=== PATIENT | male | born 1970 | race Caucasian/White ===

== ENCOUNTER 2020-02-12 03:53 | Emergency (ER) | payer MEDICARE, MEDICAID, SELFPAY ==
[2020-02-12 04:09] VITALS: BP 129/86; PULSE 105; RESP 16; TEMP 36.9; O2SAT 99; BMI 20.9
--- NOTE | 2020-02-12 04:12 | ED_ITS ---
HPI - Psych General Chief Complaint: Psychiatric Symptoms Stated Complaint: SI Time Seen by Provider: 02/12/20 04:11 Source: patient and EMS Mode of arrival: EMS Limitations: no limitations History of Present Illness HPI Narrative: Patient has history of depression chronic pain and substance abuse feels nobody is helping him due to giving him Ronald gifts feels suicidal and depressed used heroin yesterday and weed today wants to talk to therapist complaint: suicidal ideation and feels depressed Onset (ago): day(s) Duration: constant History of same: Yes Relieving factors: none Exacerbating factors: none Context: recent drug abuse Associated psychiatric symptoms: depression and suicidal ideation Associated symptoms: denies other symptoms Treatments prior to arrival: none Related Data Home Medications Medication Instructions Recorded Confirmed buspirone 1 tab PO BID 02/12/20 02/12/20 divalproex 1 tab PO BID 02/12/20 02/12/20 divalproex 1 tab PO BID 02/12/20 02/12/20 risperidone 2 mg PO BID 02/12/20 02/12/20 Allergies Allergy/AdvReac Type Severity Reaction Status Date / Time [place] Citrate Allergy Unknown Unknown Uncoded 02/12/20 04:07 Review of Systems Review of Systems: Constitutional : No Fever, No Chills ENT/Mouth : No Ear Pain, No Nasal Congestion, No sore throat Eyes: No Eye Pain, No Swelling, No Redness Cardiovascular : No Chest Pain, No SOB Respiratory : No Cough, No Sputum, No Dyspnea Gastrointestinal : No Nausea, No Vomiting, No Diarrhea, No Hematochezia, No Melena Genitourinary : No Dysuria, No Urinary Frequency, No Hematuria Musculoskeletal : No Myalgias back pain+ Skin : No Skin Lesions, No rash Neuro : No Weakness, No Numbness, No Paresthesias, No Dizziness, No Headache Psych : positive Anxiety, positive Depression, positive SI Heme/Lymph: No Lymphadenopathy Endocrine : No Polyuria, No Polydipsia PMFSH Past Medical History Medical History Neuropathy Social History Social History Advance Directives: No Advance Directives Information Provided: No Physical Exam Vital Signs: Vital Signs: Last Vital Signs Temp 98.5 F 02/12/20 04:09 Pulse 105 H 02/12/20 04:09 Resp 16 02/12/20 06:00 BP 129/86 02/12/20 04:09 Pulse Ox 99 02/12/20 04:09 Body Mass Index 20.9 Const: General: cooperative, comfortable, no acute distress and alert Nutritional Appearance: average body habitus Orientation/consciousness: patient oriented x3 Limitations: no limitations HENMT: Head: Yes normal to inspection, Yes normocephalic and Yes atraumatic Eyes: General: appearance normal, both eyes and all related structures Neck: Neck: Yes normal visual inspection Resp: Effort & Inspection: normal respiratory effort Auscultation: clear to auscultation bilaterally Cardio: Rate: regular rate Rhythm: regular rhythm Heart sounds: S1 normal heart sound present GI: Inspection: Yes normal to inspection Palpation (GI): Soft to palpation and nontender Back/Spine/Pelvis: Thoracic/Lumbar Spine: thoracic and lumbar spine normal to inspection Skin: General skin exam: no rashes or lesions noted Neuro: General: patient oriented x3, moves all extremities and Normal light touch and pain sensation Extrem: General: Yes normal to inspection and Yes full ROM Psych: Appearance: grossly normal Mental Status: mental status grossly normal Speech and movement: Normal speech and movement present Affect: normal affect Attitude: cooperative Thought process: Normal thought process present Thought content: Suicidality present Insight: Good insight present (Psych) Judgement: Good judgement present (Psych) MDM - Psych MDM Narrative Medical decision making narrative: Patient with depression and substance abuse with vague suicidal feeling get crisis to talk to him. Patient signed out to Dr. Wilkerson for disposition Restraints Face to Face Assessment: Face to Face Assessment: Current Situation: After assessment of the patient, a review of the pertinent medical record and a discussion with nursing staff, I feel the patient requires a restrain intervention. Reaction To: [] Medical Condition: [] Behavioral State: [] Continued Need: [] Discharge Plan Discharge Prescriptions: No Action divalproex 250 mg tablet,delayed release (DR/EC) 1 tab PO BID RF: 0 divalproex 500 mg tablet,delayed release (DR/EC) 1 tab PO BID RF: 0 risperidone 2 mg tablet 2 mg PO BID RF: 0 buspirone 10 mg tablet 1 tab PO BID RF: 0
--- NOTE | 2020-02-12 04:31 | PC.NURSE ---
pt transported to er by ems, pt cooperative except when changing. pt will not remove his undershirt or elastic back brace. pt told MD the reason why he wanted to kill himself was because of his back and leg pain. pt reports that he is not being helped by services, and i'm not getting anything for choco. pt reports that he is not homeless, that he has 2 places where he can stay. pt reports that he has most of his medical records at [facility], he has a history of spinal infections and neuropathy. he was taking suboxone while in the hospital he last used opiates yesterday. pt was not brought to the behavioral health pod, because he needs a walker to ambulate.
[2020-02-12] MEDS: Ibuprofen 600 MG TABLET PO (05:15)
--- NOTE | 2020-02-12 05:21 | PC.NURSE ---
pt asking for pain medication, given ibuprofen. pt already given several packages of emily crackers and hot tea. pt finished all, and immediatly asked for more. pt now yelling that he want tea. explained to patient that breakfast is at 7am, he will be given 3 meals and a snack in between.
--- NOTE | 2020-02-12 05:23 | PC.NURSE ---
urinal at bedside, pt given a large pitcher of icewater. pt summary faxed to [facility]. belongings in POD locker.
[2020-02-12 06:00] VITALS: RESP 16
--- NOTE | 2020-02-12 06:25 | PC.NURSE ---
PT WOULD NOT STOP DEMANDING MORE COFFEE OR TEA, MOVED HIMSELF TO END OF BED AND YELLING OBSCENITIES. PT GIVEN THE OPTION TO LEAVE BY MD, PT THEN DECIDED TO POSITION HIMSELF BACK IN BED AND GO TO SLEEP. PT HAS BEEN SLEEPING FOR PAST HOUR.
[2020-02-12 11:10] LABS: Amphetamine Screen Urine Not Detected (Not Detect); Benzodiazepines Screen Urine Not Detected (Not Detect); Cannabinoid Screen Urine POSITIVE (Not Detect); Cocaine Screen Urine POSITIVE (Not Detect); Opiate Screen Urine Not Detected (Not Detect); Phencyclidine Screen Urine Not Detected (Not Detect)
[2020-02-12 11:12] LABS: Barbiturates, Urine Not Detected (Not Detect)
--- NOTE | 2020-02-12 11:13 | PC.NURSE ---
Pt has been consistently rude and demanding to staff, been redirected not to yell out because he hasn't been seen yet. [facility] will be in to see patient. sitter at bedside
[2020-02-12 12:00] VITALS: RESP 16
[2020-02-12] MEDS: busPIRone HCl 10 MG TABLET PO (15:12)
[2020-02-12] MEDS: Divalproex Sodium 250 MG TABLET.DR PO (15:12)
[2020-02-12] MEDS: Divalproex Sodium 500 MG TABLET.DR PO (15:13)
--- NOTE | 2020-02-12 15:39 | MHC.CARE ---
Pt referred for CATHY reina at 10:24 AM, which ED nurse reported that a follow up call to confirm receipt occurred. At 3 PM this handbook writer contacted [facility] re: estimated arrival for a clinician to see the pt, at which point [facility] crisis staff stated that a referral was never received and that they are uncertain when a clinician would be available to meet with pt. This handbook writer told [facility] that pt would be seen by CARE team, and would require no action on their end due to pt's primary insurance being Medicare. This handbook writer met with pt in main ED room 6. Pt's mood was irritable and pt endorsed feeling disappointed that he won't have a good Bowman. Pt reported that he is part of the PACT program ([facility]) and that the program pays for pt to live at the [facility]. Pt stated that his PACT program steamfitter supervisor didn't bring groceries to pt, and because he lives too far from stores he is low on food and doesn't have cigarettes, which has further caused the pt distress. Pt ambulates with the assistance of a walker, which makes walking to stores a challenge for the pt. Pt expressed that his thoughts of suicide and his agitation when he initially presented to the ED was in response to his frustration with the program staff. Pt denied experiencing any thoughts of or desire to harm himself at this time. Pt reported that he has an appt with his psychiatrist on Sunday02/16/20 (Vero Marshall at [facility]). Pt is advocating that he return home, and is requesting a ride and to receive his medications that he missed this morning, as he has been in the ED since 4 AM and missed his VNA ([facility]), and will be unable to take his medications himself due to them being kept secured in a lock box. ED provider is in agreement with plan for pt to discharge. Medications that are able to be distributed to pt will be prior to discharge, and this handbook writer will arrange for transportation via Lyft or taxi to return home to [facility].
--- NOTE | 2020-02-12 15:41 | PC.NURSE ---
pt seem by care team, cleared to go home after medication given, care team will call for lift
[2020-02-12] MEDS: risperiDONE 2 MG TABLET PO (16:34)
== END 2020-02-12 16:46 | disposition home or self-care (01) ==
PROVIDERS: Emergency Provider Internal Medicine
DX: F32.9 Major depressive disorder, single episode, unspecified (principal); R45.851 Suicidal ideations; F11.10 Opioid abuse, uncomplicated; Z79.899 Other long term (current) drug therapy
CPT/HCPCS: 80307; 99284

== ENCOUNTER 2020-03-02 13:49 | Outpatient (REF) | payer MEDICARE, MEDICAID, SELFPAY | END 2020-03-02 13:50 | disposition home or self-care (01) | LOC: HO.LAB 13:49 | PROVIDERS: Visit Provider Internal Medicine | DX: Z20.822 Contact with and (suspected) exposure to COVID-19 (principal) | CPT/HCPCS: 36415; C9803; U0003 ==

== ENCOUNTER 2023-01-24 09:09 | Outpatient (AMB) | payer OTHER, SELFPAY ==
--- NOTE | 2023-01-24 09:39 | HO.SPINEOV ---
Intake Intake Visit Reasons: Low back pain Intake Note: Mr. Stout is here today c/o low back pain. MRI done @ [facility]/brought disc. Informatics Analyst Required: No Allergies [place] Citrate Allergy (Unknown, Uncoded 02/12/20 04:07) Unknown Assessment & Plan Assessment & Plan (1) Burst fracture of lumbar vertebra with routine healing: Code(s): S32.001D - Stable burst fracture of unspecified lumbar vertebra, subsequent encounter for fracture with routine healing Plan Dear colleague Thank you for referring Salbador Stout to the office today for surgical evaluation of a lumbar deformity. 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 The osteomyelitis was cured and due to collapse of the L2 vertebral body a lumbar deformity developed. The patient's main complaint standing in a forward position. He denies significant pain. No motor or sensory changes. No bowel urinary problems. He was seen at [facility], [facility] and [facility] for this problem. I reviewed the MRI and CT of the lumbar spine in detail with the patient. I demonstrated that he is auto fused. I described surgical procedure to restore the lumbar lordosis. I described possible complications that can occur, including vessel injury neurological injury and more back pain. I also made him aware that the fusion is solid enough to prevent it from progressing. Therefore I recommended against a surgical intervention as disadvantages outweigh the benefits. He fully understood my explanation. I Thank you for allowing me to participate in your patients care. total time spent was 30 minutes in counseling ,coordination of plan, personal review of imaging Toby Barber MD, PhD Spine Fellowship Trained Neurosurgeon Director, [facility] Coding Level of Care Code New Pt Level 3 (69343) Diagnoses Burst fracture of lumbar vertebra with routine healing S32.001D
== END 2023-01-24 10:25 | disposition home or self-care (01) ==
PROVIDERS: Visit Provider Neurological Surgery
DX: S32.001D Stable burst fracture of unspecified lumbar vertebra, subsequent encounter for fracture with routine healing (principal)
CPT/HCPCS: 99203

== ENCOUNTER → 2023-01-24 09:09 | Outpatient (BNVA) | payer OTHER, SELFPAY | PROVIDERS: Visit Provider Neurological Surgery | DX: S32.001D Stable burst fracture of unspecified lumbar vertebra, subsequent encounter for fracture with routine healing (principal) | CPT/HCPCS: 99202 ==

== ENCOUNTER 2023-09-07 15:11 | Outpatient (AMB) | payer OTHER, SELFPAY ==
--- NOTE | 2023-09-07 15:41 | HO.SPINEOV ---
Intake Visit Reasons: Discuss Surgery Intake Note: Mr. Stout is here to Discuss Surgery. Manager Building Required: No Allergies [place] Citrate Allergy (Unknown, Uncoded 02/12/20 04:07) Unknown Assessment & Plan Assessment & Plan (1) Burst fracture of lumbar vertebra with routine healing: Code(s): S32.001D - Stable burst fracture of unspecified lumbar vertebra, subsequent encounter for fracture with routine healing Category: Medical Qualifiers: Fracture type: closed Qualified Code(s): S32.001D - Stable burst fracture of unspecified lumbar vertebra, subsequent encounter for fracture with routine healing Plan On 09/07/2023, I saw Salbador Stout. He developed a deformity after a lumbar osteomyelitis for which I did not recommend surgery. He falls now and then and may lend on the deformity. He is afraid that he will develop without a fracture. Therefore he is asking for customized brace. I will make a referral to a prosthetic company and then he can visit them to see if they have options for him. I spent 15 minutes in his consult. Toby Barber MD, PhD Spine Fellowship Trained Neurosurgeon Director, [facility] [place] Coding Level of Care Code Est Pt Level 2 (77585) Diagnoses Closed burst fracture of lumbar vertebra with routine healing, subsequent encounter S32.001D Fracture type: closed
== END 2023-09-07 16:17 | disposition home or self-care (01) ==
PROVIDERS: Visit Provider Neurological Surgery
DX: S32.001D Stable burst fracture of unspecified lumbar vertebra, subsequent encounter for fracture with routine healing (principal)
CPT/HCPCS: 99212

== ENCOUNTER → 2023-09-07 15:11 | Outpatient (BNVA) | payer OTHER, SELFPAY | PROVIDERS: Visit Provider Neurological Surgery | DX: S32.001D Stable burst fracture of unspecified lumbar vertebra, subsequent encounter for fracture with routine healing (principal); X58.XXXD Exposure to other specified factors, subsequent encounter; Z91.81 History of falling | CPT/HCPCS: 99212 ==

== ENCOUNTER 2023-09-14 21:37 | Emergency (ER) | payer OTHER, SELFPAY ==
[2023-09-14 21:57] VITALS: BP 131/99; PULSE 102; RESP 18; TEMP 36.8; O2SAT 93; BMI 18.0
[2023-09-14 22:02] LABS: Glucose, Whole Blood 74 mg/dL (60-115)
--- NOTE | 2023-09-14 22:05 | PC.NURSE ---
[facility] staff Ben Hearn on patient's phone. States patient has care from [facility]. Tell# . LIkely they can provide a ride in the am. Not now.
--- NOTE | 2023-09-14 22:10 | ED_ITS ---
HPI - General Adult General Chief complaint: General Medical Stated complaint: ETOH, marijuana, possibly heroin Time Seen by Provider: 09/14/23 22:10 Source: patient Mode of arrival: ambulatory Limitations: no limitations History of Present Illness ED Provider: gema TUBBS narrative: Patient's history of depression was sleeping on the bench unable to go to his residential home so came to the hospital which is closer to hospital denies any suicidal ideation no substance abuse patient missed his medication earlier Related Data Home Medications ?Medication ?Instructions ?Recorded ?Confirmed benztropine 2 mg tablet 2 mg PO BID 02/12/20 02/12/20 buprenorphine 8 mg-naloxone 2 mg 1 film buccal DAILY 02/12/20 sublingual film buspirone 10 mg tablet 10 mg PO BID 02/12/20 02/12/20 divalproex 250 mg tablet,delayed 250 mg PO BID 02/12/20 02/12/20 release divalproex 500 mg tablet,delayed 500 mg PO BID 02/12/20 02/12/20 release risperidone 2 mg tablet 2 mg PO BID 02/12/20 02/12/20 Allergies Allergy/AdvReac Type Severity Reaction Status Date / Time [place] Citrate Allergy Unknown Unknown Uncoded 09/14/23 22:03 Review of Systems Review of Systems: Yes all other systems are reviewed and are negative [facility] Past Medical History Medical History Neuropathy Social History Social History Do you have a plan to hurt others: No Plan Physical Exam ED Vital Signs: Vital Signs - 24 hr 09/14/23 21:57 Temperature 98.3 F Pulse Rate 102 H Respiratory Rate 18 Blood Pressure 131/99 H Pulse Oximetry 93 Oxygen Delivery Method Room Air BMI result Body Mass Index 18.0 Appearance: Alert. Oriented X3. No acute distress. Eyes: PERRLA, No Nystagmus ENT: Pharynx normal. Oral Mucosa moist Neck: Normal inspection. Neck supple. CVS: Normal heart rate and rhythm. Pulses normal. Respiratory: No respiratory distress. Equal air entry bilateral, no wheezing/rales/rhonchi Abdomen: Soft and nontender. Bowel sounds are present, no mass palpable, no CVA tenderness Skin: Skin warm and dry. Normal skin color. Normal skin turgor. Extremities: No lower extremity edema. No calf tenderness Neuro: Oriented X 3. No motor deficit. No sensory deficit.No cerebellar signs , cranial nerves II-XII intact Medical Decision Making Lab Data MDM Lab Attestation statement: I reviewed the patient's lab results. Labs: Lab Results 09/14/23 Range/Units 21:58 POC Glucose 74 (60-115) mg/dL Discharge Plan Discharge Clinical Impression: Depression Patient Disposition: Home, Self-Care Instructions: Depression (ED) Additional Instructions: Take your medications as prescribed and follow with your psychiatrist/therapist Prescriptions: No Action divalproex 250 mg tablet,delayed release (DR/EC) 250 mg PO BID divalproex 500 mg tablet,delayed release (DR/EC) 500 mg PO BID risperidone 2 mg tablet 2 mg PO BID buspirone 10 mg tablet 10 mg PO BID benztropine 2 mg tablet 2 mg PO BID buprenorphine-naloxone 8-2 mg Film 1 film BUCCAL DAILY Print Language: Kosovan
--- NOTE | 2023-09-14 22:29 | PC.NURSE ---
RN to bedside to medicate the pt per APR. Pt noted to be sitting upright on the edge of the bed with head hanging down. While RN present the pt's head was noted to slowly drop lower and lower as his body was bending forward. This RN called the patient's name to prevent him from falling off the bed at which point he startled awake and denied being sleeping stating i wasn't sleeping I was just resting my back, you don't get to come over and corporate security officer me . RN clarified that there was no judgment to be passed, only wanted to ensure safety. Pt was made aware that the RN had his medication to which he refused stating you're not supposed to take that medication after 10pm anyways . When awake he is ambulating with even/steady gait, provided with food and beverage per request and has had his primary eval by . He otherwise remains calm and cooperative and appropriate with staff, continues to request to be allowed to walk home as he reports his residential program/house is down the street .
--- OUTSIDE RECORDS SUMMARY | 2023-09-14 23:02 | XMS_ITS | Continuity of Care Document ---
Author Organization [facility] ter Address [address] [place] [id number]- Care Team Providers Care Greensman Name Role Phone Mae Brennan NP Primary Care Physician Encounter [facility] Date(s): 10/22/20 - 10/22/[address] [address]- Discharge Disposition: A-D/C Walkout Attending Physician: Not on Staff, Attending MD Admitting Physician: Not on Staff, Admitting MD Referring Physician: Not on Staff, Referring MD Allergies, Adverse Reactions, Alerts Substance Reaction Severity Status lithium unknown Active Immunizations Given and Recorded Vaccine Date Status Refusal Reason tetanus/diphtheria/pertussis, acel(Tdap) 03/09/17 Given Not Given Vaccine Date Status Refusal Reason pneumococcal 23-valent vaccine 01/21/20 Not Given Patient Refuses pneumococcal 23-valent vaccine 09/28/19 Not Given Patient Refuses pneumococcal 23-valent vaccine 09/11/19 Not Given Patient Refuses influenza virus vaccine, inactivated 01/21/20 Not Given Patient Refuses Medications Back Brace See Instructions, # 1 each, Maintenance, BACK BRACE WITH VELCRO NATHAN BANDAGE MATERIAL DX chronic lowback px, unsteady gait, h/o vertebral osteomylitis ROSINA [phone], 08/26/20 9:05:00 EDT, Supply Start Date: 08/26/20 Status: Ordered benztropine 2 mg oral tablet 1 tablet = 2 mg, By Mouth, 2 times a day, Maintenance, 06/01/20 13:02:00 EDT, Tablet, Partial fill upon patient request if the prescription is for a schedule II opioid drug. Start Date: 06/01/20 Status: Ordered buprenorphine 8 mg sublingual tablet, disintegrating 1 tablet = 8 mg, Sublingual, Daily, Maintenance, 06/01/20 13:03:00 EDT, Tablet, Partial fill upon patient request if the prescription is for a schedule II opioid drug. Start Date: 06/01/20 Status: Ordered busPIRone 10 mg oral tablet 10 mg, 1, tablet, By Mouth, 2 times a day, DEIDRA MORELOS, Refills 0, Maintenance, 08/02/20 14:18:00EDT, Partial fill upon patient request if the prescription is for a schedule II opioid drug. Start Date: 08/02/20 Stop Date: 09/01/20 Status: Ordered Cane See Instructions, # 1 each, Maintenance, 4 PRONG CANE DX chronic low back px, unsteady gait, h/o vertebral osteomylitis ROSINA [phone], 08/26/20 9:05:00 EDT, Supply Start Date: 08/26/20 Status: Ordered CeleBREX 200 mg oral capsule 1 capsule = 200 mg, By Mouth, 2 times a day, PRN Pain , Moderate, contents of capsule may be mixed with soft foods such as applesauce, # 60 capsule, 0 Refills, Maintenance, 08/02/20 14:32:00 EDT, Capsule, [facility]-, Partial f... Start Date: 08/02/20 Status: Ordered divalproex sodium 250 mg oral enteric coated tablet 1 tablet = 250 mg, By Mouth, 2 times a day, take with 500mg for a total dose of 750mg, Maintenance,06/01/20 12:59:00 EDT, Partial fill upon patient request if the prescription is for a schedule II opioid drug. Start Date: 06/01/20 Status: Ordered divalproex sodium 500 mg oral enteric coated tablet 1 tablet = 500 mg, By Mouth, 2 times a day, take with 250mg for a total dose of 750mg, Maintenance,06/01/20 13:00:00 EDT, Partial fill upon patient request if the prescription is for a schedule II opioid drug. Start Date: 06/01/20 Status: Ordered gabapentin 300 mg oral capsule 300 mg, 1, capsule, By Mouth, 2 times a day, # 90 capsule, Refills 0, Tot. Refills 0, Maintenance, 08/02/20 14:30:00 EDT, Route to Pharmacy Electronically, [facility]-, Partial fill upon patient request if the prescription is f... Start Date: 08/02/20 Status: Ordered ibuprofen 600 mg oral tablet 600 mg, 1, tablet, By Mouth, Every 8 hours, PRN, not to exceed 3200 mg/day with food or milk, # 90 tablet, Refills 0, Tot. Refills 0, Maintenance, Pain , Moderate, 08/13/20 10:32:00 EDT, Route to Pharmacy Electronically, [facility]... Start Date: 08/13/20 Stop Date: 09/12/20 Status: Ordered Knee Support See Instructions, # 1 each, Maintenance, Right knee brace. Dx Knee pain Wear as tolerated, 08/02/2113:37:00 EDT, Supply Start Date: 08/02/20 Status: Ordered Left wrist brace. Dx left wrist pain Left wrist brace. Dx left wrist pain, See Instructions, # 1 each, Refills 0, Tot. Refills 0, Maintenance, Wear as tolerated, 08/02/20 14:35:00 EDT, Supply Start Date: 08/02/20 Status: Ordered risperiDONE 2 mg oral tablet 2 mg, 1, tablet, By Mouth, 2 times a day, # 60 tablet, Refills 0, Maintenance, 09/09/19 2:55:00 EDT Start Date: 09/09/19 Status: Ordered Tylenol 325 mg oral tablet 650 mg, 2, tablet, By Mouth, Every 4 hours, PRN, Refills 0, Maintenance, Pain , Moderate, 06/04/20 11:48:00 EDT, Partial fill upon patient request if the prescription is for a schedule II opioid drug. Start Date: 06/04/20 Status: Ordered Walker Walker, See Instructions, # 1 each, Refills 0, Tot. Refills 0, Maintenance, Use while ambulating toprevent falls, 01/28/20 15:38:00 EST, Supply Start Date: 01/28/20 Status: Ordered Problem List Condition Effective Dates Status Health Status Inform ant Unsteady gait(Confirmed) Active Abscess abdominal wall(Confirmed) Active Chronic back pain(Confirmed) Active Chronic hepatitis C(Confirmed) Active Cocaine abuse(Confirmed) Active Hypertension(Confirmed) Active infeced groin mesh(Confirmed) Active Inguinal hernia recurrent un ilateral/ right(Confirmed) Active IVDU (intravenous drug user)(Confirmed) Active Anxiety and depression(Confirmed) Active Chronic pain of left wrist(Confirmed) Active Polysubstance abuse(Confirmed) Active Abscess and cellulitis abdom en wall(Confirmed) Active Hernia, inguinal, recurrent, right(Confirmed) Active Schizoaffective disorder(Confirmed) Active Substance abuse(Confirmed) Active Deep foreign body right groi n. Exposed mesh right groin.(Confirmed) Active Suture granuloma(Confirmed) Active Tobacco dependence(Confirmed) Active Vital Signs Most recent to oldest [Reference Range]: 1 Oxygen Saturation [94-100 %] 94 % (10/22/20 1:54 PM) Pulse Rate [55-90 bpm] 86 bpm (10/22/20 1:54 PM) Blood Pressure [90-138/55-84 mm Hg] 101/ 77mm Hg (10/22/20 1:54 PM) Respiratory Rate [16-30 br/min] 18 br/mi n (10/22/20 1:54 PM) Temperature [96.8-100.4 DegF] 97.8 DegF (10/22/20 1:54 PM) Mode of Delivery (Oxygen) Room air (10/22/20 1:54 PM) Blood pressure sites Arm, left (10/22/20 1:54 PM) Temperature Route Oral (10/22/20 1:54 PM) Social History Social History Type Response Smoking Status Current every day vidhya cavanaugh; Other: 1 pack per since age 9 years; entered on: 03/09/17 Sex
--- OUTSIDE RECORDS SUMMARY | 2023-09-14 23:02 | XMS_ITS | Continuity of Care Document ---
Author Organization [facility] Adult Address [address] [place] [address]- Care Team Providers Care Cadd Technician Name Role Phone Mika CLAY, Mae Serrano Primary Care Physician [phone] [place] [facility] [place](s): 02/09/22 - 03/11/22 [facility] [address] [place] [address]- Allergies, Adverse Reactions, Alerts Substance Reaction Severity Status lithium unknown Active Immunizations Given and Recorded Vaccine Date Status Refusal Reason SARS-CoV-2 mRNA ([id number]) vax 03/14/21 Recorded SARS-CoV-2 (COVID-19) mRNA BNT-162b2 vac 04/30/20 Recorded SARS-CoV-2 (COVID-19) mRNA BNT-162b2 vac 04/01/20 Recorded tetanus/diphtheria/pertussis, acel(Tdap) 03/09/17 Given Not Given Vaccine Date Status Refusal Reason pneumococcal 23-valent vaccine 01/21/20 Not Given Patient Refuses pneumococcal 23-valent vaccine 09/28/19 Not Given Patient Refuses pneumococcal 23-valent vaccine 09/11/19 Not Given Patient Refuses influenza virus vaccine, inactivated 01/21/20 Not Given Patient Refuses Medications benztropine 2 mg oral tablet 1 tablet = 2 mg, By Mouth, 2 times a day, Maintenance, 06/01/20 13:02:00 EDT, Tablet, Partial fill upon patient request if the prescription is for a schedule II opioid drug. Start Date: 06/01/20 Status: Ordered Cane See Instructions, # 1 each, Maintenance, 4 Prong Cane Dx: Dx: bilateral tibial plateau fracture (S82.143A) Bilateral tibial avulsion (S82.153A) Chronic low back pain (M54.9) Unsteady Gait (R6.81) Life long (99), 05/02/21 9:46:00 EDT, VLADISLAV BARRERA. Start Date: 05/02/21 Status: Ordered divalproex sodium 250 mg oral [...] opioid drug. Start Date: 06/01/20 Status: Ordered Flonase 50 mcg/inh nasal spray 1 sprays, Nares, Both, 2 times a day, for 30 days, # 16 Gm, 0 Refills, Acute 03/31/22 13:36:00 EST,03/01/22 13:36:00 EST, [place], [facility], Partial fill upon patient request if the prescription is for a schedule II opioid . Start Date: 03/01/22 Stop Date: 03/31/22 Status: Ordered Knee Support See Instructions, # 1 each, Maintenance, Right knee brace Dx: bilateral tibial plateau fracture (S82.143A) Bilateral tibial avulsion (S82.153A), 05/02/21 9:45:00 EDT, ROSINA [phone], Supply Start Date: 05/02/21 Status: Ordered Knee Support See Instructions, # 1 each, Maintenance, Left knee brace Dx: bilateral tibial plateau fracture (S82.143A) Bilateral tibial avulsion (S82.153A), 05/02/21 9:48:00 EDT, [facility] [phone], Supply Start Date: 05/02/21 Status: Ordered Left wrist brace. Dx left wrist pain Left wrist brace. Dx left wrist pain, See Instructions, # 1 each, Refills 0, Tot. Refills 0, Maintenance, Wear as tolerated Dx: Left wrist scaphoid fracture (S62.002A) Left wrist pain (M25.532), 05/02/21 9:46:00 EDT, ROSINA [phone], Supply Start Date: 05/02/21 Status: Ordered levocetirizine 5 mg oral tablet 1 tablet = 5 mg, By Mouth, Daily in PM, # 30 tablet, 3 Refills, Maintenance, 03/01/22 13:24:00 EST,Tablet, [facility]-, Partial fill upon patient request if the prescription is for a schedule II opioid drug., 1 tablet By Mouth... Start Date: 03/01/22 Status: Ordered meloxicam 15 mg oral tablet 1 tablet = 15 mg, By Mouth, Daily, PRN Pain , Moderate, # 30 tablet, 4 Refills, Maintenance, 03/01/22 13:25:00 EST, Tablet, [facility]-, Partial fill upon patient request if the prescription is for a schedule II opioid drug., 1... Start Date: 03/01/22 Status: Ordered pantoprazole 40 mg oral delayed release tablet 1 tablet = 40 mg, By Mouth, Daily, # 30 tablet, 6 Refills, Maintenance, 02/27/22 18:10:00 EST, EC Tablet, 165, cm, 02/04/22 21:04:00 EST, Height, 76, kg, 02/04/22 21:04:00 EST, Dry Weight Start Date: 02/27/22 Status: Ordered risperiDONE 2 mg oral tablet 2 mg, 1, tablet, By Mouth, 2 times a day, # 60 tablet, Refills 0, Maintenance, 09/09/19 2:55:00 EDT Start Date: 09/09/19 Status: Ordered Walker Walker, See Instructions, # 1 each, Refills 0, Tot. Refills 0, Maintenance, Use while ambulating toprevent falls, 01/28/20 15:38:00 EST, Supply Start Date: 01/28/20 Status: Ordered Problem List Condition Confirmation Course Effective Dates Status H ealth Status Informant Unsteady gait Confirmed Active Abscess abdominal wall Confirmed Active Allergic rhinitis Confirmed Active Avulsion fracture of tibial tuberosity Confirmed Active Chronic back pain Confirmed Active Cocaine abuse Confirmed Active Lumbar nerve root impingement Confirmed Active Fracture of scaphoid of left wrist Confirmed Active Tibial plateau fracture, left Confirmed Active Tibial plateau fracture, right Confirmed Active GERD (gastroesophageal reflux disease) Confirmed Active H/O discitis Confirmed Active Hypertension Confirmed Active infeced groin mesh Confirmed Active Inguinal hernia recurrent unilateral/ right Confirmed Active IVDU (intravenous drug user) Confirmed Active Anxiety and depression Confirmed Active Chronic pain of left wrist Confirmed Active Bilateral chronic knee pain Confirmed Active Polysubstance abuse Confirmed Active Abscess and cellulitis abdomen wall Confirmed Active Hernia, inguinal, recurrent, right Confirmed Active Schizoaffective disorder Confirmed Active Lumbar foraminal stenosis Confirmed Active Substance abuse Confirmed Active Deep foreign body right groin. Exposed mesh right groin. Confirmed Active Suture granuloma Confirmed Active Tobacco dependence Confirmed Active Social History Social History Type Response Smoking Status Current every day sm oker; Type: Cigarettes entered on: 09/13/16 Sex Patient Care team information Care Team Personnel Name: Naty Malcolm RN Position: [facility] RN Member Role: Primary Care Nurse Name: Harshil Cardoso RN Position: [facility] RN Member Role: Primary Care Nurse Name: Lionel Ludwig MD Position: [facility] Renal MD Member Role: Lifetime Consulting Physician Address: Address: [address] [place] [address], [facility] [address] [facility] [place] [address]- Name: Rowan Alvarez RN Position: [facility] HBO Wound Member Role: Primary Care Nurse Name: Tala Plasencia RN Position: [facility] RN Member Role: Primary Care Nurse Name: Franklin Seth RN Position: [facility] RN Member Role: Primary Care Nurse Name: Kathy Honeycutt Position: [facility] RN Member Role: Primary Care Nurse Name: Az Pham RN Position: [facility] YARA RN W/OE and Tasks Member Role: Primary Care Nurse Name: Libertda Olmos RN Position: [facility] RN Member Role: Primary Care Nurse Name: Daily Mane RN Position: [facility] RN Member Role: Primary Care Nurse Name: Meri Barker RN Position: [facility] YARA RN W/OE and Tasks Member Role: Primary Care Nurse Name: Katelynn Milan RN Position: [facility] PCO RN Member Role: Primary Care Nurse Name: Mae Brennan NP Position: [facility] PCO Associate Professional Member Role: PCP Address: Address: [address] [place] [address] 3rd [place] [address]- [place] Name: Deborah Gusman RN Position: [facility] Associate Member Role: Primary Care Nurse Name: Chito Powers RN Position: [facility] RN Member Role: Primary Care Nurse Name: Antonio Velasquez RN Position: [facility] RN Member Role: Primary Care Nurse Name: Alexey Ramos RN Position: [facility] RN Member Role: Primary Care Nurse Name: Crow Burk MD Position: [facility] Renal MD Member Role: Lifetime Consulting Physician Address: Address: [address] [place] [address] [facility] [place] [address]- Name: Emelyn Corbin RN Position: [facility] RN Member Role: Primary Care Nurse Name: Aurea Gutierrez RN Position: [facility] RN Member Role: Primary Care Nurse Care Team Related Persons Name: CHARLES FRANKLIN Address: [address] [address]
--- OUTSIDE RECORDS SUMMARY | 2023-09-14 23:02 | XMS_ITS | Continuity of Care Document ---
Author Organization [facility] Address [address] [place] [address]- Care Team Providers Care Director Toxicology Name Role Phone Mika CLAY, Mae Serrano Primary Care Physician [place] [facility] [place]): [place] [facility] [address] [place] [address] Attending Physician: Cam Mccall MD Admitting Physician: Cam Mccall MD Referring Physician: Mae Brennan NP Allergies, Adverse Reactions, Alerts Substance Reaction Severity [...] 01/21/20 Not Given Patient Refuses Medications benztropine 1 mg oral tablet 2 mg, 2, tablet, By Mouth, 2 times a day, Refills 0, Maintenance, 09/29/19 14:53:00 EDT Start Date: 09/29/19 Status: Ordered divalproex sodium 250 mg oral enteric coated tablet 3 tablet = 750 mg, By Mouth, 2 times a day, Maintenance, 01/19/20 15:00:00 EST, EC Tablet, Partial fill upon patient request Start Date: 01/19/20 Status: Ordered gabapentin 300 mg oral capsule 300 mg, 1, capsule, By Mouth, 3 times a day, # 90 capsule, Refills 0, Tot. Refills 0, Maintenance, 02/19/20 10:39:00 EST, Route to Pharmacy Electronically, [facility], Partial fill upon patient request if the prescription is f... Start Date: 02/19/20 Status: Ordered risperiDONE 2 mg oral tablet 2 mg, 1, tablet, By Mouth, 2 times a day, # 60 tablet, Refills 0, Maintenance, 09/09/19 2:55:00 EDT Start Date: 09/09/19 Status: Ordered Suboxone 8 mg-2 mg sublingual film 1 film, Sublingual, Daily, dissolve under the tongue, Maintenance, 01/19/20 15:01:00 EST, Film, Partial fill upon patient request Start Date: 01/19/20 Status: Ordered Walker Walker, See Instructions, # 1 each, Refills 0, Tot. Refills 0, Maintenance, Use while ambulating toprevent falls, 01/28/20 15:38:00 EST, Supply Start Date: 01/28/20 Status: Ordered Problem List Condition Effective Dates Status Health Status Inform ant Abscess abdominal wall(Confirmed) Active Chronic hepatitis C(Confirmed) Active Cocaine abuse(Confirmed) [...] Active Suture granuloma(Confirmed) Active Tobacco dependence(Confirmed) Active Social History Social History Type Response Smoking Status Current every day sm oker; Other: 1 pack per since age 9 years; entered on: 03/09/17 Sex Male
--- OUTSIDE RECORDS SUMMARY | 2023-09-14 23:02 | XMS_ITS | Continuity of Care Document ---
Author Organization [facility] Adult Address [address] [place] [address]- Care Team Providers Care Biodiesel Processing Technician Name Role Phone Mika CLAY, Mae Serrano Primary Care Physician [place] [facility] [place] 03/01[place]22 - 03/31/22 [facility] [address] [place] [address]- Attending Physician: Admtr, Ar8 Admitting Physician: Admtr, Ar8 Referring Physician: Admtr, Ar8 Allergies, Adverse Reactions, Alerts Substance Reaction Severity Status lithium unknown Active Immunizations Given and Recorded Vaccine Date Status Refusal Reason SARS-CoV-2 mRNA ([id number]) vax 03/14/21 Recorded SARS-CoV-2 (COVID-19) mRNA BNT-162b2 [...] Life long (99), 05/02/21 9:46:00 EDT, VLADISLAV AND... Start Date: 05/02/21 Status: Ordered desloratadine 5 mg oral tablet 1 tablet = 5 mg, By Mouth, Daily, # 90 tablet, 0 Refills, Maintenance, 03/27/22 13:51:00 EST, Tablet, [facility]-, Partial fill upon patient request if the prescription is fora schedule II opioid drug., 165, cm, 03/01/22 12:48... Start Date: 03/27/22 Status: Ordered divalproex sodium 250 mg oral [...] opioid drug. Start Date: 06/01/20 Status: Ordered Knee Support See Instructions, # 1 each, Maintenance, Right knee brace Dx: bilateral tibial plateau fracture (S82.143A) Bilateral tibial avulsion (S82.153A), 05/02/21 9:45:00 EDT, [facility] [phone], Supply Start Date: 05/02/21 Status: Ordered Knee Support See Instructions, # 1 each, Maintenance, Left knee brace Dx: bilateral tibial plateau fracture (S82.143A) Bilateral tibial avulsion (S82.153A), 05/02/21 9:48:00 EDT, ROSINA [id number], Supply Start Date: 05/02/21 Status: Ordered Left wrist brace. Dx left wrist pain Left wrist brace. Dx left wrist pain, See Instructions, # 1 each, Refills 0, Tot. Refills 0, Maintenance, Wear as tolerated Dx: Left wrist scaphoid fracture (S62.002A) Left wrist pain (M25.532), 05/02/21 9:46:00 EDT, ROSINA [phone], Supply Start Date: 05/02/21 Status: Ordered meloxicam 15 mg oral tablet 1 tablet = 15 mg, By Mouth, Daily, PRN Pain , Moderate, # 30 tablet, 4 Refills, Maintenance, 03/01/22 13:25:00 EST, Tablet, [facility]-, Partial fill upon patient request if [...] Response Smoking Status Current every day sm afshan; Type: Cigarettes entered on: 09/13/16 Sex Hospital Consult note * Event Display: Inpatient Consult Note, Non-BH Authored Date: * Event Display: Inpatient Consult Note, Non-BH Authored Date: Note * Event Display: Non BH Lab Results Authored Date: * Event Display: Non BH Lab Results Authored Date: * Event Display: X-Ray Hand/Wrist Authored Date: Patient Care team information Care Team Personnel Name: Naty Malcolm RN Position: [facility] RN Member Role: Primary Care Nurse Name: Harshil Cardoso RN Position: [facility] RN Member Role: Primary Care Nurse Name: Meri Lima RN Position: [facility] ED RN W/OE and Tasks Member Role: Primary Care Nurse Name: Lionel Ludwig MD Position: [facility] Renal MD Member Role: Lifetime Consulting Physician Address: Address: [address] [place] [address], [address] [facility] [address] Name: Rowan Alvarez RN Position: [facility] HBO Wound Member Role: Primary Care Nurse Name: Tala Plasencia RN Position: [facility] RN Member Role: Primary Care Nurse Name: Franklin Seth RN Position: [facility] RN Member Role: Primary Care Nurse Name: Kathy Honeycutt Position: [facility] RN Member Role: Primary Care Nurse Name: Az Pham RN Position: [facility] ED RN W/OE and Tasks Member Role: Primary Care Nurse Name: Libertad Olmos RN Position: [facility] RN Member Role: Primary Care Nurse Name: Daily Mane RN Position: [facility] RN Member Role: Primary Care Nurse Name: Katelynn Milan RN Position: [facility] PCO RN Member Role: Primary Care Nurse Name: Mae Brennan NP Position: [facility] PCO Associate Professional Member Role: PCP Address: Address: [address] [place] [address] [address] [place] [address]- [place] Name: Belinda Gusman RN Position: [facility] Social Worker Delinquency Prevention Member Role: Primary Care Nurse Name: Chito Powers RN Position: [facility] RN Member Role: Primary Care Nurse Name: Antonio Velasquez RN Position: [facility] RN Member Role: Primary Care Nurse Name: Alexey Ramos RN Position: [facility] RN Member Role: Primary Care Nurse Name: Crow Burk MD Position: [facility] Renal MD Member Role: Lifetime Consulting Physician Address: Address: [address] [place] [address] [facility] [place] [address]- Name: Emelyn Corbin RN Position: [facility] RN Member Role: Primary Care Nurse Name: Aurea Gutierrez RN Position: [facility] RN Member Role: Primary Care Nurse Care Team Related Persons Name: CHARLES FRANKLIN Address: [address] [place] [address]
--- OUTSIDE RECORDS SUMMARY | 2023-09-14 23:02 | XMS_ITS | Continuity of Care Document ---
Author Organization [facility] Address [address] [place] [address]- Care Team Providers Care Gravity Manager Name Role Phone Mika CLAY, Mae Serrano Primary Care Physician Encounter [facility] [place] Date(s): 06/29/22 - 07/29/22 [facility] [address] [place] [address]- Allergies, Adverse Reactions, Alerts No Known Medication Allergies Immunizations Given and Recorded Vaccine Date Status Refusal Reason [id number] bivalent booster vax 12/16/21 Recorded SARS-CoV-2 mRNA ([id number]) vax 03/14/21 Recorded SARS-CoV-2 (COVID-19) mRNA BNT-162b2 [...] VLADISLAV AND... Start Date: 05/02/21 Status: Ordered Cogentin Tablet 2 mg, By Mouth, 2 times a day, Refills 0, Maintenance, 07/15/22 18:59:00 EDT, Partial fill upon patient request if the prescription is for a schedule II opioid drug. Start Date: 07/15/22 Status: Ordered desloratadine 5 mg oral tablet 1 tablet = 5 mg, By Mouth, Daily, # 90 tablet, 2 Refills, Maintenance, 06/19/22 14:26:00 EDT, Tablet, [facility]-, Partial fill upon patient request if the prescription is fora schedule II opioid drug., 165, cm, 03/01/22 12:48... Start Date: 06/19/22 Status: Ordered divalproex sodium 250 mg oral [...] opioid drug. Start Date: 06/01/20 Status: Ordered fluticasone 50 mcg/inh nasal spray See Instructions, USE 1 SPRAY IN EACH NOSTRIL TWICE A DAY, # 16 Gm, 5 Refills, Maintenance, 07/21/22 13:26:00 EDT, [facility]-, 30, USE 1 SPRAY IN EACH NOSTRIL TWICE A DAY, 165, cm, 07/15/22 18:51:00 EDT, Height, 76.5, kg, 07/15/22 18:51:00... Start Date: 07/21/22 Status: Ordered Knee Support See Instructions, # 1 each, Maintenance, Right knee brace Dx: bilateral tibial plateau fracture (S82.143A) Bilateral tibial avulsion (S82.153A), 05/02/21 9:45:00 EDT, [facility] [phone], Supply Start Date: 05/02/21 Status: Ordered Knee Support See Instructions, # 1 each, Maintenance, Left knee brace Dx: bilateral tibial plateau fracture (S82.143A) Bilateral tibial avulsion (S82.153A), 05/02/21 9:48:00 EDT, [facility] [phone], Supply Start Date: 05/02/21 Status: Ordered Left wrist brace. Dx left wrist pain Left wrist brace. Dx left wrist pain, See Instructions, # 1 each, Refills 0, Tot. Refills 0, Maintenance, Wear as tolerated Dx: Left wrist scaphoid fracture (S62.002A) Left wrist pain (M25.532), 05/02/21 9:46:00 EDT, ROSINA [phone], Supply Start Date: 05/02/21 Status: Ordered naproxen 500 mg (as sodium) oral tablet, extended release 2 tablet = 1,000 mg, By Mouth, Daily, PRN as needed for pain, # 20 tablet, 0 Refills, Maintenance, 07/15/22 19:00:00 EDT, ER Tablet, Partial fill upon patient request if the prescription is for a schedule II opioid drug. Start Date: 07/15/22 Status: Ordered pantoprazole 40 mg oral delayed [...] Team Personnel Name: Naty Malcolm RN Position: [facility] RN Member Role: Primary Care Nurse Name: Harshil Cardoso RN Position: [facility] RN Member Role: Primary Care Nurse Name: Meri Lima RN Position: [facility] ED RN W/OE and Tasks Member Role: Primary Care Nurse Name: Lionel Ludwig MD Position: [facility] Renal MD Member Role: Lifetime Consulting Physician Address: Address: [address] [place] [address], [address] [facility] [address] Name: Rowan Alvarez RN Position: [facility] HBO Wound Member Role: Primary Care Nurse Name: Tala Plasencia RN Position: [facility] RN Member Role: Primary Care Nurse Name: Franklin Seth RN Position: [facility] RN Member Role: Primary Care Nurse Name: Kathy Honeycutt Position: [facility] RN Member Role: Primary Care Nurse Name: Gideon Miller RN Position: [facility] SN RN Member Role: Primary Care Nurse Name: Az Pham RN Position: [facility] ED RN W/OE and Tasks Member Role: Primary Care Nurse Name: Libertad Olmos RN Position: [facility] RN Member Role: Primary Care Nurse Name: Daily Mane RN Position: [facility] RN Member Role: Primary Care Nurse Name: Katelynn Milan RN Position: [facility] AMB Nurse Member Role: Primary Care Nurse Name: Mae Brennan NP Position: [facility] PCO Associate Professional Member Role: PCP Address: Address: [address] [place] [address]- Name: Deborah Gusman RN Position: [facility] Butting Machine Operator Member Role: Primary Care Nurse Name: Chito Powers RN Position: [facility] RN Member Role: Primary Care Nurse Name: Antonio Velasquez RN Position: [facility] RN Member Role: Primary Care Nurse Name: Alexey Ramos RN Position: [facility] RN Member Role: Primary Care Nurse Name: Crow Burk MD Position: [facility] Renal MD Member Role: Lifetime Consulting Physician Address: Address: [address] [place] [address] [facility] [place] [address]- Name: Emelyn Corbin RN Position: [facility] RN Member Role: Primary Care Nurse Name: Aurea Gutierrez RN Position: [facility] RN Member Role: Primary Care Nurse Care Team Related Persons Name: CHARLES FRANKLIN Address: [address] [address]
--- OUTSIDE RECORDS SUMMARY | 2023-09-14 23:02 | XMS_ITS | Continuity of Care Document ---
Author Organization [facility] Adult Address [address] [place] [address]- Care Team Providers Care Ground Source Heat Pump Technician Name Role Phone Mika CLAY, Mae Serrano Primary Care Physician [phone] Encounter [facility] Date(s): 04/24/22 - 05/24/[address] [facility] Adult [address] [place] [address]- Allergies, Adverse Reactions, Alerts Substance Reaction Severity Status lithium unknown Active Immunizations Given and Recorded Vaccine Date Status Refusal Reason SARS-CoV-2 mRNA ([id number]) vax 03/14/21 Recorded SARS-CoV-2 (COVID-19) mRNA BNT-162b2 [...] Daily, # 90 tablet, 0 Refills, Maintenance, 04/18/22 8:05:00 EST, Tablet, [facility]-, Partial fill upon patient request if the prescription is for a schedule II opioid drug., 165, cm, 03/01/22 12:48:... Start Date: 04/18/22 Status: Ordered divalproex sodium 250 mg oral [...] tibial avulsion (S82.153A), 05/02/21 9:45:00 EDT, ROSINA [id number], Supply Start Date: 05/02/21 Status: Ordered Knee Support See Instructions, # 1 each, Maintenance, Left knee brace Dx: bilateral tibial plateau fracture (S82.143A) Bilateral tibial avulsion (S82.153A), 05/02/21 9:48:00 EDT, ROSINA [id number], Supply Start Date: 05/02/21 Status: Ordered Left wrist brace. Dx left wrist pain Left wrist brace. Dx left wrist pain, See Instructions, # 1 each, Refills 0, Tot. Refills 0, Maintenance, Wear as tolerated Dx: Left wrist scaphoid fracture (S62.002A) Left wrist pain (M25.532), 05/02/21 9:46:00 EDT, ROSINA [id number], Supply Start Date: 05/02/21 Status: Ordered naproxen 500 mg oral tablet 1 tablet = 500 mg, By Mouth, Every 12 hours, PRN Pain , Moderate, for 30 days, # 60 tablet, 0 Refills, Acute 06/16/22 17:44:00 EDT, 05/17/22 17:44:00 EDT, Tablet, [facility]-,Partial fill upon patient request if the prescripti... Start Date: 05/17/22 Stop Date: 06/16/22 Status: Ordered pantoprazole 40 mg oral delayed [...] afshan; Type: Cigarettes entered on: 09/13/16 Sex Patient Care team information Care Team Personnel Name: Naty Malcolm RN Position: [facility] RN Member Role: Primary Care Nurse Name: Harshil Cardoso RN Position: [facility] RN Member Role: Primary Care Nurse Name: Meri Lima RN Position: [facility] ED RN W/OE and Tasks Member Role: Primary Care Nurse Name: Lionel Ludwig MD Position: [facility] Renal MD Member Role: Lifetime Consulting Physician Address: Address: [address] [place] [address], [address] [facility] [place] [address]- Name: Rowan Alvarez RN Position: [facility] Wound Member Role: Primary Care Nurse Name: Tala Plasencia RN Position: [facility] RN Member Role: Primary Care Nurse Name: Franklin Seth RN Position: [facility] RN Member Role: Primary Care Nurse Name: Kathy Honeycutt Position: [facility] RN Member Role: Primary Care Nurse Name: Az Pham RN Position: [facility] ED RN W/OE and Tasks Member Role: Primary Care Nurse Name: Libertad Olmos RN Position: [facility] RN Member Role: Primary Care Nurse Name: Daily Mane RN Position: [facility] RN Member Role: Primary Care Nurse Name: Katelynn [place] RN Position: [facility] PCO RN Member Role: Primary Care Nurse Name: Mae Brennan NP Position: [facility] PCO Associate Professional Member Role: PCP Address: Address: [address] [place] [address] 3rd [place] [address]- [place] Name: Deborah Gusman RN Position: [facility] Hospital Patient Escort Member Role: Primary Care Nurse Name: Chito Powers RN Position: [facility] RN Member Role: Primary Care Nurse Name: Antonio Velasquez RN Position: [facility] RN Member Role: Primary Care Nurse Name: Alexey Ramos RN Position: [facility] RN Member Role: Primary Care Nurse Name: Crow Burk MD Position: [facility] Renal MD Member Role: Lifetime Consulting Physician Address: Address: [address] [place] [address] [facility] [place], [place] [address] Name: Emelyn Corbin RN Position: S RN Member Role: Primary Care Nurse Name: Aurea Gutierrez RN Position: S RN Member Role: Primary Care Nurse Care Team Related Persons Name: CHARLES FRANKLIN Address: home [address] [place], [place] [id number]
--- OUTSIDE RECORDS SUMMARY | 2023-09-14 23:02 | XMS_ITS | Continuity of Care Document ---
Author Organization [facility] Adult Address [address] [place] [address]- Care Team Providers Care Fishing Tool Supervisor Name Role Phone Mika CLAY, Mae Serrano Primary Care Physician Encounter [facility] Date(s): 11/26/18 - 03/26/19 [facility] Adult [address] [place] [address]- [facility] Attending Physician: Not on Staff, Attending MD Allergies, Adverse Reactions, Alerts Substance Reaction Severity Status lithium unknown Active Immunizations Given and Recorded Vaccine Date Status Refusal Reason tetanus/diphtheria/pertussis, acel(Tdap) 03/09/17 Given Medications Cogentin Tablet 2 mg, Daily, Refills 0, Maintenance, 04/12/18 10:09:37 EST Start Date: 04/12/18 Status: Ordered Depakote By Mouth, 3 times a day, 0 Refills, Maintenance, 03/13/17 11:06:37 Start Date: 03/13/17 Status: Ordered diclofenac sodium 75 mg oral delayed release tablet 1 tablet = 75 mg, By Mouth, 2 times a day, PRN Pain , Moderate, , # 28 tablet, 0 Refills, Maintenance, 11/18/18 9:55:59 EDT Start Date: 11/18/18 Stop Date: 12/02/18 Status: Ordered divalproex sodium 500 mg oral tablet, extended release 1 tablet, By Mouth, 2 times a day, 0 Refills, Maintenance, 08/18/10 15:52:25, ER Tablet Start Date: 08/18/10 Status: Ordered Divalproex Tablet 750 mg, By Mouth, 1 tab in the AM, Refills 0, Maintenance, 07/21/16 15:18:43 Start Date: 07/21/16 Status: Ordered Left Wrist Brace Left Wrist Brace, See Instructions, # 1 application, Refills 0, Tot. Refills 0, Maintenance, Dx: Chronic left Wrist Pain, Chronic scaphoid fracture, 12/20/17 10:16:22 EDT, Compound Start Date: 12/20/17 Status: Ordered levocetirizine 5 mg oral tablet 1 tablet = 5 mg, By Mouth, Daily in PM, # 14 tablet, 0 Refills, Maintenance, 11/18/18 9:57:02 EDT, Tablet, 1 tablet By Mouth Daily in PM,x14 days Start Date: 11/18/18 Stop Date: 12/02/18 Status: Ordered naltrexone 50 mg oral tablet 1 tablet = 50 mg, By Mouth, Daily, # 30 tablet, 0 Refills, Maintenance, 04/12/18 10:10:41 EST, Tablet Start Date: 04/12/18 Status: Ordered risperidone 2 mg oral tablet 1 tablet, By Mouth, 2 times a day, 0 Refills, Maintenance, Tablet Start Date: 08/18/10 Status: Ordered Problem List Condition Effective Dates Status Health Status Inform ant Abscess abdominal wall(Confirmed) Active Chronic hepatitis C(Confirmed) Active Cocaine abuse(Confirmed) Active Hypertension(Confirmed) Active infeced groin mesh(Confirmed) Active Inguinal hernia recurrent un ilateral/ right(Confirmed) Active IVDU (intravenous drug user)(Confirmed) Active Anxiety and depression(Confirmed) Active Chronic pain of left wrist(Confirmed) Active Abscess and cellulitis abdom en wall(Confirmed) [...]
--- OUTSIDE RECORDS SUMMARY | 2023-09-14 23:02 | XMS_ITS | Continuity of Care Document ---
Author Organization [facility] Adult Address [address] [place] [address]- Care Team Providers Care Agency Development Manager Name Role Phone Mika CLAY, Mae Serrano Primary Care Physician Encounter [facility] Date(s): 01/05/23 - 02/04/23 [facility] Adult [address] [place] [id number]- Allergies, Adverse Reactions, Alerts No Known Medication Allergies Immunizations Given and Recorded Vaccine Date Status Refusal Reason SARS-CoV-2(COVID-19)mRNA-LNP vac([id number]) 12/18/22 Recorded influenza virus vaccine, inactivated 11/15/22 Preet rded [id number] bivalent booster vax 12/16/21 Recorded SARS-CoV-2 mRNA (nzcslyp-[id number]) vax 03/14/21 Recorded SARS-CoV-2 (COVID-19) mRNA BNT-162b2 vac 04/30/20 Recorded SARS-CoV-2 (COVID-19) mRNA BNT-162b2 vac 04/01/20 Recorded tetanus/diphtheria/pertussis, acel(Tdap) 03/09/17 Given Medications albuterol CFC free 90 mcg/inh inhalation aerosol 2, puffs, Inhalation, 4 times a day, PRN, # 6.7 Gm, Refills 0, Tot. Refills 0, Maintenance, 02/03/23 11:33:00 EST, Inhaler, Route to Pharmacy Electronically, [facility]-[id number], [facility]-, 176, cm, 01/04/23 10:48:00 EST, Height... Start Date: 02/03/23 Stop Date: 03/05/23 Status: Ordered Anoro Ellipta 62.5 mcg-25 mcg/inh inhalation powder 1 puffs, Inhalation, Daily, # 1 each, 11 Refills, Maintenance, 02/01/23 10:55:00 EST, Pow[facility], [facility] Partial fill upon patient request if the prescription is for a schedule II opioid drug., 1 puffs Inhalation Daily,x30 da... Start Date: 02/01/23 Stop Date: 01/27/24 Status: Ordered Banophen 25 mg oral capsule 1 capsule, By Mouth, 3 times a day, PRN NEEDED FOR ALLERGY SYMTPOMS, # 90 capsule, 6 Refills, Maintenance, 01/31/23 8:41:00 EST, [id number], 176, cm, 01/04/23 10:48:00 EST, Height, 70,kg, 12/21/22 12:46:00 EDT, Dry Weight Start Date: 01/31/23 Status: Ordered Cane See Instructions, # 1 [...] opioid drug. Start Date: 07/15/22 Status: Ordered divalproex sodium 500 mg oral enteric coated tablet 1 tablet = 500 mg, By Mouth, 2 times a day, take with 250mg for a total dose of 750mg, Maintenance,06/01/20 13:00:00 EDT, Partial fill upon patient request if the prescription is for a schedule II opioid drug. Start Date: 06/01/20 Status: Ordered Flovent Diskus 50 mcg/inh inhalation powder 1 each = 50 mcg, Inhalation, 2 times a day, rinse mouth and throat after use, # 60 each, 0 Refills,Maintenance, 01/04/23 11:30:00 EST, Powder, Partial fill upon patient request if the prescription is for a schedule II opioid drug. Start Date: 01/04/23 Status: Ordered fluticasone 50 mcg/inh nasal spray 1 sprays, Nares, Both, 2 times a day, in each nostril, # 16 Gm, 3 Refills, Maintenance, 01/04/23 11:38:00 EST, [place], Partial fill upon patient request if the prescription is for a schedule II opioiddrug., 1 sprays Nares, Both 2 times a day,x30 days,... Start Date: 01/04/23 Stop Date: 05/04/23 Status: Ordered glucosamine 750 mg oral tablet 2 tablet = 1,500 mg, By Mouth, Daily, # 180 tablet, 2 Refills, Maintenance, 01/04/23 11:36:00 EST, Tablet, Partial fill upon patient request if the prescription is for a schedule II opioid drug., 176, cm, 01/04/23 10:48:00 EST, Height, 70, kg, ... Start Date: 01/04/23 Stop Date: 10/01/23 Status: Ordered Knee Support See Instructions, # 1 each, Maintenance, Right knee brace Dx: bilateral tibial plateau fracture (S82.143A) Bilateral tibial avulsion (S82.153A), 05/02/21 9:45:00 EDTROSINA [id number], Supply Start Date: 05/02/21 Status: Ordered Knee Support See Instructions, # 1 each, Maintenance, Left knee brace Dx: bilateral tibial plateau fracture (S82.143A) Bilateral tibial avulsion (S82.153A), 05/02/21 9:48:00 EDT, ROSINA [id number], Supply Start Date: 05/02/21 Status: Ordered Left wrist brace. Dx left wrist pain Left wrist brace. Dx left wrist pain, See Instructions, # 1 each, Refills 0, Tot. Refills 0, Maintenance, Wear as tolerated Dx: Left wrist scaphoid fracture (S62.002A) Left wrist pain (M25.532), 05/02/21 9:46:00 EDROSINA [place] [phone], Supply Start Date: 05/02/21 Status: Ordered levocetirizine 5 mg oral tablet 1 tablet = 5 mg, By Mouth, Daily in PM, # 90 tablet, 0 Refills, Maintenance, 01/04/23 11:32:00 EST,Tablet, Partial fill upon patient request if the prescription is for a schedule II opioid drug. Start Date: 01/04/23 Status: Ordered pantoprazole 40 mg oral delayed release tablet 1 tablet = 40 mg, By Mouth, Daily in AM, # 90 tablet, 1 Refills, Maintenance, 01/04/23 11:31:00 EST, EC Tablet Start Date: 01/04/23 Status: Ordered risperiDONE 1 mg oral tablet 1 mg, 1, tablet, By Mouth, Daily, # 30 tablet, Refills 0, Maintenance, 01/04/23 10:59:00 EST, Partial fill upon patient request if the prescription is for a schedule II opioid drug. Start Date: 01/04/23 Status: Ordered risperiDONE 2 mg oral tablet [...] Active Hernia, inguinal, recurrent, right Confirmed Active Right inguinal hernia Confirmed Active Schizoaffective disorder Confirmed Active Lumbar [...] Team Personnel Name: Naty Malcolm RN Position: [facility] RN Member Role: Primary Care Nurse Name: Harshil Cardoso RN Position: [facility] RN Member Role: Primary Care Nurse Name: Meri Lima RN Position: [facility] ED RN W/OE and Tasks Member Role: Primary Care Nurse Name: Lionel Ludwig MD Position: [facility] Renal MD Member Role: Lifetime Consulting Physician Address: Address: [address] [place] [address] [address] [facility] [place] [address]- [place] Name: Rowan Alvarez RN Position: [facility] HBO Wound Member Role: Primary Care Nurse Name: Tala Plasencia RN Position: [facility] RN Member Role: Primary Care Nurse Name: Franklin Seth RN Position: [facility] RN Member Role: Primary Care Nurse Name: Kathy Honeycutt Position: [facility] RN Member Role: Primary Care Nurse Name: Gideon Miller RN Position: [facility] SN RN Member Role: Primary Care Nurse Name: Az Pham RN Position: [facility] ED RN W/OE and Tasks Member Role: Primary Care Nurse Name: Libertad Olmos RN Position: [facility] RN Member Role: Primary Care Nurse Name: Daily Mane RN Position: [facility] RN Member Role: Primary Care Nurse Name: Katelynn [place] RN Position: [facility] AMB Nurse Member Role: Primary Care Nurse Name: Mae Brennan NP Position: [facility] PCO Associate Professional Member Role: PCP Address: Address: [address] [place] [id number]- [place] Name: Belinda Gusman RN Position: [facility] Hospital Club Concierge Member Role: Primary Care Nurse Name: Chito Powers RN Position: [facility] RN Member Role: Primary Care Nurse Name: Antonio Velasquez RN Position: [facility] RN Member Role: Primary Care Nurse Name: Alexey Ramos RN Position: [facility] RN Member Role: Primary Care Nurse Name: Crow Burk MD Position: [facility] Renal MD Member Role: Lifetime Consulting Physician Address: Address: [address] [place] [address] [facility] [place] [address]- [place] Name: Emelyn Corbin RN Position: [facility] RN Member Role: Primary Care Nurse Name: Aurea Gutierrez RN Position: [facility] RN Member Role: Primary Care Nurse Care Team Related Persons Name: CHARLES FRANKLIN Address: [place] [id number]
--- OUTSIDE RECORDS SUMMARY | 2023-09-14 23:02 | XMS_ITS | Continuity of Care Document ---
Author Organization [facility] Adult Address [address] [place] [address]- Care Team Providers Care Card Boxer Name Role Phone Mae Brennan NP Primary Care Physician Encounter [facility] Date(s): 02/19/20 - 03/20/20 [facility] [address] [place] [address]- Attending Physician: Liliana Wood Admitting Physician: Liliana Wood Referring Physician: AdmtrLiliana Allergies, Adverse Reactions, Alerts Substance Reaction Severity [...] 02/19/20 10:39:00 EST, Route to Pharmacy Electronically, [facility], Partial fill upon patient request if the [...] Type Response Smoking Status Current every day ivdhya cavanaugh; Other: 1 pack per since age 9 years; entered on: 03/09/17 Sex Male
--- OUTSIDE RECORDS SUMMARY | 2023-09-14 23:02 | XMS_ITS | Continuity of Care Document ---
Author Organization [facility] As on license of [facility] Address [address] [place] [address] [address] [place] [address]- Care Team Providers Care Bakelite Molder Name Role Phone Mika CLAY, Mae Serrano Primary Care Physician [place] [facility](s): 02/27/23 - 03/06/[address] [place] [address]- Attending Physician: Oziel Hills MD Allergies, Adverse Reactions, Alerts Substance Reaction Severity Status lithium bladder/ metabolism Active Immunizations Given and Recorded Vaccine Date Status Refusal Reason SARS-CoV-2(COVID-19)mRNA-LNP vac([id number]) 12/18/22 Recorded influenza virus vaccine, inactivated 11/15/22 Preet rded [id number] bivalent booster vax 12/16/21 Recorded SARS-CoV-2 mRNA ([id number]) vax 03/14/21 Recorded SARS-CoV-2 (COVID-19) mRNA BNT-162b2 vac 04/30/20 Recorded SARS-CoV-2 (COVID-19) mRNA BNT-162b2 vac 04/01/20 Recorded tetanus/diphtheria/pertussis, acel(Tdap) 03/09/17 Given Medications Albuterol (Eqv-Proventil HFA) 90 mcg/inh inhalation aerosol 2 puffs, Inhalation, 4 times a day, PRN NEEDED FOR WHEEZING, # 6.7 Gm, 0 Refills, Maintenance, 02/26/23 10:07:00 EST, [id number], 176, cm, 02/16/23 13:04:00 EST, Height, 70, kg, 12/21/22 12:46:00 EDT, Dry Weight Start Date: 02/26/23 Stop Date: 03/28/23 Status: Ordered Anoro Ellipta 62.5 mcg-25 mcg/inh inhalation powder 1 puffs, Inhalation, Daily, # 1 each, 11 Refills, Maintenance, 02/01/23 10:55:00 EST, Powder, [facility]-, Partial fill upon patient request if the prescription is for a schedule II opioid drug., 1 puffs Inhalation Daily,x30 da... Start Date: 02/01/23 Stop Date: 01/27/24 Status: Ordered Banophen 25 mg oral capsule 1 capsule, By Mouth, 3 times a day, PRN NEEDED FOR ALLERGY SYMTPOMS, # 90 capsule, 6 Refills, Maintenance, 02/23/23 17:34:00 EST, [facility]/pharmacy #[id number], 176, cm, 02/16/23 13:04:00 EST, Height, 70, kg, 12/21/22 12:46:00 EDT, Dry Weight Start Date: 02/23/23 Status: Ordered Cane See Instructions, # 1 [...] Gm, 3 Refills, Maintenance, 01/04/23 11:38:00 EST, [place], Partial fill upon patient request if the prescription is for a schedule II opioiddrug., 1 sprays Nares, Both 2 times a day,x30 days,... Start Date: 01/04/23 Stop Date: 05/04/23 Status: Ordered glucosamine 750 mg oral tablet 2 tablet = 1,500 mg, By Mouth, Daily, # 180 tablet, 3 Refills, Maintenance, 02/16/23 13:57:00 EST, Tablet, Partial fill upon patient request if the prescription is for a schedule II opioid drug. Start Date: 02/16/23 Stop Date: 02/11/24 Status: Ordered Knee Support See Instructions, # 1 each, Maintenance, Right knee brace Dx: bilateral tibial plateau fracture (S82.143A) Bilateral tibial avulsion (S82.153A), 05/02/21 9:45:00 EDT, [facility]INA [id number], Supply Start Date: 05/02/21 Status: Ordered Knee Support See Instructions, # 1 each, Maintenance, Left knee brace Dx: bilateral tibial plateau fracture (S82.143A) Bilateral tibial avulsion (S82.153A), 05/02/21 9:48:00 EDT, ROSINA [id number], Supply Start Date: 05/02/21 Status: Ordered Left wrist brace. Dx left wrist pain Left wrist brace. Dx left wrist pain, See Instructions, # 1 each, Refills 0, Tot. Refills 0, Maintenance, Wear as tolerated Dx: Left wrist scaphoid fracture (S62.002A) Left wrist pain (M25.532), 05/02/21 9:46:00 EDT, ROSINA [id number], Supply Start Date: 05/02/21 Status: Ordered naproxen 500 mg oral tablet 1 tablet = 500 mg, By Mouth, 2 times a day, PRN Pain , Moderate, for 30 days, with food, # 60 tablet, 0 Refills, Acute 03/18/23 14:05:00 EST, 02/16/23 14:05:00 EST, Tablet, [id number], Partial fill upon patient request if the... Start Date: 02/16/23 Stop Date: 03/18/23 Status: Ordered pantoprazole 40 mg oral delayed [...] Avulsion fracture of tibial tuberosity Confirmed Active Bipolar disorder Confirmed Active Chronic back pain Confirmed Active [...] pain Confirmed Active Polysubstance abuse Confirmed Active COPD with emphysema Confirmed Active Abscess and cellulitis abdomen wall Confirmed Active Hernia, inguinal, recurrent, right Confirmed Active Right inguinal hernia Confirmed Active Schizoaffective disorder Confirmed Active Lumbar foraminal stenosis Confirmed Active Substance abuse Confirmed Active Deep foreign body right groin. Exposed mesh right groin. Confirmed Active Suture granuloma Confirmed Active Tobacco dependence Confirmed Active Vital Signs Most recent to oldest [Reference Range]: 1 Height 176 cm (02/27/23 11:54 AM) Weight 75.8 kg (02/27/23 11:54 AM) Pulse Rate [55-90 bpm] 74 bpm (02/27/23 11:54 AM) Body Mass Index [18.5-24.99 kg/m2] 24.47 kg/m2 (02/27/23 11:54 AM) Blood Pressure [90-138/55-84 mm Hg] 116/ 74mm Hg (02/27/23 11:54 AM) Respiratory Rate [16-30 br/min] 16 br/mi n (02/27/23 11:54 AM) Temperature [96.8-100.4 DegF] 97.5 DegF (02/27/23 11:54 AM) Blood pressure sites Arm, left (02/27/23 11:54 AM) Temperature Route Temporal (02/27/23 11:54 AM) Weight Obtained Via Standing scale (02/27/23 11:54 AM) Social History Social History Type Response Smoking Status 5-9 cigarettes (betw een 1/4 to 1/2 pack)/day in last 30 days entered on: 02/27/23 Sex Patient Care team information Care Team Personnel Name: Naty Malcolm RN Position: [facility] RN Member Role: Primary Care Nurse Name: Harshil Cardoso RN Position: [facility] RN Member Role: Primary Care Nurse Name: Meri Lima RN Position: [facility] ED RN W/OE and Tasks Member Role: Primary Care Nurse Name: Lionel Ludwig MD Position: [facility] Renal MD Member Role: Lifetime Consulting Physician Address: Address: [address] [place] [address] [address] [facility] [place] [address]- Name: Rowan Alvarez RN Position: [facility] HBO Wound Member Role: Primary Care Nurse Name: Tala Plasencia RN Position: [facility] RN Member Role: Primary Care Nurse Name: Franklin Seth RN Position: [facility] RN Member Role: Primary Care Nurse Name: Kathy Honeycutt Position: [facility] RN Member Role: Primary Care Nurse Name: Gideon Miller RN Position: [facility] SN RN Member Role: Primary Care Nurse Name: Az Pham RN Position: [facility] ED RN W/OE and Tasks Member Role: Primary Care Nurse Name: Libertad Olmos RN Position: [facility] RN Member Role: Primary Care Nurse Name: Daily Mane RN Position: [facility] RN Member Role: Primary Care Nurse Name: Katelynn [place] RN Position: [facility] AMB Nurse Member Role: Primary Care Nurse Name: Mae Brennan NP Position: [facility] PCO Associate Professional Member Role: PCP Address: Address: [address] [place] [address]- Name: Belinda Gusman RN Position: [facility] Parimutuel Ticket Seller Member Role: Primary Care Nurse Name: Chito Powers RN Position: [facility] RN Member Role: Primary Care Nurse Name: Antonio Velasquez RN Position: [facility] RN Member Role: Primary Care Nurse Name: Alexey Ramos RN Position: [facility] RN Member Role: Primary Care Nurse Name: Crow Burk MD Position: [facility] Renal MD Member Role: Lifetime Consulting Physician Address: Address: [address] [place] [address] [facility] [place] [address]- Name: Emelyn Corbin RN Position: [facility] RN Member Role: Primary Care Nurse Name: Aurea Gutierrez RN Position: [facility] RN Member Role: Primary Care Nurse Care Team Related Persons Name: CHARLES FRANKLIN Address: home [address] [place] [address]
--- OUTSIDE RECORDS SUMMARY | 2023-09-14 23:03 | XMS_ITS | Continuity of Care Document ---
Author Organization [facility] Adult Address [address] [place] [address]- Care Team Providers Care Director Of Maintenance Name Role Phone Mika CLAY, Mae Serrano Primary Care Physician [phone] Encounter [facility] [place] Date(s): 02/22/23 - 03/24/23 [facility] Adult [address] [place] [address]- Allergies, Adverse Reactions, Alerts Substance Reaction Severity Status lithium bladder/ metabolism Active Immunizations Given and Recorded Vaccine Date Status Refusal Reason SARS-CoV-2(COVID-19)mRNA-LNP vac([id number]) 12/18/22 Recorded influenza virus vaccine, inactivated 11/15/22 Preet rded [id number] bivalent booster vax 12/16/21 Recorded SARS-CoV-2 mRNA ([id number]) vax 03/14/21 Recorded SARS-CoV-2 (COVID-19) mRNA BNT-162b2 vac 04/30/20 Recorded SARS-CoV-2 (COVID-19) mRNA BNT-162b2 vac 04/01/20 Recorded tetanus/diphtheria/pertussis, acel(Tdap) 03/09/17 Given Medications Albuterol (Eqv-Proventil HFA) 90 mcg/inh inhalation aerosol 2 puffs, Inhalation, 4 times a day, PRN NEEDED FOR WHEEZING, # 6.7 Gm, 0 Refills, Maintenance, 02/26/23 10:07:00 EST, [id number], 176, cm, 02/16/23 13:04:00 EST, Height, 70, kg, 12/21/22 12:46:00 EDT, Dry Weight Start Date: 02/26/23 Stop Date: 03/28/23 Status: Ordered Anoro Ellipta 62.5 mcg-25 mcg/inh inhalation powder 1 puffs, Inhalation, Daily, # 1 each, 11 Refills, Maintenance, 02/01/23 10:55:00 EST, Powder, [facility]-, Partial fill upon patient request if the prescription is for a schedule II opioid drug., 1 puffs Inhalation Daily,x30 da... Start Date: 02/01/23 Stop Date: 01/27/24 Status: Ordered Banophen 25 mg oral capsule 1 capsule, By Mouth, 3 times a day, PRN NEEDED FOR ALLERGY SYMTPOMS, # 90 capsule, 6 Refills, Maintenance, 02/23/23 17:34:00 EST, [facility]/pharmacy #[id number], 176, cm, 02/16/23 13:04:00 EST, Height, [...] Gm, 3 Refills, Maintenance, 01/04/23 11:38:00 EST, [place], Partial fill upon patient request if the [...] tibial avulsion (S82.153A), 05/02/21 9:45:00 EDT, [facility] [id number], Supply Start Date: 05/02/21 Status: Ordered Knee Support See Instructions, # 1 each, Maintenance, Left knee brace Dx: bilateral tibial plateau fracture (S82.143A) Bilateral tibial avulsion (S82.153A), 05/02/21 9:48:00 EDT, [facility] [id number], Supply Start Date: 05/02/21 Status: Ordered Left wrist brace. Dx left wrist pain Left wrist brace. Dx left wrist pain, See Instructions, # 1 each, Refills 0, Tot. Refills 0, Maintenance, Wear as tolerated Dx: Left wrist scaphoid fracture (S62.002A) Left wrist pain (M25.532), 05/02/21 9:46:00 EDT, [facility] [phone], Supply Start Date: 05/02/21 Status: Ordered naproxen 500 mg oral tablet 1 tablet, By Mouth, 2 times a day, PRN NEEDED FOR MODERATE PAIN WITH FOOD, # 60 tablet, 0 Refills, Maintenance, 03/15/23 11:20:00 EST, [facility] [id number], 176, cm, 02/27/23 11:54:00 EST, Height, 70, kg, 12/21/22 12:46:00 EDT, Dry Weight Start Date: 03/15/23 Status: Ordered pantoprazole 40 mg oral delayed [...] Team Personnel Name: Naty Malcolm RN Position: [facility] RN Member Role: Primary Care Nurse Name: Harshil Cardoso RN Position: [facility] RN Member Role: Primary Care Nurse Name: Meri Lima RN Position: [facility] ED RN W/OE and Tasks Member Role: Primary Care Nurse Name: Lionel Ludwig MD Position: [facility] Renal MD Member Role: Lifetime Consulting Physician Address: Address: [address] [place] [address] [address] [facility] [address]- [place] Name: Rowan Alvarez RN Position: [facility] HBO Wound Member Role: Primary Care Nurse Name: Tala Plasencia RN Position: [facility] RN Member Role: Primary Care Nurse Name: Franklin Seth RN Position: [facility] RN Member Role: Primary Care Nurse Name: Kathy Honeycutt Position: [facility] RN Member Role: Primary Care Nurse Name: Gideon Miller RN Position: [facility] SN RN Member Role: Primary Care Nurse Name: Az Pham RN Position: [facility] ED RN W/OE and Tasks Member Role: Primary Care Nurse Name: Libertad Olmos RN Position: [facility] RN Member Role: Primary Care Nurse Name: Daily Mane RN Position: [facility] RN Member Role: Primary Care Nurse Name: Katelynn Milan RN Position: [facility] AMB Nurse Member Role: Primary Care Nurse Name: Mae Brennan NP Position: [facility] PCO Associate Professional Member Role: PCP Address: Address: [address] [place] [address]- [place] Name: Belinda Gusman RN Position: [facility] Mussel Opener Member Role: Primary Care Nurse Name: Chito Powers RN Position: [facility] RN Member Role: Primary Care Nurse Name: Antonio Velasquez RN Position: [facility] RN Member Role: Primary Care Nurse Name: Alexey Ramos RN Position: [facility] RN Member Role: Primary Care Nurse Name: Crow Burk MD Position: [facility] Renal MD Member Role: Lifetime Consulting Physician Address: Address: [address] [facility] [place] [address]- [place] Name: Emelyn Corbin RN Position: [facility] RN Member Role: Primary Care Nurse Name: Aurea Gutierrez RN Position: [facility] RN Member Role: Primary Care Nurse Care Team Related Persons Name: CHARLES FRANKLIN Address: home [address] [place] [address]
--- OUTSIDE RECORDS SUMMARY | 2023-09-14 23:03 | XMS_ITS | Continuity of Care Document ---
Author Organization [facility] Address [address] [place] [address]- Care Team Providers Care Farm Demonstrator Name Role Phone Mae Brennan NP Primary Care Physician [phone] En[place] [facility] [place] Date(s): 12/20/20 - 01/19/21 [facility] [address] [place] [id number] Attending Physician: Liliana Wood Admitting Physician: Liliana [...] px, unsteady gait, h/o vertebral osteomylitis [facility] [id number], 08/26/20 9:05:00 EDT, Supply Start Date: 08/26/20 [...] px, unsteady gait, h/o vertebral osteomylitis [facility] [id number], 08/26/20 9:05:00 EDT, Supply Start Date: 08/26/20 Status: Ordered celecoxib 200 mg oral capsule 1 capsule, By Mouth, 2 times a day, PRN NEEDED FOR MODERATE PAIN *THE CONTENTS OF, MAY BE MIXED WITH., # 59 capsule, 0 Refills, [place] [id number], 180, cm, 08/02/20 14:06:00 EDT, Height, 58.5, kg, 01/20/20 15:29:00 EST, Dry Weight Start Date: 12/01/20 Status: Ordered divalproex sodium 250 mg oral [...] 08/02/20 14:30:00 EDT, Route to Pharmacy Electronically, [facility], Partial fill upon patient request if the prescription is f... Start Date: 08/02/20 Status: Ordered ibuprofen 600 mg oral tablet 600 mg, 1, tablet, By Mouth, Every 8 hours, PRN, not to exceed 3200 mg/day with food or milk, # 90 tablet, Refills 0, Tot. Refills 0, Maintenance, Pain , Moderate, 11/17/20 9:39:00 EDT, Route to Pharmacy Electronically, [facility]-... Start Date: 11/17/20 Stop Date: 12/17/20 Status: Ordered Knee Support See Instructions, # [...]
--- OUTSIDE RECORDS SUMMARY | 2023-09-14 23:03 | XMS_ITS | Continuity of Care Document ---
Author Organization [facility] Address [address] [place], [place] [address]lisa guzman, [address] [place] [address]- Care Team Providers Care Drop Worker Name Role Phone Mae Brennan NP Primary Care Physician [phone] Encounter [facility] [place] Date(s): 07/29/20 - 09/03/20 [facility] [address] [place] [address] Drive, [address] [place], [place] [address] Attending Physician: Not on Staff, Attending MD [...] px, unsteady gait, h/o vertebral osteomylitis [facility] [id number], 08/26/20 9:05:00 EDT, Supply Start Date: 08/26/20 [...] px, unsteady gait, h/o vertebral osteomylitis [facility] [id number], 08/26/20 9:05:00 EDT, Supply Start Date: 08/26/20 Status: Ordered CeleBREX 200 mg oral capsule 1 capsule = 200 mg, By Mouth, 2 times a day, PRN Pain , Moderate, contents of capsule may be mixed with soft foods such as applesauce, # 60 capsule, 0 Refills, Maintenance, 08/02/20 14:32:00 EDT, Capsule, [facility]-, Partial f... Start Date: 08/02/20 Status: Ordered [...] 08/02/20 14:30:00 EDT, Route to Pharmacy Electronically, [facility], Partial fill upon patient request if the prescription is f... Start Date: 08/02/20 Status: Ordered ibuprofen 600 mg oral tablet 600 mg, 1, tablet, By Mouth, Every 8 hours, PRN, not to exceed 3200 mg/day with food or milk, # 90 tablet, Refills 0, Tot. Refills 0, Maintenance, Pain , Moderate, 08/13/20 10:32:00 EDT, Route to Pharmacy Electronically, [facility]... Start Date: 08/13/20 Stop Date: 09/12/20 Status: [...]
--- OUTSIDE RECORDS SUMMARY | 2023-09-14 23:03 | XMS_ITS | Continuity of Care Document ---
Author Organization [facility] Adult Address [address] [place] [address]- Care Team Providers Care Concrete Products Machine Operator Name Role Phone Mika CLAY, Mae Serrano Primary Care Physician [phone] [place] [facility] [place] 10[place]12/19 [facility] [address] [place] [address]- [facility] Attending Physician: Bridget Giron MD Allergies, Adverse Reactions, Alerts Substance Reaction Severity Status lithium unknown Active Immunizations Given and Recorded Vaccine Date Status Refusal Reason tetanus/diphtheria/pertussis, acel(Tdap) 03/09/17 Given Not Given Vaccine Date Status Refusal Reason pneumococcal 23-valent vaccine 09/28/19 Not Given Patient Refuses pneumococcal 23-valent vaccine 09/11/19 Not Given Patient Refuses Medications benztropine 1 mg oral tablet 2 mg, 2, tablet, By Mouth, 2 times a day, Refills 0, Maintenance, 09/29/19 14:53:00 EDT Start Date: 09/29/19 Status: Ordered busPIRone 10 mg oral tablet 10 mg, 1, tablet, By Mouth, 2 times a day, Refills 0, Maintenance, 10/08/19 8:33:00 EDT Start Date: 10/08/19 Status: Ordered divalproex sodium 250 mg oral enteric coated tablet = 750 mg, By Mouth, 2 times a day, 0 Refills, Maintenance, 10/08/19 9:12:00 EDT, Tablet Start Date: 10/08/19 Status: Ordered Enoxaparin 0.4 mL = 40 mg, Subcutaneous Injection, Daily, 0 Refills, Maintenance, 10/08/19 8:33:00 EDT, Injection Start Date: 10/08/19 Status: Ordered folic acid 1 mg oral tablet 1 mg, 1, tablet, By Mouth, Daily, Refills 0, Maintenance, 09/29/19 14:54:00 EDT Start Date: 09/29/19 Status: Ordered Multivit Therapeutic/Minerals Tablet 1 tablet, By Mouth, Daily, 0 Refills, Maintenance, 09/29/19 14:54:00 EDT, Tablet Start Date: 09/29/19 Status: Ordered Nicotine = 14 mg, Topically, Daily, 0 Refills, Maintenance, 09/29/19 14:54:00 EDT, Patch Start Date: 09/29/19 Status: Ordered Nystatin Powder 1 applicator, Topically, 2 times a day, 0 Refills, Maintenance, Powder Start Date: 10/08/19 Status: Ordered oxacillin 2 gm/50 ml intravenous solution = 2,000 mg, IV Infusion, Every 4 hours, for 30 days, # 100 each, 0 Refills, Acute 10/29/19 15:18:00EDT, 09/29/19 15:18:00 EDT Start Date: 09/29/19 Stop Date: 10/29/19 Status: Ordered risperiDONE 2 mg oral tablet 2 mg, 1, tablet, By Mouth, 2 times a day, # 60 tablet, Refills 0, Maintenance, 09/09/19 2:55:00 EDT Start Date: 09/09/19 Status: Ordered thiamine 100 mg oral tablet 100 mg, 1, tablet, By Mouth, Daily, Refills 0, Maintenance, 09/29/19 14:54:00 EDT Start Date: 09/29/19 Status: Ordered Tylenol 325 mg oral tablet 650 mg, 2, tablet, By Mouth, Every 6 hours, PRN, Refills 0, Maintenance, Pain , Mild Temperature,09/29/19 14:55:00 EDT Start Date: 09/29/19 Status: Ordered Urea Powder = 15 Gm, By Mouth, Daily, 0 Refills, Maintenance, 09/29/19 14:54:00 EDT, Powder Start Date: 09/29/19 Status: Ordered Problem List Condition Effective Dates [...]
--- OUTSIDE RECORDS SUMMARY | 2023-09-14 23:03 | XMS_ITS | Continuity of Care Document ---
Author Organization [facility] Address [address] [place] [address]- Care Team Providers Care Banana Room Cutter Name Role Phone Mika CLAY, Mae Serrano Primary Care Physician [phone] Encounter [facility] Date(s): 02/04/22 - 02/04/[address] [address]- Discharge Disposition: A-D/C Home Attending Physician: Nick Kc DO Admitting Physician: Nick Kc DO Referring Physician: Not on Staff, Referring MD Allergies, Adverse Reactions, Alerts Substance Reaction Severity Status lithium unknown Active Immunizations Given and Recorded Vaccine Date Status Refusal Reason SARS-CoV-2 mRNA ([id number]-odrm-vwywf) vax 03/14/21 Recorded SARS-CoV-2 (COVID-19) mRNA BNT-162b2 [...] Life long (99), 05/02/21 9:46:00 EDT, VLADISLAV HOFF.. Start Date: 05/02/21 Status: Ordered celecoxib 100 mg oral capsule 1 capsule = 100 mg, By Mouth, 2 times a day, PRN Pain , Moderate, contents of capsule may be mixed with soft foods such as applesauce, # 180 capsule, 1 Refills, Maintenance, 10/27/21 9:31:00 EDT, Capsule, [facility]-, Partial f... Start Date: 10/27/21 Status: Ordered divalproex sodium 250 mg oral [...] tibial avulsion (S82.153A), 05/02/21 9:45:00 EDT, ROSINA [phone], Supply Start Date: 05/02/21 Status: Ordered Knee Support See Instructions, # 1 each, Maintenance, Left knee brace Dx: bilateral tibial plateau fracture (S82.143A) Bilateral tibial avulsion (S82.153A), 05/02/21 9:48:00 EDT, ROSINA [id number], Supply Start Date: 05/02/21 Status: Ordered Left wrist brace. Dx left wrist pain Left wrist brace. Dx left wrist pain, See Instructions, # 1 each, Refills 0, Tot. Refills 0, Maintenance, Wear as tolerated Dx: Left wrist scaphoid fracture (S62.002A) Left wrist pain (M25.532), 05/02/21 9:46:00 EDT, ROSINA [id number], Supply Start Date: 05/02/21 Status: Ordered loratadine 10 mg oral tablet 1, tablet, By Mouth, Daily, # 30 tablet, Refills 0, Maintenance, 01/31/22 15:16:00 EST, Route to Pharmacy Electronically, [id number], 165, cm, 11/22/21 0:58:00 EDT, Height, 68.5, kg, 11/22/21 0:58:00 EDT, Dry Weight Start Date: 01/31/22 Status: Ordered pantoprazole 40 mg oral delayed release tablet 1 tablet = 40 mg, By Mouth, Daily, # 30 tablet, 6 Refills, Maintenance, 10/06/21 9:42:00 EDT, EC Tablet, 180, cm, 05/06/21 11:46:00 EDT, Height, 58.5, kg, 01/20/20 15:29:00 EST, Dry Weight Start Date: 10/06/21 Status: Ordered risperiDONE 2 mg oral tablet [...] Confirmed Active Abscess abdominal wall Confirmed Active Avulsion fracture of tibial tuberosity Confirmed Active Chronic back pain Confirmed Active Chronic hepatitis C Confirmed Active Cocaine abuse Confirmed Active Fracture of scaphoid of left wrist Confirmed Active Fracture of thoracic spine Confirmed Active Tibial plateau fracture, left Confirmed Active Tibial plateau fracture, right Confirmed Active H/O discitis Confirmed Active Hypertension Confirmed Active infeced groin mesh Confirmed Active Inguinal hernia recurrent unilateral/ right Confirmed Active IVDU (intravenous drug user) Confirmed Active Anxiety and depression Confirmed Active Osteomyelitis of lumbar vertebra Confirmed Active Chronic pain of left wrist Confirmed Active Bilateral chronic knee pain Confirmed Active Polysubstance abuse Confirmed Active Abscess and cellulitis abdomen wall Confirmed Active Hernia, inguinal, recurrent, right Confirmed Active Schizoaffective disorder Confirmed Active Substance abuse Confirmed Active Deep foreign body right groin. Exposed mesh right groin. Confirmed Active Suture granuloma Confirmed Active Tobacco dependence Confirmed Active Results Radiology Reports * Exam Date Time Procedure Performing Provider Status 02/04/22 8:17 PM Chest 2 Views Frontal and Lat Lorie Chavez; Auth (Verified) Notes: (Chest 2 Views Frontal and Lat) Reason For Exam: Shortness of Breath RESULT: Chest 2 Views Frontal and Lat Chest 2 Views Frontal and Lat Hx of Present Illness: [facility] and has a ActualMeds order. Pt is having issues with staff there and left yesterday and used cocaine (injected) and marijuana. Pt needs to be medically cleared to return. Pt injected into left AC, bruising noted.; Reason: Shortness of Breath; Clinical Question(s): CHF COMPARISON: None. FINDINGS: LINES AND TUBES: None. LUNGS AND PLEURA: Clear lungs. Normal pulmonary vascularity. No pleural effusion. No pneumothorax. HEART, MEDIASTINUM AND AMANDO: Heart is normal in size. Normal mediastinal and hilar contour. BONES AND SOFT TISSUES: No acute abnormality. IMPRESSION: No acute abnormality. WSN: [id number] Ordering Physician: Nick Kc Dictated By: Kendell Cruz MD Dictated Date/Time: 02/04/22 8:22 pm Reviewed By: Kendell Cruz MD Signed By: Kendell Cruz MD Signed Date/Time: 02/04/22 8:22 pm Transcribed By: BOSTON Transcribed Date/Time: 02/04/22 8:20 pm Vital Signs Most recent to oldest [Reference Range]: 1 2 Height 165 cm (02/04/22 9:04 PM) 165 cm (02/04/22 5:20 PM) Weight 76 kg (02/04/22 9:04 PM) 76 kg (02/04/22 5:20 PM) Oxygen Saturation [94-100 %] 100 % (02/04/22 9:04 PM) 97 % (02/04/22 5:10 PM) Pulse Rate [55-90 bpm] 97 bpm *H* (02/04/22 9:04 PM) 103 bpm *H* (02/04/22 5:10 PM) Body Mass Index [18.5-24.99 kg/m2] 27.92 kg/m2 *H* (02/04/22 9:04 PM) Blood Pressure [90-138/55-84 mm Hg] 130/ 92mm Hg (02/04/22 9:04 PM) 131/83mm Hg (02/04/22 5:10 PM) Respiratory Rate [16-30 br/min] 18 br/mi n (02/04/22 9:04 PM) 20 br/min (02/04/22 5:10 PM) Temperature [96.8-100.4 DegF] 97.6 DegF (02/04/22 5:10 PM) Liters per Minute 0 L/min (02/04/22 9:04 PM) Mode of Delivery (Oxygen) Room air (02/04/22 9:04 PM) Room air (02/04/22 5:10 PM) Blood pressure sites Arm, left (02/04/22 9:04 PM) Arm, left (02/04/22 5:10 PM) Temperature Route Temporal (02/04/22 5:10 PM) Dry Weight 76 kg (02/04/22 9:04 PM) 76 kg (02/04/22 5:20 PM) Dry Weight Obtained Via Standing scale (02/04/22 5:20 PM) Social History Social History Type Response Smoking Status Current every day sm oker; Type: Cigarettes entered on: 09/13/16 Sex Note * Nick Kc DO: PERFORM Event Display: Patient Education Leaflets Authored Date: [id number] Cocaine and Crack Abuse ?? [id number] Cocaine and Crack Abuse Cocaine is typically snorted or injected into a vein. It can also be rubbed onto the gums.??Crack is made from cocaine. It can be smoked for a stronger effect. Cocaine causes a very powerful mental and physical dependence.?? Once you have a dependence, you'll do just about anything to get the drug and have the feeling it gives you. This can increase your risk for: ??? Overdose that may lead to ??? Loss of your job, your home, or your family ??? Accidental injuries to yourself or others while you are under the influence of the drug (in a car or at home) ??? Arrest, conviction, and long-term sentence for possession of an illegal substance or for driving underthe influence Medically, cocaine can affect every organ in your body.??It can cause: ??? Chest pain, heart rhythm problem (arrhythmia), heart attack, and heart failure ??? Very high blood pressure ??? Severe headache, seizures, loss of consciousness, and stroke ??? Anxiety, psychosis, confusion, paranoia, and hallucinations ??? Nasal damage from snorting ??? Nausea, belly (abdominal) pain, and loss of appetite ??? Chronic bronchitis and shortness of breath from smoking ??? Higherrisk for HIV infection, hepatitis B or C, and heart infection. This is from IV use, risky sexual behavior while high, or both.? Kidney failure Home care These tips will help you care for yourself at home: ??? Admit you have a drug problem. Ask for help from your family and close friends. ??? See a mental health provider or counselor if you have depression or anxiety. ??? Join a self-help group for drug abuse. ??? Stay away from people who abuse drugs themselves or who tempt you to continue abusing the drug. ??? Eat a balanced diet and start a regular exercise program. If you continue to use IV cocaine, lower your risk of getting or spreading infection by: ??? Using only sterile equipment ??? Not reusing or sharing equipment ??? Cleaning your skin before injecting ?? Follow-up care Follow up with your healthcare provider, or as advised. Contact 1 of the resources below for help: ??? Substance Abuse and Mental Health Treatment Administration (SAMHSA) at www.samhsa.gov/find-treatment or 833-804-MKRP ??? Noreen ional [place] on Drug Abuse (TIM) at www.drugabuse.gov ? National [place] on Alcoholism and Drug Dependence at www.ncadd.org ??? Narcotics Anonymous at www.na.org ?? Call 911 Call 911 if any of these occur: ??? Seizure ??? Hard time breathing or slow, irregular breathing ??? Chest pain ??? Sudden weakness on 1 side of your body or sudden trouble speaking ??? Very drowsy or trouble waking up ??? Fast heart rate ?? When to get medical advice Call your healthcare provider right away if any of the following occur: ??? Agitation, anxiety, or unable to sleep ??? Unintended weight loss. This means more than 10 to 15 pounds over 6 months without dieting. ??? Hallucination, severe depression, or thoughts of harming yourself or another ??? Fever of 100.4??F??(38??C) or higher, or as advised by your provider ??? Redness, pain, or swelling at an injection site ??? Loss of vision or decreased vision ?? Last Reviewed Date: 2021 ?? [id number] [employer]. All rights reserved. This information is not intended as a substitute for professional medical care. Always follow your healthcare professional's instructions. ?? * BHSPowerscribe , CIS S: TRANSCRIBE Kendell Cruz MD: VERIFY Event Display: Result: Authored Date: Chest 2 Views Frontal and Lat Hx of Present Illness: Pt is from a [facility]itent[facility] for substance abuse and has a Miranda order. Pt is having issues with staff there and left yesterday and used cocaine (injected) and marijuana. Pt needs to be medically cleared to return. Pt injected into left AC, bruising noted.; Reason: Shortness of Breath; Clinical Question(s): CHF COMPARISON: None. FINDINGS: LINES AND TUBES: None. LUNGS AND PLEURA: Clear lungs. Normal pulmonary vascularity. No pleural effusion. No pneumothorax. HEART, MEDIASTINUM AND AMANDO: Heart is normal in size. Normal mediastinal and hilar contour. BONES AND SOFT TISSUES: No acute abnormality. IMPRESSION: No acute abnormality. WSN: [id number] Ordering Physician: Nick Kc Dictated By: Kendell Cruz MD Dictated Date/Time: 02/04/22 8:22 pm Reviewed By: Kendell Cruz MD Signed By: Kendell Cruz MD Signed Date/Time: 02/04/22 8:22 pm Transcribed By: BOSTON Transcribed Date/Time: 02/04/22 8:20 pm Patient Care team information Care Team Personnel Name: Naty Malcoml RN Position: [facility] RN Member Role: Primary Care Nurse Name: Harshil Cardoso RN Position: [facility] RN Member Role: Primary Care Nurse Name: Lionel Ludwig MD Position: [facility] Renal MD Member Role: Lifetime Consulting Physician Address: Address: [address] [place] [address], [address] [facility] [place] [address]- Name: Rowan Alvarez RN Position: [facility] HBO Wound Member Role: Primary Care Nurse Name: Tala Plasencia RN Position: [facility] RN Member Role: Primary Care Nurse Name: Franklin Seth RN Position: [facility] RN Member Role: Primary Care Nurse Name: Kathy Honeycutt Position: [facility] RN Member Role: Primary Care Nurse Name: Az Pham RN Position: [facility] ED RN W/OE and Tasks Member Role: Primary Care Nurse Name: Libertad Olmos RN Position: [facility] RN Member Role: Primary Care Nurse Name: Daily Mane RN Position: [facility] RN Member Role: Primary Care Nurse Name: Meri Barker RN Position: [facility] ED RN W/OE and Tasks Member Role: Primary Care Nurse Name: Katelynn Milan RN Position: [facility] PCO RN Member Role: Primary Care Nurse Name: Mae Brennan NP Position: [facility] PCO Associate Professional Member Role: PCP Address: Address: [address] [place] [address]- [place] Name: Deborah Gusman RN Position: [facility] Floral Designer Salesperson Member Role: Primary Care Nurse Name: Chito Powers RN Position: [facility] RN Member Role: Primary Care Nurse Name: Antonio Velasquez RN Position: [facility] RN Member Role: Primary Care Nurse Name: Alexey Ramos RN Position: [facility] RN Member Role: Primary Care Nurse Name: Crow Burk MD Position: [facility] Renal MD Member Role: Lifetime Consulting Physician Address: Address: [address] [place] [address] [facility] [place] [address]- [place] Name: Emelyn Corbin RN Position: [facility] RN Member Role: Primary Care Nurse Name: Aurea Gutierrez RN Position: [facility] RN Member Role: Primary Care Nurse Name: Jyothi Hines RN Position: [facility] ED RN W/OE and Tasks Member Role: Patient Care Provider Name: Nick Kc DO Position: [facility] ED Medicine MD Member Role: Admitting Physician Address: Address: [address] [place] [address] [place] [address]- Name: Adeola Solano Position: [facility] ED OA Member Role: ED Associate Name: Lu Sandra RN Position: [facility] ED RN W/OE and Tasks Member Role: Patient Care Provider Care Team Related Persons Name: CHARLES FRANKLIN Address: home [address] [place] [id number]
--- OUTSIDE RECORDS SUMMARY | 2023-09-14 23:03 | XMS_ITS | Continuity of Care Document ---
Author Organization [facility] Address [address] [place] [address]- Care Team Providers Care Batch Blender Name Role Phone Mika CLAY, Mae Serrano Primary Care Physician Encounter [facility] Date(s): 02/01/23 - 05/16/23 [facility] [address] [place] [address]- Attending Physician: Kee WAY, Raven Valente Allergies, Adverse Reactions, Alerts Substance Reaction Severity Status lithium bladder/ metabolism Active Immunizations Given and Recorded Vaccine Date Status Refusal Reason SARS-CoV-2(COVID-19)mRNA-LNP vac([id number]) 12/18/22 Recorded influenza virus vaccine, inactivated 11/15/22 Preet rded [id number] bivalent booster vax 12/16/21 Recorded SARS-CoV-2 mRNA (ftcjakk-wdbl-jaoyv) vax 03/14/21 Recorded SARS-CoV-2 (COVID-19) mRNA BNT-162b2 vac 04/30/20 Recorded SARS-CoV-2 (COVID-19) mRNA BNT-162b2 vac 04/01/20 Recorded tetanus/diphtheria/pertussis, acel(Tdap) 03/09/17 Given Medications Albuterol (Eqv-Proventil HFA) 90 mcg/inh inhalation aerosol 2 puffs, Inhalation, 4 times a day, PRN NEEDED FOR WHEEZING, # 6.7 Gm, 0 Refills, Maintenance, 04/09/23 9:17:00 EST, [facility], 176, cm, 02/27/23 11:54:00 EST, Height, 70, kg, 12/21/22 12:46:00 EDT, Dry Weight Start Date: 04/09/23 Stop Date: 05/09/23 Status: Ordered Anoro Ellipta 62.5 mcg-25 mcg/inh inhalation powder 1 puffs, Inhalation, Daily, # 1 each, 11 Refills, Maintenance, 02/01/23 10:55:00 EST, Powder, [facility]-, Partial fill upon patient request if [...] NOSTRIL TWICE A DAY, # 16 Gm, 2 Refills, Maintenance, 05/08/23 18:38:00 EDT, [facility]-, 30, USE 1 SPRAY IN EACH NOSTRIL TWICE A DAY, 176, cm, 05/01/23 9:52:00 EDT, Height, 70, kg, 12/21/22 12:46:00 ED... Start Date: 05/08/23 Status: Ordered glucosamine 750 mg oral tablet [...] tibial avulsion (S82.153A), 05/02/21 9:45:00 EDT, ROSINA [id number], Supply Start Date: 05/02/21 Status: Ordered Knee Support See Instructions, # 1 each, Maintenance, Left knee brace Dx: bilateral tibial plateau fracture (S82.143A) Bilateral tibial avulsion (S82.153A), 05/02/21 9:48:00 EDT, ROSINA [id number], Supply Start Date: 05/02/21 Status: Ordered Left wrist brace. Dx left wrist pain Left wrist brace. Dx left wrist pain, See Instructions, # 1 each, Refills 0, Tot. Refills 0, Maintenance, Wear as tolerated Dx: Left wrist scaphoid fracture (S62.002A) Left wrist pain (M25.532), 05/02/21 9:46:00 EDT, ROSINA [phone], Supply Start Date: 05/02/21 Status: Ordered naproxen 500 mg oral tablet 1 tablet, By Mouth, 2 times a day, PRN NEEDED FOR MODERATE PAIN WITH FOOD, # 60 tablet, 0 Refills, Maintenance, 05/09/23 13:23:00 EDT, [facility]- , 176, cm, 05/01/23 9:52:00 EDT, Height, 70, kg, 12/21/22 12:46:00 EDT, Dry Weight Start Date: 05/09/23 Status: Ordered pantoprazole 40 mg oral delayed [...] Team Personnel Name: Naty Malcolm RN Position: [facility] RN Member Role: Primary Care Nurse Name: Harshil Cardoso RN Position: [facility] RN Member Role: Primary Care Nurse Name: Meri Lima RN Position: [facility] ED RN W/OE and Tasks Member Role: Primary Care Nurse Name: Lionel Ludwig MD Position: [facility] Renal MD Member Role: Lifetime Consulting Physician Address: Address: [address] [place] [address] [address] [place] [address]- [place] Name: Rowan Alvarez RN Position: [facility] HBO Wound Member Role: Primary Care Nurse Name: Tala Plasencia RN Position: [facility] RN Member Role: Primary Care Nurse Name: Franklin Seth RN Position: [facility] RN Member Role: Primary Care Nurse Name: Kathy Honeycutt Position: [facility] RN Member Role: Primary Care Nurse Name: Gideon Miller RN Position: [facility] SN RN Member Role: Primary Care Nurse Name: Az Pham RN Position: [facility] ED RN W/OE and Tasks Member Role: Primary Care Nurse Name: Libertad Olmos RN Position: [facility] RN Member Role: Primary Care Nurse Name: Daily Mane RN Position: [facility] RN Member Role: Primary Care Nurse Name: Katelynn Milan RN Position: [facility] RN Member Role: Primary Care Nurse Name: Mae Brennan NP Position: [facility] PCO Associate Professional Member Role: PCP Address: Address: [address] [place] [id number]- [place] Name: Belinda Gusman RN Position: [facility] It Software Developer Member Role: Primary Care Nurse Name: Chito Powers RN Position: [facility] RN Member Role: Primary Care Nurse Name: Antonio Velasquez RN Position: [facility] RN Member Role: Primary Care Nurse Name: Alexey Ramos RN Position: [facility] RN Member Role: Primary Care Nurse Name: Crow Burk MD Position: [facility] Renal MD Member Role: Lifetime Consulting Physician Address: Address: [address] [place] [address] [facility] [place] [address]- [place] Name: Emelyn Corbin RN Position: [facility] RN Member Role: Primary Care Nurse Name: Aurea Gutierrez RN Position: [facility] RN Member Role: Primary Care Nurse Care Team Related Persons Name: CHARLES FRANKLIN Address: home [address] [place] [address]
--- OUTSIDE RECORDS SUMMARY | 2023-09-14 23:03 | XMS_ITS | Continuity of Care Document ---
Author Organization [facility] Address [address] [place] [address]- Care Team Providers Care Casting Inspector Name Role Phone Mika CLAY, Mae Serrano Primary Care Physician [phone] Encounter [facility] [place] [place] Date(s): 04/20/22 - 05/20/22 [facility] [address] [place] [address]- Allergies, Adverse Reactions, Alerts Substance Reaction Severity Status lithium unknown Active Immunizations Given and Recorded Vaccine Date Status Refusal Reason SARS-CoV-2 mRNA (uusjbsq-ufdt-zeikz) vax 03/14/21 Recorded SARS-CoV-2 (COVID-19) mRNA BNT-162b2 [...] 0 Refills, Maintenance, 04/18/22 8:05:00 EST, Tablet, [facility]-, Partial fill upon patient request [...] tibial avulsion (S82.153A), 05/02/21 9:45:00 EDT, ROSINA [id number], Supply Start Date: 05/02/21 Status: Ordered Knee Support See Instructions, # 1 each, Maintenance, Left knee brace Dx: bilateral tibial plateau fracture (S82.143A) Bilateral tibial avulsion (S82.153A), 05/02/21 9:48:00 EDT, ROSINA [id number], Supply Start Date: 05/02/21 Status: Ordered Left wrist brace. Dx left wrist pain Left wrist brace. Dx left wrist pain, See Instructions, # 1 each, Refills 0, Tot. Refills 0, Maintenance, Wear as tolerated Dx: Left wrist scaphoid fracture (S62.002A) Left wrist pain (M25.532), 05/02/21 9:46:00 EDT, ROSINA [id number] [id number], Supply Start Date: 05/02/21 Status: Ordered naproxen 500 mg oral tablet 1 tablet = 500 mg, By Mouth, Every 12 hours, PRN Pain , Moderate, for 30 days, # 60 tablet, 0 Refills, Acute 06/16/22 17:44:00 EDT, 05/17/22 17:44:00 EDT, Tablet, [facility]-,Partial fill upon patient request if [...] Team Personnel Name: Naty Malcolm RN Position: [facility] RN Member Role: Primary Care Nurse Name: Harshil Cardoso RN Position: [facility] RN Member Role: Primary Care Nurse Name: Meri Lima RN Position: [facility] ED RN W/OE and Tasks Member Role: Primary Care Nurse Name: Lionel Ludwig MD Position: [facility] Renal MD Member Role: Lifetime Consulting Physician Address: Address: [address] [place] [address], [address] [facility] [place] [address]- Name: Rowan Alvarez RN Position: [facility] Wound Member Role: Primary Care Nurse Name: Tala Plasencia RN Position: [facility] RN Member Role: Primary Care Nurse Name: Franklin Seth RN Position: [facility] RN Member Role: Primary Care Nurse Name: Kathy Honeycutt Position: [facility] RN Member Role: Primary Care Nurse Name: Az Pham RN Position: [facility] ED RN W/OE and Tasks Member Role: Primary Care Nurse Name: Libertad Olmos RN Position: [facility] RN Member Role: Primary Care Nurse Name: Daily Mane RN Position: [facility] RN Member Role: Primary Care Nurse Name: Katelynn Milan RN Position: [facility] PCO RN Member Role: Primary Care Nurse Name: Mae Brennan NP Position: [facility] PCO Associate Professional Member Role: PCP Address: Address: [address] [place] [address] [address] [place] [address]- [place] Name: Deborah Gusman RN Position: [facility] Hospital Architecture Internship Member Role: Primary Care Nurse Name: Chito Powers RN Position: [facility] RN Member Role: Primary Care Nurse Name: Antonio Velasquez RN Position: [facility] RN Member Role: Primary Care Nurse Name: Alexey Ramos RN Position: [facility] RN Member Role: Primary Care Nurse Name: Crow Burk MD Position: [facility] Renal MD Member Role: Lifetime Consulting Physician Address: Address: [address] [place] [address] [facility] [place] [place] [address] Name: Emelyn Corbin RN Position: S RN Member Role: Primary Care Nurse Name: Aurea Gutierrez RN Position: S RN Member Role: Primary Care Nurse Care Team Related Persons Name: CHARLES FRANKLIN Address: home [address] [place], [place] [id number]
--- OUTSIDE RECORDS SUMMARY | 2023-09-14 23:03 | XMS_ITS | Continuity of Care Document ---
Author Organization [facility] Address [address] [place] [address]- Care Team Providers Care Design Quality Engineer Name Role Phone Mika CLAY, Mae Serrano Primary Care Physician Encounter [facility] Date(s): 08/23/22 - 08/30/22 [facility] [address] [place] [address]- Encounter Diagnosis Hearing deficit(Discharge Diagnosis) - 08/23/22 Attending Physician: Linda Brooke Allergies, Adverse Reactions, Alerts No Known Medication Allergies Immunizations Given and Recorded Vaccine Date Status Refusal Reason [id number] bivalent booster vax 12/16/21 Recorded SARS-CoV-2 mRNA ([id number]-[id number]-[id number]) vax 03/14/21 Recorded SARS-CoV-2 (COVID-19) mRNA BNT-162b2 [...] VLADISLAV AND... Start Date: 05/02/21 Status: Ordered ciprofloxacin-dexamethasone 0.3%-0.1% otic suspension 4 drops, Ear, Right, 2 times a day, # 8 mL, 0 Refills, Acute 08/24/23 14:31:00 EDT, 08/23/22 14:31:00 EDT, [facility]-, Partial fill upon patient request if the prescription is for a schedule II opioid drug., 4 drops Ear, Right... Start Date: 08/23/22 Stop Date: 08/24/23 Status: Ordered Cogentin Tablet 2 mg, By Mouth, 2 times a day, Refills 0, Maintenance, 07/15/22 18:59:00 EDT, Partial fill upon patient request if the prescription is for a schedule II opioid drug. Start Date: 07/15/22 Status: Ordered desloratadine 5 mg oral tablet 1 tablet = 5 mg, By Mouth, Daily, # 90 tablet, 2 Refills, Maintenance, 06/19/22 14:26:00 EDT, Tablet, [facility]-, Partial fill upon patient request if [...] Gm, 5 Refills, Maintenance, 07/21/22 13:26:00 EDT, [id number], 30, USE 1 SPRAY IN EACH NOSTRIL TWICE A DAY, 165, cm, 07/15/22 18:51:00 EDT, Height, 76.5, kg, 07/15/22 18:51:00... Start Date: 07/21/22 Status: Ordered Knee Support See Instructions, # 1 each, Maintenance, Right knee brace Dx: bilateral tibial plateau fracture (S82.143A) Bilateral tibial avulsion (S82.153A), 05/02/21 9:45:00 EDT, [facility] [id number], Supply Start Date: 05/02/21 Status: Ordered Knee Support See Instructions, # 1 each, Maintenance, Left knee brace Dx: bilateral tibial plateau fracture (S82.143A) Bilateral tibial avulsion (S82.153A), 05/02/21 9:48:00 EDT, [facility] [id number], Supply Start Date: 05/02/21 Status: Ordered Left wrist brace. Dx left wrist pain Left wrist brace. Dx left wrist pain, See Instructions, # 1 each, Refills 0, Tot. Refills 0, Maintenance, Wear as tolerated Dx: Left wrist scaphoid fracture (S62.002A) Left wrist pain (M25.532), 05/02/21 9:46:00 EDT, [facility] [phone] [id number], Supply Start Date: 05/02/21 Status: Ordered naproxen [...] granuloma Confirmed Active Tobacco dependence Confirmed Active Diagnosis Diagnosis Type Effective Dates Health Status inical Service Informant Hearing deficit Discharge Diagnosis 08/23/22 Vital Signs Most recent to oldest [Reference Range]: 1 Height 165 cm (08/23/22 2:01 PM) Weight 73.5 kg (08/23/22 2:01 PM) Oxygen Saturation [94-100 %] 97 % (08/23/22 2:01 PM) Pulse Rate [55-90 bpm] 79 bpm (08/23/22 2:01 PM) Body Mass Index [18.5-24.99 kg/m2] 27 kg /m2 *H* (08/23/22 2:01 PM) Blood Pressure [90-138/55-84 mm Hg] 97/6 0mm Hg (08/23/22 2:01 PM) Temperature [96.8-100.4 DegF] 98.1 DegF (08/23/22 2:01 PM) Mode of Delivery (Oxygen) Room air (08/23/22 2:01 PM) Blood pressure sites Arm, left (08/23/22 2:01 PM) Temperature Route Temporal (08/23/22 2:01 PM) Weight Obtained Via Standing scale (08/23/22 2:01 PM) Social History Social History Type Response Smoking Status Current every day sm oker; Type: Cigarettes entered on: 09/13/16 Sex Note * Colon , Connie: PERFORM, SIGN, VERIFY Event Display: Patient Education/Instruction Authored Date: [id number] [employer] *[facility] Clinical Summary Name DARWIN STAHL Age 51 Years 1970 PCP Mae Brennan NP PCP Visit Date 08/23/2022 13:59:00 Additional Instructions: Scheduled Appointments?? Future Appointments ?*[facility] [address],??[address] ?Phone:??--?Fax:??-- ?Appt. Date:??10/09/2022?11:40 AM ?Scheduled Provider:??Mae Brennan NP Follow-Up Instructions ?? Diagnosis Unspecified hearing loss, unspecified ear Medications: Please continue your medications until treatment is completed or stopped by your provider. Discuss any questions related to medications with your provider. New Medications [facility]-, [address] [place] [id number], [phone] ciprofloxacin-dexamethasone otic (ciprofloxacin-dexamethasone 0.3%-0.1% otic suspension) 4 Drops Right ear twice a day. Refills: 0. Next Dose: Medications to Continue with No Changes These medications were not printed or sent to your pharmacy Benztropine (benztropine 2 mg oral tablet) 1 tab(s) Oral twice a day. Next Dose: Benztropine (Cogentin Tablet) 2 Milligram Oral twice a day. Next Dose: Desloratadine (desloratadine 5 mg oral tablet) 1 tab(s) Oral Daily. Refills: 2. Next Dose: Divalproex Sodium (divalproex sodium 250 mg oral enteric coated tablet) 1 tab(s) Oral twice a day. take with 500mg for a total dose of 750mg. Next Dose: Divalproex Sodium (divalproex sodium 500 mg oral enteric coated tablet) 1 tab(s) Oral twice a day. take with 250mg for a total dose of 750mg. Next Dose: Durable Medical Equipment (Cane) 4 Prong Cane Dx: Dx: bilateral tibial plateau fracture (S82.143A) Bilateral tibial avulsion (S82.153A) Chronic low back pain (M54.9) Unsteady Gait (R6.81) Life long (99). Refills: 0. Next Dose: Durable Medical Equipment (Knee Support) Left knee brace Dx: bilateral tibial plateau fracture (S82.143A) Bilateral tibial avulsion (S82.153A). Refills: 0. Next Dose: Durable Medical Equipment (Knee Support) Right knee brace Dx: bilateral tibial plateau fracture (S82.143A) Bilateral tibial avulsion (S82.153A). Refills: 0. Next Dose: Durable Medical Equipment (Walker) Use while ambulating to prevent falls. Refills: 0. Next Dose: Fluticasone Nasal (fluticasone 50 mcg/inh nasal spray) USE 1 SPRAY IN EACH NOSTRIL TWICE A DAY. Refills: 5. Next Dose: Miscellaneous Rx (Left wrist brace. Dx left wrist pain) Wear as tolerated Dx: Left wrist scaphoid fracture (S62.002A) Left wrist pain (M25.532). Refills: 0. Next Dose: Naproxen (naproxen 500 mg (as sodium) oral tablet, extended release) 2 tab(s) Oral Daily as needed as needed for pain. Next Dose: Pantoprazole (pantoprazole 40 mg oral delayed release tablet) 1 tab(s) Oral Daily. Refills: 6. Next Dose: Risperidone (risperiDONE 2 mg oral tablet) 1 tab(s) Oral twice a day. Next Dose: Allergy Info:?? No Known Medication Allergies Medications Given This Visit Future Orders ?No future orders Vital Signs Height 165 cm Weight 73.5 kg BMI 27 kg/m2 Blood Pressure 97 mm Hg/60 mm Hg Temperature 98.1 DegF Pulse Rate 79 bpm Respiratory Rate 02 Sat Mode of Delivery 97 %/Room air You can now view a summary of your hospital visit from the comfort of your home through a free online portal called [employer]. [employer] is a website that allows you to securely view your medical information including discharge summary, medications and follow-up visits. ??You can alsosend a secure electronic message to your doctor???s office to request appointments, renew medications or just ask a question. You can enroll at [email or web address] or register during your next office visit. Disclaimer:?? The information provided is of a general nature and is intended to be used in conjunction with the recommendations and advice of your health care practitioner. ??Every effort has been made to ensure that the information provided is accurate and complete at the time it is provided to you however, as your needs change, or, as new ??information becomes available, different or additional instructions may be required. If you have questions, please consult with your primary care provider or pharmacist, as appropriate. ??This information is not intended to serve as substitution for assessment and evaluation by a qualified health care provider. If you do not have a primary care provider, you may find a [facility] provider by calling [facility] at [phone]. For information about the plan of care including goals and instructions for your diagnosis, please see the patient education orders section of this document. Patient Education Materials?? The content of this educational material or handout may have been modified, supplemented, or adapted from its original content and format to support your individualized medical care. Patient Care team information Care Team Personnel Name: Naty Malcolm RN Position: [facility] RN Member Role: Primary Care Nurse Name: Harshil Cardoso RN Position: [facility] RN Member Role: Primary Care Nurse Name: Meri Lima RN Position: [facility] ED RN W/OE and Tasks Member Role: Primary Care Nurse Name: Lionel Ludwig MD Position: [facility] Renal MD Member Role: Lifetime Consulting Physician Address: Address: [address] [place] [address], [address] [facility] [address] Name: Rowan Alvarez RN Position: [facility] HBO Wound Member Role: Primary Care Nurse Name: Tala Plasencia RN Position: [facility] RN Member Role: Primary Care Nurse Name: Franklin Seth RN Position: [facility] RN Member Role: Primary Care Nurse Name: Kathy Honeycutt Position: [facility] RN Member Role: Primary Care Nurse Name: Gideon Miller RN Position: [facility] SN RN Member Role: Primary Care Nurse Name: Az Pham RN Position: [facility] ED RN W/OE and Tasks Member Role: Primary Care Nurse Name: Libertad Olmos RN Position: [facility] RN Member Role: Primary Care Nurse Name: Daily Mane RN Position: [facility] RN Member Role: Primary Care Nurse Name: Katelynn Milan RN Position: [facility] AMB Nurse Member Role: Primary Care Nurse Name: Mae Brennan NP Position: [facility] PCO Associate Professional Member Role: PCP Address: Address: [address] [place] [address]- Name: Belinda Gusman RN Position: [facility] Dental Director Member Role: Primary Care Nurse Name: Chito Powers RN Position: [facility] RN Member Role: Primary Care Nurse Name: Antonio Velasquez RN Position: [facility] RN Member Role: Primary Care Nurse Name: Alexey Ramos RN Position: [facility] RN Member Role: Primary Care Nurse Name: Crow Burk MD Position: [facility] Renal MD Member Role: Lifetime Consulting Physician Address: Address: [address] [place] [address] [facility] [place] [address]- Name: Emelyn Corbin RN Position: [facility] RN Member Role: Primary Care Nurse Name: Aurea Gutierrez RN Position: [facility] RN Member Role: Primary Care Nurse Care Team Related Persons Name: RIGOBERTOCHARLES Address: [address] [address]
--- OUTSIDE RECORDS SUMMARY | 2023-09-14 23:03 | XMS_ITS | Continuity of Care Document ---
Author Organization [facility] Address [address] [place] [address]- Care Team Providers Care Vice President Of News Name Role Phone Mika CLAY, Mae Serrano Primary Care Physician [place] [facility]/17[place] - 05/17/22 [facility] [address] [place] [address]- Allergies, Adverse Reactions, Alerts Substance Reaction Severity Status lithium unknown Active Immunizations Given and Recorded Vaccine Date Status Refusal Reason SARS-CoV-2 mRNA (ktesaie-kkjh-pgnhd) vax 03/14/21 Recorded SARS-CoV-2 (COVID-19) mRNA BNT-162b2 [...] 0 Refills, Maintenance, 04/18/22 8:05:00 EST, Tablet, [facility]-, Partial fill upon patient request if [...] tibial avulsion (S82.153A), 05/02/21 9:45:00 EDT, [facility] [id number], Supply Start Date: 05/02/21 Status: Ordered Knee Support See Instructions, # 1 each, Maintenance, Left knee brace Dx: bilateral tibial plateau fracture (S82.143A) Bilateral tibial avulsion (S82.153A), 05/02/21 9:48:00 EDT, [facility] [id number], Supply Start Date: 05/02/21 Status: Ordered Left wrist brace. Dx left wrist pain Left wrist brace. Dx left wrist pain, See Instructions, # 1 each, Refills 0, Tot. Refills 0, Maintenance, Wear as tolerated Dx: Left wrist scaphoid fracture (S62.002A) Left wrist pain (M25.532), 05/02/21 9:46:00 EDT, [facility] [phone] [id number], Supply Start Date: 05/02/21 Status: Ordered naproxen 500 mg oral tablet 1 tablet = 500 mg, By Mouth, Every 12 hours, PRN Pain , Moderate, for 30 days, # 60 tablet, 0 Refills, Acute 06/16/22 17:44:00 EDT, 05/17/22 17:44:00 EDT, Tablet, [facility]-,Partial fill upon patient request if the prescripti... [...] Team Personnel Name: Naty Malcolm RN Position: [facility] RN Member Role: Primary Care Nurse Name: Harshil Cardoso RN Position: [facility] RN Member Role: Primary Care Nurse Name: Meri Lima RN Position: [facility] ED RN W/OE and Tasks Member Role: Primary Care Nurse Name: Lionel Ludwig MD Position: [facility] Renal MD Member Role: Lifetime Consulting Physician Address: Address: [address] [place] [address], [address] [facility] [place] [address]- Name: Rowan Alvarez RN Position: [facility] Wound Member Role: Primary Care Nurse Name: Tala Plasencia RN Position: [facility] RN Member Role: Primary Care Nurse Name: Franklin Seth RN Position: [facility] RN Member Role: Primary Care Nurse Name: Kathy Honeycutt Position: [facility] RN Member Role: Primary Care Nurse Name: Az Pham RN Position: [facility] ED RN W/OE and Tasks Member Role: Primary Care Nurse Name: Libertad Olmos RN Position: [facility] RN Member Role: Primary Care Nurse Name: Daily Mane RN Position: [facility] RN Member Role: Primary Care Nurse Name: Katelynn Milan RN Position: [facility] PCO RN Member Role: Primary Care Nurse Name: Mae Brennan NP Position: [facility] PCO Associate Professional Member Role: PCP Address: Address: [address] [place] [address] [address]rd [place] [address]- [place] Name: Deborah Gusman RN Position: [facility] Hospital Stapling Machine Operator Member Role: Primary Care Nurse Name: Chito Powers RN Position: [facility] RN Member Role: Primary Care Nurse Name: Antonio Velasquez RN Position: [facility] RN Member Role: Primary Care Nurse Name: Alexey Ramos RN Position: [facility] RN Member Role: Primary Care Nurse Name: Crow Burk MD Position: [facility] Renal MD Member Role: Lifetime Consulting Physician Address: Address: [address] [place] [address] [facility] [place], [place] [address] Name: Emelyn Corbin RN Position: S RN Member Role: Primary Care Nurse Name: Aurea Gutierrez RN Position: S RN Member Role: Primary Care Nurse Care Team Related Persons Name: CHARLES FRANKLIN Address: home [address] [place], [place] [id number]
--- OUTSIDE RECORDS SUMMARY | 2023-09-14 23:03 | XMS_ITS | Continuity of Care Document ---
Author Organization [facility] Address [address] [place] [address]- Care Team Providers Care Media Relations Associate Name Role Phone Mika CLAY, Mae Serrano Primary Care Physician [place] [facility] Date(s): 12/02/21 - 01/01/[address] [address]- Allergies, Adverse Reactions, Alerts Substance Reaction Severity Status lithium unknown Active Immunizations Given and Recorded Vaccine Date Status Refusal Reason SARS-CoV-2 mRNA (uivtulm-ciyp-kctqb) vax 03/14/21 Recorded SARS-CoV-2 (COVID-19) mRNA BNT-162b2 [...] Life long (99), 05/02/21 9:46:00 EDT, VLADISLAV ANDGuerita Start Date: 05/02/21 Status: Ordered celecoxib 100 mg oral capsule 1 capsule = 100 mg, By Mouth, 2 times a day, PRN Pain , Moderate, contents of capsule may be mixed with soft foods such as applesauce, # 180 capsule, 1 Refills, Maintenance, 10/27/21 9:31:00 EDT, Capsule, [facility]-, Partial f... Start Date: 10/27/21 Status: Ordered [...] Nares, Both, 2 times a day, for 14 days, in each nostril, # 16 Gm, 0 Refills, Acute 01/12/22 15:15:00 EST, 12/29/21 15:15:00 EST, [place], [facility]-, Partial fill upon patient request if the prescription is for a sche... Start Date: 12/29/21 Stop Date: 01/12/22 Status: Ordered Knee Support See Instructions, # 1 each, Maintenance, Right knee brace Dx: bilateral tibial plateau fracture (S82.143A) Bilateral tibial avulsion (S82.153A), 05/02/21 9:45:00 EDT, [facility] [id number], Supply Start Date: 05/02/21 Status: Ordered Knee Support See Instructions, # 1 each, Maintenance, Left knee brace Dx: bilateral tibial plateau fracture (S82.143A) Bilateral tibial avulsion (S82.153A), 05/02/21 9:48:00 EDT, [facility] [id number], Supply Start Date: 05/02/21 Status: Ordered Left wrist brace. Dx left wrist pain Left wrist brace. Dx left wrist pain, See Instructions, # 1 each, Refills 0, Tot. Refills 0, Maintenance, Wear as tolerated Dx: Left wrist scaphoid fracture (S62.002A) Left wrist pain (M25.532), 05/02/21 9:46:00 EDT, [facility] [phone], Supply Start Date: 05/02/21 Status: Ordered loratadine 10 mg oral tablet 10 mg, 1, tablet, By Mouth, Daily, for 30 days, # 30 tablet, Refills 0, Tot. Refills 0, Acute 01/29/22 16:34:00 EST, 12/30/21 16:34:00 EST, Route to Pharmacy Electronically, [facility], Partial fill upon patient request if the... Start Date: 12/30/21 Stop Date: 01/29/22 Status: Ordered pantoprazole 40 mg oral delayed [...] EDT Start Date: 09/09/19 Status: Ordered Tylenol 8 HR Arthritis Pain 650 mg oral tablet, extended release 1 tablet = 650 mg, By Mouth, Every 8 hours, PRN Pain , Moderate, for 30 days, not to exceed 6 tablets/day do not crush or chew, # 100 tablet, 0 Refills, Acute 01/06/22 13:25:00 EST, 12/07/21 13:25:00EDT, ER Tablet, [facility]... Start Date: 12/07/21 Stop Date: 01/06/22 Status: Ordered Walker Walker, See Instructions, # [...] Type Response Smoking Status Current every day oker; Type: Cigarettes entered on: 09/13/16 Sex Patient Care team information Care Team Personnel Name: Naty Malcolm RN Position: [facility] RN Member Role: Primary Care Nurse Name: Harshil Cardoso RN Position: [facility] RN Member Role: Primary Care Nurse Name: Lionel Ludwig MD Position: [facility] Renal MD Member Role: Lifetime Consulting Physician Address: Address: [address] [place] [address], [address] [facility] [address] Name: Rowan Alvarez RN Position: [facility] HBO Wound Member Role: Primary Care Nurse Name: Tala Plasencia RN Position: [facility] RN Member Role: Primary Care Nurse Name: Franklin Seth RN Position: [facility] RN Member Role: Primary Care Nurse Name: Kathy Honeycutt Position: S RN Member Role: Primary Care Nurse Name: Az Pham RN Position: [facility] ED RN W/OE and Tasks Member Role: Primary Care Nurse Name: Libertad Olmos RN Position: [facility] RN Member Role: Primary Care Nurse Name: Daily Mane RN Position: [facility] RN Member Role: Primary Care Nurse Name: Meri Barker RN Position: [facility] ED RN W/OE and Tasks Member Role: Primary Care Nurse Name: Katelynn Milan RN Position: [facility] PCO RN Member Role: Primary Care Nurse Name: Mae Brennan NP Position: [facility] PCO Associate Professional Member Role: PCP Address: Address: [address] [place] [address]- Name: Deborah Gusman RN Position: [facility] Offline Cutter Member Role: Primary Care Nurse Name: Chito Powers RN Position: [facility] RN Member Role: Primary Care Nurse Name: Antonio Velasquez RN Position: [facility] RN Member Role: Primary Care Nurse Name: Alexey Ramos RN Position: [facility] RN Member Role: Primary Care Nurse Name: Crow Burk MD Position: [facility] Renal MD Member Role: Lifetime Consulting Physician Address: Address: [address] [place] [address] [facility] [place] [address]- Name: Emelyn Corbin RN Position: [facility] RN Member Role: Primary Care Nurse Name: Aurea Gutierrez RN Position: [facility] RN Member Role: Primary Care Nurse Care Team Related Persons Name: CHARLES FRANKLIN Address: [address] [address]
--- OUTSIDE RECORDS SUMMARY | 2023-09-14 23:03 | XMS_ITS | Continuity of Care Document ---
Author Organization [facility] Address [address] [place] [address]- Care Team Providers Care Brand Representative Name Role Phone Mika CLAY, Mae Serrano Primary Care Physician [phone] Encounter [facility] [place] Date(s): 01/16/20 - 02/26/[address] [address] Attending Physician: Cam Mccall MD Admitting Physician: Cam Mccall MD Referring Physician: Cam Mccall MD Allergies, Adverse Reactions, Alerts Substance Reaction [...] 02/19/20 10:39:00 EST, Route to Pharmacy Electronically, [facility], Partial fill upon patient request if the prescription is f... Start Date: 02/19/20 Status: Ordered ibuprofen 600 mg oral tablet 600 mg, 1, tablet, By Mouth, Every 8 hours, PRN, for 30 days, not to exceed 3200 mg/day with food or milk, # 90 tablet, Refills 0, Tot. Refills 0, Acute 03/20/20 10:38:00 EST, Pain , Moderate, 02/19/20 10:38:00 EST, Route to Pharmacy Electronically,... Start Date: 02/19/20 Stop Date: 03/20/20 Status: Ordered risperiDONE 2 mg oral tablet [...]
--- OUTSIDE RECORDS SUMMARY | 2023-09-14 23:03 | XMS_ITS | Continuity of Care Document ---
Author Organization [facility] Address [address] [place] [address]- Care Team Providers Care Tow Truck Driver Name Role Phone Mae Brennan NP Primary Care Physician [place] [facility] [place] 08/16/20 - 09/15/20 [facility] [address] [place] [id number] Attending Physician: Liliana Wood Admitting Physician: Liliana [...] px, unsteady gait, h/o vertebral osteomylitis [facility] [phone], 08/26/20 9:05:00 EDT, Supply Start Date: 08/26/20 [...] px, unsteady gait, h/o vertebral osteomylitis [facility] [phone], 08/26/20 9:05:00 EDT, Supply Start Date: 08/26/20 Status: Ordered CeleBREX 200 mg oral capsule 1 capsule = 200 mg, By Mouth, 2 times a day, PRN Pain , Moderate, contents of capsule may be mixed with soft foods such as applesauce, # 60 capsule, 0 Refills, Maintenance, 08/02/20 14:32:00 EDT, Capsule, [facility]-, Partial f... Start Date: 08/02/20 Status: [...] 08/02/20 14:30:00 EDT, Route to Pharmacy Electronically, [facility], Partial fill upon patient request if the prescription is f... Start Date: 08/02/20 Status: Ordered ibuprofen 600 mg oral tablet 600 mg, 1, tablet, By Mouth, Every 8 hours, PRN, not to exceed 3200 mg/day with food or milk, # 90 tablet, Refills 0, Tot. Refills 0, Maintenance, Pain , Moderate, 08/13/20 10:32:00 EDT, Route to Pharmacy Electronically, [facility]... Start Date: 08/13/20 Stop Date: 09/12/20 [...]
--- OUTSIDE RECORDS SUMMARY | 2023-09-14 23:03 | XMS_ITS | Continuity of Care Document ---
Author Organization [facility] Address [address] [place] [address]- Care Team Providers Care Media Sales Executive Name Role Phone Mika CLAY, Mae Serrano Primary Care Physician Encounter [facility] Date(s): 07/30/23 - 09/06/23 [facility] [address] [place] [address]- Attending Physician: Feliz Miller MD Referring Physician: Mae Brennan NP Allergies, Adverse Reactions, Alerts Substance Reaction Severity Status lithium bladder/ metabolism Active Immunizations Given and Recorded Vaccine Date Status Refusal Reason SARS-CoV-2(COVID-19)mRNA-LNP vac([id number]) 12/18/22 Recorded influenza virus vaccine, inactivated 11/15/22 Preet rded [id number] bivalent booster vax 12/16/21 Recorded SARS-CoV-2 mRNA ([id number]) vax 03/14/21 Recorded SARS-CoV-2 (COVID-19) mRNA BNT-162b2 vac 04/30/20 Recorded SARS-CoV-2 (COVID-19) mRNA BNT-162b2 vac 04/01/20 Recorded tetanus/diphtheria/pertussis, acel(Tdap) 03/09/17 Given Medications Albuterol (Eqv-Proventil HFA) 90 mcg/inh inhalation aerosol 2 puffs, Inhalation, 4 times a day, PRN NEEDED FOR WHEEZING, # 6.7 Gm, 0 Refills, Maintenance, 05/22/23 14:22:00 EDT, [facility]- , 176, cm, 05/01/23 9:52:00 EDT, Height, 70, kg, 12/21/22 12:46:00 EDT, Dry Weight Start Date: 05/22/23 Stop Date: 06/21/23 Status: Ordered Anoro Ellipta 62.5 mcg-25 mcg/inh inhalation powder 1 puffs, Inhalation, Daily, # 1 each, 11 Refills, Maintenance, 02/01/23 10:55:00 EST, Powder, [facility]-, Partial fill upon patient request if the prescription is for a schedule II opioid drug., 1 puffs Inhalation Daily,x30 da... Start Date: 02/01/23 Stop Date: 01/27/24 Status: Ordered Banophen 25 mg oral capsule 1 capsule, By Mouth, 3 times a day, PRN NEEDED FOR ALLERGY SYMTPOMS, # 90 capsule, 6 Refills, Maintenance, 08/28/23 15:44:00 EDT, [facility]-, 176, cm, 05/01/23 9:52:00 EDT, Height, 70, kg, 12/21/22 12:46:00 EDT, Dry Weight Start Date: 08/28/23 Status: Ordered Cane See Instructions, # 1 [...] DAY, # 16 Gm, 2 Refills, Maintenance, 08/28/23 11:30:00 EDT, [facility]-, 30, USE 1 SPRAY IN EACH NOSTRIL TWICE A DAY, 176, cm, 05/01/23 9:52:00 EDT, Height, 70, kg, ... Start Date: 08/28/23 Status: Ordered glucosamine 750 mg oral tablet [...] tibial avulsion (S82.153A), 05/02/21 9:45:00 EDT, [facility] [phone], Supply Start Date: 05/02/21 Status: Ordered Knee Support See Instructions, # 1 each, Maintenance, Left knee brace Dx: bilateral tibial plateau fracture (S82.143A) Bilateral tibial avulsion (S82.153A), 05/02/21 9:48:00 EDT, [facility] [id number], Supply Start Date: 05/02/21 Status: Ordered Left wrist brace. Dx left wrist pain Left wrist brace. Dx left wrist pain, See Instructions, # 1 each, Refills 0, Tot. Refills 0, Maintenance, Wear as tolerated Dx: Left wrist scaphoid fracture (S62.002A) Left wrist pain (M25.532), 05/02/21 9:46:00 EDT, [facility] [phone], Supply Start Date: 05/02/21 Status: Ordered naproxen 500 mg oral tablet 1 tablet, By Mouth, 2 times a day, PRN NEEDED FOR MODERATE PAIN WITH FOOD, # 60 tablet, 0 Refills, Maintenance, 08/28/23 9:30:00 EDT, [facility]-, 176, cm, 05/01/23 9:52:00EDT, Height, 70, kg, 12/21/22 12:46:00 EDT, Dry Weight Start Date: 08/28/23 Stop Date: 02/19/24 Status: Ordered pantoprazole 40 mg oral delayed release tablet 1 tablet, By Mouth, Daily, # 30 tablet, 5 Refills, Maintenance, 06/13/23 2:50:00 EDT, 176, cm, 05/01/23 9:52:00 EDT, Height, 70, kg, 12/21/22 12:46:00 EDT, Dry Weight Start Date: 06/13/23 Status: Ordered risperiDONE 1 mg oral tablet [...] Team Personnel Name: Naty Malcolm RN Position: [facility] RN Member Role: Primary Care Nurse Name: Harshil Cardoso RN Position: [facility] RN Member Role: Primary Care Nurse Name: Meri Lima RN Position: [facility] ED RN W/OE and Tasks Member Role: Primary Care Nurse Name: Rowan Damon RN Position: [facility] HBO Wound Member Role: Primary Care Nurse Name: Lionel Ludwig MD Position: [facility] Renal MD Member Role: Lifetime Consulting Physician Address: Address: [address] [place] [address] [address] [facility] [place] [address]- [place] Name: Tala Plasencia RN Position: [facility] RN Member Role: Primary Care Nurse Name: Franklin Seth RN Position: [facility] RN Member Role: Primary Care Nurse Name: Kathy Honeycutt RN Position: [facility] RN Member Role: Primary Care Nurse Name: Gideon Miller RN Position: [facility] SN RN Member Role: Primary Care Nurse Name: Az Pham RN Position: [facility] ED RN W/OE and Tasks Member Role: Primary Care Nurse Name: Libertad Olmos RN Position: [facility] RN Member Role: Primary Care Nurse Name: Daily Mane RN Position: [facility] RN Member Role: Primary Care Nurse Name: Katelynn Milan RN Position: [facility] RN Member Role: Primary Care Nurse Name: Mae Brennan NP Position: [facility] PCO Associate Professional Member Role: PCP Address: Address: [address] [place] [address]- [place] Name: Belinda Gusman RN Position: [facility] Member Role: Primary Care Nurse Name: Chito Powers RN Position: [facility] RN Member Role: Primary Care Nurse Name: Antonio Velasquez RN Position: [facility] RN Member Role: Primary Care Nurse Name: Alexey Ramos RN Position: [facility] RN Member Role: Primary Care Nurse Name: Crow Burk MD Position: [facility] Renal MD Member Role: Lifetime Consulting Physician Address: Address: [address] [place] [address] [facility] [place], [place] [address] Name: Emelyn Corbin RN Position: S RN Member Role: Primary Care Nurse Name: Aurea Gutierrez RN Position: [facility] RN Member Role: Primary Care Nurse Care Team Related Persons Name: CHARLES FRANKLIN Address: [address] [address]
--- OUTSIDE RECORDS SUMMARY | 2023-09-14 23:03 | XMS_ITS | Continuity of Care Document ---
Author Organization [facility] Adult Address [address] [place] [address]- Care Team Providers Care Phlebotomy Support Tech Name Role Phone Mika CLAY, Mae Serrano Primary Care Physician [phone] Encounter [facility] Date(s): 12/02/21 - 01/01/[address] [address]- Allergies, Adverse Reactions, Alerts Substance Reaction Severity Status lithium unknown Active Immunizations Given and Recorded Vaccine Date Status Refusal Reason SARS-CoV-2 mRNA ([id number]-qljs-kbfqw) vax 03/14/21 Recorded SARS-CoV-2 (COVID-19) mRNA BNT-162b2 [...] 1 Refills, Maintenance, 10/27/21 9:31:00 EDT, Capsule, [facility]-, Partial f... Start Date: 10/27/21 Status: Ordered [...] Acute 01/12/22 15:15:00 EST, 12/29/21 15:15:00 EST, [place], [facility]-, Partial fill upon patient request if the prescription is for a sche... Start Date: 12/29/21 Stop Date: 01/12/22 Status: Ordered Knee Support See Instructions, # 1 each, Maintenance, Right knee brace Dx: bilateral tibial plateau fracture (S82.143A) Bilateral tibial avulsion (S82.153A), 05/02/21 9:45:00 EDT, [facility] [phone], Supply Start Date: 05/02/21 Status: Ordered Knee Support See Instructions, # 1 each, Maintenance, Left knee brace Dx: bilateral tibial plateau fracture (S82.143A) Bilateral tibial avulsion (S82.153A), 05/02/21 9:48:00 EDT, [facility] [id number], Supply Start Date: 05/02/21 Status: Ordered Left wrist brace. Dx left wrist pain Left wrist brace. Dx left wrist pain, See Instructions, # 1 each, Refills 0, Tot. Refills 0, Maintenance, Wear as tolerated Dx: Left wrist scaphoid fracture (S62.002A) Left wrist pain (M25.532), 05/02/21 9:46:00 EDT, [facility] [phone], Supply Start Date: 05/02/21 Status: Ordered loratadine 10 mg oral tablet 10 mg, 1, tablet, By Mouth, Daily, for 30 days, # 30 tablet, Refills 0, Tot. Refills 0, Acute 01/29/22 16:34:00 EST, 12/30/21 16:34:00 EST, Route to Pharmacy Electronically, [facility], Partial fill upon patient request if the... [...] 01/06/22 13:25:00 EST, 12/07/21 13:25:00EDT, ER Tablet, [facility]... Start Date: 12/07/21 Stop Date: 01/06/22 Status: [...] Member Role: Lifetime Consulting Physician Address: Address: [address] [place] [address], [address] [facility] [address] Name: Rowan Alvarez RN Position: [facility] [...] Care Nurse Name: Meri Barker RN Position: [facility] ED RN W/OE and Tasks Member Role: Primary Care Nurse Name: Katelynn Milan RN Position: [facility] PCO RN Member Role: Primary Care Nurse Name: Mae Brennan NP Position: [facility] PCO Associate Professional Member Role: PCP Address: Address: [address] [place] [address]- Name: Deborah Gusman RN Position: [facility] Hat Sprayer Member Role: Primary Care Nurse Name: Chito [...] Member Role: Lifetime Consulting Physician Address: Address: [address] [place] [address] [facility] [place] [address]- Name: Emelyn Corbin RN Position: [facility] RN Member Role: Primary Care Nurse Name: Aurea Gutierrez RN Position: [facility] RN Member Role: Primary Care Nurse Care Team Related Persons Name: CHARLES FRANKLIN Address: [address] [address]
--- OUTSIDE RECORDS SUMMARY | 2023-09-14 23:03 | XMS_ITS | Continuity of Care Document ---
Author Organization [facility] ter Address [address] [place] [address]- Care Team Providers Care Training Program Manager Name Role Phone Mika CLAY, Mae Serrano Primary Care Physician [phone] Encounter [facility] Date(s): 01/28/20 - 01/29/[address] [address]- Encounter Diagnosis Vertebral osteomyelitis(Final) - 01/29/20 Discharge Disposition: A-D/C AMA Attending Physician: Cynthia Cobb MD Admitting Physician: Cynthia Cobb MD Referring Physician: Not on Staff, Referring [...] patient request Start Date: 01/19/20 Status: Ordered ibuprofen 600 mg oral tablet 600 mg, 1, tablet, By Mouth, Every 8 hours, Maintenance, 01/19/20 15:01:00 EST, Partial fill upon patient request Start Date: 01/19/20 Status: Ordered risperiDONE 2 mg oral tablet [...] recent to oldest [Reference Range]: 1 2 3 Oxygen Saturation [94-100 %] 97 % (01/29/20 10:52 AM) 100 % (01/29/20 8:35 AM) 100 % (01/29/20 3:33 AM) Pulse Rate [55-90 bpm] 105 bpm *H* (01/29/20 10:52 AM) 104 bpm *H* (01/29/20 8:35 AM) 108 bpm *H* (01/29/20 3:33 AM) Blood Pressure [90-138/55-84 mm Hg] 120/74mm Hg (01/29/20 10:52 AM) 110/68mm Hg (01/29/20 8:35 AM) 132/77mm Hg (01/29/20 3:33 AM) Respiratory Rate [16-30 br/min] 18 br/min (01/29/20 10:52 AM) 16 br/min (01/29/20 8:35 AM) 18 br/min (01/29/20 3:33 AM) Temperature [96.8-100.4 DegF] 98.7 DegF (01/29/20 10:52 AM) 98.6 DegF (01/29/20 3:33 AM) 98.5 DegF (01/28/20 11:50 PM) Mode of Delivery (Oxygen) Room air (01/29/20 10:52 AM) Room air (01/29/20 8:35 AM) Room air (01/29/20 3:33 AM) Blood pressure sites Arm, left (01/29/20 10:52 AM) Arm, right (01/29/20 8:35 AM) Arm, right (01/29/20 3:33 AM) Temperature Route Oral (01/29/20 10:52 AM) Oral (01/29/20 3:33 AM) Oral (01/28/20 11:50 PM) Social History Social History Type Response Smoking Status Current every day sm afshan; Other: 1 pack per since age 9 years; entered on: 03/09/17 Sex Male
--- OUTSIDE RECORDS SUMMARY | 2023-09-14 23:03 | XMS_ITS | Continuity of Care Document ---
Author Organization [facility] Address [address] [place] [address]- Care Team Providers Care Hollow Ware Maker Name Role Phone Mika CLAY, Mae Serrano Primary Care Physician [place] [facility] 04/20/21 [facility] [address] [place] [id number] Allergies, Adverse Reactions, Alerts Substance Reaction Severity Status lithium unknown Active Immunizations Given and Recorded Vaccine Date Status Refusal Reason SARS-CoV-2 (COVID-19) mRNA BNT-162b2 vac 04/30/20 Recorded [...] Brace See Instructions, # 1 each, Maintenance, Back brace w/ vlecro aiden bandage material Dx: Dx: bilateral tibial plateau fracture (S82.143A) Bilateral tibial avulsion (S82.153A) Chronic low back pain (M54.9) Unsteady Gait (R6.81) Life long (99), .. Start Date: 03/11/21 Status: Ordered benztropine 2 mg oral tablet [...] (M54.9) Unsteady Gait (R6.81) Life long (99), 03/11/21 9:32:00 VLADISLAV CEBALLOS AND... Start Date: 03/11/21 Status: Ordered divalproex sodium 250 mg oral [...] plateau fracture (S82.143A) Bilateral tibial avulsion (S82.153A), 03/11/21 9:32:00 ROSINA CEBALLOS [phone], Supply Start Date: 03/11/21 Status: Ordered Left wrist brace. Dx left wrist pain Left wrist brace. Dx left wrist pain, See Instructions, # 1 each, Refills 0, Tot. Refills 0, Maintenance, Wear as tolerated Dx: Left wrist scaphoid fracture (S62.002A) Left wrist pain (M25.532), 03/11/21 9:32:00 ROSINA CEBALLOS [phone], Supply Start Date: 03/11/21 Status: Ordered pantoprazole 40 mg oral delayed release tablet 1 tablet = 40 mg, By Mouth, Daily, # 90 tablet, 0 Refills, Maintenance, 03/02/21 9:04:00 EST, EC Tablet Start Date: 03/02/21 Status: Ordered risperiDONE 2 mg oral tablet [...] Unsteady gait(Confirmed) Active Abscess abdominal wall(Confirmed) Active Avulsion fracture of tibial tuberosity(Confirmed) Active Chronic back pain(Confirmed) Active Chronic hepatitis C(Confirmed) Active Cocaine abuse(Confirmed) Active Fracture of scaphoid of left wrist(Confirmed) Active Fracture of thoracic spine(Confirmed) Active Tibial plateau fracture, left(Confirmed) Active Tibial plateau fracture, right(Confirmed) Active H/O discitis(Confirmed) Active Hypertension(Confirmed) Active infeced groin mesh(Confirmed) Active Inguinal hernia recurrent un ilateral/ right(Confirmed) Active IVDU (intravenous drug user)(Confirmed) Active Anxiety and depression(Confirmed) Active Osteomyelitis of lumbar vertebra(Confirmed) Active Chronic pain of left wrist(Confirmed) Active Bilateral chronic knee pain(Confirmed) Active Polysubstance abuse(Confirmed) Active Abscess and cellulitis [...]
--- OUTSIDE RECORDS SUMMARY | 2023-09-14 23:03 | XMS_ITS | Continuity of Care Document ---
Author Organization [facility] Adult Address [address] [place] [address]- Care Team Providers Care Towerman Name Role Phone Mika CLAY, Mae Serrano Primary Care Physician [place] [facility] [place] 05/01/[address] [facility] Adult [address] [place] [address]- Allergies, Adverse Reactions, Alerts Substance Reaction Severity [...] tibial avulsion (S82.153A), 03/11/21 9:32:00 ROSINA CEBALLOS [phone], Supply Start Date: 03/11/21 Status: Ordered Left wrist brace. Dx left wrist pain Left wrist brace. Dx left wrist pain, See Instructions, # 1 each, Refills 0, Tot. Refills 0, Maintenance, Wear as tolerated Dx: Left wrist scaphoid fracture (S62.002A) Left wrist pain (M25.532), 03/11/21 9:32:00 ROSINA CEBALLOS [phone], Supply Start Date: 03/11/21 Status: Ordered pantoprazole [...]
--- OUTSIDE RECORDS SUMMARY | 2023-09-14 23:03 | XMS_ITS | Continuity of Care Document ---
Author Organization [facility] Address [address] [place] [address]- Care Team Providers Care Clay Temperer Name Role Phone Mika CLAY, Mae Serrano Primary Care Physician En[place] [facility] [place] Date(s): 07/06/20 - 08/05/20 [facility] [address] [place] [id number] Allergies, Adverse Reactions, Alerts Substance Reaction Severity [...] Date: 08/02/20 Stop Date: 09/01/20 Status: Ordered CeleBREX 200 mg oral capsule 1 capsule = 200 mg, By Mouth, 2 times a day, PRN Pain , Moderate, contents of capsule may be mixed with soft foods such as applesauce, # 60 capsule, 0 Refills, Maintenance, 08/02/20 14:32:00 EDT, Capsule, [facility]-, Partial f... Start Date: 08/02/20 Status: [...] 08/02/20 14:30:00 EDT, Route to Pharmacy Electronically, [facility], Partial fill upon patient request if the prescription is f... Start Date: 08/02/20 Status: Ordered Knee Support See Instructions, # [...]
--- OUTSIDE RECORDS SUMMARY | 2023-09-14 23:03 | XMS_ITS | Continuity of Care Document ---
Author Organization [facility] ter Address [address] [place] [address]- Care Team Providers Care Advanced Research Programs Director Name Role Phone Mae Brennan NP Primary Care Physician En[place] [facility] Date(s): 02/17/19 - 02/17/[address] [address]- [facility] Attending Physician: Mae Brennan NP Allergies, Adverse Reactions, [...]
--- OUTSIDE RECORDS SUMMARY | 2023-09-14 23:03 | XMS_ITS | Continuity of Care Document ---
Author Organization [facility] Address [address] [place] [address] [address] [place] [address]- Care Team Providers Care Wool Buyer Name Role Phone Mika CLAY, Mae Serrano Primary Care Physician [phone] [place] [facility] 05/01/23 - 05/08/[address] [place] [address]- Attending Physician: Oziel Hills MD Allergies, Adverse Reactions, Alerts Substance Reaction Severity Status lithium bladder/ metabolism Active Immunizations Given and Recorded Vaccine Date Status Refusal Reason SARS-CoV-2(COVID-19)mRNA-LNP vac([id number]) 12/18/22 Recorded influenza virus vaccine, inactivated 11/15/22 Preet rded [id number] bivalent booster vax 12/16/21 Recorded SARS-CoV-2 mRNA ([id number]-voep-xxjqy) vax 03/14/21 Recorded SARS-CoV-2 (COVID-19) mRNA BNT-162b2 vac 04/30/20 Recorded SARS-CoV-2 (COVID-19) mRNA BNT-162b2 vac 04/01/20 Recorded tetanus/diphtheria/pertussis, acel(Tdap) 03/09/17 Given Medications Albuterol (Eqv-Proventil HFA) 90 mcg/inh inhalation aerosol 2 puffs, Inhalation, 4 times a day, PRN NEEDED FOR WHEEZING, # 6.7 Gm, 0 Refills, Maintenance, 04/09/23 9:17:00 EST, [id number], 176, cm, 02/27/23 11:54:00 EST, Height, 70, kg, 12/21/22 12:46:00 EDT, Dry Weight Start Date: 04/09/23 Stop Date: 05/09/23 Status: Ordered Anoro Ellipta 62.5 mcg-25 mcg/inh inhalation powder 1 puffs, Inhalation, Daily, # 1 each, 11 Refills, Maintenance, 02/01/23 10:55:00 EST, Powder, [facility]-, Partial fill upon patient request if the prescription is for a schedule II opioid drug., 1 puffs Inhalation Daily,x30 da... Start Date: 02/01/23 Stop Date: 01/27/24 Status: Ordered Banophen 25 mg oral capsule 1 capsule, By Mouth, 3 times a day, PRN NEEDED FOR ALLERGY SYMTPOMS, # 90 capsule, 6 Refills, Maintenance, 02/23/23 17:34:00 EST, [facility]/pharmacy #[id number], 176, cm, 02/16/23 13:04:00 EST, Height, [...] Gm, 2 Refills, Maintenance, 05/08/23 18:38:00 EDT, [facility], 30, USE 1 SPRAY IN EACH NOSTRIL [...] tibial avulsion (S82.153A), 05/02/21 9:45:00 EDT, [facility] [phone], Supply Start Date: 05/02/21 Status: Ordered Knee Support See Instructions, # 1 each, Maintenance, Left knee brace Dx: bilateral tibial plateau fracture (S82.143A) Bilateral tibial avulsion (S82.153A), 05/02/21 9:48:00 EDT, [facility] [phone], Supply Start Date: 05/02/21 Status: Ordered Left wrist brace. Dx left wrist pain Left wrist brace. Dx left wrist pain, See Instructions, # 1 each, Refills 0, Tot. Refills 0, Maintenance, Wear as tolerated Dx: Left wrist scaphoid fracture (S62.002A) Left wrist pain (M25.532), 05/02/21 9:46:00 EDT, [facility] [phone], Supply Start Date: 05/02/21 Status: Ordered naproxen 500 mg oral tablet 1 tablet, By Mouth, 2 times a day, PRN NEEDED FOR MODERATE PAIN WITH FOOD, # 60 tablet, 0 Refills, Maintenance, 04/10/23 11:41:00 EST, [facility]-, 176, cm, 02/27/23 11:54:00 EST, Height, 70, kg, 12/21/22 12:46:00 EDT, Dry W... Start Date: 04/10/23 Status: Ordered pantoprazole 40 mg oral delayed [...] oldest [Reference Range]: 1 Height 176 cm (05/01/23 9:52 AM) Weight 72.8 kg (05/01/23 9:52 AM) Pulse Rate [55-90 bpm] 71 bpm (05/01/23 9:52 AM) Body Mass Index [18.5-24.99 kg/m2] 23.5 kg/m2 (05/01/23 9:52 AM) Blood Pressure [90-138/55-84 mm Hg] 109/ 72mm Hg (05/01/23 9:52 AM) Temperature [96.8-100.4 DegF] 96.9 DegF (05/01/23 9:52 AM) Blood pressure sites Arm, left (05/01/23 9:52 AM) Temperature Route Temporal (05/01/23 9:52 AM) Weight Obtained Via Standing scale (05/01/23 9:52 AM) Social History Social History Type Response Smoking Status 5-9 cigarettes (betw een 1/4 to 1/2 pack)/day in last 30 days entered on: 02/27/23 Sex Patient Care team information Care Team Personnel Name: Naty Malcolm RN Position: [facility] RN Member Role: Primary Care Nurse Name: Harshil Cardoso RN Position: [facility] RN Member Role: Primary Care Nurse Name: Meri Lima RN Position: [facility] ED RN W/OE and Tasks Member Role: Primary Care Nurse Name: Lionel Ludwig MD Position: [facility] Renal MD Member Role: Lifetime Consulting Physician Address: Address: [address] [place] [address] [address] [facility] [address]- Name: Rowan Alvarez RN Position: [facility] HBO Wound Member Role: Primary Care Nurse Name: Tala Plasencia RN Position: [facility] RN Member Role: Primary Care Nurse Name: Franklin Seth RN Position: [facility] RN Member Role: Primary Care Nurse Name: Kathy Honeycutt Position: [facility] RN Member Role: Primary Care Nurse Name: Gideon Miller RN Position: [facility] SN RN Member Role: Primary Care Nurse Name: Az Pham RN Position: [facility] ED RN W/OE and Tasks Member Role: Primary Care Nurse Name: Libertad Olmos RN Position: [facility] RN Member Role: Primary Care Nurse Name: Daily Mane RN Position: [facility] RN Member Role: Primary Care Nurse Name: Katelynn Milan RN Position: [facility] RN Member Role: Primary Care Nurse Name: Mae Brennan NP Position: [facility] PCO Associate Professional Member Role: PCP Address: Address: [address] [place] [address]- Name: Belinda Gusman RN Position: [facility] Development Director Member Role: Primary Care Nurse Name: Chito Powers RN Position: [facility] RN Member Role: Primary Care Nurse Name: Antonio Velasquez RN Position: [facility] RN Member Role: Primary Care Nurse Name: Alexey Ramos RN Position: [facility] RN Member Role: Primary Care Nurse Name: Crow Burk MD Position: [facility] Renal MD Member Role: Lifetime Consulting Physician Address: Address: [address] [place] [address] [facility] [place] [address]- Name: Emelyn Corbin RN Position: [facility] RN Member Role: Primary Care Nurse Name: Aurea Gutierrez RN Position: [facility] RN Member Role: Primary Care Nurse Care Team Related Persons Name: CHARLES FRANKLIN Address: [address] [place] [address]
--- OUTSIDE RECORDS SUMMARY | 2023-09-14 23:03 | XMS_ITS | Continuity of Care Document ---
Author Organization [facility] Adult Address [address] [place] [address]- Care Team Providers Care Cook Railroad Name Role Phone Mika CLAY, Mae Serrano Primary Care Physician [place] [facility] [place]/22 - 07/29/22 [facility] [address] [place] [address]- Allergies, Adverse Reactions, Alerts No Known Medication Allergies Immunizations Given and Recorded Vaccine Date Status Refusal Reason [id number] bivalent booster vax 12/16/21 Recorded SARS-CoV-2 mRNA (ihhmhbv-xhql-qcucm) vax 03/14/21 Recorded SARS-CoV-2 (COVID-19) mRNA BNT-162b2 [...] 2 Refills, Maintenance, 06/19/22 14:26:00 EDT, Tablet, [facility]-, Partial fill upon patient request if the [...] Gm, 5 Refills, Maintenance, 07/21/22 13:26:00 EDT, [facility]-, 30, USE 1 SPRAY IN EACH NOSTRIL TWICE A DAY, 165, cm, 07/15/22 18:51:00 EDT, Height, 76.5, kg, 07/15/22 18:51:00... Start Date: 07/21/22 Status: Ordered Knee Support See Instructions, # 1 each, Maintenance, Right knee brace Dx: bilateral tibial plateau fracture (S82.143A) Bilateral tibial avulsion (S82.153A), 05/02/21 9:45:00 EDT, ROSINA [id number], Supply Start Date: 05/02/21 Status: Ordered Knee [...] Care Nurse Name: Meri Lima RN Position: [facility] ED RN W/OE and Tasks Member Role: Primary Care Nurse Name: Lionel Ludwig MD Position: [facility] Renal MD Member Role: Lifetime Consulting Physician Address: Address: [address] [place] [address], [address] [facility] [address] Name: Rowan Alvarez RN Position: [facility] HBO Wound Member Role: Primary Care Nurse Name: Tala Plasencia RN Position: [facility] RN Member Role: Primary Care Nurse Name: Franklin Seth RN Position: [facility] RN Member Role: Primary Care Nurse Name: Kathy Honeycutt Position: [facility] RN Member Role: Primary Care Nurse Name: Gideon Miller RN Position: [facility] SN RN Member Role: Primary Care [...] Milan RN Position: [facility] AMB Nurse Member Role: Primary Care Nurse Name: Mae Brennan NP Position: [facility] PCO Associate Professional Member Role: PCP Address: Address: [address] [place] [address]- Name: Deborah Gusman RN Position: [facility] Vehicle Painter Member Role: Primary Care Nurse Name: Chito [...] Role: Lifetime Consulting Physician Address: Address: [address] [place] [address] [facility] [place] [address]- Name: Emelyn Corbin RN Position: [facility] RN Member Role: Primary Care Nurse Name: Aurea Gutierrez RN Position: [facility] RN Member Role: Primary Care Nurse Care Team Related Persons Name: CHARLES FRANKLIN Address: [address] [address]
--- OUTSIDE RECORDS SUMMARY | 2023-09-14 23:03 | XMS_ITS | Continuity of Care Document ---
Author Organization [facility] Adult Address [address] [place] [address]- Care Team Providers Care Recreation Program Coordinator Name Role Phone Mika CLAY, Mae Serrano Primary Care Physician [place] [facility] [place] - 05/25/[address] [address]- Allergies, Adverse Reactions, Alerts Substance Reaction Severity Status lithium unknown Active Immunizations Given and Recorded Vaccine Date Status Refusal Reason SARS-CoV-2 mRNA (bxivftg-qttc-bmwpp) vax 03/14/21 Recorded SARS-CoV-2 (COVID-19) mRNA BNT-162b2 [...] 0 Refills, Maintenance, 04/18/22 8:05:00 EST, Tablet, [facility]-, Partial fill upon patient request [...] tibial avulsion (S82.153A), 05/02/21 9:45:00 EDT, ROSINA [phone], Supply Start Date: 05/02/21 Status: Ordered Knee Support See Instructions, # 1 each, Maintenance, Left knee brace Dx: bilateral tibial plateau fracture (S82.143A) Bilateral tibial avulsion (S82.153A), 05/02/21 9:48:00 EDT, [facility] [id number], Supply Start Date: 05/02/21 Status: Ordered Left wrist brace. Dx left wrist pain Left wrist brace. Dx left wrist pain, See Instructions, # 1 each, Refills 0, Tot. Refills 0, Maintenance, Wear as tolerated Dx: Left wrist scaphoid fracture (S62.002A) Left wrist pain (M25.532), 05/02/21 9:46:00 EDT, [facility] [phone], Supply Start Date: 05/02/21 Status: Ordered naproxen 500 mg oral tablet 1 tablet = 500 mg, By Mouth, Every 12 hours, PRN Pain , Moderate, for 30 days, # 60 tablet, 0 Refills, Acute 06/16/22 17:44:00 EDT, 05/17/22 17:44:00 EDT, Tablet, [facility]-,Partial fill upon patient request if the [...] Team Personnel Name: Naty Malcolm RN Position: [facility] RN Member Role: Primary Care Nurse Name: Harshil Cardoso RN Position: [facility] RN Member Role: Primary Care Nurse Name: Meri Lima RN Position: [facility] ED RN W/OE and Tasks Member Role: Primary Care Nurse Name: Lionel Ludwig MD Position: [facility] Renal MD Member Role: Lifetime Consulting Physician Address: Address: [address] [place] [address], [address] [facility] [place] [address]- Name: Rowan Alvarez RN Position: [facility] Wound Member Role: Primary Care Nurse Name: Tala Plasencia RN Position: [facility] RN Member Role: Primary Care Nurse Name: Franklin Seth RN Position: [facility] RN Member Role: Primary Care Nurse Name: Kathy Honeycutt Position: [facility] RN Member Role: Primary Care Nurse Name: Az Pham RN Position: [facility] ED RN W/OE and Tasks Member Role: Primary Care Nurse Name: Libertad Olmos RN Position: [facility] RN Member Role: Primary Care Nurse Name: Daily Mane RN Position: [facility] RN Member Role: Primary Care Nurse Name: Katelynn Milan RN Position: [facility] PCO RN Member Role: Primary Care Nurse Name: Mae Brennan NP Position: [facility] PCO Associate Professional Member Role: PCP Address: Address: [address] [place] [address] [address]rd [place] [address]- [place] Name: Deborah Gusman RN Position: [facility] Hospital Generating Station Mechanic Member Role: Primary Care Nurse Name: Chito Powers RN Position: [facility] RN Member Role: Primary Care Nurse Name: Antonio Velasquez RN Position: [facility] RN Member Role: Primary Care Nurse Name: Alexey Ramos RN Position: [facility] RN Member Role: Primary Care Nurse Name: Crow Burk MD Position: [facility] Renal MD Member Role: Lifetime Consulting Physician Address: Address: [address] [place] [address] [facility] [place] [address] Name: Emelyn Corbin RN Position: S RN Member Role: Primary Care Nurse Name: Aurea Gutierrez RN Position: S RN Member Role: Primary Care Nurse Care Team Related Persons Name: CHARLES FRANKLIN Address: [place] [address]
--- OUTSIDE RECORDS SUMMARY | 2023-09-14 23:03 | XMS_ITS | Continuity of Care Document ---
Author Organization [facility] Adult Address [address] [place] [address]- Care Team Providers Care Steward Dishwasher Name Role Phone Mika CLAY, Mae Serrano Primary Care Physician En[place] [facility] [place] Date(s): 05/14/23 - 06/13/[address] [address]- Allergies, Adverse Reactions, Alerts Substance Reaction Severity Status lithium bladder/ metabolism Active Immunizations Given and Recorded Vaccine Date Status Refusal Reason SARS-CoV-2(COVID-19)mRNA-LNP vac([id number]) 12/18/22 Recorded influenza virus vaccine, inactivated 11/15/22 Preet rded [id number] bivalent booster vax 12/16/21 Recorded SARS-CoV-2 mRNA (oahppbh-guuh-hcjyy) vax 03/14/21 Recorded SARS-CoV-2 (COVID-19) mRNA BNT-162b2 vac 04/30/20 Recorded SARS-CoV-2 (COVID-19) mRNA BNT-162b2 vac 04/01/20 Recorded tetanus/diphtheria/pertussis, acel(Tdap) 03/09/17 Given Medications Albuterol (Eqv-Proventil HFA) 90 mcg/inh inhalation aerosol 2 puffs, Inhalation, 4 times a day, PRN NEEDED FOR WHEEZING, # 6.7 Gm, 0 Refills, Maintenance, 05/22/23 14:22:00 EDT, [facility]- , 176, cm, 05/01/23 9:52:00 EDT, Height, 70, kg, 12/21/22 12:46:00 EDT, Dry Weight Start Date: 05/22/23 Stop Date: 06/21/23 Status: Ordered Anoro Ellipta 62.5 mcg-25 mcg/inh inhalation powder 1 puffs, Inhalation, Daily, # 1 each, 11 Refills, Maintenance, 02/01/23 10:55:00 EST, Powder, [facility]-, Partial fill upon patient request if the prescription is for a schedule II opioid drug., 1 puffs Inhalation Daily,x30 da... Start Date: 02/01/23 Stop Date: 01/27/24 Status: Ordered Banophen 25 mg oral capsule 1 capsule, By Mouth, 3 times a day, PRN NEEDED FOR ALLERGY SYMTPOMS, # 90 capsule, 6 Refills, Maintenance, 02/23/23 17:34:00 EST, [id number], 176, cm, 02/16/23 13:04:00 EST, [...] Gm, 2 Refills, Maintenance, 05/08/23 18:38:00 EDT, [facility] 30, USE 1 [...] tibial avulsion (S82.153A), 05/02/21 9:45:00 EDT, [facility] [id number], Supply Start Date: 05/02/21 Status: Ordered Knee Support See Instructions, # 1 each, Maintenance, Left knee brace Dx: bilateral tibial plateau fracture (S82.143A) Bilateral tibial avulsion (S82.153A), 05/02/21 9:48:00 EDT, [facility] [phone], Supply Start Date: 05/02/21 Status: Ordered Left wrist brace. Dx left wrist pain Left wrist brace. Dx left wrist pain, See Instructions, # 1 each, Refills 0, Tot. Refills 0, Maintenance, Wear as tolerated Dx: Left wrist scaphoid fracture (S62.002A) Left wrist pain (M25.532), 05/02/21 9:46:00 EDT, [facility] [phone] [id number], Supply Start Date: 05/02/21 Status: Ordered naproxen 500 mg oral tablet 1 tablet, By Mouth, 2 times a day, PRN NEEDED FOR MODERATE PAIN WITH FOOD, # 60 tablet, 0 Refills, Maintenance, 06/06/23 9:15:00 EDT, [facility]-, 176, cm, 05/01/23 9:52:00 EDT, Height,70, kg, 12/21/22 12:46:00 EDT, Dry Weight Start Date: 06/06/23 Status: Ordered pantoprazole 40 mg oral delayed [...] Team Personnel Name: Naty Malcolm RN Position: [facility] RN Member Role: Primary Care Nurse Name: Harshil Cardoso RN Position: [facility] RN Member Role: Primary Care Nurse Name: Meri Lima RN Position: [facility] ED RN W/OE and Tasks Member Role: Primary Care Nurse Name: Rowan Damon RN Position: [facility] HBO Wound Member Role: Primary Care Nurse Name: Lionel Ludwig MD Position: [facility] Renal MD Member Role: Lifetime Consulting Physician Address: Address: [address] [place] [address] [address] [facility] [address]- [place] Name: Tala Plasencia RN Position: [facility] RN Member Role: Primary Care Nurse Name: Franklin Seth RN Position: [facility] RN Member Role: Primary Care Nurse Name: Kathy Honeycutt Position: [facility] RN Member Role: Primary Care Nurse Name: Gideon Miller RN Position: [facility] SN RN Member Role: Primary Care Nurse Name: Az Pham RN Position: [facility] ED RN W/OE and Tasks Member Role: Primary Care Nurse Name: Libertad Olmos RN Position: [facility] RN Member Role: Primary Care Nurse Name: Daily Mane RN Position: [facility] RN Member Role: Primary Care Nurse Name: Katelynn Milan RN Position: [facility] RN Member Role: Primary Care Nurse Name: Mae Brennan NP Position: [facility] PCO Associate Professional Member Role: PCP Address: Address: [address] [place] [address]- [place] Name: Belinda Gusman RN Position: [facility] A And P Mechanic Member Role: Primary Care Nurse Name: Chito Powers RN Position: [facility] RN Member Role: Primary Care Nurse Name: Antonio Velasquez RN Position: [facility] RN Member Role: Primary Care Nurse Name: Alexey Ramos RN Position: [facility] RN Member Role: Primary Care Nurse Name: Crow Burk MD Position: [facility] Renal MD Member Role: Lifetime Consulting Physician Address: Address: [address] [place] [address] [facility] [place] [address]- [place] Name: Emelyn Corbin RN Position: [facility] RN Member Role: Primary Care Nurse Name: Aurea Gutierrez RN Position: [facility] RN Member Role: Primary Care Nurse Care Team Related Persons Name: RIGOBERTO CHARLES Address: [address] [address]
--- OUTSIDE RECORDS SUMMARY | 2023-09-14 23:03 | XMS_ITS | Continuity of Care Document ---
Author Organization [facility] ter Address [address] [place] [address]- Care Team Providers Care Skill Labor Name Role Phone Mika CLAY, Mae Serrano Primary Care Physician [phone] Encounter [facility] [place] Date(s): 01/19/20 - 01/28/[address] [address]- Encounter Diagnosis Psoas abscess(Final) - 01/19/20 Bacteremia(Final) - 01/19/20 Discitis(Final) - 01/19/20 Osteomyelitis(Final) - 01/19/20 Discharge Disposition: A-D/C AMA Attending Physician: Tony Ndiaye MD Admitting Physician: Amaury Ruiz DO Referring Physician: Not on Staff, Referring [...] request Start Date: 01/19/20 Status: Ordered gabapentin 100 mg oral capsule 200 mg, Capsule, By Mouth, 01/28/20 13:00:00 EST Start Date: 01/28/20 Stop Date: 01/28/20 Status: Completed ibuprofen 600 mg oral tablet 600 mg, [...] Active Suture granuloma(Confirmed) Active Tobacco dependence(Confirmed) Active Results Orders for Microbiology Reports Name Date Blood Culture 01/19/20 Blood Culture #2 01/19/20 Microbiology Reports TEST:Blood Culture, Second Order STATUS:Auth (Verified) BODY SITE: SOURCE:Blood COLLECTED DATE/TIME:01/19/20 5:25 AM Blood Culture, Second Order SPECIMEN DESCRIPTION : BLOOD LLA SPECIAL REQUESTS : NONE CULTURE : NO GROWTH 5 DAYS. REPORT STATUS : FINAL 01/24/2020 TEST:Blood Culture STATUS:Auth (Verified) BODY SITE: SOURCE:Blood COLLECTED DATE/TIME:01/19/20 4:46 AM Blood Culture SPECIMEN DESCRIPTION : BLOOD R AC SPECIAL REQUESTS : NONE CULTURE : NO GROWTH 5 DAYS. REPORT STATUS : FINAL 01/24/2020 Vital Signs Most recent to oldest [Reference Range]: 1 2 3 Height 180 cm (01/28/20 7:00 AM) 180 cm (01/27/20 11:22 PM) 180 cm (01/27/20 8:07 PM) Weight 58.5 kg (01/20/20 3:29 PM) Oxygen Saturation [94-100 %] 95 % (01/28/20 7:00 AM) 94 % (01/27/20 11:22 PM) 99 % (01/27/20 8:07 PM) Pulse Rate [55-90 bpm] 66 bpm (01/28/20 7:00 AM) 95 bpm *H* (01/27/20 11:22 PM) 93 bpm *H* (01/27/20 8:07 PM) Body Mass Index [18.5-24.99] 18.06 *L* (01/20/20 3:29 PM) Blood Pressure [90-138/55-84 mm Hg] 111/74mm Hg (01/28/20 7:00 AM) 106/66mm Hg (01/27/20 11:22 PM) 106/77mm Hg (01/27/20 8:07 PM) Respiratory Rate [16-30 br/min] 18 br/min (01/28/20 2:07 PM) 18 br/min (01/28/20 1:07 PM) 17 br/min (01/28/20 7:00 AM) Temperature [96.8-100.4 DegF] 98.0 DegF (01/28/20 7:00 AM) 98.0 DegF (01/27/20 11:22 PM) 98.0 DegF (01/27/20 8:07 PM) Mode of Delivery (Oxygen) Room air (01/28/20 7:00 AM) Room air (01/27/20 11:22 PM) Room air (01/27/20 8:07 PM) Blood pressure sites Arm, left (01/28/20 7:00 AM) Arm, left (01/27/20 11:22 PM) Arm, left (01/27/20 8:07 PM) Temperature Route Oral (01/28/20 7:00 AM) Oral (01/27/20 11:22 PM) Oral (01/27/20 8:07 PM) Dry Weight 58.5 kg (01/20/20 3:29 PM) Weight Obtained Via Bed scale (01/20/20 3:29 PM) Dry Weight Obtained Via Bed scale (01/20/20 3:29 PM) Social History Social History Type Response Smoking Status Current every day vidhya cavanaugh; Other: 1 pack per since age 9 years; entered on: 03/09/17 Sex
--- OUTSIDE RECORDS SUMMARY | 2023-09-14 23:04 | XMS_ITS | Continuity of Care Document ---
Author Organization [facility] Adult Address [address] [place] [address]- Care Team Providers Care Certified Nurses Aide Name Role Phone Mika CLAY, Mae Serrano Primary Care Physician [phone] Encounter [facility] [place] Date(s): 01/10/23 - 02/09/[address] [address]- Allergies, Adverse Reactions, Alerts No Known Medication Allergies Immunizations Given and Recorded Vaccine Date Status Refusal Reason SARS-CoV-2(COVID-19)mRNA-LNP vac([id number]) 12/18/22 Recorded influenza virus vaccine, inactivated 11/15/22 Preet rded [id number] bivalent booster vax 12/16/21 Recorded SARS-CoV-2 mRNA (itokbok-wdfh-xpoqc) vax 03/14/21 Recorded SARS-CoV-2 (COVID-19) mRNA BNT-162b2 vac 04/30/20 Recorded SARS-CoV-2 (COVID-19) mRNA BNT-162b2 vac 04/01/20 Recorded tetanus/diphtheria/pertussis, acel(Tdap) 03/09/17 Given Medications albuterol CFC free 90 mcg/inh inhalation aerosol 2, puffs, Inhalation, 4 times a day, PRN, # 6.7 Gm, Refills 0, Tot. Refills 0, Maintenance, 02/03/23 11:33:00 EST, Inhaler, Route to Pharmacy Electronically, NCPDP_[id number], [facility]-, 176, cm, 01/04/23 10:48:00 EST, Height... Start Date: 02/03/23 Stop Date: 03/05/23 Status: Ordered Anoro Ellipta 62.5 mcg-25 mcg/inh inhalation powder 1 puffs, Inhalation, Daily, # 1 each, 11 Refills, Maintenance, 02/01/23 10:55:00 EST, [facility] upon patient request if the prescription is for a schedule II opioid drug., 1 puffs Inhalation Daily,x30 da... Start Date: 02/01/23 Stop Date: 01/27/24 Status: Ordered Banophen 25 mg oral capsule 1 capsule, By Mouth, 3 times a day, PRN NEEDED FOR ALLERGY SYMTPOMS, # 90 capsule, 6 Refills, Maintenance, 01/31/23 8:41:00 EST, [id number], 176, cm, 01/04/23 10:48:00 EST, Height, 70,kg, [...] Gm, 3 Refills, Maintenance, 01/04/23 11:38:00 EST, [place], Partial fill upon patient request if the [...] Bilateral tibial avulsion (S82.153A), 05/02/21 9:45:00 EDTROSINA [id number], Supply Start Date: 05/02/21 Status: Ordered Knee Support See Instructions, # 1 each, Maintenance, Left knee brace Dx: bilateral tibial plateau fracture (S82.143A) Bilateral tibial avulsion (S82.153A), 05/02/21 9:48:00 EDT, [facility] [id number], Supply Start Date: 05/02/21 Status: Ordered Left wrist brace. Dx left wrist pain Left wrist brace. Dx left wrist pain, See Instructions, # 1 each, Refills 0, Tot. Refills 0, Maintenance, Wear as tolerated Dx: Left wrist scaphoid fracture (S62.002A) Left wrist pain (M25.532), 05/02/21 9:46:00 EDROSINA Dalton [phone], Supply Start Date: 05/02/21 Status: Ordered levocetirizine [...] Team Personnel Name: Naty Malcolm RN Position: [facility] RN Member Role: Primary Care Nurse Name: Harshil Cardoso RN Position: [facility] RN Member Role: Primary Care Nurse Name: Meri Lima RN Position: [facility] ED RN W/OE and Tasks Member Role: Primary Care Nurse Name: Lionel Ludwig MD Position: [facility] Renal MD Member Role: Lifetime Consulting Physician Address: Address: [address] [place] [address] [address] [place] [address]- [place] Name: Rowan Alvarez RN Position: [facility] HBO Wound Member Role: Primary Care Nurse Name: Tala Plasencia RN Position: [facility] RN Member Role: Primary Care Nurse Name: Franklin Seth RN Position: [facility] RN Member Role: Primary Care Nurse Name: Kathy Honeycutt Position: [facility] RN Member Role: Primary Care Nurse Name: Gideon Miller RN Position: [facility] SN RN Member Role: Primary Care Nurse Name: Az Pham RN Position: [facility] ED RN W/OE and Tasks Member Role: Primary Care Nurse Name: Libertad Olmos RN Position: [facility] RN Member Role: Primary Care Nurse Name: Daily Mane RN Position: [facility] RN Member Role: Primary Care Nurse Name: Katelynn Milan RN Position: [facility] AMB Nurse Member Role: Primary Care Nurse Name: Mae Brennan NP Position: [facility] PCO Associate Professional Member Role: PCP Address: Address: [address] [place] [address]- [place] Name: Belinda Gusman RN Position: [facility] Agricultural Education Instructor Member Role: Primary Care Nurse Name: Chito Powers RN Position: [facility] RN Member Role: Primary Care Nurse Name: Antonio Velasquez RN Position: [facility] RN Member Role: Primary Care Nurse Name: Alexey Ramos RN Position: [facility] RN Member Role: Primary Care Nurse Name: Crow Burk MD Position: [facility] Renal MD Member Role: Lifetime Consulting Physician Address: Address: [address] [place] [address] [facility] [place] [address]- [place] Name: Emelyn Corbin RN Position: [facility] RN Member Role: Primary Care Nurse Name: Aurea Gutierrez RN Position: S RN Member Role: Primary Care Nurse Care Team Related Persons Name: CHARLES FRANKLIN Address: [address] [address]
--- OUTSIDE RECORDS SUMMARY | 2023-09-14 23:04 | XMS_ITS | Continuity of Care Document ---
Author Organization [facility] Adult Address [address] [place] [address]- Care Team Providers Care Socket Puller Name Role Phone Mae Brennan NP Primary Care Physician [place] [facility] [place] 08/02/20 - 08/09/20 [facility] Adult [address] [place] [address]- Encounter Diagnosis Chronic hepatitis C(Discharge Diagnosis) - 08/02/20 Drowsy(Discharge Diagnosis) - 08/02/20 Anxiety and depression(Discharge Diagnosis) - 08/02/20 Cocaine abuse(Discharge Diagnosis) - 08/02/20 Polysubstance abuse(Discharge Diagnosis) - 08/02/20 Schizoaffective disorder(Discharge Diagnosis) - 08/02/20 Attending Physician: Not on Staff, Attending MD [...] Refills, Maintenance, 08/02/20 14:32:00 EDT, Capsule, [facility]-, Partial f... Start Date: 08/02/20 Status: Ordered [...] 14:30:00 EDT, Route to Pharmacy Electronically, [facility]-, Partial fill upon patient request [...] Active Suture granuloma(Confirmed) Active Tobacco dependence(Confirmed) Active Diagnosis Diagnosis Type Effective Dates Health Status Clinical Service Informant Chronic hepatitis C Discharge Diagnosis 08/02/20 Drowsy Discharge Diagnosis 08/02/20 Anxiety and depression Discharge Diagnosis 08/02/20 Cocaine abuse Discharge Diagnosis 08/02/20 Polysubstance abuse Discharge Diagnosis 08/02/20 Schizoaffective disorder Discharge Diagnosis 08/02/20 Vital Signs Most recent to oldest [Reference Range]: 1 Height 180 cm (08/02/20 2:06 PM) Weight 72.4 kg (08/02/20 2:06 PM) Oxygen Saturation [94-100 %] 98 % (08/02/20 2:06 PM) Pulse Rate [55-90 bpm] 71 bpm (08/02/20 2:06 PM) Body Mass Index [18.5-24.99] 22.35 (08/02/20 2:06 PM) Blood Pressure [90-138/55-84 mm Hg] 112/ 80mm Hg (08/02/20 2:06 PM) Temperature [96.8-100.4 DegF] 97.7 DegF (08/02/20 2:06 PM) Blood pressure sites Arm, left (08/02/20 2:06 PM) Temperature Route Oral (08/02/20 2:06 PM) Social History Social History Type Response Smoking Status Current every day vidhya cavanaugh; Other: 1 pack per since age 9 years; entered on: 03/09/17 Sex
--- OUTSIDE RECORDS SUMMARY | 2023-09-14 23:04 | XMS_ITS | Continuity of Care Document ---
Author Organization [facility] ter Address [address] [place] [address]- Care Team Providers Care Business Mgr Name Role Phone Mika CLAY, Mae Serrano Primary Care Physician [place] [facility] Date(s): 01/16/20 - 02/28/[address] [address] Attending Physician: Cam Mccall MD Admitting Physician: [...] 02/19/20 10:39:00 EST, Route to Pharmacy Electronically, [facility], Partial fill upon patient request if [...]
--- OUTSIDE RECORDS SUMMARY | 2023-09-14 23:04 | XMS_ITS | Continuity of Care Document ---
Author Organization [facility] Adult Address [address] [place] [address]- Care Team Providers Care Telegraph Repeater Technician Name Role Phone Mae Brennan NP Primary Care Physician [place] [facility] [place]20 [facility] Adult [address] [place] [address]- Attending Physician: Mae Brennan NP Allergies, Adverse [...] px, unsteady gait, h/o vertebral osteomylitis [facility] [phone], 08/26/20 9:05:00 EDT, Supply Start Date: 08/26/20 [...] px, unsteady gait, h/o vertebral osteomylitis [facility] [phone], 08/26/20 9:05:00 EDT, Supply Start Date: 08/26/20 Status: Ordered CeleBREX 200 mg oral capsule 1 capsule = 200 mg, By Mouth, 2 times a day, PRN Pain , Moderate, contents of capsule may be mixed with soft foods such as applesauce, # 60 capsule, 0 Refills, Maintenance, 08/02/20 14:32:00 EDT, Capsule, [facility]-, Partial f... Start Date: 08/02/20 Status: [...] 14:30:00 EDT, Route to Pharmacy Electronically, [facility]-, Partial fill upon patient request if the prescription is f... Start Date: 08/02/20 Status: Ordered ibuprofen 600 mg oral tablet 600 mg, 1, tablet, By Mouth, Every 8 hours, PRN, not to exceed 3200 mg/day with food or milk, # 90 tablet, Refills 0, Tot. Refills 0, Maintenance, Pain , Moderate, 08/13/20 10:32:00 EDT, Route to Pharmacy Electronically, [facility]... Start Date: 08/13/20 Stop Date: 09/12/20 Status: [...]
--- OUTSIDE RECORDS SUMMARY | 2023-09-14 23:04 | XMS_ITS | Continuity of Care Document ---
Author Organization [facility] Adult Address [address] [place] [address]- Care Team Providers Care News Reel Cameraman Name Role Phone Mika CLAY, Mae Serrano Primary Care Physician [place] [facility] [place] - 03/16/[address] [address]- Allergies, Adverse Reactions, Alerts Substance Reaction Severity Status lithium unknown Active Immunizations Given and Recorded Vaccine Date Status Refusal Reason SARS-CoV-2 mRNA (opzovkw-pgcc-jzgln) vax 03/14/21 Recorded SARS-CoV-2 (COVID-19) mRNA BNT-162b2 [...] Life long (99), 05/02/21 9:46:00 EDT, VLADISLAV RICHARD Start Date: 05/02/21 Status: Ordered divalproex sodium [...] Refills, Acute 03/31/22 13:36:00 EST,03/01/22 13:36:00 EST, [place], [facility]-, Partial fill upon patient request if the prescription is for a schedule II opioid . Start Date: 03/01/22 Stop Date: 03/31/22 Status: Ordered Knee Support See Instructions, # 1 each, Maintenance, Right knee brace Dx: bilateral tibial plateau fracture (S82.143A) Bilateral tibial avulsion (S82.153A), 05/02/21 9:45:00 EDT, [facility] [phone], Supply Start Date: 05/02/21 Status: Ordered Knee Support See Instructions, # 1 each, Maintenance, Left knee brace Dx: bilateral tibial plateau fracture (S82.143A) Bilateral tibial avulsion (S82.153A), 05/02/21 9:48:00 EDT, [facility] [phone], Supply Start Date: 05/02/21 Status: Ordered Left wrist brace. Dx left wrist pain Left wrist brace. Dx left wrist pain, See Instructions, # 1 each, Refills 0, Tot. Refills 0, Maintenance, Wear as tolerated Dx: Left wrist scaphoid fracture (S62.002A) Left wrist pain (M25.532), 05/02/21 9:46:00 EDT, ROSINA [phone], Supply Start Date: 05/02/21 Status: Ordered levocetirizine 5 mg oral tablet 1 tablet = 5 mg, By Mouth, Daily in PM, # 30 tablet, 3 Refills, Maintenance, 03/01/22 13:24:00 EST,Tablet, [facility]-, Partial fill upon patient request if the prescription is for a schedule II opioid drug., 1 tablet By Mouth... Start Date: 03/01/22 Status: Ordered meloxicam 15 mg oral tablet 1 tablet = 15 mg, By Mouth, Daily, PRN Pain , Moderate, # 30 tablet, 4 Refills, Maintenance, 03/01/22 13:25:00 EST, Tablet, [facility]-, Partial fill upon patient request if [...] Team Personnel Name: Naty Malcolm RN Position: [facility] RN Member Role: Primary Care Nurse Name: Harshil Cardoso RN Position: [facility] RN Member Role: Primary Care Nurse Name: Meri Lima RN Position: [facility] ED RN W/OE and Tasks Member Role: Primary Care Nurse Name: Lionel Ludwig MD Position: [facility] Renal MD Member Role: Lifetime Consulting Physician Address: Address: [address] [place] [address], [address] [facility] [place] [address]- Name: Rowan Alvarez RN Position: [facility] HBO Wound Member Role: Primary Care Nurse Name: Tala Plasencia RN Position: [facility] RN Member Role: Primary Care Nurse Name: Franklin Seth RN Position: [facility] RN Member Role: Primary Care Nurse Name: Kathy Honeycutt Position: [facility] RN Member Role: Primary Care Nurse Name: Az Pham RN Position: [facility] ED RN W/OE and Tasks Member Role: Primary Care Nurse Name: Libertad Olmos RN Position: [facility] RN Member Role: Primary Care Nurse Name: Daily Mane RN Position: [facility] RN Member Role: Primary Care Nurse Name: Katelynn Milan RN Position: [facility] PCO RN Member Role: Primary Care Nurse Name: Mae Brennan NP Position: [facility] PCO Associate Professional Member Role: PCP Address: Address: [address] [place] [address] 3rd [place] [address]- [place] Name: Deborah Gusman RN Position: [facility] Boat Worker Member Role: Primary Care Nurse Name: Chito Powers RN Position: [facility] RN Member Role: Primary Care Nurse Name: Antonio Velasquez RN Position: [facility] RN Member Role: Primary Care Nurse Name: Alexey Ramos RN Position: [facility] RN Member Role: Primary Care Nurse Name: Crow Burk MD Position: [facility] Renal MD Member Role: Lifetime Consulting Physician Address: Address: [address] [place] [address] [facility] [place] [address]- Name: Emelyn Corbin RN Position: [facility] RN Member Role: Primary Care Nurse Name: Aurea Gutierrez RN Position: [facility] RN Member Role: Primary Care Nurse Care Team Related Persons Name: CHARLES FRANKLIN Address: [address] [address]
--- OUTSIDE RECORDS SUMMARY | 2023-09-14 23:04 | XMS_ITS | Continuity of Care Document ---
Author Organization [facility] ter Address [address] [place] [address]- Care Team Providers Care Armature Bander Name Role Phone Mika CLAY, Mae Serrano Primary Care Physician [phone] [place] [facility] [place]16[place] - 02/24/[address] [address] Attending Physician: Cam Mccall MD [...] 02/19/20 10:39:00 EST, Route to Pharmacy Electronically, [facility], Partial fill upon patient request if the [...]
--- OUTSIDE RECORDS SUMMARY | 2023-09-14 23:04 | XMS_ITS | Continuity of Care Document ---
Author Organization [facility] ter Address [address] [place] [address]- Care Team Providers Care Master Certified Rv Technician Name Role Phone Mika CLAY, Mae Serrano Primary Care Physician [place] [facility] [place]/16/20 - 02/23/[address] [address] Attending Physician: Cam Mccall MD Admitting [...] 02/19/20 10:39:00 EST, Route to Pharmacy Electronically, [facility], Partial fill upon patient request if the [...]
--- OUTSIDE RECORDS SUMMARY | 2023-09-14 23:04 | XMS_ITS | Continuity of Care Document ---
Author Organization [facility] ter Address [address] [place] [address]- Care Team Providers Care Assessment Nurse Practitioner Name Role Phone Mika CLAY, Mae Serrano Primary Care Physician Encounter [facility] [place] Date(s): 05/28/20 - 06/04/[address] [address]- Encounter Diagnosis IV drug user(Final) - 05/28/20 Back pain(Final) - 06/04/20 Discharge Disposition: A-Transfer SNF Attending Physician: Jayden Vazquez MD Admitting Physician: Renny Stovall MD Referring Physician: Not on Staff, Referring [...] Start Date: 06/01/20 Status: Ordered divalproex sodium 250 mg oral [...] capsule, Refills 0, Tot. Refills 0, Maintenance, 05/24/20 8:03:00 EDT, Route to Pharmacy Electronically, [facility], Partialfill upon patient request if the prescription is fo... Start Date: 05/24/20 Status: Ordered gabapentin 300 mg oral capsule 400 mg, Capsule, By Mouth, 3 times a day, PRN for Pain , Moderate, Routine, 06/01/20 15:00:00 EDT Start Date: 06/01/20 Stop Date: 06/05/20 Status: Discontinued ibuprofen 200 mg oral tablet 400 mg, 2, tablet, By Mouth, 2 times a day, PRN, Maintenance, for pain, 06/01/20 13:05:00 EDT, Partial fill upon patient request if the prescription is for a schedule II opioid drug. Start Date: 06/01/20 Status: Ordered oxacillin 2 gm injectable powder for injection See Instructions, 2gm IV Infusion Every 4 hours till 07/12/2020, # 50 each, 0 Refills, Acute 06/05/20 11:48:00 EDT, 06/04/20 11:47:00 EDT, Partial fill upon patient request if the prescription is for a schedule II opioid drug. Start Date: 06/04/20 Stop Date: 06/05/20 Status: Ordered risperiDONE 2 mg oral tablet [...] Results Orders for Microbiology Reports Name Date Anaerobic Culture (ANAEROBIC CULTURE) 02/08 Tissue Culture w/ Gram Smear (Culture Ti ssue w/ Gram Smear) 05/31/20 Fungal Culture, Nonrespiratory 05/31/20 Blood Culture 05/28/20 Blood Culture #2 05/28/20 Microbiology Reports TEST:Anaerobic Culture STATUS:Unauthenticated BODY SITE: SOURCE:TISSUE1 COLLECTED DATE/TIME:05/31/20 3:10 PM Anaerobic Culture SPECIMEN DESCRIPTION : TISSUE SPECIAL REQUESTS : NONE CULTURE : NO ANAEROBES ISOLATED SO FAR. REPORT STATUS : PRELIMINARY REPORT TEST:Tissue/Biopsy Culture STATUS:Auth (Verified) BODY SITE: SOURCE:TISSUE1 COLLECTED DATE/TIME:05/31/20 3:10 PM Tissue/Biopsy Culture SPECIMEN DESCRIPTION : TISSUE BACK SPECIAL REQUESTS : NONE GRAM STAIN : 4+ RBC'S 3+ WHITE BLOOD CELLS NO ORGANISMS SEEN CULTURE : NO GROWTH 2 DAYS REPORT STATUS : FINAL 06/02/2020 TEST:Fungal Culture, Non-Respiratory STATUS:Unauthenticated BODY SITE: SOURCE:ASPIRA COLLECTED DATE/TIME:05/31/20 3:10 PM Fungal Culture, Non-Respiratory SPECIMEN DESCRIPTION : ASPIRATE Tissue Back SPECIAL REQUESTS : NONE DIRECT EXAM : NO FUNGAL ELEMENTS OBSERVED CULTURE : NO FUNGI ISOLATED AFTER 3 DAYS REPORT STATUS : PRELIMINARY REPORT TEST:Blood Culture, Second Order STATUS:Auth (Verified) BODY SITE: SOURCE:Blood COLLECTED DATE/TIME:05/28/20 4:26 PM Blood Culture, Second Order SPECIMEN DESCRIPTION : BLOOD NO SITE SPECIAL REQUESTS : NONE CULTURE : NO GROWTH 5 DAYS. REPORT STATUS : FINAL 06/02/2020 TEST:Blood Culture STATUS:Auth (Verified) BODY SITE: SOURCE:Blood COLLECTED DATE/TIME:05/28/20 4:16 PM Blood Culture SPECIMEN DESCRIPTION : BLOOD NO SITE SPECIAL REQUESTS : NONE CULTURE : NO GROWTH 5 DAYS. REPORT STATUS : FINAL 06/02/2020 Radiology Reports * Exam Date Time Procedure Performing Provider Status 05/31/20 4:27 PM Lumbar Spine 2 or 3 Views Cathy Keller; Auth (Verified) Notes: (Lumbar Spine 2 or 3 Views) Reason For Exam: osteomyelitis;Kyphosis RESULT: Lumbar Spine 2 or 3 Views Lumbar Spine 2 or 3 Views INDICATION: Vertebral osteomyelitis. COMPARISON: CT lumbar spine 05/31/2020, MRI lumbar spine 05/31/2020. FINDINGS: Severe loss of L3 vertebral body height anteriorly, causing approximately 37 degrees kyphotic curve. Severe loss of height to L3, L3-L4 intervertebral disc height, mild to moderate loss of L4-L5, L5-S1 intervertebral disc spaces. Patient in TLSO brace. Large stool burden. IMPRESSION: Severe loss of L3 vertebral body height with lumbar kyphosis. I have personally reviewed the images and I agree with this report. WSN: [id number] Ordering Physician: Parker Nickerson Dictated By: Wilman[Radiology] Eliza WAY Dictated Date/Time: 05/31/20 5:14 pm Reviewed By: Iron Falcon MD Signed By: Iron Falcon MD Signed Date/Time: 05/31/20 5:19 pm Transcribed By: BOSTON Transcribed Date/Time: 05/31/20 4:50 pm Vital Signs Most recent to oldest [Reference Range]: 1 2 3 Oxygen Saturation [94-100 %] 99 % (06/04/20 11:50 AM) 95 % (06/04/20 7:00 AM) 99 % (06/03/20 7:32 PM) Pulse Rate [55-90 bpm] 85 bpm (06/04/20 11:50 AM) 82 bpm (06/04/20 7:00 AM) 81 bpm (06/03/20 7:32 PM) Blood Pressure [90-138/55-84 mm Hg] 103/60mm Hg (06/04/20 11:50 AM) 105/63mm Hg (06/04/20 7:00 AM) 97/60mm Hg (06/03/20 7:32 PM) Respiratory Rate [16-30 br/min] 19 br/min (06/04/20 11:50 AM) 18 br/min (06/04/20 7:20 AM) 18 br/min (06/04/20 7:00 AM) Temperature [96.8-100.4 DegF] 98.2 DegF (06/04/20 11:50 AM) 97.8 DegF (06/04/20 7:00 AM) 97.5 DegF (06/03/20 7:32 PM) Liters per Minute 0 L/min (06/04/20 7:00 AM) 0 L/min (06/03/20 7:32 PM) 0 L/min (06/03/20 3:53 AM) Mode of Delivery (Oxygen) Room air (06/04/20 11:50 AM) Room air (06/04/20 7:00 AM) Room air (06/03/20 7:32 PM) Blood pressure sites Arm, left (06/04/20 11:50 AM) Arm, left (06/04/20 7:00 AM) Arm, left (06/03/20 7:32 PM) Temperature Route Temporal (06/04/20 11:50 AM) Oral (06/04/20 7:00 AM) Oral (06/03/20 7:32 PM) Social History Social History Type Response Smoking Status Current every day sm afshan; Other: 1 pack per since age 9 years; entered on: 03/09/17 Sex Male
--- OUTSIDE RECORDS SUMMARY | 2023-09-14 23:04 | XMS_ITS | Continuity of Care Document ---
Author Organization [facility] Adult Address [address] [place] [address]- Care Team Providers Care S3B Multi Sensor Operator Name Role Phone Mae Brennan NP Primary Care Physician [place] [facility] [place] 10[place]19 [facility] Adult [address] [place] [address] [facility] Attending Physician: Liliana Wood Admitting Physician: Liliana [...]
--- OUTSIDE RECORDS SUMMARY | 2023-09-14 23:04 | XMS_ITS | Continuity of Care Document ---
Author Organization [facility] Adult Address [address] [place] [address]- Care Team Providers Care Roving Court Reporter Name Role Phone Mae Brennan NP Primary Care Physician [phone] [place] [facility] [place]): 08/24/21 - 09/23/21 [facility] Adult [address] [place] [address]- Allergies, Adverse Reactions, Alerts Substance Reaction Severity Status lithium unknown Active Immunizations Given and Recorded Vaccine Date Status Refusal Reason SARS-CoV-2 mRNA (brwycas-cjil-qxjpj) vax 03/14/21 Recorded SARS-CoV-2 (COVID-19) mRNA BNT-162b2 [...] # 1 each, Maintenance, Back brace w/ velcro aiden bandage material Dx: Dx: Thoracicfracture/bilateral tibial plateau fracture (S82.143A) Bilateral tibial avulsion (S82.153A) Chronic low back pain (M54.9) Unsteady Gait (R6.81) L... Start Date: 05/02/21 Status: Ordered benztropine 2 mg oral tablet [...] VLADISLAV AND... Start Date: 05/02/21 Status: Ordered celecoxib 100 mg oral capsule 1 capsule = 100 mg, By Mouth, 2 times a day, # 60 capsule, 0 Refills, Maintenance, 09/09/21 14:28:00 EDT, Capsule, [facility] , Partial fill upon patient request if the prescription is for a schedule II opioid drug., 180, cm, 0... Start Date: 09/09/21 Status: Ordered divalproex sodium 250 mg oral [...] tibial avulsion (S82.153A), 05/02/21 9:45:00 EDT, [facility] [phone], Supply Start Date: 05/02/21 Status: Ordered Knee Support See Instructions, # 1 each, Maintenance, Left knee brace Dx: bilateral tibial plateau fracture (S82.143A) Bilateral tibial avulsion (S82.153A), 05/02/21 9:48:00 EDT, [facility] [phone], Supply Start Date: 05/02/21 Status: Ordered Left wrist brace. Dx left wrist pain Left wrist brace. Dx left wrist pain, See Instructions, # 1 each, Refills 0, Tot. Refills 0, Maintenance, Wear as tolerated Dx: Left wrist scaphoid fracture (S62.002A) Left wrist pain (M25.532), 05/02/21 9:46:00 EDT, [facility] [phone], Supply Start Date: 05/02/21 Status: Ordered pantoprazole 40 mg oral delayed release tablet 1 tablet = 40 mg, By Mouth, Daily, # 30 tablet, 0 Refills, Maintenance, 09/09/21 14:28:00 EDT, EC Tablet, 180, cm, 05/06/21 11:46:00 EDT, Height, 58.5, kg, 01/20/20 15:29:00 EST, Dry Weight Start Date: 09/09/21 Status: Ordered risperiDONE 2 mg oral tablet [...]
--- OUTSIDE RECORDS SUMMARY | 2023-09-14 23:04 | XMS_ITS | Continuity of Care Document ---
Author Organization [facility] Adult Address [address] [place] [address]- Care Team Providers Care Floor Worker Name Role Phone Mae Brennan NP Primary Care Physician [phone] Encounter [facility] Date(s): 10/27/21 - 11/03/21 [facility] Adult [address] [place] [address]- Encounter Diagnosis Bilateral chronic knee pain(Discharge Diagnosis) - 10/27/21 Osteomyelitis of lumbar vertebra(Discharge Diagnosis) - 10/27/21 H/O discitis(Discharge Diagnosis) - 10/27/21 Back pain(Discharge Diagnosis) - 10/27/21 Attending Physician: Mae Brennan NP Allergies, Adverse Reactions, Alerts Substance Reaction Severity Status lithium unknown Active Immunizations Given and Recorded Vaccine Date Status Refusal Reason SARS-CoV-2 mRNA (ljoinqj-fbzo-pplti) vax 03/14/21 Recorded SARS-CoV-2 (COVID-19) mRNA BNT-162b2 [...] 1 Refills, Maintenance, 10/27/21 9:31:00 EDT, Capsule, [facility]-, Partial f... Start Date: 10/27/21 Status: Ordered [...] tibial avulsion (S82.153A), 05/02/21 9:45:00 EDT, [facility] [phone], Supply Start Date: 05/02/21 Status: Ordered Knee Support See Instructions, # 1 each, Maintenance, Left knee brace Dx: bilateral tibial plateau fracture (S82.143A) Bilateral tibial avulsion (S82.153A), 05/02/21 9:48:00 EDT, [facility] [phone], Supply Start Date: 05/02/21 Status: Ordered Left wrist brace. Dx left wrist pain Left wrist brace. Dx left wrist pain, See Instructions, # 1 each, Refills 0, Tot. Refills 0, Maintenance, Wear as tolerated Dx: Left wrist scaphoid fracture (S62.002A) Left wrist pain (M25.532), 05/02/21 9:46:00 EDT, [facility]INA [phone], Supply Start Date: 05/02/21 Status: Ordered lidocaine 5% topical film 1 patch, Topically, Daily, PRN Pain , Mild, for 30 days, remove after 12 hours, # 30 patch, 0 Refills, Acute 11/26/21 9:33:00 EDT, 10/27/21 9:33:00 EDT, Film, [facility]-, Partial fill upon patient request if the prescription i... Start Date: 10/27/21 Stop Date: 11/26/21 Status: Ordered pantoprazole 40 mg oral delayed [...] Effective Dates Health Status Clinical Service Informant Bilateral chronic knee pain Discharge Diagnosis 10/27/21 Osteomyelitis of lumbar vertebra Discharge Diagnosis 10/27/21 H/O discitis Discharge Diagnosis 10/27/21 Back pain Discharge Diagnosis 10/27/21 Vital Signs Most recent to oldest [Reference Range]: 1 Height 167.2 cm (10/27/21 8:56 AM) Weight 69.5 kg (10/27/21 8:56 AM) Oxygen Saturation [94-100 %] 99 % (10/27/21 8:56 AM) Pulse Rate [55-90 bpm] 83 bpm (10/27/21 8:56 AM) Body Mass Index [18.5-24.99] 24.86 (10/27/21 8:56 AM) Blood Pressure [90-138/55-84 mm Hg] 101/ 68mm Hg (10/27/21 8:56 AM) Mode of Delivery (Oxygen) Room air (10/27/21 8:56 AM) Blood pressure sites Arm, right (10/27/21 8:56 AM) Weight Obtained Via Standing scale (10/27/21 8:56 AM) Social History Social History Type Response Smoking Status Current every day vidhya cavanaugh; Type: Cigarettes entered on: 09/13/16 Sex Care Team Personnel Name: Mae Brennan NP Address: [address] [place] [address] [address]rd [address] [place], [place] [address]
--- OUTSIDE RECORDS SUMMARY | 2023-09-14 23:04 | XMS_ITS | Continuity of Care Document ---
Author Organization [facility] Adult Address [address] [place] [address]- Care Team Providers Care Post Office Clerk Name Role Phone Mika CLAY, Mae Serrano Primary Care Physician [place] [facility] [place] 05/02/21 - 05/09/21 [facility] Adult [address] [place] [address]- Encounter Diagnosis Fracture of thoracic spine(Discharge Diagnosis) - 05/02/21 Tibial plateau fracture, left(Discharge Diagnosis) - 05/02/21 Tibial plateau fracture, right(Discharge Diagnosis) - 05/02/21 Attending Physician: Not on Staff, Attending MD Referring Physician: Bridget Giron MD Allergies, Adverse Reactions, Alerts Substance Reaction Severity Status lithium unknown Active Immunizations Given and Recorded Vaccine Date Status Refusal Reason SARS-CoV-2 mRNA (taytdyt-bzwb-oghmp) vax 03/14/21 Recorded SARS-CoV-2 (COVID-19) mRNA BNT-162b2 [...] By Mouth, 2 times a day, # 180 capsule, 0 Refills, Maintenance, 05/06/21 11:52:00 EDT, Capsule, Partial fill upon patient request if the prescription is for a schedule II opioid drug. Start Date: 05/06/21 Status: Ordered divalproex sodium 250 mg oral [...] tibial avulsion (S82.153A), 05/02/21 9:45:00 EDT, ROSINA [phone], Supply Start Date: 05/02/21 Status: Ordered Knee Support See Instructions, # 1 each, Maintenance, Left knee brace Dx: bilateral tibial plateau fracture (S82.143A) Bilateral tibial avulsion (S82.153A), 05/02/21 9:48:00 EDT, [facility] [phone], Supply Start Date: 05/02/21 Status: Ordered Left wrist brace. Dx left wrist pain Left wrist brace. Dx left wrist pain, See Instructions, # 1 each, Refills 0, Tot. Refills 0, Maintenance, Wear as tolerated Dx: Left wrist scaphoid fracture (S62.002A) Left wrist pain (M25.532), 05/02/21 9:46:00 EDT, [facility] [phone], Supply Start Date: 05/02/21 Status: Ordered pantoprazole [...] Diagnosis Diagnosis Type Effective Dates Health Status Cl inical Service Informant Tibial plateau fracture, right Discharge Diagnosis 05/02/21 Tibial plateau fracture, left Discharge Diagnosis 05/02/21 Fracture of thoracic spine Discharge Diagnosis 05/02/21 Vital Signs Most recent to oldest [Reference Range]: 1 Height 180 cm (05/02/21 9:10 AM) Weight 75 kg (05/02/21 9:10 AM) Body Mass Index [18.5-24.99] 23.15 (05/02/21 9:10 AM) Weight Obtained Via Patient/family state d (05/02/21 9:10 AM) Social History Social History Type Response Smoking Status Current every day vidhya cavanaugh; Other: 1 pack per since age 9 years; entered on: 03/09/17 Sex
--- OUTSIDE RECORDS SUMMARY | 2023-09-14 23:04 | XMS_ITS | Continuity of Care Document ---
Author Organization [facility] ter Address [address] [place] [address]- Care Team Providers Care Steel Checker Name Role Phone Mika CLAY, Mae Serrano Primary Care Physician Encounter [facility] [place] Date(s): 06/21/22 - 06/22/[address] [address]- Encounter Diagnosis Opiate addiction(Final) - 06/22/22 Discharge Disposition: A-D/C Home Attending Physician: Arvin WAY, Shaneka Gross Admitting Physician: Arvin WAY, Shaneka Gross Referring Physician: Not on Staff, Referring MD Allergies, Adverse Reactions, Alerts Substance Reaction Severity Status lithium unknown Active Immunizations Given and Recorded Vaccine Date Status Refusal Reason SARS-CoV-2 mRNA (jzzzext-eomy-ucqjr) vax 03/14/21 Recorded SARS-CoV-2 (COVID-19) mRNA BNT-162b2 [...] 2 Refills, Maintenance, 06/19/22 14:26:00 EDT, Tablet, [facility]-, Partial fill upon patient request if the [...] NOSTRIL TWICE A DAY, # 16 Gm, 0 Refills, Maintenance, 06/19/22 14:04:00 EDT, [facility]-[id number], 30, USE 1 SPRAY IN EACH NOSTRIL TWICE A DAY, 165, cm, 03/01/22 12:48:00 EST, Height, 76, kg, 02/04/... Start Date: 06/19/22 Status: Ordered Knee Support See Instructions, # 1 each, Maintenance, Right knee brace Dx: bilateral tibial plateau fracture (S82.143A) Bilateral tibial avulsion (S82.153A), 05/02/21 9:45:00 EDT, ROSINA [id number], Supply Start Date: 05/02/21 Status: Ordered Knee [...] 0642, Supply Start Date: 05/02/21 Status: Ordered pantoprazole [...] to oldest [Reference Range]: 1 2 3 4 Oxygen Saturation [94-100 %] 95 % (06/22/22 12:19 PM) 97 % (06/22/22 10:30 AM) 87 % *L* (06/22/22 8:43 AM) 92 % *L* (06/22/22 8:43 AM) Pulse Rate [55-90 bpm] 94 bpm *H* (06/22/22 12:19 PM) 99 bpm *H* (06/22/22 10:30 AM) 104 bpm *H* (06/22/22 6:15 AM) Blood Pressure [90-138/55-84 mm Hg] 118/81mm Hg (06/22/22 12:19 PM) 121/69mm Hg (06/22/22 10:30 AM) 124/68mm Hg (06/22/22 6:15 AM) Respiratory Rate [16-30 br/min] 17 br/min (06/22/22 12:19 PM) 17 br/min (06/22/22 10:30 AM) 16 br/min (06/22/22 6:15 AM) Temperature [96.8-100.4 DegF] 98.8 DegF (06/22/22 6:15 AM) 98.7 DegF (06/21/22 9:29 PM) Liters per Minute 2 L/min (06/22/22 10:30 AM) 2 L/min (06/22/22 8:43 AM) 2 L/min (06/22/22 6:15 AM) Mode of Delivery (Oxygen) Room air (06/22/22 12:19 PM) Nasal cannula (06/22/22 10:30 AM) Room air (06/22/22 8:43 AM) Nasal cannula (06/22/22 8:43 AM) Blood pressure sites Arm, right (06/21/22 9:29 PM) Temperature Route Oral (06/22/22 6:15 AM) Oral (06/21/22 9:29 PM) Social History Social History Type Response Smoking Status Current every day vidhya cavanaugh; Type: Cigarettes entered on: 09/13/16 Sex Patient Care team information Care Team Personnel Name: Naty Malcolm RN Position: [facility] RN Member Role: Primary Care Nurse Name: Harshil Cardoso RN Position: [facility] RN Member Role: Primary Care Nurse Name: Meri Lima RN Position: [facility] ED RN W/OE and Tasks Member Role: Primary Care Nurse Name: Lionel Ludwig MD Position: [facility] Renal MD Member Role: Lifetime Consulting Physician Address: Address: [address] [place] [address], [address] [facility] [place] [address]- Name: Rowan Alvarez RN Position: [facility] Wound Member Role: Primary Care Nurse Name: Tala Plasencia RN Position: [facility] RN Member Role: Primary Care Nurse Name: Franklin Seth RN Position: [facility] RN Member Role: Primary Care Nurse Name: Kathy Honeycutt Position: [facility] RN Member Role: Primary Care Nurse Name: Gideon Miller RN Position: [facility] SN RN Member Role: Primary Care Nurse Name: Az Pham RN Position: [facility] ED RN W/OE and Tasks Member Role: Primary Care Nurse Name: Libertad Olmos RN Position: [facility] RN Member Role: Primary Care Nurse Name: Daily Mane RN Position: [facility] RN Member Role: Primary Care Nurse Name: Katelynn Milan RN Position: [facility] PCO RN Member Role: Primary Care Nurse Name: Mae Brennan NP Position: [facility] PCO Associate Professional Member Role: PCP Address: Address: [address] [place] [address]- Name: Belinda Gusman RN Position: [facility] Hospital Manager Aviation Member Role: Primary Care Nurse Name: Chito Powers RN Position: [facility] RN Member Role: Primary Care Nurse Name: Antonio Velasquez RN Position: [facility] RN Member Role: Primary Care Nurse Name: Alexey Ramos RN Position: [facility] RN Member Role: Primary Care Nurse Name: Crow Burk MD Position: [facility] Renal MD Member Role: Lifetime Consulting Physician Address: Address: [address] [place] [address] [facility] [place] [address]- Name: Emelyn Corbin RN Position: [facility] RN Member Role: Primary Care Nurse Name: Aurea Gutierrez RN Position: [facility] RN Member Role: Primary Care Nurse Name: Amanda Stephens NP Position: [facility] Associate Professional Member Role: ED Physician Hoop Riveting Machine Operator Address: Address: [address] [place] [address]- Name: Johnny Brown DO Position: [facility] Resident Member Role: ED Resident Address: Address: [address] [place] [address]- Name: Shaneka Sheridan MD Position: [facility] ED Medicine MD Member Role: Admitting Physician Address: Address: [address] [place] [address] Name: Miryam Rees Position: [facility] ED RN W/OE and Tasks Member Role: Patient Care Provider Name: Dallin Avalos Position: [facility] ED TA [facility] Member Role: Patient Care Provider Care Team Related Persons Name: CHARLES FRANKLIN Address: home [address] [place] [address]
--- OUTSIDE RECORDS SUMMARY | 2023-09-14 23:04 | XMS_ITS | Continuity of Care Document ---
Author Organization [facility] Adult Address [address] [place] [address]- Care Team Providers Care Roller Mill Operator Name Role Phone Mika CLAY, Mae Serrano Primary Care Physician [place] [facility] [place] [facility] [place] [id number] Date(s): 02/09/22 - 04/12/[address] [address]- Attending Physician: Not on Staff, Attending MD Allergies, Adverse Reactions, Alerts Substance Reaction Severity Status lithium unknown Active Immunizations Given and Recorded Vaccine Date Status Refusal Reason SARS-CoV-2 mRNA (glhpzfb-mlfq-aykxs) vax 03/14/21 Recorded SARS-CoV-2 (COVID-19) mRNA BNT-162b2 [...] 0 Refills, Maintenance, 03/27/22 13:51:00 EST, Tablet, [facility]-, Partial fill upon patient request if [...] tibial avulsion (S82.153A), 05/02/21 9:45:00 EDT, ROSINA [id number], Supply Start Date: 05/02/21 Status: Ordered Knee Support See Instructions, # 1 each, Maintenance, Left knee brace Dx: bilateral tibial plateau fracture (S82.143A) Bilateral tibial avulsion (S82.153A), 05/02/21 9:48:00 EDT, ROSINA [id number], Supply Start Date: 05/02/21 Status: Ordered Left wrist brace. Dx left wrist pain Left wrist brace. Dx left wrist pain, See Instructions, # 1 each, Refills 0, Tot. Refills 0, Maintenance, Wear as tolerated Dx: Left wrist scaphoid fracture (S62.002A) Left wrist pain (M25.532), 05/02/21 9:46:00 EDT, ROSINA [id number] [id number], Supply Start Date: 05/02/21 Status: Ordered meloxicam 15 mg oral tablet 1 tablet = 15 mg, By Mouth, Daily, PRN Pain , Moderate, # 30 tablet, 4 Refills, Maintenance, 03/01/22 13:25:00 EST, Tablet, [facility], Partial fill upon patient request [...] Team Personnel Name: Naty Malcolm RN Position: [facility] RN Member Role: Primary Care Nurse Name: Harshil Cardoso RN Position: [facility] RN Member Role: Primary Care Nurse Name: Meri Lima RN Position: [facility] ED RN W/OE and Tasks Member Role: Primary Care Nurse Name: Lionel Ludwig MD Position: [facility] Renal MD Member Role: Lifetime Consulting Physician Address: Address: [address] [place] [address], [address] [facility] [place] [address]- Name: Rowan Alvarez RN Position: [facility] Wound Member Role: Primary Care Nurse Name: Tala Plasencia RN Position: [facility] RN Member Role: Primary Care Nurse Name: Franklin Seth RN Position: [facility] RN Member Role: Primary Care Nurse Name: Kathy Honeycutt Position: [facility] RN Member Role: Primary Care Nurse Name: Az Pham RN Position: [facility] ED RN W/OE and Tasks Member Role: Primary Care Nurse Name: Libertad Olmos RN Position: [facility] RN Member Role: Primary Care Nurse Name: Daily Mane RN Position: [facility] RN Member Role: Primary Care Nurse Name: Katelynn Milan RN Position: [facility] PCO RN Member Role: Primary Care Nurse Name: Mae Brennan NP Position: [facility] PCO Associate Professional Member Role: PCP Address: Address: [address] [place] [address] 3rd [place] [address]- [place] Name: Belinda Gusman RN Position: [facility] Hospital Parking Enforcer Member Role: Primary Care Nurse Name: Chito Powers RN Position: [facility] RN Member Role: Primary Care Nurse Name: Antonio Velasquez RN Position: [facility] RN Member Role: Primary Care Nurse Name: Alexey Ramos RN Position: [facility] RN Member Role: Primary Care Nurse Name: Crow Burk MD Position: [facility] Renal MD Member Role: Lifetime Consulting Physician Address: Address: [address] [place] [address] [facility] [place], [place] [address] Name: Emelyn Corbin RN Position: S RN Member Role: Primary Care Nurse Name: Aurea Gutierrez RN Position: S RN Member Role: Primary Care Nurse Care Team Related Persons Name: CHARLES FRANKLIN Address: [place] [address] [place] [id number]
--- OUTSIDE RECORDS SUMMARY | 2023-09-14 23:04 | XMS_ITS | Continuity of Care Document ---
Author Organization [facility] Adult Address [address] [place] [address]- Care Team Providers Care Clerical Transcriber Name Role Phone Mika CLAY, Mae Serrano Primary Care Physician Encounter [facility] [place] Date(s): 03/22/22 - 04/21/[address] [address]- Allergies, Adverse Reactions, Alerts Substance Reaction Severity Status lithium unknown Active Immunizations Given and Recorded Vaccine Date Status Refusal Reason SARS-CoV-2 mRNA (yjwzali-pwra-fkgdh) vax 03/14/21 Recorded SARS-CoV-2 (COVID-19) mRNA BNT-162b2 [...] Maintenance, 04/18/22 8:05:00 EST, Tablet, [facility]-, Partial fill upon [...] tibial avulsion (S82.153A), 05/02/21 9:45:00 EDT, ROSINA [id number], Supply Start Date: 05/02/21 Status: Ordered Knee Support See Instructions, # 1 each, Maintenance, Left knee brace Dx: bilateral tibial plateau fracture (S82.143A) Bilateral tibial avulsion (S82.153A), 05/02/21 9:48:00 EDT, ROSINA [id number], Supply Start Date: 05/02/21 Status: Ordered Left wrist brace. Dx left wrist pain Left wrist brace. Dx left wrist pain, See Instructions, # 1 each, Refills 0, Tot. Refills 0, Maintenance, Wear as tolerated Dx: Left wrist scaphoid fracture (S62.002A) Left wrist pain (M25.532), 05/02/21 9:46:00 EDT, ROSINA [phone] [id number], Supply Start Date: 05/02/21 Status: Ordered naproxen 500 mg oral tablet 1 tablet = 500 mg, By Mouth, 2 times a day, PRN Pain , Moderate, for 30 days, # 60 tablet, 0 Refills, Acute 05/17/22 17:44:00 EDT, 04/17/22 17:44:00 EST, Tablet, [facility]-, Partial fill upon patient request if the prescriptio... Start Date: 04/17/22 Stop Date: 05/17/22 Status: Ordered naproxen 500 mg oral tablet 1 tablet = 500 mg, By Mouth, Every 12 hours, PRN Pain , Moderate, for 30 days, # 60 tablet, 0 Refills, Acute 06/16/22 17:44:00 EDT, 05/17/22 17:44:00 EDT, Tablet, [facility]-,Partial fill upon patient request if the prescripti... [...] Type Response Smoking Status Current every day afshan; Type: Cigarettes entered on: 09/13/16 Sex Patient Care team information Care Team Personnel Name: Naty Malcolm RN Position: [facility] RN Member Role: Primary Care Nurse Name: Harshil Cardoso RN Position: [facility] RN Member Role: Primary Care Nurse Name: Meri Lima RN Position: [facility] ED RN W/OE and Tasks Member Role: Primary Care Nurse Name: Lionel Ludwig MD Position: [facility] Renal MD Member Role: Lifetime Consulting Physician Address: Address: [address] [place] [address], [facility] [address] [facility] [address] Name: Rowan Alvarez RN Position: [facility] HBO Wound Member Role: Primary Care Nurse Name: Tala Plasencia RN Position: [facility] RN Member Role: Primary Care Nurse Name: Franklin Seth RN Position: [facility] RN Member Role: Primary Care Nurse Name: Kathy Honeycutt Position: [facility] RN Member Role: Primary Care Nurse Name: Az Pham RN Position: [facility] ED RN W/OE and Tasks Member Role: Primary Care Nurse Name: Libertad Olmos RN Position: [facility] RN Member Role: Primary Care Nurse Name: Daily Mane RN Position: [facility] RN Member Role: Primary Care Nurse Name: Katelynn Milan RN Position: [facility] PCO RN Member Role: Primary Care Nurse Name: Mae Brennan NP Position: [facility] PCO Associate Professional Member Role: PCP Address: Address: [address] [place] [address] 3rd [place] [address]- [place] Name: Deborah Gusman RN Position: [facility] Manager Neonatal Member Role: Primary Care Nurse Name: Chito Powers RN Position: [facility] RN Member Role: Primary Care Nurse Name: Antonio Velasquez RN Position: [facility] RN Member Role: Primary Care Nurse Name: Alexey Ramos RN Position: [facility] RN Member Role: Primary Care Nurse Name: Crow Burk MD Position: [facility] Renal MD Member Role: Lifetime Consulting Physician Address: Address: [address] [place] [address] [facility] [place] [address]- Name: Emelyn Corbin RN Position: [facility] RN Member Role: Primary Care Nurse Name: Aurea Gutierrez RN Position: [facility] RN Member Role: Primary Care Nurse Care Team Related Persons Name: CHARLES FRANKLIN Address: [place] [address] [place] [address]
--- OUTSIDE RECORDS SUMMARY | 2023-09-14 23:04 | XMS_ITS | Continuity of Care Document ---
Author Organization [facility] ter Address [address] [place] [address]- Care Team Providers Care Patients Transporter Name Role Phone Mika CLAY, Mae Serrano Primary Care Physician Encounter [facility] [place] Date(s): 01/16/20 - 02/19/[address] [address] Attending Physician: Cam Mccall MD Admitting [...] 02/19/20 10:39:00 EST, Route to Pharmacy Electronically, [facility], Partial fill upon patient request if the [...]
--- OUTSIDE RECORDS SUMMARY | 2023-09-14 23:04 | XMS_ITS | Continuity of Care Document ---
Author Organization [facility] Address [address] [place] [address]- Care Team Providers Care Home Care Chaplain Name Role Phone Mika CLAY, Mae Serrano Primary Care Physician Encounter [facility] Date(s): 02/16/23 - 03/28/[address] [address] Attending Physician: Raven Sweet MD Admitting Physician: Raven Sweet MD Referring Physician: Raven Sweet MD Allergies, Adverse Reactions, Alerts Substance Reaction Severity Status lithium bladder/ metabolism Active Immunizations Given and Recorded Vaccine Date Status Refusal Reason SARS-CoV-2(COVID-19)mRNA-LNP vac([id number]) 12/18/22 Recorded influenza virus vaccine, inactivated 11/15/22 Preet rded [id number] bivalent booster vax 12/16/21 Recorded SARS-CoV-2 mRNA (axqjlat-dbcl-mbvqn) vax 03/14/21 Recorded SARS-CoV-2 (COVID-19) mRNA BNT-162b2 vac 04/30/20 Recorded SARS-CoV-2 (COVID-19) mRNA BNT-162b2 vac 04/01/20 Recorded tetanus/diphtheria/pertussis, acel(Tdap) 03/09/17 Given Medications Albuterol (Eqv-Proventil HFA) 90 mcg/inh inhalation aerosol 2 puffs, Inhalation, 4 times a day, PRN NEEDED FOR WHEEZING, # 6.7 Gm, 0 Refills, Maintenance, 02/26/23 10:07:00 EST, [facility]-[id number], 176, cm, 02/16/23 13:04:00 EST, Height, 70, kg, 12/21/22 12:46:00 EDT, Dry Weight Start Date: 02/26/23 Stop Date: 03/28/23 Status: Ordered Anoro Ellipta 62.5 mcg-25 mcg/inh inhalation powder 1 puffs, Inhalation, Daily, # 1 each, 11 Refills, Maintenance, 02/01/23 10:55:00 EST, Pow[facility] Partial fill upon patient request if the prescription is for a schedule II opioid drug., 1 puffs Inhalation Daily,x30 da... Start Date: 02/01/23 Stop Date: 01/27/24 Status: Ordered Banophen 25 mg oral capsule 1 capsule, By Mouth, 3 times a day, PRN NEEDED FOR ALLERGY SYMTPOMS, # 90 capsule, 6 Refills, Maintenance, 02/23/23 17:34:00 EST, [facility]/pharmacy #[id number], 176, cm, 02/16/23 13:04:00 EST, [...] Gm, 3 Refills, Maintenance, 01/04/23 11:38:00 EST, [place], Partial fill upon patient request if the [...] tibial avulsion (S82.153A), 05/02/21 9:45:00 EDT, ROSINA [id number], Supply Start Date: 05/02/21 Status: Ordered Knee Support See Instructions, # 1 each, Maintenance, Left knee brace Dx: bilateral tibial plateau fracture (S82.143A) Bilateral tibial avulsion (S82.153A), 05/02/21 9:48:00 EDT, ROSINA [phone], Supply Start Date: 05/02/21 Status: Ordered Left wrist brace. Dx left wrist pain Left wrist brace. Dx left wrist pain, See Instructions, # 1 each, Refills 0, Tot. Refills 0, Maintenance, Wear as tolerated Dx: Left wrist scaphoid fracture (S62.002A) Left wrist pain (M25.532), 05/02/21 9:46:00 EDT, ROSINA [id number] [phone], Supply Start Date: 05/02/21 Status: Ordered naproxen 500 mg oral tablet 1 tablet, By Mouth, 2 times a day, PRN NEEDED FOR MODERATE PAIN WITH FOOD, # 60 tablet, 0 Refills, Maintenance, 03/15/23 11:20:00 EST, [facility] [id number], 176, cm, 02/27/23 11:54:00 EST, Height, 70, [...] pack)/day in last 30 days entered on: 1/9/24 Sex Patient Care team information Care Team Personnel Name: Naty Malcolm RN Position: [facility] RN Member Role: Primary Care Nurse Name: Harshil Cardoso RN Position: [facility] RN Member Role: Primary Care Nurse Name: Meri Lima RN Position: [facility] ED RN W/OE and Tasks Member Role: Primary Care Nurse Name: Lionel Ludwig MD Position: [facility] Renal MD Member Role: Lifetime Consulting Physician Address: Address: [address] [place] [address] [id number] [facility] [address]- [place] Name: Rowan Alvarez RN Position: [facility] HBO Wound Member Role: Primary Care Nurse Name: Tala Plasencia RN Position: [facility] RN Member Role: Primary Care Nurse Name: Franklin Seth RN Position: [facility] RN Member Role: Primary Care Nurse Name: Kathy Honeycutt Position: [facility] RN Member Role: Primary Care Nurse Name: Gideon Miller RN Position: [facility] SN RN Member Role: Primary Care Nurse Name: Az Pham RN Position: [facility] ED RN W/OE and Tasks Member Role: Primary Care Nurse Name: Libertad Olmos RN Position: [facility] RN Member Role: Primary Care Nurse Name: Daily Mane RN Position: [facility] RN Member Role: Primary Care Nurse Name: Katelynn Milan RN Position: [facility] AMB Nurse Member Role: Primary Care Nurse Name: Mae Brennan NP Position: [facility] PCO Associate Professional Member Role: PCP Address: Address: [address] [place] [address]- [place] Name: Belinda Gusman RN Position: [facility] Neuropsychiatric Aide Member Role: Primary Care Nurse Name: Chito Powers RN Position: [facility] RN Member Role: Primary Care Nurse Name: Antonio Velasquze RN Position: [facility] RN Member Role: Primary Care Nurse Name: Alexey Ramos RN Position: [facility] RN Member Role: Primary Care Nurse Name: Crow Burk MD Position: [facility] Renal MD Member Role: Lifetime Consulting Physician Address: Address: [address] [place] [address] [facility] [place] [address]- [place] Name: Emelyn Corbin RN Position: [facility] RN Member Role: Primary Care Nurse Name: Aurea Gutierrez RN Position: [facility] RN Member Role: Primary Care Nurse Care Team Related Persons Name: CHARLES FRANKLIN Address: home [address] [place] [address]
--- OUTSIDE RECORDS SUMMARY | 2023-09-14 23:04 | XMS_ITS | Continuity of Care Document ---
Author Organization [facility] Adult Address [address] [place] [address]- Care Team Providers Care Lamp Developer Name Role Phone Mika CLAY, Mae Serrano Primary Care Physician Encounter [facility] Date(s): 04/19/21 - 05/19/21 [facility] Adult [address] [place] [address]- Allergies, Adverse Reactions, Alerts Substance Reaction Severity Status lithium unknown Active Immunizations Given and Recorded Vaccine Date Status Refusal Reason SARS-CoV-2 mRNA (sqtzdvu-znxo-cvmlg) vax 03/14/21 Recorded SARS-CoV-2 (COVID-19) mRNA BNT-162b2 [...] tibial avulsion (S82.153A), 05/02/21 9:45:00 EDT, ROSINA [phone], Supply Start Date: 05/02/21 Status: Ordered Knee Support See Instructions, # 1 each, Maintenance, Left knee brace Dx: bilateral tibial plateau fracture (S82.143A) Bilateral tibial avulsion (S82.153A), 05/02/21 9:48:00 EDT, ROSINA [phone], Supply Start Date: 05/02/21 Status: Ordered Left wrist brace. Dx left wrist pain Left wrist brace. Dx left wrist pain, See Instructions, # 1 each, Refills 0, Tot. Refills 0, Maintenance, Wear as tolerated Dx: Left wrist scaphoid fracture (S62.002A) Left wrist pain (M25.532), 05/02/21 9:46:00 EDT, ROSINA [phone], Supply Start Date: 05/02/21 Status: Ordered pantoprazole [...]
--- OUTSIDE RECORDS SUMMARY | 2023-09-14 23:04 | XMS_ITS | Continuity of Care Document ---
Author Organization [facility] ter Address [address] [place] [address]- Care Team Providers Care Tip Stitcher Name Role Phone Mika CLAY, Mae Serrano Primary Care Physician [place] [facility]/16/20 - 02/25/[address] [id number] Attending Physician: Cam Mccall [...] 02/19/20 10:39:00 EST, Route to Pharmacy Electronically, [facility], Partial fill upon patient request if [...]
--- OUTSIDE RECORDS SUMMARY | 2023-09-14 23:04 | XMS_ITS | Continuity of Care Document ---
Author Organization [facility] Adult Address [address] [place] [address]- Care Team Providers Care Vice President Of Human Resources Name Role Phone Mika CLAY, Mae Serrano Primary Care Physician En[place] [facility] [place] Date(s): 05/16/22 - 06/15/22 [facility] [address] [place] [address]- Allergies, Adverse Reactions, Alerts Substance Reaction Severity Status lithium unknown Active Immunizations Given and Recorded Vaccine Date Status Refusal Reason SARS-CoV-2 mRNA ([id number]) vax 03/14/21 Recorded SARS-CoV-2 (COVID-19) mRNA BNT-162b2 [...] Maintenance, 04/18/22 8:05:00 EST, Tablet, [facility]-, Partial fill upon patient request if [...] DAY, # 16 Gm, 0 Refills, Maintenance, 05/29/22 14:25:00 EDT, [id number], 30, USE 1 SPRAY IN EACH NOSTRIL TWICE A DAY, 165, cm, 03/01/22 12:48:00 EST, Height, 76, kg, 02/04/22 21:04:00 E... Start Date: 05/29/22 Status: Ordered Knee Support See Instructions, # 1 each, Maintenance, Right knee brace Dx: bilateral tibial plateau fracture (S82.143A) Bilateral tibial avulsion (S82.153A), 05/02/21 9:45:00 EDT, [facility] [id number], Supply Start Date: 05/02/21 Status: Ordered Knee Support See Instructions, # 1 each, Maintenance, Left knee brace Dx: bilateral tibial plateau fracture (S82.143A) Bilateral tibial avulsion (S82.153A), 05/02/21 9:48:00 EDT, [facility] [id number], Supply Start Date: 05/02/21 Status: Ordered Left wrist brace. Dx left wrist pain Left wrist brace. Dx left wrist pain, See Instructions, # 1 each, Refills 0, Tot. Refills 0, Maintenance, Wear as tolerated Dx: Left wrist scaphoid fracture (S62.002A) Left wrist pain (M25.532), 05/02/21 9:46:00 EDT, [facility] [phone], Supply Start Date: 05/02/21 Status: Ordered naproxen 500 mg oral tablet 1 tablet = 500 mg, By Mouth, Every 12 hours, PRN Pain , Moderate, for 30 days, # 60 tablet, 0 Refills, Acute 06/16/22 17:44:00 EDT, 05/17/22 17:44:00 EDT, Tablet, [facility],Partial fill upon patient request if the prescripti... [...] Team Personnel Name: Naty Malcolm RN Position: [facility] RN Member Role: Primary Care Nurse Name: Harshil Cardoso RN Position: [facility] RN Member Role: Primary Care Nurse Name: Meri Lima RN Position: [facility] ED RN W/OE and Tasks Member Role: Primary Care Nurse Name: Lionel Ludwig MD Position: [facility] Renal MD Member Role: Lifetime Consulting Physician Address: Address: [address] [place] [address], [address] [facility] [address] Name: Rowan Alvarez RN Position: [facility] HBO Wound Member Role: Primary Care Nurse Name: Tala Plasencia RN Position: [facility] RN Member Role: Primary Care Nurse Name: Franklin Seth RN Position: [facility] RN Member Role: Primary Care Nurse Name: Kathy Honeycutt Position: [facility] RN Member Role: Primary Care Nurse Name: Gideon Miller RN Position: [facility] SN RN Member Role: Primary Care Nurse Name: Az Pham RN Position: [facility] ED RN W/OE and Tasks Member Role: Primary Care Nurse Name: Libertad Olmos RN Position: [facility] RN Member Role: Primary Care Nurse Name: Daily Mane RN Position: [facility] RN Member Role: Primary Care Nurse Name: Katelynn Milan RN Position: [facility] PCO RN Member Role: Primary Care Nurse Name: Mae Brennan NP Position: [facility] PCO Associate Professional Member Role: PCP Address: Address: [address] [place] [address]- Name: Deborah Gusman RN Position: [facility] Employment Trainer Member Role: Primary Care Nurse Name: Chito Powers RN Position: [facility] RN Member Role: Primary Care Nurse Name: Antonio Velasquez RN Position: [facility] RN Member Role: Primary Care Nurse Name: Alexey Ramos RN Position: [facility] RN Member Role: Primary Care Nurse Name: Crow Burk MD Position: [facility] Renal MD Member Role: Lifetime Consulting Physician Address: Address: [address] [place] [address] [facility] [place] [address]- Name: Emelyn Corbin RN Position: [facility] RN Member Role: Primary Care Nurse Name: Aurea Gutierrez RN Position: [facility] RN Member Role: Primary Care Nurse Care Team Related Persons Name: CHARLES FRANKLIN Address: [address] [address]
--- OUTSIDE RECORDS SUMMARY | 2023-09-14 23:04 | XMS_ITS | Continuity of Care Document ---
Author Organization [facility] Adult Address [address] [place] [address]- Care Team Providers Care Inside Sales Coordinator Name Role Phone Mika CLAY, Mae Serrano Primary Care Physician Encounter [facility] [place] [facility] [id number] Date(s): 03/01/22 - 03/08/[address] [address]- Encounter Diagnosis Allergic rhinitis(Discharge Diagnosis) - 03/01/22 Chronic hepatitis C(Discharge Diagnosis) - 03/01/22 Cocaine abuse(Discharge Diagnosis) - 03/01/22 Anxiety and depression(Discharge Diagnosis) - 03/01/22 Polysubstance abuse(Discharge Diagnosis) - 03/01/22 Schizoaffective disorder(Discharge Diagnosis) - 03/01/22 Substance abuse(Discharge Diagnosis) - 03/01/22 Attending Physician: Not on Staff, Attending MD Allergies, Adverse Reactions, Alerts Substance Reaction Severity Status lithium unknown Active Immunizations Given and Recorded Vaccine Date Status Refusal Reason SARS-CoV-2 mRNA ([id number]) vax 03/14/21 Recorded SARS-CoV-2 (COVID-19) mRNA BNT-162b2 [...] Refills, Acute 03/31/22 13:36:00 EST,03/01/22 13:36:00 EST, [place], [facility], Partial fill upon patient request if the prescription is for a schedule II opioid . Start Date: 03/01/22 Stop Date: 03/31/22 Status: Ordered Knee Support See Instructions, # 1 each, Maintenance, Right knee brace Dx: bilateral tibial plateau fracture (S82.143A) Bilateral tibial avulsion (S82.153A), 05/02/21 9:45:00 EDT, [facility] [id number], Supply Start Date: 05/02/21 Status: Ordered Knee Support See Instructions, # 1 each, Maintenance, Left knee brace Dx: bilateral tibial plateau fracture (S82.143A) Bilateral tibial avulsion (S82.153A), 05/02/21 9:48:00 EDT, [facility] [id number], Supply Start Date: 05/02/21 Status: Ordered Left wrist brace. Dx left wrist pain Left wrist brace. Dx left wrist pain, See Instructions, # 1 each, Refills 0, Tot. Refills 0, Maintenance, Wear as tolerated Dx: Left wrist scaphoid fracture (S62.002A) Left wrist pain (M25.532), 05/02/21 9:46:00 EDT, [facility] [id number], Supply Start Date: 05/02/21 Status: Ordered levocetirizine 5 mg oral tablet 1 tablet = 5 mg, By Mouth, Daily in PM, # 30 tablet, 3 Refills, Maintenance, 03/01/22 13:24:00 EST,Tablet, [facility]-, Partial fill upon patient request if the prescription is for a schedule II opioid drug., 1 tablet By Mouth... Start Date: 03/01/22 Status: Ordered meloxicam 15 mg oral tablet 1 tablet = 15 mg, By Mouth, Daily, PRN Pain , Moderate, # 30 tablet, 4 Refills, Maintenance, 03/01/22 13:25:00 EST, Tablet, [facility], Partial fill upon patient request if the [...] Condition Confirmation Course Effective Dates Status H ealt Status Informant Unsteady gait Confirmed Active Abscess [...] Effective Dates Health Status Clinical Service Informant Allergic rhinitis Discharge Diagnosis 03/01/22 Chronic hepatitis C Discharge Diagnosis 03/01/22 Cocaine abuse Discharge Diagnosis 03/01/22 Anxiety and depression Discharge Diagnosis 03/01/22 Polysubstance abuse Discharge Diagnosis 03/01/22 Schizoaffective disorder Discharge Diagnosis 03/01/22 Substance abuse Discharge Diagnosis 03/01/22 Vital Signs Most recent to oldest [Reference Range]: 1 Height 165 cm (03/01/22 12:48 PM) Weight 76.5 kg (03/01/22 12:48 PM) Oxygen Saturation [94-100 %] 97 % (03/01/22 12:48 PM) Pulse Rate [55-90 bpm] 101 bpm *H* (03/01/22 12:48 PM) Body Mass Index [18.5-24.99 kg/m2] 28.1 kg/m2 *H* (03/01/22 12:48 PM) Blood Pressure [90-138/55-84 mm Hg] 129/ 86mm Hg (03/01/22 12:48 PM) Mode of Delivery (Oxygen) Room air (03/01/22 12:48 PM) Blood pressure sites Arm, left (03/01/22 12:48 PM) Weight Obtained Via Standing scale (03/01/22 12:48 PM) Social History Social History Type Response Smoking Status Current every day vidhya afshan; Type: Cigarettes entered on: 09/13/16 Sex Note * Anna Gabriel: PERFORM, SIGN, VERIFY Event Display: Patient Education/Instruction Authored Date: [id number] [facility] *B[facility] [place] [facility] Clinical Summary Name DARWIN STAHL Age 51 Years 1970 PCP [facility] Brennan [id number] Visit Date 03/01/2022 12:46:00 Additional Instructions: Scheduled Appointments?? Future Appointments ?No Future Appointments Scheduled Follow-Up Instructions ?? Diagnosis Chronic viral hepatitis C; Other psychoactive substance abuse, uncomplicated; Gastro-esophageal reflux disease without esophagitis; Allergic rhinitis, unspecified; Other psychoactive substance abuse,uncomplicated; Schizoaffective disorder, unspecified; Other specified anxiety disorders; Cocaine abuse, uncomplicated Medications: Please continue your medications until treatment is completed or stopped by your provider. Discuss any questions related to medications with your provider. New Medications [facility]-, [address] [place] [phone], [phone] Fluticasone Nasal (Flonase 50 mcg/inh nasal spray) 1 spray(s) Nares, Both twice a day for 30 Days. Refills: 0. Next Dose: levocetirizine (levocetirizine 5 mg oral tablet) 1 tab(s) Oral Daily in PM. Refills: 3. Next Dose: Meloxicam (meloxicam 15 mg oral tablet) 1 tab(s) Oral Daily as needed Pain , Moderate. Refills: 4. Next Dose: Medications to Continue with No Changes These medications were not printed or sent to your pharmacy Benztropine (benztropine 2 mg oral tablet) 1 tab(s) Oral twice a day. Next Dose: Divalproex Sodium (divalproex sodium 250 [...] to prevent falls. Refills: 0. Next Dose: Miscellaneous Rx (Left wrist brace. Dx left wrist pain) Wear as tolerated Dx: Left wrist scaphoid fracture (S62.002A) Left wrist pain (M25.532). Refills: 0. Next Dose: Pantoprazole (pantoprazole 40 mg oral delayed release tablet) 1 tab(s) Oral Daily. Refills: 6. Next Dose: Risperidone (risperiDONE 2 mg oral tablet) 1 tab(s) Oral twice a day. Next Dose: No Longer Take the Following Medications Loratadine (loratadine 10 mg oral tablet) 1 tab(s) Oral Daily. Refills: 3. Allergy Info:?? lithium Medications Given This Visit Future Orders ?No future orders Vital Signs Height 165 cm Weight 76.5 kg BMI 28.1 kg/m2 Blood Pressure 129 mm Hg/86 mm Hg Temperature Pulse Rate 101 bpm Respiratory Rate 02 Sat Mode of Delivery 97 %/Room air You can now view a summary of your hospital visit from the comfort of your home through a free online portal called [employer]. [employer] is a website that allows you to securely view your medical information including discharge summary, medications and follow-up visits. ??You can alsosend a secure electronic message to your doctor???s office to request appointments, renew medications or just ask a question. You can enroll at [email or web address] or register during your next office visit. [...] primary care provider, you may find a [facility] provider by calling [facility] [employer] at [phone]. For information about the plan of care [...] Team Personnel Name: Naty Malcolm RN Position: [facility] RN Member Role: Primary Care Nurse Name: Harshil Cardoso RN Position: [facility] RN Member Role: Primary Care Nurse Name: Lionel Ludwig MD Position: [facility] Renal MD Member Role: Lifetime Consulting Physician Address: Address: [address] [place] [address], [address] [facility] [place] [address]- Name: Rowan Alvarez RN Position: [facility] HBO Wound Member Role: Primary Care Nurse Name: Tala Plasencia RN Position: [facility] RN Member Role: Primary Care Nurse Name: Franklin Seth RN Position: [facility] RN Member Role: Primary Care Nurse Name: Kathy Honeycutt Position: [facility] RN Member Role: Primary Care Nurse Name: Az Pham RN Position: [facility] ED RN W/OE and Tasks Member Role: Primary Care Nurse Name: Libertad Olmos RN Position: [facility] RN Member Role: Primary Care Nurse Name: Daily Mane RN Position: [facility] RN Member Role: Primary Care Nurse Name: Meri Barker RN Position: [facility] ED RN W/OE and Tasks Member Role: Primary Care Nurse Name: Katelynn Milan RN Position: [facility] PCO RN Member Role: Primary Care Nurse Name: Mae Brennan NP Position: [facility] PCO Associate Professional Member Role: PCP Address: Address: [address] [place] [address] 3rd floor [facility] [place] [address]- Name: Deborah Gusman RN Position: [facility] Hospital Manager Of Environmental Services Member Role: Primary Care Nurse Name: Chito Powers RN Position: [facility] RN Member Role: Primary Care Nurse Name: Antonio Velasquez RN Position: [facility] RN Member Role: Primary Care Nurse Name: Alexey Ramos RN Position: [facility] RN Member Role: Primary Care Nurse Name: Crow Burk MD Position: [facility] Renal MD Member Role: Lifetime Consulting Physician Address: Address: [address] [place] [address] [facility] [place], [place] [address] Name: Emelyn Corbin RN Position: S RN Member Role: Primary Care Nurse Name: Aurea Gutierrez RN Position: S RN Member Role: Primary Care Nurse Care Team Related Persons Name: CHARLES FRANKLIN Address: [address] [address]
--- OUTSIDE RECORDS SUMMARY | 2023-09-14 23:04 | XMS_ITS | Continuity of Care Document ---
Author Organization [facility] Adult Address [address] [place] [address]- Care Team Providers Care Pole Frame Construction Worker Name Role Phone Mika CLAY, Mae Serrano Primary Care Physician [phone] Encounter [facility] [place] Date(s): 10/02/22 - 11/01/22 [facility] [address] [place] [address]- Allergies, Adverse Reactions, Alerts No Known Medication Allergies Immunizations Given and Recorded Vaccine Date Status Refusal Reason [id number] bivalent booster vax 12/16/21 Recorded SARS-CoV-2 mRNA ([id number]) vax 03/14/21 Recorded SARS-CoV-2 (COVID-19) mRNA BNT-162b2 vac 04/30/20 Recorded SARS-CoV-2 (COVID-19) mRNA BNT-162b2 vac 04/01/20 Recorded tetanus/diphtheria/pertussis, acel(Tdap) 03/09/17 Given Medications benztropine 2 mg oral tablet 1 [...] Acute 08/24/23 14:31:00 EDT, 08/23/22 14:31:00 EDT, [facility]-, Partial fill upon patient request [...] 2 Refills, Maintenance, 06/19/22 14:26:00 EDT, Tablet, [facility]-, Partial fill upon patient request [...] Gm, 5 Refills, Maintenance, 07/21/22 13:26:00 EDT, [facility]-, 30, USE 1 SPRAY IN EACH NOSTRIL TWICE A DAY, 165, cm, 07/15/22 18:51:00 EDT, Height, 76.5, kg, 07/15/22 18:51:00... Start Date: 07/21/22 Status: Ordered Knee Support See Instructions, # 1 each, Maintenance, Right knee brace Dx: bilateral tibial plateau fracture (S82.143A) Bilateral tibial avulsion (S82.153A), 05/02/21 9:45:00 EDT, [facility] [id number], Supply Start Date: 05/02/21 Status: Ordered Knee Support See Instructions, # 1 each, Maintenance, Left knee brace Dx: bilateral tibial plateau fracture (S82.143A) Bilateral tibial avulsion (S82.153A), 05/02/21 9:48:00 EDT, [facility] [id number], Supply Start Date: 05/02/21 Status: Ordered Left wrist brace. Dx left wrist pain Left wrist brace. Dx left wrist pain, See Instructions, # 1 each, Refills 0, Tot. Refills 0, Maintenance, Wear as tolerated Dx: Left wrist scaphoid fracture (S62.002A) Left wrist pain (M25.532), 05/02/21 9:46:00 EDT, [facility] [phone] [phone], Supply Start Date: 05/02/21 Status: Ordered naproxen [...] mg, By Mouth, Daily, # 30 tablet, 2 Refills, Maintenance, 09/25/22 10:58:00 EDT, EC Tablet, 165, cm, 08/23/22 14:01:00 EDT, Height, 76.5, kg, 07/15/22 18:51:00 EDT, Dry Weight Start Date: 09/25/22 Status: Ordered risperiDONE 2 mg oral tablet [...] Team Personnel Name: Naty Malcolm RN Position: [facility] RN Member Role: Primary Care Nurse Name: Harshil Cardoso RN Position: [facility] RN Member Role: Primary Care Nurse Name: Meri Lima RN Position: [facility] ED RN W/OE and Tasks Member Role: Primary Care Nurse Name: Lionel Ludwig MD Position: [facility] Renal MD Member Role: Lifetime Consulting Physician Address: Address: [address] [place] [address], [address] [facility] [address] Name: Rowan Alvarez RN Position: [facility] HBO Wound Member Role: Primary Care Nurse Name: Tala Plasencia RN Position: [facility] RN Member Role: Primary Care Nurse Name: Franklin Seth RN Position: [facility] RN Member Role: Primary Care Nurse Name: Kathy Honeycutt Position: [facility] RN Member Role: Primary Care Nurse Name: Gideon Miller RN Position: [facility] SN RN Member Role: Primary Care Nurse Name: Az Pham RN Position: [facility] ED RN W/OE and Tasks Member Role: Primary Care Nurse Name: Libertad Olmos RN Position: [facility] RN Member Role: Primary Care Nurse Name: Daily Mane RN Position: [facility] RN Member Role: Primary Care Nurse Name: Katelynn Milan RN Position: [facility] AMB Nurse Member Role: Primary Care Nurse Name: Mae Brennan NP Position: [facility] PCO Associate Professional Member Role: PCP Address: Address: [address] [place] [address]- Name: Belinda Gusman RN Position: [facility] Grey Goods Marker Member Role: Primary Care Nurse Name: Chito Powers RN Position: [facility] RN Member Role: Primary Care Nurse Name: Antonio Velasquez RN Position: [facility] RN Member Role: Primary Care Nurse Name: Alexey Ramos RN Position: [facility] RN Member Role: Primary Care Nurse Name: Crow Burk MD Position: [facility] Renal MD Member Role: Lifetime Consulting Physician Address: Address: [address] [place] [address] [facility] [place] [address]- Name: Emelyn Corbin RN Position: [facility] RN Member Role: Primary Care Nurse Name: Aurea Gutierrez RN Position: [facility] RN Member Role: Primary Care Nurse Care Team Related Persons Name: RIGOBERTO CHARLES Address: [address] [place] [address]
--- OUTSIDE RECORDS SUMMARY | 2023-09-14 23:04 | XMS_ITS | Continuity of Care Document ---
Author Organization [facility] P almer Address [address] [place] [address]- Care Team Providers Care Cosmetics And Toiletries Salesperson Name Role Phone Mika CLAY, Mae Serrano Primary Care Physician [phone] Encounter [facility] Date(s): 06/18/23 - 08/04/23 [facility] [address] [place] [address]- Attending Physician: Kee WAY, Raven Valente Allergies, Adverse Reactions, Alerts Substance Reaction Severity Status lithium bladder/ metabolism Active Immunizations Given and Recorded Vaccine Date Status Refusal Reason SARS-CoV-2(COVID-19)mRNA-LNP vac([id number]) 12/18/22 Recorded influenza virus vaccine, inactivated 11/15/22 Preet rded [id number] bivalent booster vax 12/16/21 Recorded SARS-CoV-2 mRNA (kuchlwt-ojwq-tvjot) vax 03/14/21 Recorded SARS-CoV-2 (COVID-19) mRNA BNT-162b2 vac 04/30/20 Recorded SARS-CoV-2 (COVID-19) mRNA BNT-162b2 vac 04/01/20 Recorded tetanus/diphtheria/pertussis, acel(Tdap) 03/09/17 Given Medications Albuterol (Eqv-Proventil HFA) 90 mcg/inh inhalation aerosol 2 puffs, Inhalation, 4 times a day, PRN NEEDED FOR WHEEZING, # 6.7 Gm, 0 Refills, Maintenance, 05/22/23 14:22:00 EDT, [facility]- , 176, cm, 05/01/23 9:52:00 EDT, Height, 70, kg, 12/21/22 12:46:00 EDT, Dry Weight Start Date: 05/22/23 Stop Date: 06/21/23 Status: Ordered Anoro Ellipta 62.5 mcg-25 mcg/inh inhalation powder 1 puffs, Inhalation, Daily, # 1 each, 11 Refills, Maintenance, 02/01/23 10:55:00 EST, Powder, [facility]-, Partial fill upon patient request if the prescription is for a schedule II opioid drug., 1 puffs Inhalation Daily,x30 da... Start Date: 02/01/23 Stop Date: 01/27/24 Status: Ordered Banophen 25 mg oral capsule 1 capsule, By Mouth, 3 times a day, PRN NEEDED FOR ALLERGY SYMTPOMS, # 90 capsule, 6 Refills, Maintenance, 02/23/23 17:34:00 EST, [facility]/pharmacy #[id number], 176, cm, 02/16/23 13:04:00 EST, Height, [...] Gm, 2 Refills, Maintenance, 05/08/23 18:38:00 EDT, [facility] [place], 30, USE 1 SPRAY IN EACH NOSTRIL [...] tibial avulsion (S82.153A), 05/02/21 9:45:00 EDT, ROSINA [id number], Supply Start Date: 05/02/21 Status: Ordered Knee Support See Instructions, # 1 each, Maintenance, Left knee brace Dx: bilateral tibial plateau fracture (S82.143A) Bilateral tibial avulsion (S82.153A), 05/02/21 9:48:00 EDT, ROSNIA [id number], Supply Start Date: 05/02/21 Status: Ordered Left [...] FOOD, # 60 tablet, 0 Refills, Maintenance, 07/31/23 15:49:00 EDT, [facility]-, 176, cm, 05/01/23 9:52:00 EDT, Height, 70, kg, 12/21/22 12:46:00 EDT, Dry We... Start Date: 07/31/23 Stop Date: 02/19/24 Status: Ordered pantoprazole 40 [...] Personnel Name: Naty Malcolm RN Position: [facility] RN Member Role: Primary Care Nurse Name: Harshil Cardoso RN Position: [facility] RN Member Role: Primary Care Nurse Name: Meri Lima RN Position: [facility] ED RN W/OE and Tasks Member Role: Primary Care Nurse Name: Rowan Damon RN Position: [facility] HBO Wound Member Role: Primary Care Nurse Name: Lionel Ludwig MD Position: [facility] Renal MD Member Role: Lifetime Consulting Physician Address: Address: [address] [place] [address] [address] [place] [address]- Name: Tala Plasencia RN Position: [facility] RN Member Role: Primary Care Nurse Name: Franklin Seth RN Position: [facility] RN Member Role: Primary Care Nurse Name: Kathy Honeycutt RN Position: [facility] RN Member Role: Primary Care Nurse Name: Gideon Miller RN Position: [facility] SN RN Member Role: Primary Care Nurse Name: Az Pham RN Position: [facility] ED RN W/OE and Tasks Member Role: Primary Care Nurse Name: Libertad Olmos RN Position: [facility] RN Member Role: Primary Care Nurse Name: Daily Mane RN Position: [facility] RN Member Role: Primary Care Nurse Name: Katelynn Milan RN Position: [facility] RN Member Role: Primary Care Nurse Name: Mae Brennan NP Position: [facility] PCO Associate Professional Member Role: PCP Address: Address: [address] [place] [address]- Name: Belinda Gusman RN Position: [facility] Rn Labor Delivery Member Role: Primary Care Nurse Name: Chito Powers RN Position: [facility] RN Member Role: Primary Care Nurse Name: Antonio Velasquez RN Position: [facility] RN Member Role: Primary Care Nurse Name: Alexey Ramos RN Position: [facility] RN Member Role: Primary Care Nurse Name: Crow Burk MD Position: [facility] Renal MD Member Role: Lifetime Consulting Physician Address: Address: [address] [place] [address] [facility] [place] [address]- Name: Emelyn Corbin RN Position: S RN Member Role: Primary Care Nurse Name: Aurea Gutierrez RN Position: S RN Member Role: Primary Care Nurse Care Team Related Persons Name: RIGOBERTOCHARLES Address: [address] [address]
--- OUTSIDE RECORDS SUMMARY | 2023-09-14 23:04 | XMS_ITS | Continuity of Care Document ---
Author Organization [facility] Adult Address [address] [place] [address]- Care Team Providers Care Esters And Emulsifiers Supervisor Name Role Phone Mika CLAY, Mae Serrano Primary Care Physician [place] [facility] Date(s): 08/17/22 - 09/16/22 [facility] Adult [address] [place] [address]- Allergies, Adverse Reactions, Alerts No Known Medication Allergies Immunizations Given and Recorded Vaccine Date Status Refusal Reason [id number] bivalent booster vax 12/16/21 Recorded SARS-CoV-2 mRNA (gzfmvdf-jmuj-pionk) vax 03/14/21 Recorded SARS-CoV-2 (COVID-19) mRNA BNT-162b2 [...] 14:31:00 EDT, 08/23/22 14:31:00 EDT, [facility]-, Partial fill upon patient request if [...] Maintenance, 06/19/22 14:26:00 EDT, Tablet, [facility]-, Partial fill upon patient request if [...] Gm, 5 Refills, Maintenance, 07/21/22 13:26:00 EDT, [facility]-[id number], 30, USE 1 SPRAY IN EACH NOSTRIL TWICE A DAY, 165, cm, 07/15/22 18:51:00 EDT, Height, 76.5, kg, 07/15/22 18:51:00... Start Date: 07/21/22 Status: Ordered Knee Support See Instructions, # 1 each, Maintenance, Right knee brace Dx: bilateral tibial plateau fracture (S82.143A) Bilateral tibial avulsion (S82.153A), 05/02/21 9:45:00 EDT, [facility] [id number], Supply Start Date: 05/02/21 Status: Ordered Knee [...] Response Smoking Status Current every day vidhya oker; Type: Cigarettes entered on: 09/13/16 Sex Patient Care team information Care Team Personnel Name: Naty Malcolm RN Position: [facility] RN Member Role: Primary Care Nurse Name: Harshil Cardoso RN Position: [facility] RN Member Role: Primary Care Nurse Name: Meri Lima RN Position: [facility] ED RN W/OE and Tasks Member Role: Primary Care Nurse Name: Lionel Ludwig MD Position: [facility] Renal MD Member Role: Lifetime Consulting Physician Address: Address: [address] [place] [address], [facility] [address] [facility] [address] Name: Rowan Alvarez RN Position: [facility] HBO Wound Member Role: Primary Care Nurse Name: Tala Plasencia RN Position: [facility] RN Member Role: Primary Care Nurse Name: Franklin Seth RN Position: [facility] RN Member Role: Primary Care Nurse Name: Kathy Honeycutt Position: [facility] RN Member Role: Primary Care Nurse Name: Gideon Miller RN Position: [facility] SN RN Member Role: Primary Care Nurse Name: Az Pham RN Position: [facility] ED RN W/OE and Tasks Member Role: Primary Care Nurse Name: Libertad Olmos RN Position: [facility] RN Member Role: Primary Care Nurse Name: Daily Mane RN Position: [facility] RN Member Role: Primary Care Nurse Name: Kateylnn Milan RN Position: [facility] AMB Nurse Member Role: Primary Care Nurse Name: Mae Brennan NP Position: [facility] PCO Associate Professional Member Role: PCP Address: Address: [address] [place] [address]- Name: Belinda Gusman RN Position: [facility] Distribution Field Technician Member Role: Primary Care Nurse Name: Chito Powers RN Position: [facility] RN Member Role: Primary Care Nurse Name: Antonio Velasquez RN Position: [facility] RN Member Role: Primary Care Nurse Name: Alexey Ramos RN Position: [facility] RN Member Role: Primary Care Nurse Name: Crow Burk MD Position: [facility] Renal MD Member Role: Lifetime Consulting Physician Address: Address: [address] [place] [address] [facility] [place] [address]- Name: Emelyn Corbin RN Position: [facility] RN Member Role: Primary Care Nurse Name: Aurea Gutierrez RN Position: [facility] RN Member Role: Primary Care Nurse Care Team Related Persons Name: CHARLES FRANKLIN Address: [address] [place] [address]
--- OUTSIDE RECORDS SUMMARY | 2023-09-14 23:04 | XMS_ITS | Continuity of Care Document ---
Author Organization [facility] Address [address] [place] [address]- Care Team Providers Care Wilderness Guide Name Role Phone Mae Brennan NP Primary Care Physician Encounter [facility] Date(s): 03/13/19 - 04/23/19 [facility] Adult [address] [place] [address]- [facility] Attending Physician: Not on Staff, Attending MD Referring Physician: Mae Brennan NP Allergies, [...] tab in the AM, Refills 0, Maintenance, 06/02/17 15:18:43 Start Date: 07/21/16 Status: Ordered Left [...]
--- OUTSIDE RECORDS SUMMARY | 2023-09-14 23:05 | XMS_ITS | Continuity of Care Document ---
Author Organization [facility] Address [address] [place] [address]- Care Team Providers Care Senior Web Developer Name Role Phone Mika CLAY, Mae Serrano Primary Care Physician [place] [facility] [place] 05/06/21 - 06/05/21 [facility] [address] [place] [address] [id number] Attending Physician: AdmLiliana baldwin Admitting Physician: Admtr, Liliana Referring Physician: Admtr, Ar8 Allergies, Adverse Reactions, Alerts Substance Reaction Severity Status lithium unknown Active Immunizations Given and Recorded Vaccine Date Status Refusal Reason SARS-CoV-2 mRNA (tivuerr-joaj-raalx) vax 03/14/21 Recorded SARS-CoV-2 (COVID-19) mRNA BNT-162b2 [...] By Mouth, 2 times a day, Maintenance, 04/13/21 13:02:00 EDT, Tablet, Partial fill upon patient [...] tibial avulsion (S82.153A), 05/02/21 9:45:00 EDT, ROSINA [id number], Supply Start Date: 05/02/21 Status: Ordered Knee Support See Instructions, # 1 each, Maintenance, Left knee brace Dx: bilateral tibial plateau fracture (S82.143A) Bilateral tibial avulsion (S82.153A), 05/02/21 9:48:00 EDT, ROSINA [id number], Supply Start Date: 05/02/21 Status: Ordered Left wrist brace. Dx left wrist pain Left wrist brace. Dx left wrist pain, See Instructions, # 1 each, Refills 0, Tot. Refills 0, Maintenance, Wear as tolerated Dx: Left wrist scaphoid fracture (S62.002A) Left wrist pain (M25.532), 05/02/21 9:46:00 EDTROSINA [id number], Supply Start Date: 05/02/21 Status: [...]
--- OUTSIDE RECORDS SUMMARY | 2023-09-14 23:05 | XMS_ITS | Continuity of Care Document ---
Author Organization [facility] Adult Address [address] [place] [address]- Care Team Providers Care Land Title Examiner Name Role Phone Mae Brennan NP Primary Care Physician [phone] [place] [facility](s): 09/01/20 - 10/01/20 [facility] Adult [address] [place] [address]- Attending Physician: Liliana Wood Admitting Physician: Liliana [...] px, unsteady gait, h/o vertebral osteomylitis ROSINA [id number], 08/26/20 9:05:00 EDT, Supply Start Date: 08/26/20 [...] px, unsteady gait, h/o vertebral osteomylitis ROSINA [id number], 08/26/20 9:05:00 EDT, Supply Start Date: 08/26/20 Status: Ordered CeleBREX 200 mg oral capsule 1 capsule = 200 mg, By Mouth, 2 times a day, PRN Pain , Moderate, contents of capsule may be mixed with soft foods such as applesauce, # 60 capsule, 0 Refills, Maintenance, 08/02/20 14:32:00 EDT, Capsule, [facility]-, Partial f... Start Date: 08/02/20 Status: [...] 08/02/20 14:30:00 EDT, Route to Pharmacy Electronically, [facility]-, Partial fill upon patient request if the prescription is f... Start Date: 08/02/20 Status: Ordered ibuprofen 600 mg oral tablet 600 mg, 1, tablet, By Mouth, Every 8 hours, PRN, not to exceed 3200 mg/day with food or milk, # 90 tablet, Refills 0, Tot. Refills 0, Maintenance, Pain , Moderate, 08/13/20 10:32:00 EDT, Route to Pharmacy Electronically, [facility]... Start Date: 08/13/20 Stop Date: 09/12/20 [...]
--- OUTSIDE RECORDS SUMMARY | 2023-09-14 23:05 | XMS_ITS | Continuity of Care Document ---
Author Organization [facility] Address [address] [place] [address]- Care Team Providers Care Sheet Metal Supervisor Name Role Phone Mika CLAY, Mae Serrano Primary Care Physician Encounter [facility] Date(s): 03/10/21 - 04/09/21 [facility] [address] [place] [address]- Allergies, Adverse Reactions, Alerts Substance Reaction Severity [...] (M54.9) Unsteady Gait (R6.81) Life long (99), ... Start Date: 03/11/21 Status: Ordered benztropine 2 [...] tibial avulsion (S82.153A), 03/11/21 9:32:00 ROSINA CEBALLOS [id number], Supply Start Date: 03/11/21 Status: Ordered Left wrist brace. Dx left wrist pain Left wrist brace. Dx left wrist pain, See Instructions, # 1 each, Refills 0, Tot. Refills 0, Maintenance, Wear as tolerated Dx: Left wrist scaphoid fracture (S62.002A) Left wrist pain (M25.532), 03/11/21 9:32:00 ROSINA CEBALLOS [id number], Supply Start Date: 03/11/21 Status: Ordered pantoprazole [...]
--- OUTSIDE RECORDS SUMMARY | 2023-09-14 23:05 | XMS_ITS | Continuity of Care Document ---
Author Organization [facility] Adult Address [address] [place] [address]- Care Team Providers Care Computer Systems Architect Name Role Phone Mika CLAY, Mae Serrano Primary Care Physician [phone] Encounter [facility] Date(s): 06/06/23 - 07/06/23 [facility] Adult [address] [place] [address]- Allergies, Adverse Reactions, Alerts Substance Reaction Severity Status lithium bladder/ metabolism Active Immunizations Given and Recorded Vaccine Date Status Refusal Reason SARS-CoV-2(COVID-19)mRNA-LNP vac(ylb287) 12/18/22 Recorded influenza virus vaccine, inactivated 11/15/22 Preet rded [id number] bivalent booster vax 12/16/21 Recorded SARS-CoV-2 mRNA (snlsbkf-ppww-gcgnz) vax 03/14/21 Recorded SARS-CoV-2 (COVID-19) mRNA BNT-162b2 vac 04/30/20 Recorded SARS-CoV-2 (COVID-19) mRNA BNT-162b2 vac 04/01/20 Recorded tetanus/diphtheria/pertussis, acel(Tdap) 03/09/17 Given Medications Albuterol (Eqv-Proventil HFA) 90 mcg/inh inhalation aerosol 2 puffs, Inhalation, 4 times a day, PRN NEEDED FOR WHEEZING, # 6.7 Gm, 0 Refills, Maintenance, 05/22/23 14:22:00 EDT, [facility]- , 176, cm, 05/01/23 9:52:00 EDT, Height, 70, kg, 12/21/22 12:46:00 EDT, Dry Weight Start Date: 05/22/23 Stop Date: 06/21/23 Status: Ordered Anoro Ellipta 62.5 mcg-25 mcg/inh inhalation powder 1 puffs, Inhalation, Daily, # 1 each, 11 Refills, Maintenance, 02/01/23 10:55:00 EST, Powder, [facility]-, Partial fill upon patient request if the prescription is for a schedule II opioid drug., 1 puffs Inhalation Daily,x30 da... Start Date: 02/01/23 Stop Date: 01/27/24 Status: Ordered Banophen 25 mg oral capsule 1 capsule, By Mouth, 3 times a day, PRN NEEDED FOR ALLERGY SYMTPOMS, # 90 capsule, 6 Refills, Maintenance, 02/23/23 17:34:00 EST, [facility]/pharmacy #[id number], 176, cm, 02/16/23 13:04:00 [...] Gm, 2 Refills, Maintenance, 05/08/23 18:38:00 EDT, [facility]-, 30, USE 1 SPRAY IN EACH [...] tibial avulsion (S82.153A), 05/02/21 9:45:00 EDT, ROSINA [id number], Supply Start Date: 05/02/21 Status: Ordered Knee Support See Instructions, # 1 each, Maintenance, Left knee brace Dx: bilateral tibial plateau fracture (S82.143A) Bilateral tibial avulsion (S82.153A), 05/02/21 9:48:00 EDT, ROSINA [id number], Supply Start Date: 05/02/21 Status: Ordered Left wrist brace. Dx left wrist pain Left wrist brace. Dx left wrist pain, See Instructions, # 1 each, Refills 0, Tot. Refills 0, Maintenance, Wear as tolerated Dx: Left wrist scaphoid fracture (S62.002A) Left wrist pain (M25.532), 05/02/21 9:46:00 EDT, ROSINA [phone], Supply Start Date: 05/02/21 Status: Ordered naproxen 500 mg oral tablet 1 tablet, By Mouth, 2 times a day, PRN NEEDED FOR MODERATE PAIN WITH FOOD, # 60 tablet, 0 Refills, Maintenance, 07/03/23 11:52:00 EDT, [facility]-, 176, cm, 05/01/23 9:52:00 EDT, Height, 70, kg, 12/21/22 12:46:00 EDT, Dry We... Start Date: 07/03/23 Status: Ordered pantoprazole 40 mg oral delayed [...] Team Personnel Name: Naty Malcolm RN Position: [facility] RN Member Role: Primary Care Nurse Name: Harshil Cardoso RN Position: [facility] RN Member Role: Primary Care Nurse Name: Meri Lima RN Position: [facility] ED RN W/OE and Tasks Member Role: Primary Care Nurse Name: Rowan Damon RN Position: [facility] HBO Wound Member Role: Primary Care Nurse Name: Lionel Ludwig MD Position: [facility] Renal MD Member Role: Lifetime Consulting Physician Address: Address: [address] [place] [address] [address] [place] [address]- [place] Name: Tala Plasencia RN Position: [facility] RN Member Role: Primary Care Nurse Name: Franklin Seth RN Position: [facility] RN Member Role: Primary Care Nurse Name: Kathy Honeycutt Position: [facility] RN Member Role: Primary Care Nurse Name: Gideon Miller RN Position: [facility] SN RN Member Role: Primary Care Nurse Name: Az Pham RN Position: [facility] ED RN W/OE and Tasks Member Role: Primary Care Nurse Name: Libertad Olmos RN Position: [facility] RN Member Role: Primary Care Nurse Name: Daily Mane RN Position: [facility] RN Member Role: Primary Care Nurse Name: Katelynn Milan RN Position: [facility] RN Member Role: Primary Care Nurse Name: Mae Brennan NP Position: [facility] PCO Associate Professional Member Role: PCP Address: Address: [address] [place] [address]- [place] Name: Belinda Gusman RN Position: [facility] Garage Construction Equipment Mechanic Member Role: Primary Care Nurse Name: Chito Powers RN Position: [facility] RN Member Role: Primary Care Nurse Name: Antonio Velasquez RN Position: [facility] RN Member Role: Primary Care Nurse Name: Alexey Ramos RN Position: [facility] RN Member Role: Primary Care Nurse Name: Crow Burk MD Position: [facility] Renal MD Member Role: Lifetime Consulting Physician Address: Address: [address] [place] [address] [facility] [place] [address]- [place] Name: Emelyn Corbin RN Position: [facility] RN Member Role: Primary Care Nurse Name: Aurea Gutierrez RN Position: S RN Member Role: Primary Care Nurse Care Team Related Persons Name: CHARLES FRANKLIN Address: [place] [address]
--- OUTSIDE RECORDS SUMMARY | 2023-09-14 23:05 | XMS_ITS | Continuity of Care Document ---
Author Organization [facility] ter Address [address] [place] [address]- Care Team Providers Care Classifying Machine Operator Name Role Phone Mika CLAY, Mae Serrano Primary Care Physician En[place] [facility] Date(s): 01/16/20 - 02/22/[address] [address] Attending Physician: Cam Mccall MD Admitting Physician: [...] 02/19/20 10:39:00 EST, Route to Pharmacy Electronically, [facility], Partial fill upon patient request if [...]
--- OUTSIDE RECORDS SUMMARY | 2023-09-14 23:05 | XMS_ITS | Continuity of Care Document ---
Author Organization [facility] Adult Address [address] [place] [address]- Care Team Providers Care Small Piece Cutter Name Role Phone Mika CLAY, Mae Serrano Primary Care Physician Encounter [facility] [place] Date(s): 02/19/20 - 02/26/20 [facility] Adult [address] [place] [address]- Attending Physician: Bridget Giron MD Referring Physician: Mae Brennan NP Allergies, [...] 02/19/20 10:39:00 EST, Route to Pharmacy Electronically, [id number], Partial fill upon patient request if the [...] oldest [Reference Range]: 1 Height 180 cm (02/19/20 9:54 AM) Weight 68.18 kg (02/19/20 9:54 AM) Body Mass Index [18.5-24.99] 21.04 (02/19/20 9:54 AM) Social History Social History Type Response Smoking Status Current every day vidhya cavanaugh; Other: 1 pack per since age 9 years; entered on: 03/09/17 Sex Male
--- OUTSIDE RECORDS SUMMARY | 2023-09-14 23:05 | XMS_ITS | Continuity of Care Document ---
Author Organization [facility] Adult Address [address] [place] [address]- Care Team Providers Care Blocking Machine Operator Second Name Role Phone Mika CLAY, Mae Serrano Primary Care Physician Encounter [facility] [place] Date(s): 10/19/22 - 11/18/22 [facility] [address] [place] [address]- Allergies, Adverse Reactions, Alerts No Known Medication Allergies Immunizations Given and Recorded Vaccine Date Status Refusal Reason [id number] bivalent booster vax 12/16/21 Recorded SARS-CoV-2 mRNA (qpkhcqj-ucki-syoha) vax 03/14/21 Recorded SARS-CoV-2 (COVID-19) mRNA BNT-162b2 [...] Acute 08/24/23 14:31:00 EDT, 08/23/22 14:31:00 EDT, [facility]-, Partial fill upon patient request [...] 2 Refills, Maintenance, 06/19/22 14:26:00 EDT, Tablet, [facility]-, Partial fill upon patient request [...] Gm, 5 Refills, Maintenance, 07/21/22 13:26:00 EDT, [facility], 30, USE 1 SPRAY IN EACH NOSTRIL TWICE A DAY, 165, cm, 07/15/22 18:51:00 EDT, Height, 76.5, kg, 07/15/22 18:51:00... Start Date: 07/21/22 Status: Ordered Knee Support See Instructions, # 1 each, Maintenance, Right knee brace Dx: bilateral tibial plateau fracture (S82.143A) Bilateral tibial avulsion (S82.153A), 05/02/21 9:45:00 EDT, [facility] [id number], Supply Start Date: 05/02/21 Status: Ordered Knee Support See Instructions, # 1 each, Maintenance, Left knee brace Dx: bilateral tibial plateau fracture (S82.143A) Bilateral tibial avulsion (S82.153A), 05/02/21 9:48:00 EDT, [facility] [id number], Supply Start Date: 05/02/21 Status: Ordered Left wrist brace. Dx left wrist pain Left wrist brace. Dx left wrist pain, See Instructions, # 1 each, Refills 0, Tot. Refills 0, Maintenance, Wear as tolerated Dx: Left wrist scaphoid fracture (S62.002A) Left wrist pain (M25.532), 05/02/21 9:46:00 EDT, [facility] [phone] [phone], Supply Start Date: 05/02/21 Status: Ordered naproxen [...] Team Personnel Name: Naty Malcolm RN Position: [facility] RN Member Role: Primary Care Nurse Name: Harshil Cardoso RN Position: [facility] RN Member Role: Primary Care Nurse Name: Meri Lima RN Position: [facility] ED RN W/OE and Tasks Member Role: Primary Care Nurse Name: Lionel Ludwig MD Position: [facility] Renal MD Member Role: Lifetime Consulting Physician Address: Address: [address] [place] [address], [address] [facility] [address] Name: Rowan Alvarez RN Position: [facility] HBO Wound Member Role: Primary Care Nurse Name: Tala Plasencia RN Position: [facility] RN Member Role: Primary Care Nurse Name: Franklin Seth RN Position: [facility] RN Member Role: Primary Care Nurse Name: Kathy Honeycutt Position: [facility] RN Member Role: Primary Care Nurse Name: Gideon Miller RN Position: [facility] SN RN Member Role: Primary Care Nurse Name: Az Pham RN Position: [facility] ED RN W/OE and Tasks Member Role: Primary Care Nurse Name: Libertad Olmos RN Position: [facility] RN Member Role: Primary Care Nurse Name: Daily Mane RN Position: [facility] RN Member Role: Primary Care Nurse Name: Katelynn Milan RN Position: [facility] AMB Nurse Member Role: Primary Care Nurse Name: Mae Brennan NP Position: [facility] PCO Associate Professional Member Role: PCP Address: Address: [address] [place] [address]- Name: Belinda Gusman RN Position: [facility] Reserve Operator Member Role: Primary Care Nurse Name: Chito Powers RN Position: [facility] RN Member Role: Primary Care Nurse Name: Antonio Velasquez RN Position: [facility] RN Member Role: Primary Care Nurse Name: Alexey Ramos RN Position: [facility] RN Member Role: Primary Care Nurse Name: Crow Burk MD Position: [facility] Renal MD Member Role: Lifetime Consulting Physician Address: Address: [address] [place] [address] [facility] [place] [address]- Name: Emelyn Corbin RN Position: [facility] RN Member Role: Primary Care Nurse Name: Aurea Gutierrez RN Position: [facility] RN Member Role: Primary Care Nurse Care Team Related Persons Name: CHARLES FRANKLIN Address: [address] [place] [address]
--- OUTSIDE RECORDS SUMMARY | 2023-09-14 23:05 | XMS_ITS | Continuity of Care Document ---
Author Organization [facility] Address [address] [place] [address] [address] [place] [address]- Care Team Providers Care Nurse Infection Control Name Role Phone Mika CLAY, Mae Serrano Primary Care Physician [phone] Encounter [facility] [id number] Date(s): 02/05/23 - 02/12/[address] [place] [address]- Attending Physician: Charles Rockwell MD Referring Physician: Hank Thompson MD Allergies, Adverse Reactions, Alerts No Known Medication Allergies Immunizations Given and Recorded Vaccine Date Status Refusal Reason SARS-CoV-2(COVID-19)mRNA-LNP vac(dcb099) 12/18/22 Recorded influenza virus vaccine, inactivated 11/15/22 Preet rded [id number] bivalent booster vax 12/16/21 Recorded SARS-CoV-2 mRNA ([id number]-rnuno) vax 03/14/21 Recorded SARS-CoV-2 (COVID-19) mRNA BNT-162b2 vac 04/30/20 Recorded SARS-CoV-2 (COVID-19) mRNA BNT-162b2 vac 04/01/20 Recorded tetanus/diphtheria/pertussis, acel(Tdap) 03/09/17 Given Medications albuterol CFC free 90 mcg/inh inhalation aerosol 2, puffs, Inhalation, 4 times a day, PRN, # 6.7 Gm, Refills 0, Tot. Refills 0, Maintenance, 02/03/23 11:33:00 EST, Inhaler, Route to Pharmacy Electronically, NCPDP_ID-[id number], [facility]-, 176, cm, 01/04/23 10:48:00 EST, Height... Start Date: 02/03/23 Stop Date: 03/05/23 Status: Ordered Anoro Ellipta 62.5 mcg-25 mcg/inh inhalation powder 1 puffs, Inhalation, Daily, # 1 each, 11 Refills, Maintenance, 02/01/23 10:55:00 EST, [facility] upon patient request if the prescription is for a schedule II opioid drug., 1 puffs Inhalation Daily,x30 da... Start Date: 02/01/23 Stop Date: 01/27/24 Status: Ordered Banophen 25 mg oral capsule 1 capsule, By Mouth, 3 times a day, PRN NEEDED FOR ALLERGY SYMTPOMS, # 90 capsule, 6 Refills, Maintenance, 01/31/23 8:41:00 EST, [facility]-, 176, cm, 01/04/23 10:48:00 EST, Height, 70,kg, [...] Gm, 3 Refills, Maintenance, 01/04/23 11:38:00 EST, [place], Partial fill upon patient request if the [...] Bilateral tibial avulsion (S82.153A), 05/02/21 9:45:00 EDTROSINA [id number], Supply Start Date: 05/02/21 Status: Ordered Knee Support See Instructions, # 1 each, Maintenance, Left knee brace Dx: bilateral tibial plateau fracture (S82.143A) Bilateral tibial avulsion (S82.153A), 05/02/21 9:48:00 EDTROSINA [id number], Supply Start Date: 05/02/21 Status: Ordered Left wrist brace. Dx left wrist pain Left wrist brace. Dx left wrist pain, See Instructions, # 1 each, Refills 0, Tot. Refills 0, Maintenance, Wear as tolerated Dx: Left wrist scaphoid fracture (S62.002A) Left wrist pain (M25.532), 05/02/21 9:46:00 EDTROSINA [phone] [id number], Supply Start Date: 05/02/21 Status: Ordered levocetirizine [...] oldest [Reference Range]: 1 Height 176 cm (02/05/23 10:58 AM) Weight 73.5 kg (02/05/23 10:58 AM) Pulse Rate [55-90 bpm] 90 bpm (02/05/23 10:58 AM) Body Mass Index [18.5-24.99 kg/m2] 23.73 kg/m2 (02/05/23 10:58 AM) Blood Pressure [90-138/55-84 mm Hg] 122/ 80mm Hg (02/05/23 10:58 AM) Temperature [96.8-100.4 DegF] 98.4 DegF (02/05/23 10:58 AM) Blood pressure sites Arm, left (02/05/23 10:58 AM) Temperature Route Temporal (02/05/23 10:58 AM) Social History Social History Type Response Smoking Status Current every day sm oker; Type: Cigarettes entered on: 09/13/16 Sex Patient Care team information Care Team Personnel Name: Naty Malcolm RN Position: [facility] RN Member Role: Primary Care Nurse Name: Harshil Cardoso RN Position: [facility] RN Member Role: Primary Care Nurse Name: Meri Lima RN Position: [facility] ED RN W/OE and Tasks Member Role: Primary Care Nurse Name: Lionel Ludwig MD Position: [facility] Renal MD Member Role: Lifetime Consulting Physician Address: Address: [address] [place] [address] [address] [place] [address]- Name: Rowan Alvarez RN Position: [facility] HBO Wound Member Role: Primary Care Nurse Name: Tala Plasencia RN Position: [facility] RN Member Role: Primary Care Nurse Name: Franklin Seth RN Position: [facility] RN Member Role: Primary Care Nurse Name: Kathy Honeycutt Position: [facility] RN Member Role: Primary Care Nurse Name: Gideon Miller RN Position: [facility] RN Member Role: Primary Care Nurse Name: Az Pham RN Position: [facility] ED RN W/OE and Tasks Member Role: Primary Care Nurse Name: Libertad Olmos RN Position: [facility] RN Member Role: Primary Care Nurse Name: Daily Mane RN Position: [facility] RN Member Role: Primary Care Nurse Name: Katelynn Milan RN Position: [facility] AMB Nurse Member Role: Primary Care Nurse Name: Mae Brennan NP Position: [facility] PCO Associate Professional Member Role: PCP Address: Address: [address] [place] [address]- Name: Belinda Gusman RN Position: [facility] Otolaryngology Physician Member Role: Primary Care Nurse Name: Chito Powers RN Position: [facility] RN Member Role: Primary Care Nurse Name: Antonio Velasquez RN Position: [facility] RN Member Role: Primary Care Nurse Name: Alexey Ramos RN Position: [facility] RN Member Role: Primary Care Nurse Name: Crow Burk MD Position: [facility] Renal MD Member Role: Lifetime Consulting Physician Address: Address: [address] [place] [address] [facility] [place] [address]- Name: Emelyn Corbin RN Position: [facility] RN Member Role: Primary Care Nurse Name: Aurea Gutierrez RN Position: [facility] RN Member Role: Primary Care Nurse Care Team Related Persons Name: CHARLES FRANKLIN Address: [address] [place] [address]
--- OUTSIDE RECORDS SUMMARY | 2023-09-14 23:05 | XMS_ITS | Continuity of Care Document ---
Author Organization [facility] Adult Address [address] [place] [address]- Care Team Providers Care Street Light Lamp Cleaner Name Role Phone Mika CLAY, Mae Serrano Primary Care Physician Encounter [facility] [place] Date(s): 06/13/23 - 07/13/23 [facility] [address] [place] [address]- Allergies, Adverse Reactions, Alerts Substance Reaction Severity Status lithium bladder/ metabolism Active Immunizations Given and Recorded Vaccine Date Status Refusal Reason SARS-CoV-2(COVID-19)mRNA-LNP vac(dcc151) 12/18/22 Recorded influenza virus vaccine, inactivated 11/15/22 Preet rded [id number] bivalent booster vax 12/16/21 Recorded SARS-CoV-2 mRNA ([id number]-dxjd-brbno) vax 03/14/21 Recorded SARS-CoV-2 (COVID-19) mRNA BNT-162b2 vac 04/30/20 Recorded SARS-CoV-2 (COVID-19) mRNA BNT-162b2 vac 04/01/20 Recorded tetanus/diphtheria/pertussis, acel(Tdap) 03/09/17 Given Medications Albuterol (Eqv-Proventil HFA) 90 mcg/inh inhalation aerosol 2 puffs, Inhalation, 4 times a day, PRN NEEDED FOR WHEEZING, # 6.7 Gm, 0 Refills, Maintenance, 05/22/23 14:22:00 EDT, [facility]- , 176, cm, 05/01/23 9:52:00 EDT, Height, 70, kg, 12/21/22 12:46:00 EDT, Dry Weight Start Date: 05/22/23 Stop Date: 06/21/23 Status: Ordered Anoro Ellipta 62.5 mcg-25 mcg/inh inhalation powder 1 puffs, Inhalation, Daily, # 1 each, 11 Refills, Maintenance, 02/01/23 10:55:00 EST, Powder, [facility]-, Partial fill upon patient request if the prescription is for a schedule II opioid drug., 1 puffs Inhalation Daily,x30 da... Start Date: 02/01/23 Stop Date: 01/27/24 Status: Ordered Banophen 25 mg oral capsule 1 capsule, By Mouth, 3 times a day, PRN NEEDED FOR ALLERGY SYMTPOMS, # 90 capsule, 6 Refills, Maintenance, 02/23/23 17:34:00 EST, [facility]/pharmacy #[id number], 176, cm, 02/16/23 13:04:00 EST, [...] Gm, 2 Refills, Maintenance, 05/08/23 18:38:00 EDT, [facility]-, 30, USE 1 SPRAY IN [...] tibial avulsion (S82.153A), 05/02/21 9:45:00 EDT, [facility] [id number], Supply Start Date: 05/02/21 Status: Ordered Knee Support See Instructions, # 1 each, Maintenance, Left knee brace Dx: bilateral tibial plateau fracture (S82.143A) Bilateral tibial avulsion (S82.153A), 05/02/21 9:48:00 EDT, [facility] [id number], Supply Start Date: 05/02/21 Status: Ordered Left wrist brace. Dx left wrist pain Left wrist brace. Dx left wrist pain, See Instructions, # 1 each, Refills 0, Tot. Refills 0, Maintenance, Wear as tolerated Dx: Left wrist scaphoid fracture (S62.002A) Left wrist pain (M25.532), 05/02/21 9:46:00 EDT, [facility] [id number], Supply Start Date: 05/02/21 Status: Ordered naproxen 500 mg oral tablet 1 tablet, By Mouth, 2 times a day, PRN NEEDED FOR MODERATE PAIN WITH FOOD, # 60 tablet, 0 Refills, Maintenance, 07/03/23 11:52:00 EDT, [facility]-, 176, cm, 05/01/23 9:52:00 EDT, Height, 70, [...] Team Personnel Name: Naty Malcolm RN Position: [facility] RN Member Role: Primary Care Nurse Name: Harshil Cardoso RN Position: [facility] RN Member Role: Primary Care Nurse Name: Meri Lima RN Position: [facility] ED RN W/OE and Tasks Member Role: Primary Care Nurse Name: Rowan Damon RN Position: [facility] HBO Wound Member Role: Primary Care Nurse Name: Lionel Ludwig MD Position: [facility] Renal MD Member Role: Lifetime Consulting Physician Address: Address: [address] [place] [address] [address] [facility] [address]- [place] Name: Tala Plasencia RN Position: [facility] RN Member Role: Primary Care Nurse Name: Franklin Seth RN Position: [facility] RN Member Role: Primary Care Nurse Name: Kathy Honeycutt Position: [facility] RN Member Role: Primary Care Nurse Name: Gideon Miller RN Position: [facility] SN RN Member Role: Primary Care Nurse Name: Az Pham RN Position: [facility] ED RN W/OE and Tasks Member Role: Primary Care Nurse Name: Libertad Olmos RN Position: [facility] RN Member Role: Primary Care Nurse Name: Daily Mane RN Position: [facility] RN Member Role: Primary Care Nurse Name: Katelynn Milan RN Position: [facility] RN Member Role: Primary Care Nurse Name: Mae Brennan NP Position: [facility] PCO Associate Professional Member Role: PCP Address: Address: [address] [place] [address]- [place] Name: Belinda Gusman RN Position: [facility] Equipment Service Technician Member Role: Primary Care Nurse Name: Chito Powers RN Position: [facility] RN Member Role: Primary Care Nurse Name: Antonio Velasquez RN Position: [facility] RN Member Role: Primary Care Nurse Name: Alexey Ramos RN Position: [facility] RN Member Role: Primary Care Nurse Name: Crow Burk MD Position: [facility] Renal MD Member Role: Lifetime Consulting Physician Address: Address: [address] [place] [address] [facility] [place] [address]- [place] Name: Emelyn Corbin RN Position: [facility] RN Member Role: Primary Care Nurse Name: Aurea Gutierrez RN Position: S RN Member Role: Primary Care Nurse Care Team Related Persons Name: CHARLES FRANKLIN Address: [place] [address]
--- OUTSIDE RECORDS SUMMARY | 2023-09-14 23:05 | XMS_ITS | Continuity of Care Document ---
Author Organization [facility] Address [address] [place] [address]- Care Team Providers Care Records Section Supervisor Name Role Phone Mika CLAY, Mae Serrano Primary Care Physician [place] [facility] [place]14[place]22 - 09/13/22 [facility] [address] [place] [address]- Allergies, Adverse Reactions, Alerts No Known Medication Allergies Immunizations Given and Recorded Vaccine Date Status Refusal Reason [id number] bivalent booster vax 12/16/21 Recorded SARS-CoV-2 mRNA (qcyvxkb-erxf-sxjoi) vax 03/14/21 Recorded SARS-CoV-2 (COVID-19) mRNA BNT-162b2 [...] Acute 08/24/23 14:31:00 EDT, 08/23/22 14:31:00 EDT, [facility]-, Partial fill upon patient request if [...] 2 Refills, Maintenance, 06/19/22 14:26:00 EDT, Tablet, [facility]-, Partial fill upon patient request if [...] Gm, 5 Refills, Maintenance, 07/21/22 13:26:00 EDT, [id number], 30, USE 1 SPRAY IN EACH NOSTRIL TWICE A DAY, 165, cm, 07/15/22 18:51:00 EDT, Height, 76.5, kg, 07/15/22 18:51:00... Start Date: 07/21/22 Status: Ordered Knee Support See Instructions, # 1 each, Maintenance, Right knee brace Dx: bilateral tibial plateau fracture (S82.143A) Bilateral tibial avulsion (S82.153A), 05/02/21 9:45:00 EDT, [facility] [phone], Supply Start Date: 05/02/21 Status: Ordered Knee [...] Member Role: Lifetime Consulting Physician Address: Address: [address] [place] [address], [facility] [address] [facility] [address] Name: Rowan Alvarez RN Position: [facility] HBO Wound Member Role: Primary Care Nurse Name: Tala Plasencia RN Position: [facility] RN Member Role: Primary Care Nurse Name: Franklin Seth RN Position: [facility] RN Member Role: Primary Care Nurse Name: Kathy Honeycutt Position: [facility] RN Member Role: Primary Care Nurse Name: Gideon Miller RN Position: [facility] SN RN Member Role: Primary Care Nurse Name: Az Pham RN Position: [facility] ED RN W/OE and Tasks Member Role: Primary Care Nurse Name: Libertad Olmos RN Position: [facility] RN Member Role: Primary Care Nurse Name: Daily Mane RN Position: [facility] RN Member Role: Primary Care Nurse Name: Katelynn Milan RN Position: [facility] AMB Nurse Member Role: Primary Care Nurse Name: Mae Brennan NP Position: [facility] PCO Associate Professional Member Role: PCP Address: Address: [address] [place] [address]- Name: Belinda Gusman RN Position: [facility] Car Porter Member Role: Primary Care Nurse Name: Chito [...] Member Role: Lifetime Consulting Physician Address: Address: [address] [place] [address] [facility] [place] [address]- Name: Emelyn Corbin RN Position: [facility] RN Member Role: Primary Care Nurse Name: Aurea Gutierrez RN Position: [facility] RN Member Role: Primary Care Nurse Care Team Related Persons Name: CHARLES FRANKLIN Address: [address] [place] [address]
--- OUTSIDE RECORDS SUMMARY | 2023-09-14 23:05 | XMS_ITS | Continuity of Care Document ---
Author Organization [facility] Adult Address [address] [place] [address]- Care Team Providers Care Termite Control Servicer Name Role Phone Mika CLAY, Mae Serrano Primary Care Physician Encounter [facility] Date(s): 12/19/22 - 01/18/23 [facility] [address] [place] [id number]- Allergies, Adverse Reactions, Alerts No Known Medication Allergies Immunizations Given and Recorded Vaccine Date Status Refusal Reason SARS-CoV-2(COVID-19)mRNA-LNP vac([id number]) 12/18/22 Recorded influenza virus vaccine, inactivated 11/15/22 Preet rded [id number] bivalent booster vax 12/16/21 Recorded SARS-CoV-2 mRNA (lqcngcw-yrly-lngwi) vax 03/14/21 Recorded SARS-CoV-2 (COVID-19) mRNA BNT-162b2 vac 04/30/20 Recorded SARS-CoV-2 (COVID-19) mRNA BNT-162b2 vac 04/01/20 Recorded tetanus/diphtheria/pertussis, acel(Tdap) 03/09/17 Given Medications albuterol CFC free 90 mcg/inh inhalation aerosol 2, puffs, Inhalation, 4 times a day, PRN, for 30 days, # 6.7 Gm, Refills 0, Tot. Refills 0, Hard Stop 02/03/23 11:33:00 EST, 01/04/23 11:33:00 EST, Inhaler, Print Requisition Start Date: 01/04/23 Stop Date: 02/03/23 Status: Ordered albuterol CFC free 90 mcg/inh inhalation aerosol 2, puffs, Inhalation, 4 times a day, PRN, # 6.7 Gm, Refills 0, Tot. Refills 0, Maintenance, 02/03/23 11:33:00 EST, Inhaler, Route to Pharmacy Electronically, NCPDP_[id number], [facility]-[id number], 176, cm, 01/04/23 10:48:00 EST, Height... Start Date: 02/03/23 Stop Date: 03/05/23 Status: Ordered Benadryl 25 mg oral capsule 1 capsule = 25 mg, By Mouth, 3 times a day, PRN for allergy symptoms, for 30 days, # 90 capsule, 0 Refills, Acute 02/03/23 11:29:00 EST, 01/04/23 11:29:00 EST, Tablet, Partial fill upon patient request if the prescription is for a schedule II opioid d... Start Date: 01/04/23 Stop Date: 02/03/23 Status: Ordered Cane See Instructions, # 1 [...] Gm, 3 Refills, Maintenance, 01/04/23 11:38:00 EST, [place], Partial fill upon patient request if the [...] Date: 01/04/23 Stop Date: 10/01/23 Status: Ordered ipratropium nasal 21 mcg/inh spray 2 sprays = 42 mcg, Nares, Both, 3 times a day, PRN Nasal Congestion, for 14 days, in each nostril, # 30 mL, 0 Refills, Acute 02/01/23 11:34:00 EST, 01/18/23 11:34:00 EST, Partial fill upon patient request if the prescription is for a schedule II opioi... Start Date: 01/18/23 Stop Date: 02/01/23 Status: Ordered Knee Support See Instructions, # 1 each, Maintenance, Right knee brace Dx: bilateral tibial plateau fracture (S82.143A) Bilateral tibial avulsion (S82.153A), 05/02/21 9:45:00 ROSINA NOWAK [id number], Supply Start Date: 05/02/21 Status: Ordered Knee Support See Instructions, # 1 each, Maintenance, Left knee brace Dx: bilateral tibial plateau fracture (S82.143A) Bilateral tibial avulsion (S82.153A), 05/02/21 9:48:00 ROSINA NOWAK [phone], Supply Start Date: 05/02/21 Status: Ordered Left wrist brace. Dx left wrist pain Left wrist brace. Dx left wrist pain, See Instructions, # 1 each, Refills 0, Tot. Refills 0, Maintenance, Wear as tolerated Dx: Left wrist scaphoid fracture (S62.002A) Left wrist pain (M25.532), 05/02/21 9:46:00 EDT, ROSINA [phone], Supply Start Date: 05/02/21 Status: Ordered levocetirizine [...] Team Personnel Name: Naty Malcolm RN Position: [facility] RN Member Role: Primary Care Nurse Name: Harshil Cardoso RN Position: [facility] RN Member Role: Primary Care Nurse Name: Meri Lima RN Position: [facility] ED RN W/OE and Tasks Member Role: Primary Care Nurse Name: Lionel Ludwig MD Position: [facility] Renal MD Member Role: Lifetime Consulting Physician Address: Address: [address] [place] [address] [address] [facility] [address]- Name: Rowan Alvarez RN Position: [facility] HBO Wound Member Role: Primary Care Nurse Name: Tala Plasencia RN Position: [facility] RN Member Role: Primary Care Nurse Name: Franklin Seth RN Position: [facility] RN Member Role: Primary Care Nurse Name: Kathy Honeycutt Position: [facility] RN Member Role: Primary Care Nurse Name: Gideon Miller RN Position: [facility] SN RN Member Role: Primary Care Nurse Name: Az Pham RN Position: [facility] ED RN W/OE and Tasks Member Role: Primary Care Nurse Name: Libertad Olmos RN Position: [facility] RN Member Role: Primary Care Nurse Name: Daily Mane RN Position: [facility] RN Member Role: Primary Care Nurse Name: Katelynn Milan RN Position: [facility] AMB Nurse Member Role: Primary Care Nurse Name: Mae Brennan NP Position: [facility] PCO Associate Professional Member Role: PCP Address: Address: [address] [place] [address] 3rd [place] [address]- [place] Name: Belinda Gusman RN Position: [facility] Hospital Merchant Patroller Member Role: Primary Care Nurse Name: Chito Powers RN Position: [facility] RN Member Role: Primary Care Nurse Name: Antonio Velasquez RN Position: S RN Member Role: Primary Care Nurse Name: Alexey Ramos RN Position: S RN Member Role: Primary Care Nurse Name: Crow Burk MD Position: [facility] Renal MD Member Role: Lifetime Consulting Physician Address: Address: [address] [place] [address] [facility] [address] Name: Emelyn Corbin RN Position: [facility] RN Member Role: Primary Care Nurse Name: Aurea Gutierrez RN Position: [facility] RN Member Role: Primary Care Nurse Care Team Related Persons Name: CHARLES FRANKLIN Address: [place] [address]
--- OUTSIDE RECORDS SUMMARY | 2023-09-14 23:05 | XMS_ITS | Continuity of Care Document ---
Author Organization [facility] Adult Address [address] [place] [address]- Care Team Providers Care Broacher Name Role Phone Mae Brennan NP Primary Care Physician En[place] [facility] [place] Date(s): 12/18/22 - 12/25/[address] [address]- Encounter Diagnosis Viral URI with cough(Discharge Diagnosis) - 12/18/22 Post-nasal drip(Discharge Diagnosis) - 12/18/22 Wheezing(Discharge Diagnosis) - 12/18/22 Attending Physician: Not on Staff, Attending MD Allergies, Adverse Reactions, Alerts No Known Medication Allergies Immunizations Given and Recorded Vaccine Date Status Refusal Reason [id number] bivalent booster vax 12/16/21 Recorded SARS-CoV-2 mRNA (fgcwekz-ehfi-cxwka) vax 03/14/21 Recorded SARS-CoV-2 (COVID-19) mRNA BNT-162b2 vac 04/30/20 Recorded SARS-CoV-2 (COVID-19) mRNA BNT-162b2 vac 04/01/20 Recorded tetanus/diphtheria/pertussis, acel(Tdap) 03/09/17 Given Medications albuterol CFC free 90 mcg/inh inhalation aerosol 2, puffs, Inhalation, 4 times a day, PRN, for 14 days, # 6.7 Gm, Refills 0, Tot. Refills 0, Acute 01/01/23 16:55:00 EST, 12/18/22 16:55:00 EDT, Aerosol, Route to Pharmacy Electronically, NCPDP_ID-[id number], [facility]-[id number], 165, cm,... Start Date: 12/18/22 Stop Date: 01/01/23 Status: Ordered Benadryl 25 mg oral tablet 25 mg, 1, tablet, By Mouth, 3 times a day, PRN as needed for allergy symptoms, for 14 days, # 42 tablet, 0 Refills, Acute Start Date: 12/20/22 Stop Date: 01/03/23 Status: Ordered benztropine 2 mg oral tablet [...] Acute 08/24/23 14:31:00 EDT, 08/23/22 14:31:00 EDT, [facility]-, Partial fill upon patient request if [...] 2 Refills, Maintenance, 06/19/22 14:26:00 EDT, Tablet, [facility]-, Partial fill upon patient request if the prescription is fora schedule II opioid drug., 165, cm, 03/01/22 12:48... Start Date: 06/19/22 Status: Ordered dextromethorphan-guaifenesin 10 mg-100 mg/5 mL oral liquid 5 mL, By Mouth, Every 4 hours, PRN for cough, for 10 days, not to exceed 6 doses/day, # 300 mL, 0 Refills, Acute 12/30/22 18:01:00 EST, 12/20/22 18:01:00 EDT, Liquid, [facility]-, Partial fill upon patient request if the prescr... Start Date: 12/20/22 Stop Date: 12/30/22 Status: Ordered diphenhydrAMINE 25 mg oral tablet 1 tablet = 25 mg, By Mouth, 3 times a day, PRN stuffy nose, for 7 days, # 21 tablet, 0 Refills, Acute 12/27/22 18:04:00 EST, 12/20/22 18:04:00 EDT, Tablet, [facility]-, Partial fill upon patient request if the prescription is f... Start Date: 12/20/22 Stop Date: 12/27/22 Status: Ordered divalproex sodium 250 mg oral [...] 50 mcg, Inhalation, 2 times a day, # 60 each, 0 Refills, Maintenance, 12/21/22 14:27:00 EDT, Powder, [facility]-, Partial fill upon patient request if the prescription is for a schedule II opioid drug., 1 each Inhalati... Start Date: 12/21/22 Status: Ordered fluticasone 50 mcg/inh nasal spray See Instructions, USE 1 SPRAY IN EACH NOSTRIL TWICE A DAY, # 16 Gm, 5 Refills, Maintenance, 12/14/22 9:33:00 EDT, [facility]-, 30, USE 1 SPRAY IN EACH NOSTRIL TWICE A DAY, 165, cm, 11/14/22 10:17:00 EDT, Height, 76.5, kg, 07/15... Start Date: 12/14/22 Status: Ordered ipratropium nasal 21 mcg/inh spray 2 sprays = 42 mcg, Nares, Both, 3 times a day, for 14 days, in each nostril, # 30 mL, 0 Refills, Acute 01/01/23 16:55:00 EST, 12/18/22 16:55:00 EDT, [facility]-, Partial fill upon patient request if the prescription is for a sc... Start Date: 12/18/22 Stop Date: 01/01/23 Status: Ordered Knee Support See Instructions, # 1 each, Maintenance, Right knee brace Dx: bilateral tibial plateau fracture (S82.143A) Bilateral tibial avulsion (S82.153A), 05/02/21 9:45:00 EDT, ROSINA [id number], Supply Start Date: 05/02/21 Status: Ordered Knee Support See Instructions, # 1 each, Maintenance, Left knee brace Dx: bilateral tibial plateau fracture (S82.143A) Bilateral tibial avulsion (S82.153A), 05/02/21 9:48:00 EDT, [facility]INA [phone], Supply Start Date: 05/02/21 Status: Ordered Left wrist brace. Dx left wrist pain Left wrist brace. Dx left wrist pain, See Instructions, # 1 each, Refills 0, Tot. Refills 0, Maintenance, Wear as tolerated Dx: Left wrist scaphoid fracture (S62.002A) Left wrist pain (M25.532), 05/02/21 9:46:00 EDT, ROSINA [phone], Supply Start Date: 05/02/21 Status: Ordered pantoprazole [...] Effective Dates Health Status inical Service Informant Viral URI with cough Discharge Diagnosis 12/18/22 Post-nasal drip Discharge Diagnosis 12/18/22 Wheezing Discharge Diagnosis 12/18/22 Vital Signs Most recent to oldest [Reference Range]: 1 Height 165 cm (12/18/22 3:48 PM) Weight 70.45 kg (12/18/22 3:48 PM) Body Mass Index [18.5-24.99 kg/m2] 25.88 kg/m2 *H* (12/18/22 3:48 PM) Weight Obtained Via Patient/family state d (12/18/22 3:48 PM) Social History Social History Type Response Smoking Status Current every day sm afshan; Type: Cigarettes entered on: 09/13/16 Sex Patient Care team information Care Team Personnel Name: Naty Malcolm RN Position: [facility] RN Member Role: Primary Care Nurse Name: Harshil Cardoso RN Position: [facility] RN Member Role: Primary Care Nurse Name: Meri Lima RN Position: [facility] ED RN W/OE and Tasks Member Role: Primary Care Nurse Name: Lionel Ludwig MD Position: [facility] Renal MD Member Role: Lifetime Consulting Physician Address: Address: [address] [place] [address] [address] [place] [address]- [place] Name: Rowan Alvarez RN Position: [facility] HBO Wound Member Role: Primary Care Nurse Name: Tala Plasencia RN Position: [facility] RN Member Role: Primary Care Nurse Name: Franklin Seth RN Position: [facility] RN Member Role: Primary Care Nurse Name: Kathy Honeycutt Position: [facility] RN Member Role: Primary Care Nurse Name: Gideon Miller RN Position: [facility] SN RN Member Role: Primary Care Nurse Name: Az Pham RN Position: [facility] ED RN W/OE and Tasks Member Role: Primary Care Nurse Name: Libertad Olmos RN Position: [facility] RN Member Role: Primary Care Nurse Name: Daily Mane RN Position: [facility] RN Member Role: Primary Care Nurse Name: Katelynn Milan RN Position: [facility] AMB Nurse Member Role: Primary Care Nurse Name: Mae Brennan NP Position: [facility] PCO Associate Professional Member Role: PCP Address: Address: [address] [place] [address]- Name: Belinda Gusman RN Position: [facility] Hospital Timber Harvester Operator Member Role: Primary Care Nurse Name: Chito Powers RN Position: [facility] RN Member Role: Primary Care Nurse Name: Antonio Velasquez RN Position: [facility] RN Member Role: Primary Care Nurse Name: Alexey Ramos RN Position: [facility] RN Member Role: Primary Care Nurse Name: Crow Burk MD Position: [facility] Renal MD Member Role: Lifetime Consulting Physician Address: Address: [address] [place] [address] [facility] [place] [address]- [place] Name: Emelyn Corbin RN Position: S RN Member Role: Primary Care Nurse Name: Aurea Gutierrez RN Position: S RN Member Role: Primary Care Nurse Care Team Related Persons Name: CHARLES FRANKLIN Address: [address] [address]
--- OUTSIDE RECORDS SUMMARY | 2023-09-14 23:05 | XMS_ITS | Continuity of Care Document ---
Author Organization [facility] Adult Address [address] [place] [address]- Care Team Providers Care Die Press Operator Name Role Phone Mika CLAY, Mae Serrano Primary Care Physician [phone] [place] [facility] [place](s): 10/07/21 - 10/14/21 [facility] [address] [place] [address]- Encounter Diagnosis Medicare annual wellness visit, subsequent(Discharge Diagnosis) - 10/07/21 Anxiety and depression(Discharge Diagnosis) - 10/07/21 Chronic hepatitis C(Discharge Diagnosis) - 10/07/21 Polysubstance abuse(Discharge Diagnosis) - 10/07/21 Schizoaffective disorder(Discharge Diagnosis) - 10/07/21 Osteomyelitis of lumbar vertebra(Discharge Diagnosis) - 10/07/21 Substance abuse(Discharge Diagnosis) - 10/07/21 infeced groin mesh(Discharge Diagnosis) - 10/07/21 Tobacco dependence(Discharge Diagnosis) - 10/07/21 Attending Physician: Bree WAY, Bridget Allergies, Adverse Reactions, Alerts Substance Reaction Severity Status lithium unknown Active Immunizations Given and Recorded Vaccine Date Status Refusal Reason SARS-CoV-2 mRNA (wulzthk-ldlk-zmouo) vax 03/14/21 Recorded SARS-CoV-2 (COVID-19) mRNA BNT-162b2 [...] AND... Start Date: 05/02/21 Status: Ordered celecoxib 200 mg oral capsule 1 capsule = 200 mg, By Mouth, 2 times a day, # 60 capsule, 3 Refills, Maintenance, 10/07/21 10:08:00 EDT, Capsule, [place] [id number], Partial fill upon patient request if the prescription is for a schedule II opioid drug., 167.2, cm,... Start Date: 10/07/21 Status: Ordered divalproex sodium 250 mg oral [...] tibial avulsion (S82.153A), 05/02/21 9:45:00 EDT, ROSINA [phone], Supply Start Date: 05/02/21 Status: Ordered Knee Support See Instructions, # 1 each, Maintenance, Left knee brace Dx: bilateral tibial plateau fracture (S82.143A) Bilateral tibial avulsion (S82.153A), 05/02/21 9:48:00 EDT, ROSINA [id number], Supply Start Date: 05/02/21 Status: Ordered Left wrist brace. Dx left wrist pain Left wrist brace. Dx left wrist pain, See Instructions, # 1 each, Refills 0, Tot. Refills 0, Maintenance, Wear as tolerated Dx: Left wrist scaphoid fracture (S62.002A) Left wrist pain (M25.532), 05/02/21 9:46:00 EDT, ROSINA [phone], Supply Start Date: 05/02/21 Status: Ordered pantoprazole [...] Effective Dates Health Status Clinical Service Informant Medicare annual wellness visit, subsequent Discharge Diagnosis 10/07/21 Anxiety and depression Discharge Diagnosis 10/07/21 Chronic hepatitis C Discharge Diagnosis 10/07/21 Polysubstance abuse Discharge Diagnosis 10/07/21 Schizoaffective disorder Discharge Diagnosis 10/07/21 Osteomyelitis of lumbar vertebra Discharge Diagnosis 10/07/21 Substance abuse Discharge Diagnosis 10/07/21 infeced groin mesh Discharge Diagnosis 10/07/21 Tobacco dependence Discharge Diagnosis 10/07/21 Vital Signs Most recent to oldest [Reference Range]: 1 Height 167.2 cm (10/07/21 9:23 AM) Weight 67.9 kg (10/07/21 9:23 AM) Oxygen Saturation [94-100 %] 98 % (10/07/21 9:23 AM) Pulse Rate [55-90 bpm] 89 bpm (10/07/21 9:23 AM) Body Mass Index [18.5-24.99] 24.29 (10/07/21 9:23 AM) Blood Pressure [90-138/55-84 mm Hg] 107/ 79mm Hg (10/07/21 9:23 AM) Mode of Delivery (Oxygen) Room air (10/07/21 9:23 AM) Blood pressure sites Arm, left (10/07/21 9:23 AM) Social History Social History Type Response Smoking Status Current every day vidhya cavanaugh; Type: Cigarettes entered on: 09/13/16 Sex Care Team Personnel Name: Mae Brennan NP Address: [address] [place] [address] [address] [place], [place] [address]
--- OUTSIDE RECORDS SUMMARY | 2023-09-14 23:05 | XMS_ITS | Continuity of Care Document ---
Author Organization [facility] Adult Address [address] [place] [address]- Care Team Providers Care Teacher Adventure Education Name Role Phone Mika CLAY, Mae Serrano Primary Care Physician [phone] Encounter [facility] [place] Date(s): 08/08/22 - 09/07/22 [facility] [address] [place] [address]- Allergies, Adverse Reactions, Alerts No Known Medication Allergies Immunizations Given and Recorded Vaccine Date Status Refusal Reason [id number] bivalent booster vax 12/16/21 Recorded SARS-CoV-2 mRNA (btqvqrv-luwi-mogeb) vax 03/14/21 Recorded SARS-CoV-2 (COVID-19) mRNA BNT-162b2 [...] Acute 08/24/23 14:31:00 EDT, 08/23/22 14:31:00 EDT, [facility]-, Partial fill upon patient request if [...] 2 Refills, Maintenance, 06/19/22 14:26:00 EDT, Tablet, [facility]-, Partial fill upon patient request if [...] Gm, 5 Refills, Maintenance, 07/21/22 13:26:00 EDT, [id number], 30, USE 1 SPRAY IN EACH NOSTRIL TWICE A DAY, 165, cm, 07/15/22 18:51:00 EDT, Height, 76.5, kg, 07/15/22 18:51:00... Start Date: 07/21/22 Status: Ordered Knee Support See Instructions, # 1 each, Maintenance, Right knee brace Dx: bilateral tibial plateau fracture (S82.143A) Bilateral tibial avulsion (S82.153A), 05/02/21 9:45:00 EDT, [facility]INA [phone], Supply Start Date: 05/02/21 Status: Ordered Knee [...] Team Personnel Name: Naty Malcolm RN Position: [facility] RN Member Role: Primary Care Nurse Name: Harshil Cardoso RN Position: [facility] RN Member Role: Primary Care Nurse Name: Meri Lima RN Position: [facility] ED RN W/OE and Tasks Member Role: Primary Care Nurse Name: Lionel Ludwig MD Position: [facility] Renal MD Member Role: Lifetime Consulting Physician Address: Address: [address] [place] [address], [facility] [address] Name: Rowan Alvarez RN Position: [facility] HBO Wound Member Role: Primary Care Nurse Name: Tala Plasencia RN Position: [facility] RN Member Role: Primary Care Nurse Name: Franklin Seth RN Position: [facility] RN Member Role: Primary Care Nurse Name: Kathy Honeycutt Position: [facility] RN Member Role: Primary Care Nurse Name: Gideon Miller RN Position: [facility] SN RN Member Role: Primary Care Nurse Name: Az Pham RN Position: [facility] ED RN W/OE and Tasks Member Role: Primary Care Nurse Name: Libertad Olmos RN Position: [facility] RN Member Role: Primary Care Nurse Name: Daily Mane RN Position: [facility] RN Member Role: Primary Care Nurse Name: Katelynn Milan RN Position: [facility] AMB Nurse Member Role: Primary Care Nurse Name: Mae Brennan NP Position: [facility] PCO Associate Professional Member Role: PCP Address: Address: [address] [place] [address]- Name: Belinda Gusman RN Position: [facility] [employer]er Member Role: Primary Care Nurse Name: Chito Powers RN Position: [facility] RN Member Role: Primary Care Nurse Name: Antonio Velasquez RN Position: [facility] RN Member Role: Primary Care Nurse Name: Alexey Ramos RN Position: [facility] RN Member Role: Primary Care Nurse Name: Crow Burk MD Position: [facility] Renal MD Member Role: Lifetime Consulting Physician Address: Address: [address] [place] [address] [facility] [place] [address]- Name: Emelyn Corbin RN Position: [facility] RN Member Role: Primary Care Nurse Name: Aurea Gutierrez RN Position: [facility] RN Member Role: Primary Care Nurse Care Team Related Persons Name: CHARLES FRANKLIN Address: [address] [place] [address]
--- OUTSIDE RECORDS SUMMARY | 2023-09-14 23:05 | XMS_ITS | Continuity of Care Document ---
Author Organization [facility] Adult Address [address] [place] [address]- Care Team Providers Care Blanker Press Operator Name Role Phone Mika CLAY, Mae Serrano Primary Care Physician Encounter [facility] [place] Date(s): 06/21/22 - 07/28/[address] [address]- Attending Physician: Jairo Gusman MD Allergies, Adverse Reactions, Alerts No Known Medication Allergies Immunizations Given and Recorded Vaccine Date Status Refusal Reason [id number] bivalent booster vax 12/16/21 Recorded SARS-CoV-2 mRNA ([id number]) vax 03/14/21 Recorded SARS-CoV-2 (COVID-19) mRNA BNT-162b2 [...] 2 Refills, Maintenance, 06/19/22 14:26:00 EDT, Tablet, [facility]-, Partial fill upon patient request [...] Refills, Maintenance, 07/21/22 13:26:00 EDT, [facility]-, 30, USE 1 SPRAY IN EACH NOSTRIL TWICE A DAY, 165, cm, 07/15/22 18:51:00 EDT, Height, 76.5, kg, 07/15/22 18:51:00... Start Date: 07/21/22 Status: Ordered Knee Support See Instructions, # 1 each, Maintenance, Right knee brace Dx: bilateral tibial plateau fracture (S82.143A) Bilateral tibial avulsion (S82.153A), 05/02/21 9:45:00 EDT, [facility] [id number], Supply Start Date: 05/02/21 Status: Ordered Knee Support See Instructions, # 1 each, Maintenance, Left knee brace Dx: bilateral tibial plateau fracture (S82.143A) Bilateral tibial avulsion (S82.153A), 05/02/21 9:48:00 EDT, [facility] [id number], Supply Start Date: 05/02/21 Status: Ordered Left wrist brace. Dx left wrist pain Left wrist brace. Dx left wrist pain, See Instructions, # 1 each, Refills 0, Tot. Refills 0, Maintenance, Wear as tolerated Dx: Left wrist scaphoid fracture (S62.002A) Left wrist pain (M25.532), 05/02/21 9:46:00 EDT, [facility] [phone], Supply Start Date: 05/02/21 Status: Ordered naproxen [...] Role: Lifetime Consulting Physician Address: Address: [address] [place] [address], [address] [facility] [address] Name: Rowan Alvarez RN Position: [facility] [...] Care Nurse Name: Gideon Miller RN Position: [facility] SN RN Member Role: Primary Care Nurse [...] RN Position: [facility] AMB Nurse Member Role: Primary Care Nurse Name: Mae Brennan NP Position: [facility] PCO Associate Professional Member Role: PCP Address: Address: [address] [place] [id number]- Name: Deborah Gusman RN Position: [facility] Turn Machine Operator Member Role: Primary Care Nurse [...] Role: Lifetime Consulting Physician Address: Address: [address] [place] [address] [facility] [place] [address]- Name: Emelyn Corbin RN Position: [facility] RN Member Role: Primary Care Nurse Name: Aurea Gutierrez RN Position: [facility] RN Member Role: Primary Care Nurse Care Team Related Persons Name: CHARLES FRANKLIN Address: [address] [place] [address]
--- OUTSIDE RECORDS SUMMARY | 2023-09-14 23:05 | XMS_ITS | Continuity of Care Document ---
Author Organization [facility] Address [address] [place] [address]- Care Team Providers Care Staff Mine Warfare Officer Name Role Phone Mika CLAY, Mae Serrano Primary Care Physician [place] [facility] [place]s): 09/28/20 - 01/19/21 [facility] [address] [place] [id number] Attending Physician: Kourtney Hawthorne MD Admitting Physician: Kourtney Hawthorne MD Allergies, Adverse Reactions, Alerts Substance Reaction [...] px, unsteady gait, h/o vertebral osteomylitis [facility] [id number], 08/26/20 9:05:00 EDT, Supply Start Date: 08/26/20 [...] px, unsteady gait, h/o vertebral osteomylitis [facility] [id number], 08/26/20 9:05:00 EDT, Supply Start Date: 08/26/20 Status: Ordered celecoxib 200 mg oral capsule 1 capsule, By Mouth, 2 times a day, PRN NEEDED FOR MODERATE PAIN *THE CONTENTS OF, MAY BE MIXED WITH., # 59 capsule, 0 Refills, [facility]- , 180, cm, 08/02/20 14:06:00 EDT, Height, 58.5, [...] 08/02/20 14:30:00 EDT, Route to Pharmacy Electronically, [id number], Partial fill upon patient request if the prescription is f... Start Date: 08/02/20 Status: Ordered ibuprofen 600 mg oral tablet 600 mg, 1, tablet, By Mouth, Every 8 hours, PRN, not to exceed 3200 mg/day with food or milk, # 90 tablet, Refills 0, Tot. Refills 0, Maintenance, Pain , Moderate, 11/17/20 9:39:00 EDT, Route to Pharmacy Electronically, [facility]... Start Date: 11/17/20 Stop Date: 12/17/20 Status: [...]
--- OUTSIDE RECORDS SUMMARY | 2023-09-14 23:05 | XMS_ITS | Continuity of Care Document ---
Author Organization [facility] Adult Address [address] [place] [address]- Care Team Providers Care Director Of Instruction Name Role Phone Mika CLAY, Mae Serrano Primary Care Physician [place] [facility] [place] 03/14/23 - 04/13/23 [facility] Adult [address] [place] [address]- Allergies, Adverse Reactions, Alerts Substance Reaction Severity Status lithium bladder/ metabolism Active Immunizations Given and Recorded Vaccine Date Status Refusal Reason SARS-CoV-2(COVID-19)mRNA-LNP vac([id number]) 12/18/22 Recorded influenza virus vaccine, inactivated 11/15/22 Preet rded [id number] bivalent booster vax 12/16/21 Recorded SARS-CoV-2 mRNA (bsmmjex-zynu-gmvsi) vax 03/14/21 Recorded SARS-CoV-2 (COVID-19) mRNA BNT-162b2 vac 04/30/20 Recorded SARS-CoV-2 (COVID-19) mRNA BNT-162b2 vac 04/01/20 Recorded tetanus/diphtheria/pertussis, acel(Tdap) 03/09/17 Given Medications Albuterol (Eqv-Proventil HFA) 90 mcg/inh inhalation aerosol 2 puffs, Inhalation, 4 times a day, PRN NEEDED FOR WHEEZING, # 6.7 Gm, 0 Refills, Maintenance, 04/09/23 9:17:00 EST, [facility]-[id number], 176, cm, 02/27/23 11:54:00 EST, Height, 70, kg, 12/21/22 12:46:00 EDT, Dry Weight Start Date: 04/09/23 Stop Date: 05/09/23 Status: Ordered Anoro Ellipta 62.5 mcg-25 mcg/inh inhalation powder 1 puffs, Inhalation, Daily, # 1 each, 11 Refills, Maintenance, 02/01/23 10:55:00 EST, Powder, [facility]-, Partial fill upon patient request if the prescription is for a schedule II opioid drug., 1 puffs Inhalation Daily,x30 da... Start Date: 02/01/23 Stop Date: 01/27/24 Status: Ordered Banophen 25 mg oral capsule 1 capsule, By Mouth, 3 times a day, PRN NEEDED FOR ALLERGY SYMTPOMS, # 90 capsule, 6 Refills, Maintenance, 02/23/23 17:34:00 EST, [facility]pharmacy #[id number], 176, cm, 02/16/23 13:04:00 EST, [...] Gm, 3 Refills, Maintenance, 01/04/23 11:38:00 EST, [place], Partial fill upon patient request if the [...] tibial avulsion (S82.153A), 05/02/21 9:45:00 EDT, [facility] [id number], Supply Start Date: 05/02/21 Status: Ordered Knee Support See Instructions, # 1 each, Maintenance, Left knee brace Dx: bilateral tibial plateau fracture (S82.143A) Bilateral tibial avulsion (S82.153A), 05/02/21 9:48:00 EDT, [facility] [id number], Supply Start Date: 05/02/21 Status: Ordered Left wrist brace. Dx left wrist pain Left wrist brace. Dx left wrist pain, See Instructions, # 1 each, Refills 0, Tot. Refills 0, Maintenance, Wear as tolerated Dx: Left wrist scaphoid fracture (S62.002A) Left wrist pain (M25.532), 05/02/21 9:46:00 EDT, [facility] [id number] [id number], Supply Start Date: 05/02/21 Status: Ordered naproxen 500 mg oral tablet 1 tablet, By Mouth, 2 times a day, PRN NEEDED FOR MODERATE PAIN WITH FOOD, # 60 tablet, 0 Refills, Maintenance, 04/10/23 11:41:00 EST, [id number], 176, cm, 02/27/23 11:54:00 EST, Height, 70, [...] Care Nurse Name: Meri Lima RN Position: [facility] ED RN W/OE and Tasks Member Role: Primary Care Nurse Name: Lionel Ludwig MD Position: [facility] Renal MD Member Role: Lifetime Consulting Physician Address: Address: [address] [place] [address] [address] [place] [address]- [place] Name: Rowan Alvarez RN Position: [facility] HBO Wound Member Role: Primary Care Nurse Name: Tala Plasencia RN Position: [facility] RN Member Role: Primary Care Nurse Name: Franklin Seth RN Position: [facility] RN Member Role: Primary Care Nurse Name: Kathy Honeycutt Position: [facility] RN Member Role: Primary Care Nurse Name: Gideon Miller RN Position: [facility] SN RN Member Role: Primary Care Nurse Name: Az Pham RN Position: [facility] ED RN W/OE and Tasks Member Role: Primary Care Nurse Name: Libertad Olmos RN Position: [facility] RN Member Role: Primary Care Nurse Name: Daily Mane RN Position: [facility] RN Member Role: Primary Care Nurse Name: Katelynn Milan RN Position: [facility] RN Member Role: Primary Care Nurse Name: Mae Brennan NP Position: [facility] PCO Associate Professional Member Role: PCP Address: Address: [address] [place] [address]- [place] Name: Belinda Gusman RN Position: [facility] Internal Carver Member Role: Primary Care Nurse Name: Chito [...] Role: Lifetime Consulting Physician Address: Address: [address] [facility] [place] [address]- [place] Name: Emelyn Corbin RN Position: [facility] RN Member Role: Primary Care Nurse Name: Aurea Gutierrez RN Position: [facility] RN Member Role: Primary Care Nurse Care Team Related Persons Name: CHARLES FRANKLIN Address: [address] [place] [address]
--- OUTSIDE RECORDS SUMMARY | 2023-09-14 23:05 | XMS_ITS | Continuity of Care Document ---
Author Organization [facility] ter Address [address] [place] [address]- Care Team Providers Care Resourcing Consultant Name Role Phone Mika CLAY, Mae Serrano Primary Care Physician Encounter [facility] [place] Date(s): 01/16/20 - 02/17/[address] [address] Attending Physician: Cam Mccall MD Admitting Physician: [...]
--- OUTSIDE RECORDS SUMMARY | 2023-09-14 23:05 | XMS_ITS | Continuity of Care Document ---
Author Organization [facility] Adult Address [address] [place] [address]- Care Team Providers Care Tissue Technician Name Role Phone Mae Brennan NP Primary Care Physician [place] [facility] [place](s[place] 08/03/20 - 09/02/[address] [facility] Adult [address] [place] [address]- Allergies, Adverse Reactions, Alerts Substance Reaction Severity [...] px, unsteady gait, h/o vertebral osteomylitis [facility] [id number], 08/26/20 9:05:00 EDT, Supply Start Date: 08/26/20 [...] px, unsteady gait, h/o vertebral osteomylitis [facility] [id number], 08/26/20 9:05:00 EDT, Supply Start Date: 08/26/20 Status: Ordered CeleBREX 200 mg oral capsule 1 capsule = 200 mg, By Mouth, 2 times a day, PRN Pain , Moderate, contents of capsule may be mixed with soft foods such as applesauce, # 60 capsule, 0 Refills, Maintenance, 08/02/20 14:32:00 EDT, Capsule, [facility]-, Partial f... Start Date: 08/02/20 Status: [...] Pharmacy Electronically, [facility]-, Partial fill upon patient request if the prescription is f... Start Date: 08/02/20 Status: Ordered ibuprofen 600 mg oral tablet 600 mg, 1, tablet, By Mouth, Every 8 hours, PRN, not to exceed 3200 mg/day with food or milk, # 90 tablet, Refills 0, Tot. Refills 0, Maintenance, Pain , Moderate, 08/13/20 10:32:00 EDT, Route to Pharmacy Electronically, [facility]... Start Date: 08/13/20 Stop Date: 09/12/20 [...] Response Smoking Status Current every day sm [place]; Other: 1 pack per since age 9 years; entered on: 03/09/17 Sex
--- OUTSIDE RECORDS SUMMARY | 2023-09-14 23:05 | XMS_ITS | Continuity of Care Document ---
Author Organization [facility] Adult Address [address] [place] [address]- Care Team Providers Care Senior Budget Analyst Name Role Phone Mika CLAY, Mae Serrano Primary Care Physician [phone] Encounter [facility] [place] Date(s): 12/21/21 - 01/20/22 [facility] Adult [address] [place] [address]- Allergies, Adverse Reactions, Alerts Substance Reaction Severity Status lithium unknown Active Immunizations Given and Recorded Vaccine Date Status Refusal Reason SARS-CoV-2 mRNA (usgsmsn-jqqg-wptww) vax 03/14/21 Recorded SARS-CoV-2 (COVID-19) mRNA BNT-162b2 [...] 1 Refills, Maintenance, 10/27/21 9:31:00 EDT, Capsule, [facility]-, Partial f... Start Date: 10/27/21 Status: [...] tibial avulsion (S82.153A), 05/02/21 9:45:00 EDT, [facility] [id number], Supply Start Date: 05/02/21 Status: Ordered Knee Support See Instructions, # 1 each, Maintenance, Left knee brace Dx: bilateral tibial plateau fracture (S82.143A) Bilateral tibial avulsion (S82.153A), 05/02/21 9:48:00 EDT, [facility] [id number], Supply Start Date: 05/02/21 Status: Ordered Left wrist brace. Dx left wrist pain Left wrist brace. Dx left wrist pain, See Instructions, # 1 each, Refills 0, Tot. Refills 0, Maintenance, Wear as tolerated Dx: Left wrist scaphoid fracture (S62.002A) Left wrist pain (M25.532), 05/02/21 9:46:00 EDT, [facility] [phone] [id number], Supply Start Date: 05/02/21 Status: Ordered loratadine 10 mg oral tablet 10 mg, 1, tablet, By Mouth, Daily, for 30 days, # 30 tablet, Refills 0, Tot. Refills 0, Acute 01/29/22 16:34:00 EST, 12/30/21 16:34:00 EST, Route to Pharmacy Electronically, [facility] [...] Team Personnel Name: Naty Malcolm RN Position: [facility] RN Member Role: Primary Care Nurse Name: Harshil Cardoso RN Position: [facility] RN Member Role: Primary Care Nurse Name: Lionel Ludwig MD Position: [facility] Renal MD Member Role: Lifetime Consulting Physician Address: Address: [address] [place] [address], [address] [facility] [place] [address]- Name: Rowan Alvarez RN Position: [facility] Wound Member Role: Primary Care Nurse Name: Tala Plasencia RN Position: [facility] RN Member Role: Primary Care Nurse Name: Franklin Seth RN Position: [facility] RN Member Role: Primary Care Nurse Name: Kathy Honeycutt Position: [facility] RN Member Role: Primary Care Nurse Name: Az Pham RN Position: [facility] ED RN W/OE and Tasks Member Role: Primary Care Nurse Name: Libertad Omlos RN Position: [facility] RN Member Role: Primary Care Nurse Name: Daily Mane RN Position: [facility] RN Member Role: Primary Care Nurse Name: Meri Barker RN Position: [facility] ED RN W/OE and Tasks Member Role: Primary Care Nurse Name: Katelynn Milan RN Position: [facility] PCO RN Member Role: Primary Care Nurse Name: Mae Brennan NP Position: [facility] PCO Associate Professional Member Role: PCP Address: Address: [address] [place] [address] [address]rd [place] [address]- [place] Name: Deborah Gusman RN Position: [facility] Hospital Boxing Instructor Member Role: Primary Care Nurse Name: Chito Powers RN Position: [facility] RN Member Role: Primary Care Nurse Name: Antonio Velasquez RN Position: [facility] RN Member Role: Primary Care Nurse Name: Alexey Ramos RN Position: [facility] RN Member Role: Primary Care Nurse Name: Crow Burk MD Position: [facility] Renal MD Member Role: Lifetime Consulting Physician Address: Address: [address] [place] [address] [facility] [place], [place] [address] Name: Emelyn Corbin RN Position: S RN Member Role: Primary Care Nurse Name: Aurea Gutierrez RN Position: S RN Member Role: Primary Care Nurse Care Team Related Persons Name: CHARLES FRANKLIN Address: [address] [address]
--- OUTSIDE RECORDS SUMMARY | 2023-09-14 23:05 | XMS_ITS | Continuity of Care Document ---
Author Organization [facility] Adult Address [address] [place] [address]- Care Team Providers Care Author Name Role Phone Mika CLAY, Mae Serrano Primary Care Physician [phone] Encounter [facility] Date(s): 06/19/22 - 07/19/22 [facility] Adult [address] [place] [address]- Allergies, Adverse Reactions, Alerts No Known Medication Allergies Immunizations Given and Recorded Vaccine Date Status Refusal Reason [id number] bivalent booster vax 12/16/21 Recorded SARS-CoV-2 mRNA ([id number]-ufnj-xcuqs) vax 03/14/21 Recorded SARS-CoV-2 (COVID-19) mRNA BNT-162b2 [...] Maintenance, 06/19/22 14:26:00 EDT, Tablet, [facility]-, Partial fill upon patient request if [...] Gm, 0 Refills, Maintenance, 06/19/22 14:04:00 EDT, [facility]-, 30, USE 1 SPRAY IN EACH NOSTRIL TWICE A DAY, 165, cm, 03/01/22 12:48:00 EST, Height, 76, kg, 02/04/... Start Date: 06/19/22 Status: Ordered Knee Support See Instructions, # 1 each, Maintenance, Right knee brace Dx: bilateral tibial plateau fracture (S82.143A) Bilateral tibial avulsion (S82.153A), 05/02/21 9:45:00 EDT, [facility] [phone], Supply Start Date: 05/02/21 Status: Ordered Knee Support See Instructions, # 1 each, Maintenance, Left knee brace Dx: bilateral tibial plateau fracture (S82.143A) Bilateral tibial avulsion (S82.153A), 05/02/21 9:48:00 EDT, [facility] [id number], Supply Start Date: 05/02/21 Status: Ordered Left wrist brace. Dx left wrist pain Left wrist brace. Dx left wrist pain, See Instructions, # 1 each, Refills 0, Tot. Refills 0, Maintenance, Wear as tolerated Dx: Left wrist scaphoid fracture (S62.002A) Left wrist pain (M25.532), 05/02/21 9:46:00 EDT, [facility] [phone] [phone], Supply Start Date: 05/02/21 Status: Ordered naproxen [...] Team Personnel Name: Naty Malcolm RN Position: [facility] RN Member Role: Primary Care Nurse Name: Harshil Cardoso RN Position: [facility] RN Member Role: Primary Care Nurse Name: Meri Lima RN Position: [facility] ED RN W/OE and Tasks Member Role: Primary Care Nurse Name: Lionel Ludwig MD Position: [facility] Renal MD Member Role: Lifetime Consulting Physician Address: Address: [address] [place] [address], [address] [facility] [address] Name: Rowan Alvarez RN Position: [facility] HBO Wound Member Role: Primary Care Nurse Name: Tala Plasencia RN Position: [facility] RN Member Role: Primary Care Nurse Name: Franklin Seth RN Position: [facility] RN Member Role: Primary Care Nurse Name: Kathy Honeycutt Position: [facility] RN Member Role: Primary Care Nurse Name: Gideon Miller RN Position: [facility] SN RN Member Role: Primary Care Nurse Name: Az Pham RN Position: [facility] ED RN W/OE and Tasks Member Role: Primary Care Nurse Name: Libertad Olmos RN Position: [facility] RN Member Role: Primary Care Nurse Name: Daily Mane RN Position: [facility] RN Member Role: Primary Care Nurse Name: Katelynn Milan RN Position: [facility] PCO RN Member Role: Primary Care Nurse Name: Mae Brennan NP Position: [facility] PCO Associate Professional Member Role: PCP Address: Address: [address] [place] [address] 3rd [place] [address]- Name: Deborah Gusman RN Position: [facility] Lab Analyst Member Role: Primary Care Nurse Name: Gio RNChito Position: [facility] RN Member Role: Primary Care Nurse Name: Antonio Velasquez RN Position: [facility] RN Member Role: Primary Care Nurse Name: Alexey Ramos RN Position: [facility] RN Member Role: Primary Care Nurse Name: Crow Burk MD Position: [facility] Renal MD Member Role: Lifetime Consulting Physician Address: Address: [address] [place] [address] [facility] [place] [address]- Name: Emelyn Corbin RN Position: [facility] RN Member Role: Primary Care Nurse Name: Aurea Gutierrez RN Position: [facility] RN Member Role: Primary Care Nurse Care Team Related Persons Name: CHARLES FRANKLIN Address: [address] [place] [address]
--- OUTSIDE RECORDS SUMMARY | 2023-09-14 23:05 | XMS_ITS | Continuity of Care Document ---
Author Organization [facility] ter Address [address] [place] [address]- Care Team Providers Care Advance Scout Name Role Phone Mika CLAY, Mae Serrano Primary Care Physician [phone] [place] [facility] [place]): [place] - 06/17/[address] [address]- Encounter Diagnosis Back pain(Final) - 06/17/22 Opiate addiction(Final) - 06/17/22 Discharge Disposition: A-D/C Home Attending Physician: Rosmery Reese MD Admitting Physician: Rosmery Reese MD Referring Physician: Not on Staff, Referring MD Allergies, Adverse Reactions, Alerts Substance Reaction Severity Status lithium unknown Active Immunizations Given and Recorded Vaccine Date Status Refusal Reason SARS-CoV-2 mRNA (qumyelr-[id number]-rwipa) vax 03/14/21 Recorded SARS-CoV-2 (COVID-19) mRNA BNT-162b2 [...] 0 Refills, Maintenance, 04/18/22 8:05:00 EST, Tablet, [facility]-, [...] 0 Refills, Maintenance, 05/29/22 14:25:00 EDT, [id number], 30, USE 1 SPRAY IN EACH NOSTRIL [...] Exam Date Time Procedure Performing Provider Status 06/16/22 11:19 PM Chest Portable Jason Melendez; Auth (Verified) Notes: (Chest Portable) Reason For Exam: Shortness of Breath RESULT: Chest Portable Chest Portable Hx of Present Illness: ETOH; Reason: Shortness of Breath; Clinical Question(s): CHF COMPARISON: 02/04/2022. FINDINGS: LINES AND TUBES: None. LUNGS AND PLEURA: There are poorly defined left lung base opacities. The right lung is clear. No pleural effusion. No pneumothorax. HEART, MEDIASTINUM AND AMANDO: Heart is normal in size. Normal mediastinal and hilar contour. BONES AND SOFT TISSUES: No acute abnormality. IMPRESSION: Left lung base opacities could represent atelectasis and/or pneumonia. WSN: [id number] Ordering Physician: Dallin Pérez Dictated By: Lionel Vivas MD Dictated Date/Time: 06/16/22 11:34 p Reviewed By: Lionel Vivas MD Signed By: Lionel Vivas MD Signed Date/Time: 06/16/22 11:34 pm Transcribed By: BOSTON Transcribed Date/Time: 06/16/22 11:34 pm Vital Signs Most recent to oldest [Reference Range]: 1 2 3 Oxygen Saturation [94-100 %] 93 % *L* (06/17/22 7:17 AM) 93 % *L* (06/17/22 5:22 AM) 95 % (06/17/22 1:30 AM) Pulse Rate [55-90 bpm] 96 bpm *H* (06/17/22 7:17 AM) 98 bpm *H* (06/17/22 5:22 AM) 98 bpm *H* (06/17/22 1:30 AM) Blood Pressure [90-138/55-84 mm Hg] 127/72mm Hg (06/17/22 7:17 AM) 116/80mm Hg (06/17/22 5:22 AM) 111/74mm Hg (06/17/22 1:30 AM) Respiratory Rate [16-30 br/min] 14 br/min *L* (06/17/22 7:17 AM) 14 br/min *L* (06/17/22 1:30 AM) 12 br/min *L* (06/16/22 11:26 PM) Temperature [96.8-100.4 DegF] 98.2 DegF (06/17/22 7:17 AM) Liters per Minute 2 L/min (06/17/22 1:30 AM) 2 L/min (06/16/22 11:26 PM) 2 L/min (06/16/22 11:12 PM) Mode of Delivery (Oxygen) Room air (06/17/22 7:17 AM) Nasal cannula (06/17/22 1:30 AM) Nasal cannula (06/16/22 11:26 PM) Blood pressure sites Arm, right (06/17/22 7:17 AM) Arm, right (06/16/22 11:26 PM) Arm, right (06/16/22 11:12 PM) Temperature Route Oral (06/17/22 7:17 AM) Social History Social History Type Response Smoking Status Current every day vidhya cavanaugh; Type: Cigarettes entered on: 09/13/16 Sex EKG study * Event Display: ECG 12-Lead Authored Date: Please click on pdf link to open report * Event Display: ECG 12-Lead Authored Date: Ventricular Rate: 110 BPM Atrial Rate: 110 BPM P-R Interval: 136 ms QRS Duration: 94 ms Q-T Interval: 320 ms QTC Calculation(Bazett): 433 ms P [place]: 71 degrees R [place]: 77 degrees T [place]: 48 degrees Sinus tachycardia Otherwise normal ECG When compared with ECG of 04-FEB-2022 19:19, No significant change was found Confirmed by BILL HOPPER ([id number]) on 06/17/2022 7:02:40 PM [place]: CHALHOUB,BILL Portable XR Chest Views * BHSPowerscribe , CIS S: TRANSCRIBE Lionel Vivas MD: VERIFY Event Display: Result: Authored Date: [id number] Chest Portable Hx of Present Illness: ETOH; Reason: Shortness of Breath; Clinical Question(s): CHF COMPARISON: 02/04/2022. FINDINGS: LINES AND TUBES: None. LUNGS AND PLEURA: There are poorly defined left lung base opacities. The right lung is clear. No pleural effusion. No pneumothorax. HEART, MEDIASTINUM AND AMANDO: Heart is normal in size. Normal mediastinal and hilar contour. BONES AND SOFT TISSUES: No acute abnormality. IMPRESSION: Left lung base opacities could represent atelectasis and/or pneumonia. WSN: [id number] Ordering Physician: Dallin Pérez Dictated By: Lionel Vivas MD Dictated Date/Time: 06/16/22 11:34 p Reviewed By: Lionel Vivas MD Signed By: Lionel Vivas MD Signed Date/Time: 06/16/22 11:34 pm Transcribed By: BOSTON Transcribed Date/Time: 06/16/22 11:34 pm Patient Care team information Care Team Personnel Name: Naty Malcolm RN Position: [facility] RN Member Role: Primary Care Nurse Name: Harshil Cardoso RN Position: [facility] RN Member Role: Primary Care Nurse Name: Meri Lima RN Position: [facility] ED RN W/OE and Tasks Member Role: Primary Care Nurse Name: Lionel Ludwig MD Position: [facility] Renal MD Member Role: Lifetime Consulting Physician Address: Address: [address] [place] [address], [address] [facility] [address] Name: Rowan Alvarez RN Position: [facility] HBO Wound Member Role: Primary Care Nurse Name: Tala Plasencia RN Position: [facility] RN Member Role: Primary Care Nurse Name: Franklin Seth RN Position: [facility] RN Member Role: Primary Care Nurse Name: Kathy Honeycutt Position: [facility] RN Member Role: Primary Care Nurse Name: Gideon Miller RN Position: [facility] SN RN Member Role: Primary Care Nurse Name: Az Pham RN Position: [facility] ED RN W/OE and Tasks Member Role: Primary Care Nurse Name: Libertad Olmos RN Position: [facility] RN Member Role: Primary Care Nurse Name: Daily Mane RN Position: [facility] RN Member Role: Primary Care Nurse Name: Katelynn Milan RN Position: [facility] PCO RN Member Role: Primary Care Nurse Name: Mae Brennan NP Position: [facility] PCO Associate Professional Member Role: PCP Address: Address: [address] [place] [address] [address] [place] [address]- [place] Name: Belinda Gusman RN Position: [facility] Cigar Packer Member Role: Primary Care Nurse Name: Chito Powers RN Position: [facility] RN Member Role: Primary Care Nurse Name: Antonio Velasquez RN Position: [facility] RN Member Role: Primary Care Nurse Name: Alexey Ramos RN Position: [facility] RN Member Role: Primary Care Nurse Name: Crow Burk MD Position: [facility] Renal MD Member Role: Lifetime Consulting Physician Address: Address: [address] [place] [address] [facility] [place] [address]- Name: Emelyn Corbin RN Position: [facility] RN Member Role: Primary Care Nurse Name: Aurea Gutierrez RN Position: [facility] RN Member Role: Primary Care Nurse Name: Amanda Stephens NP Position: [facility] Associate Professional Member Role: ED Physician Armament Aircraft Mechanic Address: Address: [address] [place] [id number]- Name: Hemant Pearl RN Position: [facility] ED RN W/OE and Tasks Member Role: Patient Care Provider Name: Zulay Rosas Position: [facility] ED TA [facility] Name: Rosmery Reese MD Position: [facility] ED Medicine MD Member Role: Admitting Physician Address: Address: [address] [place] [id number]- Care Team Related Persons Name: CHARLES FRANKLIN Address: home [address] [place] [address]
--- OUTSIDE RECORDS SUMMARY | 2023-09-14 23:05 | XMS_ITS | Continuity of Care Document ---
Author Organization [facility] Address [address] [place] [address]- Care Team Providers Care Pit Crane Operator Name Role Phone Mika CLAY, Mae Serrano Primary Care Physician Encounter [facility] [place] Date(s): 06/19/22 - 07/19/22 [facility] [address] [place] [address]- Allergies, Adverse Reactions, Alerts No Known Medication Allergies Immunizations Given and Recorded Vaccine Date Status Refusal Reason [id number] bivalent booster vax 12/16/21 Recorded SARS-CoV-2 mRNA ([id number]-fbvk-vmlcs) vax 03/14/21 Recorded SARS-CoV-2 (COVID-19) mRNA BNT-162b2 [...] 2 Refills, Maintenance, 06/19/22 14:26:00 EDT, Tablet, [facility]-, Partial fill upon patient request if [...] Gm, 0 Refills, Maintenance, 06/19/22 14:04:00 EDT, [facility]-, 30, USE 1 SPRAY IN EACH NOSTRIL TWICE A DAY, 165, cm, 03/01/22 12:48:00 EST, Height, 76, kg, 02/04/... Start Date: 06/19/22 Status: Ordered Knee Support See Instructions, # 1 each, Maintenance, Right knee brace Dx: bilateral tibial plateau fracture (S82.143A) Bilateral tibial avulsion (S82.153A), 05/02/21 9:45:00 EDT, [facility] [id number], Supply Start Date: 05/02/21 Status: Ordered Knee Support See Instructions, # 1 each, Maintenance, Left knee brace Dx: bilateral tibial plateau fracture (S82.143A) Bilateral tibial avulsion (S82.153A), 05/02/21 9:48:00 EDT, [facility] [id number], Supply Start Date: 05/02/21 Status: Ordered Left wrist brace. Dx left wrist pain Left wrist brace. Dx left wrist pain, See Instructions, # 1 each, Refills 0, Tot. Refills 0, Maintenance, Wear as tolerated Dx: Left wrist scaphoid fracture (S62.002A) Left wrist pain (M25.532), 05/02/21 9:46:00 EDT, [facility] [phone], Supply Start Date: 05/02/21 Status: Ordered naproxen [...] Team Personnel Name: Naty Malcolm RN Position: [facility] RN Member Role: Primary Care Nurse Name: Harshil Cardoso RN Position: [facility] RN Member Role: Primary Care Nurse Name: Meri Lima RN Position: [facility] ED RN W/OE and Tasks Member Role: Primary Care Nurse Name: Lionel Ludwig MD Position: [facility] Renal MD Member Role: Lifetime Consulting Physician Address: Address: [address] [place] [address], [address] [facility] [address] Name: Rowan Alvarez RN Position: [facility] HBO Wound Member Role: Primary Care Nurse Name: Tala Plasencia RN Position: [facility] RN Member Role: Primary Care Nurse Name: Franklin Seth RN Position: [facility] RN Member Role: Primary Care Nurse Name: Kathy Honeycutt Position: [facility] RN Member Role: Primary Care Nurse Name: Gideon Miller RN Position: [facility] SN RN Member Role: Primary Care Nurse Name: Az Pham RN Position: [facility] ED RN W/OE and Tasks Member Role: Primary Care Nurse Name: Libertad Olmos RN Position: [facility] RN Member Role: Primary Care Nurse Name: Daily Mane RN Position: [facility] RN Member Role: Primary Care Nurse Name: Katelynn Milan RN Position: [facility] PCO RN Member Role: Primary Care Nurse Name: Mae Brennan NP Position: [facility] PCO Associate Professional Member Role: PCP Address: Address: [address] [place] [address] 3rd [place] [address]- Name: Deborah Gusman RN Position: [facility] Screen Tender Helper Member Role: Primary Care Nurse Name: Gio RNChito Position: [facility] RN Member Role: Primary Care Nurse Name: Antonio Velasquez RN Position: [facility] RN Member Role: Primary Care Nurse Name: Alexey Ramos RN Position: [facility] RN Member Role: Primary Care Nurse Name: Crow Burk MD Position: [facility] Renal MD Member Role: Lifetime Consulting Physician Address: Address: [address] [place] [address] [facility] [place] [address]- Name: Emelyn Corbin RN Position: [facility] RN Member Role: Primary Care Nurse Name: Aurea Gutierrez RN Position: [facility] RN Member Role: Primary Care Nurse Care Team Related Persons Name: CHARLES FRANKLIN Address: home [address] [place] [address]
--- OUTSIDE RECORDS SUMMARY | 2023-09-14 23:05 | XMS_ITS | Continuity of Care Document ---
Author Organization [facility] Address [address] [place] [address]- Care Team Providers Care Auditor Name Role Phone Mika CLAY, Mae Serrano Primary Care Physician [phone] Encounter [facility] [place] Date(s): 07/19/22 - 08/18/22 [facility] [address] [place] [address]- Allergies, Adverse Reactions, Alerts No Known Medication Allergies Immunizations Given and Recorded Vaccine Date Status Refusal Reason [id number] bivalent booster vax 12/16/21 Recorded SARS-CoV-2 mRNA ([id number]-iwil-mvren) vax 03/14/21 Recorded SARS-CoV-2 (COVID-19) mRNA BNT-162b2 [...] 2 Refills, Maintenance, 06/19/22 14:26:00 EDT, Tablet, [facility]-, Partial fill upon patient request if the [...] Gm, 5 Refills, Maintenance, 07/21/22 13:26:00 EDT, [id number], 30, USE 1 SPRAY IN EACH NOSTRIL TWICE A DAY, 165, cm, 07/15/22 18:51:00 EDT, Height, 76.5, kg, 07/15/22 18:51:00... Start Date: 07/21/22 Status: Ordered Knee Support See Instructions, # 1 each, Maintenance, Right knee brace Dx: bilateral tibial plateau fracture (S82.143A) Bilateral tibial avulsion (S82.153A), 05/02/21 9:45:00 EDT, [facility] [id number], Supply Start Date: 05/02/21 Status: Ordered Knee [...] Name: Naty Malcolm RN Position: [facility] RN Member Role: Primary Care Nurse Name: Harshil Cardoso RN Position: [facility] RN Member Role: Primary Care Nurse Name: Meri Lima RN Position: [facility] ED RN W/OE and Tasks Member Role: Primary Care Nurse Name: Lionel Ludwig MD Position: [facility] Renal MD Member Role: Lifetime Consulting Physician Address: Address: [address] [place] [address], [address] [facility] [address] Name: Rowan Alvarez RN Position: [facility] HBO Wound Member Role: Primary Care Nurse Name: Tala Plasencia RN Position: [facility] RN Member Role: Primary Care Nurse Name: Franklin Seth RN Position: [facility] RN Member Role: Primary Care Nurse Name: Kathy Honeycutt Position: [facility] RN Member Role: Primary Care Nurse Name: Gideon Miller RN Position: [facility] SN RN Member Role: Primary Care Nurse Name: Az Pham RN Position: [facility] ED RN W/OE and Tasks Member Role: Primary Care Nurse Name: Libertad Olmos RN Position: [facility] RN Member Role: Primary Care Nurse Name: Daily Mane RN Position: [facility] RN Member Role: Primary Care Nurse Name: Katelynn Milan RN Position: [facility] JORDYN Nurse Member Role: Primary Care Nurse Name: Mae Brennan NP Position: [facility] PCO Associate Professional Member Role: PCP Address: Address: [address] [place] [address]- Name: Belinda Gusman RN Position: [facility] Principal Clerk Typist Member Role: Primary Care Nurse Name: Chito Powers RN Position: [facility] RN Member Role: Primary Care Nurse Name: Antonio Velasquez RN Position: [facility] RN Member Role: Primary Care Nurse Name: Alexey Ramos RN Position: [facility] RN Member Role: Primary Care Nurse Name: Crow Burk MD Position: [facility] Renal MD Member Role: Lifetime Consulting Physician Address: Address: [address] [place] [address] [facility] [place] [address]- Name: Emelyn Corbin RN Position: [facility] RN Member Role: Primary Care Nurse Name: Aurea Gutierrez RN Position: [facility] RN Member Role: Primary Care Nurse Care Team Related Persons Name: RIGOBERTO CHARLES Address: [address] [place] [address]
--- OUTSIDE RECORDS SUMMARY | 2023-09-14 23:05 | XMS_ITS | Continuity of Care Document ---
Author Organization [facility] Address [address] [place] [address]- Care Team Providers Care Import/Export Clerk Name Role Phone Mika CLAY, Mae Serrano Primary Care Physician Encounter [facility] [place] [facility] [id number] Date(s): 10/09/22 - 10/16/22 [facility] [address] [place] [id number]- Encounter Diagnosis Medicare annual wellness visit, subsequent(Discharge Diagnosis) - 10/09/22 Anxiety and depression(Discharge Diagnosis) - 10/09/22 GERD (gastroesophageal reflux disease)(Discharge Diagnosis) - 10/09/22 Hypertension(Discharge Diagnosis) - 10/09/22 Chronic back pain(Discharge Diagnosis) - 10/09/22 Cocaine use disorder(Discharge Diagnosis) - 10/09/22 Attending Physician: Bridget Giron MD Allergies, Adverse Reactions, Alerts No Known Medication Allergies Immunizations Given and Recorded Vaccine Date Status Refusal Reason [id number] bivalent booster vax 12/16/21 Recorded SARS-CoV-2 mRNA ([id number]-klip-ivzkk) vax 03/14/21 Recorded SARS-CoV-2 (COVID-19) mRNA BNT-162b2 [...] Acute 08/24/23 14:31:00 EDT, 08/23/22 14:31:00 EDT, [facility]-, Partial fill upon patient request if [...] 2 Refills, Maintenance, 06/19/22 14:26:00 EDT, Tablet, [facility]-, Partial fill upon patient request if [...] Gm, 5 Refills, Maintenance, 07/21/22 13:26:00 EDT, [id number], 30, USE 1 SPRAY IN EACH NOSTRIL TWICE A DAY, 165, cm, 07/15/22 18:51:00 EDT, Height, 76.5, kg, 07/15/22 18:51:00... Start Date: 07/21/22 Status: Ordered Knee Support See Instructions, # 1 each, Maintenance, Right knee brace Dx: bilateral tibial plateau fracture (S82.143A) Bilateral tibial avulsion (S82.153A), 05/02/21 9:45:00 EDT, [facility] [phone], Supply Start Date: 05/02/21 Status: Ordered Knee Support See Instructions, # 1 each, Maintenance, Left knee brace Dx: bilateral tibial plateau fracture (S82.143A) Bilateral tibial avulsion (S82.153A), 05/02/21 9:48:00 EDT, [facility] [phone], Supply Start Date: 05/02/21 Status: Ordered Left wrist brace. Dx left wrist pain Left wrist brace. Dx left wrist pain, See Instructions, # 1 each, Refills 0, Tot. Refills 0, Maintenance, Wear as tolerated Dx: Left wrist scaphoid fracture (S62.002A) Left wrist pain (M25.532), 05/02/21 9:46:00 EDT, [facility] [phone], Supply Start Date: 05/02/21 Status: Ordered naproxen [...] Medicare annual wellness visit, subsequent Discharge Diagnosis 10/09/22 Anxiety and depression Discharge Diagnosis 10/09/22 GERD (gastroesophageal reflux disease) Discharge Diagnosis 10/09/22 Hypertension Discharge Diagnosis 10/09/22 Chronic back pain Discharge Diagnosis 10/09/22 Cocaine use disorder Discharge Diagnosis 10/09/22 Vital Signs Most recent to oldest [Reference Range]: 1 Height 165 cm (10/09/22 11:48 AM) Weight 71.4 kg (10/09/22 11:48 AM) Oxygen Saturation [94-100 %] 96 % (10/09/22 11:48 AM) Pulse Rate [55-90 bpm] 83 bpm (10/09/22 11:48 AM) Body Mass Index [18.5-24.99 kg/m2] 26.23 kg/m2 *H* (10/09/22 11:48 AM) Blood Pressure [90-138/55-84 mm Hg] 106/ 67mm Hg (10/09/22 11:48 AM) Mode of Delivery (Oxygen) Room air (10/09/22 11:48 AM) Blood pressure sites Arm, left (10/09/22 11:48 AM) Weight Obtained Via Standing scale (10/09/22 11:48 AM) Social History Social History Type Response Smoking Status Current every day vidhya cavanaugh; Type: Cigarettes entered on: 09/13/16 Sex Note * Estee Jain: PERFORM, SIGN, VERIFY Event Display: Patient Education/Instruction Authored Date: [id number] [facility] *[facility] Clinical Summary Name DARWIN STAHL Age 51 Years 1970 PCP Mae Brennan NP PCP Visit Date 10/09/2022 11:46:00 Additional Instructions: Scheduled Appointments?? Future Appointments ?No Future Appointments Scheduled Follow-Up Instructions ?? With: Address: When: Mae Brennan NP 10/09/2022 12:00 AM Comments: 4 months multiple 40 minutes 1 year AWV Diagnosis Other specified abnormal findings of blood chemistry; Gastro-esophageal reflux disease without esophagitis; Cocaine abuse, uncomplicated; Unilateral inguinal hernia, without obstruction or gangrene, not specified as recurrent; Other specified anxiety disorders; Essential (primary) hypertension; Dorsalgia, unspecified; Encounter for general adult medical examination without abnormal findings Medications: Please continue your medications until treatment is completed or stopped by your provider. Discuss any questions related to medications with your provider. Medications to Continue with No Changes These medications were not printed or sent to your pharmacy Benztropine (benztropine 2 mg oral tablet) 1 tab(s) Oral twice a day. Next Dose: Benztropine (Cogentin Tablet) 2 Milligram Oral twice a day. Next Dose: ciprofloxacin-dexamethasone otic (ciprofloxacin-dexamethasone 0.3%-0.1% otic suspension) 4 Drops Right ear twice a day. Refills: 0. Next Dose: Desloratadine (desloratadine 5 mg oral [...] release tablet) 1 tab(s) Oral Daily. Refills: 2. Next Dose: Risperidone (risperiDONE 2 mg oral tablet) 1 tab(s) Oral twice a day. Next Dose: Allergy Info:?? No Known Medication Allergies Medications Given This Visit Future Orders ?AST? Order Date:10/09/22?- Complete on or after?10/09/22 ?ALT? Order Date:10/09/22?- Complete on or after?10/09/22 Vital Signs Height 165 cm Weight 71.4 kg BMI 26.23 kg/m2 Blood Pressure 106 mm Hg/67 mm Hg Temperature Pulse Rate 83 bpm Respiratory Rate 02 Sat Mode of Delivery 96 %/Room air You can now view a summary of your hospital visit from the comfort of your home through a free online portal called [email or web address]. [email or web address] is a website that allows you to securely view your medical information including discharge summary, medications and follow-up visits. ??You can alsosend a secure electronic message to your doctor???s office to request appointments, renew medications or just ask a question. You can enroll at [email or web address] or register during your next [...] primary care provider, you may find a [facility] provider by calling [facility] [employer] at [phone]. For information about the plan of care [...] Team Personnel Name: Naty Malcolm RN Position: [facility] RN Member Role: Primary Care Nurse Name: Harshil Cardoso RN Position: [facility] RN Member Role: Primary Care Nurse Name: Meri Lima RN Position: [facility] ED RN W/OE and Tasks Member Role: Primary Care Nurse Name: Lionel Ludwig MD Position: [facility] Renal MD Member Role: Lifetime Consulting Physician Address: Address: [address] [place] [address], [address] [facility] [address] Name: Rowan Alvarez RN Position: [facility] HBO Wound Member Role: Primary Care Nurse Name: Tala Plasencia RN Position: [facility] RN Member Role: Primary Care Nurse Name: Franklin Seth RN Position: [facility] RN Member Role: Primary Care Nurse Name: Kathy Honeycutt Position: [facility] RN Member Role: Primary Care Nurse Name: Gideon Miller RN Position: [facility] SN RN Member Role: Primary Care Nurse Name: Az Pham RN Position: [facility] ED RN W/OE and Tasks Member Role: Primary Care Nurse Name: Libertad Olmos RN Position: [facility] RN Member Role: Primary Care Nurse Name: Daily Mane RN Position: [facility] RN Member Role: Primary Care Nurse Name: Katelynn Milan RN Position: [facility] AMB Nurse Member Role: Primary Care Nurse Name: Mae Brennan NP Position: [facility] PCO Associate Professional Member Role: PCP Address: Address: [address] [place] [address]- Name: Belinda Gusman RN Position: [facility] Outside Physical Damage Appraiser Member Role: Primary Care Nurse Name: Chito Powers RN Position: [facility] RN Member Role: Primary Care Nurse Name: Antonio Velasquez RN Position: [facility] RN Member Role: Primary Care Nurse Name: Alexey Ramos RN Position: [facility] RN Member Role: Primary Care Nurse Name: Crow Burk MD Position: [facility] Renal MD Member Role: Lifetime Consulting Physician Address: Address: [address] [place] [address] [facility] [place] [address]- Name: Emelyn Cobrin RN Position: [facility] RN Member Role: Primary Care Nurse Name: Aurea Gutierrez RN Position: [facility] RN Member Role: Primary Care Nurse Care Team Related Persons Name: CHARLES FRANKLIN Address: [address] [place] [address]
--- OUTSIDE RECORDS SUMMARY | 2023-09-14 23:05 | XMS_ITS | Continuity of Care Document ---
Author Organization [facility] Adult Address [address] [place] [address]- Care Team Providers Care Special Certificate Dictator Name Role Phone Mae Brennan NP Primary Care Physician Encounter [facility] [place] Date(s): 08/11/19 - 09/11/19 [facility] Adult [address] [place] [address]- [facility] Attending Physician: Mae Brennan NP Allergies, Adverse Reactions, Alerts Substance Reaction Severity Status lithium unknown Active Immunizations Given and Recorded Vaccine Date Status Refusal Reason tetanus/diphtheria/pertussis, acel(Tdap) 03/09/17 Given Not Given Vaccine Date Status Refusal Reason pneumococcal 23-valent vaccine 09/11/19 Not Given Patient Refuses Medications buprenorphine-naloxone 12 mg-3 mg sublingual film 1 film, Sublingual, Daily, dissolve under the tongue, 0 Refills, Maintenance, 09/09/19 2:55:00 EDT,Film Start Date: 09/09/19 Status: Ordered busPIRone 5 mg oral tablet 5 mg, 1, tablet, By Mouth, 2 times a day, Refills 0, Maintenance, 09/09/19 2:58:00 EDT Start Date: 09/09/19 Status: Ordered Cogentin Tablet 2 mg, Daily, Refills 0, Maintenance, 04/12/18 10:09:37 EST Start Date: 04/12/18 Status: Ordered Divalproex Tablet 750 mg, By Mouth, 1 tab in the AM, Refills 0, Maintenance, 07/21/16 15:18:43 Start Date: 07/21/16 Status: Ordered risperiDONE 2 mg oral tablet 2 mg, 1, tablet, By Mouth, 2 times a day, # 60 tablet, Refills 0, Maintenance, 09/09/19 2:55:00 EDT Start Date: 09/09/19 Status: Ordered Problem List Condition Effective Dates [...]
--- OUTSIDE RECORDS SUMMARY | 2023-09-14 23:05 | XMS_ITS | Continuity of Care Document ---
Author Organization [facility] Address [address] [place], [place] [address]lisa guzman, [address] [place] [address]- Care Team Providers Care Veterinary Manager Name Role Phone Mika CLAY, Mae Serrano Primary Care Physician [place] [facility] [place]20 [facility] [address] [place] [address], [address] [place], [place] [address] Attending Physician: Not on Staff, Attending MD [...] 05/24/20 8:03:00 EDT, Route to Pharmacy Electronically, [facility]-, Partialfill upon patient request if the prescription is fo... Start Date: 05/24/20 Status: Ordered ibuprofen 200 mg oral tablet 400 mg, 2, tablet, By Mouth, 2 times a day, PRN, Maintenance, for pain, 06/01/20 13:05:00 EDT, Partial fill upon patient request if the prescription is for a schedule II opioid drug. Start Date: 06/01/20 Status: Ordered risperiDONE 2 mg oral tablet [...]
--- OUTSIDE RECORDS SUMMARY | 2023-09-14 23:06 | XMS_ITS | Continuity of Care Document ---
Author Organization [facility] Address [address] [place] [address]- Care Team Providers Care Publishing Editor Name Role Phone Mika CLAY, Mae Serrano Primary Care Physician [place] [facility] [place]23 [place] 08[place]/23 [facility] [address] [place] [address]- Allergies, Adverse Reactions, Alerts Substance Reaction Severity Status lithium bladder/ metabolism Active Immunizations Given and Recorded Vaccine Date Status Refusal Reason SARS-CoV-2(COVID-19)mRNA-LNP vac([id number]) 12/18/22 Recorded influenza virus vaccine, inactivated 11/15/22 Preet rded [id number] bivalent booster vax 12/16/21 Recorded SARS-CoV-2 mRNA (ibclseh-tzxx-kgbxp) vax 03/14/21 Recorded SARS-CoV-2 (COVID-19) mRNA BNT-162b2 vac 04/30/20 Recorded SARS-CoV-2 (COVID-19) mRNA BNT-162b2 vac 04/01/20 Recorded tetanus/diphtheria/pertussis, acel(Tdap) 03/09/17 Given Medications Albuterol (Eqv-Proventil HFA) 90 mcg/inh inhalation aerosol 2 puffs, Inhalation, 4 times a day, PRN NEEDED FOR WHEEZING, # 6.7 Gm, 0 Refills, Maintenance, 05/22/23 14:22:00 EDT, [facility]- , 176, cm, 05/01/23 9:52:00 EDT, Height, 70, kg, 12/21/22 12:46:00 EDT, Dry Weight Start Date: 05/22/23 Stop Date: 06/21/23 Status: Ordered Anoro Ellipta 62.5 mcg-25 mcg/inh inhalation powder 1 puffs, Inhalation, Daily, # 1 each, 11 Refills, Maintenance, 02/01/23 10:55:00 EST, Powder, [facility]-, Partial fill upon patient request if the prescription is for a schedule II opioid drug., 1 puffs Inhalation Daily,x30 da... Start Date: 02/01/23 Stop Date: 01/27/24 Status: Ordered Banophen 25 mg oral capsule 1 capsule, By Mouth, 3 times a day, PRN NEEDED FOR ALLERGY SYMTPOMS, # 90 capsule, 6 Refills, Maintenance, 08/28/23 15:44:00 EDT, [facility]-, 176, cm, 05/01/23 9:52:00 EDT, [...] Gm, 2 Refills, Maintenance, 08/28/23 11:30:00 EDT, [facility]-, 30, USE 1 SPRAY IN EACH NOSTRIL [...] tablet, 0 Refills, Maintenance, 08/28/23 9:30:00 EDT, [facility]-, 176, cm, 05/01/23 9:52:00EDT, Height, 70, kg, [...] Care Nurse Name: Rowan Damon RN Position: [facility] HBO Wound Member Role: Primary Care Nurse Name: Lionel Ludwig MD Position: [facility] Renal MD Member Role: Lifetime Consulting Physician Address: Address: [address] [place] [address] [address] [place] [address]- [place] Name: Tala Plasencia RN Position: [facility] RN Member Role: Primary Care Nurse Name: Franklin Seth RN Position: [facility] RN Member Role: Primary Care Nurse Name: Kathy Honeycutt RN Position: [facility] [...] Professional Member Role: PCP Address: Address: [address] [place] [id number]- [place] Name: Belinda Gusman RN Position: [facility] Last Dipper Member Role: Primary Care Nurse Name: Chito Powers RN Position: [facility] RN Member Role: Primary Care Nurse Name: Antonio Velasquez RN Position: [facility] RN Member Role: Primary Care Nurse Name: Alexey Ramos RN Position: [facility] RN Member Role: Primary Care Nurse Name: Crow Burk MD Position: [facility] Renal MD Member Role: Lifetime Consulting Physician Address: Address: [address] [place] [address] [facility] [place] [address]- [place] Name: Emelyn Corbni RN Position: S RN Member Role: Primary Care Nurse Name: Aurea Gutierrez RN Position: S RN Member Role: Primary Care Nurse Care Team Related Persons Name: CHARLES FRANKLIN Address: [address] [address]
--- OUTSIDE RECORDS SUMMARY | 2023-09-14 23:06 | XMS_ITS | Continuity of Care Document ---
Author Organization [facility] Adult Address [address] [place] [address]- Care Team Providers Care Needleworker Name Role Phone Mika CLAY, Mae Serrano Primary Care Physician [place] [facility] [place] 03/12/[address] [address]- Allergies, Adverse Reactions, Alerts Substance Reaction Severity Status lithium unknown Active Immunizations Given and Recorded Vaccine Date Status Refusal Reason SARS-CoV-2 mRNA (ytxoyvp-pxxq-exyvf) vax 03/14/21 Recorded SARS-CoV-2 (COVID-19) mRNA BNT-162b2 [...] Refills, Acute 03/31/22 13:36:00 EST,03/01/22 13:36:00 EST, [place], [facility]-, Partial fill upon patient request if the prescription is for a schedule II opioid . Start Date: 03/01/22 Stop Date: 03/31/22 Status: Ordered Knee Support See Instructions, # 1 each, Maintenance, Right knee brace Dx: bilateral tibial plateau fracture (S82.143A) Bilateral tibial avulsion (S82.153A), 05/02/21 9:45:00 EDT, [facility] [phone], Supply Start Date: 05/02/21 Status: Ordered Knee Support See Instructions, # 1 each, Maintenance, Left knee brace Dx: bilateral tibial plateau fracture (S82.143A) Bilateral tibial avulsion (S82.153A), 05/02/21 9:48:00 EDT, [facility] [phone], Supply Start Date: 05/02/21 Status: Ordered Left wrist brace. Dx left wrist pain Left wrist brace. Dx left wrist pain, See Instructions, # 1 each, Refills 0, Tot. Refills 0, Maintenance, Wear as tolerated Dx: Left wrist scaphoid fracture (S62.002A) Left wrist pain (M25.532), 05/02/21 9:46:00 EDT, [facility] [phone], Supply Start Date: 05/02/21 Status: Ordered levocetirizine 5 mg oral tablet 1 tablet = 5 mg, By Mouth, Daily in PM, # 30 tablet, 3 Refills, Maintenance, 03/01/22 13:24:00 EST,Tablet, [facility]-, Partial fill upon patient request if the prescription is for a schedule II opioid drug., 1 tablet By Mouth... Start Date: 03/01/22 Status: Ordered meloxicam 15 mg oral tablet 1 tablet = 15 mg, By Mouth, Daily, PRN Pain , Moderate, # 30 tablet, 4 Refills, Maintenance, 03/01/22 13:25:00 EST, Tablet, [facility]-, Partial fill upon patient request if [...] Role: Lifetime Consulting Physician Address: Address: [address] [place] [address], [address] [facility] [place] [address]- Name: Rowan Alvarez RN Position: [facility] HBO Wound Member Role: Primary Care Nurse Name: Tala Plasencia RN [facility] [...] Care Nurse Name: Meri Barker RN Position: [facility] YARA RN W/OE and Tasks Member Role: Primary Care Nurse Name: Katelynn Milan RN Position: [facility] PCO RN Member Role: Primary Care Nurse Name: Mae Brennan NP Position: [facility] PCO Associate Professional Member Role: PCP Address: Address: [address] [place] [address] [address] [place] [address]- Name: Deborah Gusman RN Position: [facility] Cost Accounting Analyst Member Role: Primary Care Nurse Name: Chito Powers RN Position: [facility] RN Member Role: Primary Care Nurse Name: Antonio Velasquez RN Position: [facility] RN Member Role: Primary Care Nurse Name: Alexey Ramos RN Position: [facility] RN Member Role: Primary Care Nurse Name: Corw Burk MD Position: [facility] Renal MD Member Role: Lifetime Consulting Physician Address: Address: [address] [place] [address] [facility] [place] [address]- Name: Emelyn Corbin RN Position: [facility] RN Member Role: Primary Care Nurse Name: Aurea Gutierrez RN Position: [facility] RN Member Role: Primary Care Nurse Care Team Related Persons Name: CHARLES FRANKLIN Address: [address] [address]
--- OUTSIDE RECORDS SUMMARY | 2023-09-14 23:06 | XMS_ITS | Continuity of Care Document ---
Author Organization [facility] Adult Address [address] [place] [address]- Care Team Providers Care Data Consultant Name Role Phone Mika CLAY, Mae Serrano Primary Care Physician [place] [facility] [place](s): 05/22/23 - 06/21/23 [facility] Adult [address] [place] [address]- Allergies, Adverse Reactions, Alerts Substance Reaction Severity Status lithium bladder/ metabolism Active Immunizations Given and Recorded Vaccine Date Status Refusal Reason SARS-CoV-2(COVID-19)mRNA-LNP vac([id number]) 12/18/22 Recorded influenza virus vaccine, inactivated 11/15/22 Preet rded [id number] bivalent booster vax 12/16/21 Recorded SARS-CoV-2 mRNA (swvagkk-acug-rdikz) vax 03/14/21 Recorded SARS-CoV-2 (COVID-19) mRNA BNT-162b2 vac 04/30/20 Recorded SARS-CoV-2 (COVID-19) mRNA BNT-162b2 vac 04/01/20 Recorded tetanus/diphtheria/pertussis, acel(Tdap) 03/09/17 Given Medications Albuterol (Eqv-Proventil HFA) 90 mcg/inh inhalation aerosol 2 puffs, Inhalation, 4 times a day, PRN NEEDED FOR WHEEZING, # 6.7 Gm, 0 Refills, Maintenance, 05/22/23 14:22:00 EDT, [facility]- , 176, cm, 05/01/23 9:52:00 EDT, Height, 70, kg, 12/21/22 12:46:00 EDT, Dry Weight Start Date: 05/22/23 Stop Date: 06/21/23 Status: Ordered Anoro Ellipta 62.5 mcg-25 mcg/inh inhalation powder 1 puffs, Inhalation, Daily, # 1 each, 11 Refills, Maintenance, 02/01/23 10:55:00 EST, Powder, [facility]-, Partial fill upon patient request if the prescription is for a schedule II opioid drug., 1 puffs Inhalation Daily,x30 da... Start Date: 02/01/23 Stop Date: 01/27/24 Status: Ordered Banophen 25 mg oral capsule 1 capsule, By Mouth, 3 times a day, PRN NEEDED FOR ALLERGY SYMTPOMS, # 90 capsule, 6 Refills, Maintenance, 02/23/23 17:34:00 EST, [facility]/pharmacy #[id number], 176, cm, 02/16/23 [...] Gm, 2 Refills, Maintenance, 05/08/23 18:38:00 EDT, [facility]-, 30, USE 1 [...] tibial avulsion (S82.153A), 05/02/21 9:45:00 EDT, [facility] [id number], Supply Start Date: 05/02/21 Status: Ordered Knee Support See Instructions, # 1 each, Maintenance, Left knee brace Dx: bilateral tibial plateau fracture (S82.143A) Bilateral tibial avulsion (S82.153A), 05/02/21 9:48:00 EDT, [facility] [id number], Supply Start Date: 05/02/21 Status: Ordered Left wrist brace. Dx left wrist pain Left wrist brace. Dx left wrist pain, See Instructions, # 1 each, Refills 0, Tot. Refills 0, Maintenance, Wear as tolerated Dx: Left wrist scaphoid fracture (S62.002A) Left wrist pain (M25.532), 05/02/21 9:46:00 EDT, [facility] [phone], Supply Start Date: 05/02/21 Status: Ordered naproxen 500 mg oral tablet 1 tablet, By Mouth, 2 times a day, PRN NEEDED FOR MODERATE PAIN WITH FOOD, # 60 tablet, 0 Refills, Maintenance, 06/06/23 9:15:00 EDT, [facility]-, 176, cm, 05/01/23 9:52:00 EDT, Height,70, kg, [...] Team Personnel Name: Naty Malcolm RN Position: [facility] RN Member Role: Primary Care Nurse Name: Harshil Cardoso RN Position: [facility] RN Member Role: Primary Care Nurse Name: Meri Lima RN Position: [facility] ED RN W/OE and Tasks Member Role: Primary Care Nurse Name: Rowan Damon RN Position: [facility] HBO Wound Member Role: Primary Care Nurse Name: Lionel Ludwig MD Position: [facility] Renal MD Member Role: Lifetime Consulting Physician Address: Address: [address] [place] [address] [address] [facility] [place] [address]- [place] Name: Tala Plasencia RN Position: [facility] RN Member Role: Primary Care Nurse Name: Franklin Seth RN Position: [facility] RN Member Role: Primary Care Nurse Name: Kathy Honeycutt Position: [facility] RN Member Role: Primary Care Nurse Name: Gideon Miller RN Position: [facility] SN RN Member Role: Primary Care Nurse Name: Az Pham RN Position: [facility] ED RN W/OE and Tasks Member Role: Primary Care Nurse Name: Libertad Olmos RN Position: [facility] RN Member Role: Primary Care Nurse Name: Daily Mane RN Position: [facility] RN Member Role: Primary Care Nurse Name: Katelynn Milan RN Position: [facility] RN Member Role: Primary Care Nurse Name: Mae Brennan NP Position: [facility] PCO Associate Professional Member Role: PCP Address: Address: [address] [place] [address]- [place] Name: Belinda Gusman RN Position: [facility] Other Spatial Scientist Member Role: Primary Care Nurse Name: Chito Powers RN Position: [facility] RN Member Role: Primary Care Nurse Name: Antonio Velasquez RN Position: [facility] RN Member Role: Primary Care Nurse Name: Alexey Ramos RN Position: [facility] RN Member Role: Primary Care Nurse Name: Crow Burk MD Position: [facility] Renal MD Member Role: Lifetime Consulting Physician Address: Address: [address] [place] [address] [facility] [place] [address]- [place] Name: Emelyn Corbin RN Position: [facility] RN Member Role: Primary Care Nurse Name: Aurea Gutierrez RN Position: [facility] RN Member Role: Primary Care Nurse Care Team Related Persons Name: CHARLES FRANKLIN Address: [address] [address]
--- OUTSIDE RECORDS SUMMARY | 2023-09-14 23:06 | XMS_ITS | Continuity of Care Document ---
Author Organization [facility] Adult Address [address] [place] [address]- Care Team Providers Care Camp Program Director Name Role Phone Mika CLAY, Mae Serrano Primary Care Physician Encounter [facility] [place] Date(s): 03/02/21 - 04/01/21 [facility] Adult [address] [place] [address]- Attending Physician: Liliana Wood Admitting Physician: Liliana [...] Bilateral tibial avulsion (S82.153A), 03/11/21 9:32:00 ROSINA CEBALLSO [phone], Supply Start Date: 03/11/21 Status: Ordered Left wrist brace. Dx left wrist pain Left wrist brace. Dx left wrist pain, See Instructions, # 1 each, Refills 0, Tot. Refills 0, Maintenance, Wear as tolerated Dx: Left wrist scaphoid fracture (S62.002A) Left wrist pain (M25.532), 03/11/21 9:32:00 ROSINA CEBALLOS [phone], Supply Start Date: 03/11/21 Status: Ordered pantoprazole 40 mg oral delayed release tablet 1 tablet = 40 mg, By Mouth, Daily, # 90 tablet, 0 Refills, Maintenance, 03/02/21 9:04:00 LIN, EC Tablet Start Date: 03/02/21 Status: Ordered [...]
--- OUTSIDE RECORDS SUMMARY | 2023-09-14 23:06 | XMS_ITS | Continuity of Care Document ---
Author Organization [facility] Adult Address [address] [place] [address]- Care Team Providers Care Gaming Worker Name Role Phone Mika CLAY, Mae Serrano Primary Care Physician [place] [facility] [place] 03/08/22 - 04/07/[address] [address]- Allergies, Adverse Reactions, Alerts Substance Reaction Severity Status lithium unknown Active Immunizations Given and Recorded Vaccine Date Status Refusal Reason SARS-CoV-2 mRNA (cdttdkx-nspq-qpwrl) vax 03/14/21 Recorded SARS-CoV-2 (COVID-19) mRNA BNT-162b2 [...] 0 Refills, Maintenance, 03/27/22 13:51:00 EST, Tablet, [facility]-, Partial fill upon patient request if [...] tibial avulsion (S82.153A), 05/02/21 9:45:00 EDT, ROS[facility] [phone], Supply Start Date: 05/02/21 Status: Ordered Knee Support See Instructions, # 1 each, Maintenance, Left knee brace Dx: bilateral tibial plateau fracture (S82.143A) Bilateral tibial avulsion (S82.153A), 05/02/21 9:48:00 EDT, [facility] [phone], Supply Start Date: 05/02/21 Status: Ordered Left wrist brace. Dx left wrist pain Left wrist brace. Dx left wrist pain, See Instructions, # 1 each, Refills 0, Tot. Refills 0, Maintenance, Wear as tolerated Dx: Left wrist scaphoid fracture (S62.002A) Left wrist pain (M25.532), 05/02/21 9:46:00 EDT, [facility] [phone], Supply Start Date: 05/02/21 Status: Ordered meloxicam 15 mg oral tablet 1 tablet = 15 mg, By Mouth, Daily, PRN Pain , Moderate, # 30 tablet, 4 Refills, Maintenance, 03/01/22 13:25:00 EST, Tablet, [facility]-, Partial fill upon patient request if [...] Tasks Member Role: Primary Care Nurse Name: Lionle Ludwig MD Position: [facility] Renal MD Member Role: Lifetime Consulting Physician Address: Address: [address] [place] [address], [address] [facility] [place] [address]- Name: Rowan Alvarez RN Position: [facility] [...] Care Nurse Name: Katelynn Milan RN Position: [facility] PCO RN Member Role: Primary Care Nurse Name: Mae Brennan NP Position: [facility] PCO Associate Professional Member Role: PCP Address: Address: [address] [place] [address] 3rd [place] [address]- [place] Name: Deborah Gusman RN Position: [facility] Hospital Isotope Technician Member Role: Primary Care Nurse Name: [...] Member Role: Lifetime Consulting Physician Address: Address: [address] [place] [address] [facility] [place], [place] [address] Name: Emelyn Corbin RN Position: S RN Member Role: Primary Care Nurse Name: Aurea Gutierrez RN Position: S RN Member Role: Primary Care Nurse Care Team Related Persons Name: RIGOBERTO, JOHN Address: [address] [address]
--- OUTSIDE RECORDS SUMMARY | 2023-09-14 23:06 | XMS_ITS | Continuity of Care Document ---
Author Organization [facility] Adult Address [address] [place] [address]- Care Team Providers Care Architectural Engineering Teacher Name Role Phone Mika CLAY, Mae Serrano Primary Care Physician Encounter [facility] [place](s): 08/15/22 - 09/15/22 [facility] [address] [place] [address]- Attending Physician: Sissy Wilson NP Allergies, Adverse Reactions, Alerts No Known Medication Allergies Immunizations Given and Recorded Vaccine Date Status Refusal Reason [id number] bivalent booster vax 12/16/21 Recorded SARS-CoV-2 mRNA (ldwuydz-qurw-vhudx) vax 03/14/21 Recorded SARS-CoV-2 (COVID-19) mRNA BNT-162b2 [...] (R6.81) Life long (99), 05/02/21 9:46:00 EDT, [facility] AND... Start Date: 05/02/21 Status: Ordered ciprofloxacin-dexamethasone 0.3%-0.1% otic suspension 4 drops, Ear, Right, 2 times a day, # 8 mL, 0 Refills, Acute 08/24/23 14:31:00 EDT, 08/23/22 14:31:00 EDT, [facility]-, Partial fill upon patient request if [...] 2 Refills, Maintenance, 06/19/22 14:26:00 EDT, Tablet, [facility]-, Partial fill upon patient request if [...] Gm, 5 Refills, Maintenance, 07/21/22 13:26:00 EDT, [facility]-[id number], 30, USE 1 SPRAY IN EACH NOSTRIL TWICE A DAY, 165, cm, 07/15/22 18:51:00 EDT, Height, 76.5, kg, 07/15/22 18:51:00... Start Date: 07/21/22 Status: Ordered Knee Support See Instructions, # 1 each, Maintenance, Right knee brace Dx: bilateral tibial plateau fracture (S82.143A) Bilateral tibial avulsion (S82.153A), 05/02/21 9:45:00 EDT, [facility] [phone], Supply Start Date: 05/02/21 Status: Ordered Knee [...] pain (M25.532), 05/02/21 9:46:00 EDT, [facility] [phone], Supply Start Date: 05/02/21 Status: Ordered naproxen [...] Team Personnel Name: Naty Malcolm RN Position: [facility] RN Member Role: Primary Care Nurse Name: Harshil Cardoso RN Position: [facility] RN Member Role: Primary Care Nurse Name: Meri Lima RN Position: [facility] ED RN W/OE and Tasks Member Role: Primary Care Nurse Name: Lionel Ludwig MD Position: [facility] Renal MD Member Role: Lifetime Consulting Physician Address: Address: [address] [place] [address], [address] [facility] [address] Name: Rowan Alvarez RN Position: [facility] HBO Wound Member Role: Primary Care Nurse Name: Tala Plasencia RN Position: [facility] RN Member Role: Primary Care Nurse Name: Franklin Seth RN Position: [facility] RN Member Role: Primary Care Nurse Name: Kathy Honeycutt Position: [facility] RN Member Role: Primary Care Nurse Name: Gideon Miller RN Position: [facility] SN RN Member Role: Primary Care Nurse Name: Az Pham RN Position: [facility] ED RN W/OE and Tasks Member Role: Primary Care Nurse Name: Libertad Olmos RN Position: [facility] RN Member Role: Primary Care Nurse Name: Daily Mane RN Position: [facility] RN Member Role: Primary Care Nurse Name: Katelynn Milan RN Position: [facility] AMB Nurse Member Role: Primary Care Nurse Name: Mae Brennan NP Position: [facility] PCO Associate Professional Member Role: PCP Address: Address: [address] [place] [address]- Name: Belinda Gusman RN Position: [facility] Career Services Assistant Member Role: Primary Care Nurse Name: Chito Powers RN Position: [facility] RN Member Role: Primary Care Nurse Name: Antonio Velasquez RN Position: [facility] RN Member Role: Primary Care Nurse Name: Alexey Ramos RN Position: [facility] RN Member Role: Primary Care Nurse Name: Crow Burk MD Position: [facility] Renal MD Member Role: Lifetime Consulting Physician Address: Address: [address] [place] [address] [facility] [place] [address]- Name: Emelyn Corbin RN Position: [facility] RN Member Role: Primary Care Nurse Name: Aurea Gutierrez RN Position: [facility] RN Member Role: Primary Care Nurse Care Team Related Persons Name: CHARLES FRANKLIN Address: [address] [place] [address]
--- OUTSIDE RECORDS SUMMARY | 2023-09-14 23:06 | XMS_ITS | Continuity of Care Document ---
Author Organization [facility] Adult Address [address] [place] [address]- Care Team Providers Care Cable Armorer Name Role Phone Mae Brennan NP Primary Care Physician [place] [facility] [place] 03/26/20 - 04/25/20 [facility] Adult [address] [place] [address]- Attending Physician: Liliana Wood Admitting Physician: AdmLiliana baldwin Referring Physician: AdmtrLiliana Allergies, Adverse Reactions, Alerts [...] capsule, Refills 0, Tot. Refills 0, Maintenance, 04/08/20 11:28:00 EST, Route to Pharmacy Electronically, [facility], Partial fill upon patient request if the prescription is f... Start Date: 04/08/20 Status: Ordered ibuprofen 600 mg oral tablet 600 mg, 1, tablet, By Mouth, Every 8 hours, PRN, for 30 days, not to exceed 3200 mg/day with food or milk, # 90 tablet, Refills 0, Tot. Refills 0, Acute 05/08/20 11:28:00 EDT, Pain , Moderate, 04/08/20 11:28:00 EST, Route to Pharmacy Electronically,... Start Date: 04/08/20 Stop Date: 05/08/20 Status: Ordered risperiDONE 2 mg oral tablet [...]
--- OUTSIDE RECORDS SUMMARY | 2023-09-14 23:06 | XMS_ITS | Continuity of Care Document ---
Author Organization [facility] Adult Address [address] [place] [address]- Care Team Providers Care Component Technician Name Role Phone Mika CLAY, Mae Serrano Primary Care Physician Encounter [facility] [place] [place] Date(s): 04/17/22 - 05/17/[address] [address]- Allergies, Adverse Reactions, Alerts Substance Reaction Severity Status lithium unknown Active Immunizations Given and Recorded Vaccine Date Status Refusal Reason SARS-CoV-2 mRNA (qrifrhe-jawc-zlneb) vax 03/14/21 Recorded SARS-CoV-2 (COVID-19) mRNA BNT-162b2 [...] 0 Refills, Maintenance, 04/18/22 8:05:00 EST, Tablet, [facility]-, Partial fill upon patient request [...] tibial avulsion (S82.153A), 05/02/21 9:45:00 EDT, ROSINA [phone], Supply Start Date: 05/02/21 Status: Ordered Knee Support See Instructions, # 1 each, Maintenance, Left knee brace Dx: bilateral tibial plateau fracture (S82.143A) Bilateral tibial avulsion (S82.153A), 05/02/21 9:48:00 EDT, [facility] [id number], Supply Start Date: 05/02/21 Status: Ordered Left wrist brace. Dx left wrist pain Left wrist brace. Dx left wrist pain, See Instructions, # 1 each, Refills 0, Tot. Refills 0, Maintenance, Wear as tolerated Dx: Left wrist scaphoid fracture (S62.002A) Left wrist pain (M25.532), 05/02/21 9:46:00 EDT, [facility] [phone] [phone], Supply Start Date: 05/02/21 Status: Ordered naproxen 500 mg oral tablet 1 tablet = 500 mg, By Mouth, Every 12 hours, PRN Pain , Moderate, for 30 days, # 60 tablet, 0 Refills, Acute 06/16/22 17:44:00 EDT, 05/17/22 17:44:00 EDT, Tablet, [facility]-,Partial fill upon patient request if the [...] Team Personnel Name: Naty Malcolm RN Position: [facility] RN Member Role: Primary Care Nurse Name: Harshil Cardoso RN Position: [facility] RN Member Role: Primary Care Nurse Name: Meri Lima RN Position: [facility] ED RN W/OE and Tasks Member Role: Primary Care Nurse Name: Lionel Ludwig MD Position: [facility] Renal MD Member Role: Lifetime Consulting Physician Address: Address: [address] [place] [address], [address] [facility] [place] [address]- Name: Rowan Alvarez RN Position: [facility] Wound Member Role: Primary Care Nurse Name: Tala Plasencia RN Position: [facility] RN Member Role: Primary Care Nurse Name: Franklin Seth RN Position: [facility] RN Member Role: Primary Care Nurse Name: Kathy Honeycutt Position: [facility] RN Member Role: Primary Care Nurse Name: Az Pham RN Position: [facility] ED RN W/OE and Tasks Member Role: Primary Care Nurse Name: Libertad Olmos RN Position: [facility] RN Member Role: Primary Care Nurse Name: Daily Mane RN Position: [facility] RN Member Role: Primary Care Nurse Name: Katelynn Milan RN Position: [facility] PCO RN Member Role: Primary Care Nurse Name: Mae Brennan NP Position: [facility] PCO Associate Professional Member Role: PCP Address: Address: [address] [place] [address] 3rd [place] [address]- [place] Name: Deborah Gusman RN Position: [facility] Hospital County Library Director Member Role: Primary Care Nurse Name: Chito Powers RN Position: [facility] RN Member Role: Primary Care Nurse Name: Antonio Velasquez RN Position: [facility] RN Member Role: Primary Care Nurse Name: Alexey Ramos RN Position: [facility] RN Member Role: Primary Care Nurse Name: Crow Burk MD Position: [facility] Renal MD Member Role: Lifetime Consulting Physician Address: Address: [address] [place] [address] [facility] [place], [place] [address] Name: Emelyn Corbin RN Position: S RN Member Role: Primary Care Nurse Name: Aurea Gutierrez RN Position: S RN Member Role: Primary Care Nurse Care Team Related Persons Name: CHARLES FRANKLIN Address: [place] [address]
--- OUTSIDE RECORDS SUMMARY | 2023-09-14 23:06 | XMS_ITS | Continuity of Care Document ---
Author Organization [facility] Address [address] [place] [address] [address], [address] [place] [address]- Care Team Providers Care Pre K Lead Teacher Name Role Phone Mika CLAY, Mae Serrano Primary Care Physician Encounter [facility] [place] Date(s): 11/04/19 - 12/04/19 [facility] [address] [place] [address] Drive, [address] [place] [address]- [facility] Allergies, Adverse Reactions, Alerts Substance Reaction Severity [...] Maintenance, Powder Start Date: 10/08/19 Status: Ordered risperiDONE 2 mg oral tablet [...]
--- OUTSIDE RECORDS SUMMARY | 2023-09-14 23:06 | XMS_ITS | Continuity of Care Document ---
Author Organization [facility] Adult Address [address] [place] [address]- Care Team Providers Care Flame Cutting Machine Operator Helper Name Role Phone Mae Brennan NP Primary Care Physician En[place] [facility] [place] Date(s): 09/26/21 - 10/26/21 [facility] Adult [address] [place] [address]- Allergies, Adverse Reactions, Alerts Substance Reaction Severity Status lithium unknown Active Immunizations Given and Recorded Vaccine Date Status Refusal Reason SARS-CoV-2 mRNA (xwmfmfi-yjzr-qxbuo) vax 03/14/21 Recorded SARS-CoV-2 (COVID-19) mRNA BNT-162b2 [...] 3 Refills, Maintenance, 10/07/21 10:08:00 EDT, Capsule, [facility]- , Partial fill upon patient request if [...] tibial avulsion (S82.153A), 05/02/21 9:45:00 EDT, [facility] [phone], Supply Start Date: 05/02/21 Status: Ordered Knee Support See Instructions, # 1 each, Maintenance, Left knee brace Dx: bilateral tibial plateau fracture (S82.143A) Bilateral tibial avulsion (S82.153A), 05/02/21 9:48:00 EDT, [facility] [id number], Supply Start Date: 05/02/21 Status: Ordered Left wrist brace. Dx left wrist pain Left wrist brace. Dx left wrist pain, See Instructions, # 1 each, Refills 0, Tot. Refills 0, Maintenance, Wear as tolerated Dx: Left wrist scaphoid fracture (S62.002A) Left wrist pain (M25.532), 05/02/21 9:46:00 EDT, VLADISLAV DILLAN JESSICA [phone], Supply Start Date: 05/02/21 Status: Ordered pantoprazole [...] oker; Type: Cigarettes entered on: 09/13/16 Sex Care Team Personnel Name: Mae Brennan NP Address: [address] [place] [address] [address] [place], [place] [address]
--- OUTSIDE RECORDS SUMMARY | 2023-09-14 23:06 | XMS_ITS | Continuity of Care Document ---
Author Organization [facility] Adult Address [address] [place] [address]- Care Team Providers Care Expense Analyst Name Role Phone Mika CLAY, Mae Serrano Primary Care Physician [phone] Encounter [facility] [place] Date(s): 09/14/21 - 10/14/21 [facility] Adult [address] [place] [address]- Allergies, Adverse Reactions, Alerts Substance Reaction Severity Status lithium unknown Active Immunizations Given and Recorded Vaccine Date Status Refusal Reason SARS-CoV-2 mRNA (jnvnwjo-mvjf-djyeq) vax 03/14/21 Recorded SARS-CoV-2 (COVID-19) mRNA BNT-162b2 [...] 3 Refills, Maintenance, 10/07/21 10:08:00 EDT, Capsule, [facility]- , Partial fill upon patient request if [...] tibial avulsion (S82.153A), 05/02/21 9:45:00 EDT, ROSINA [phone], Supply Start Date: 05/02/21 Status: Ordered Knee Support See Instructions, # 1 each, Maintenance, Left knee brace Dx: bilateral tibial plateau fracture (S82.143A) Bilateral tibial avulsion (S82.153A), 05/02/21 9:48:00 EDT, [facility] [phone], Supply Start Date: 05/02/21 Status: Ordered Left wrist brace. Dx left wrist pain Left wrist brace. Dx left wrist pain, See Instructions, # 1 each, Refills 0, Tot. Refills 0, Maintenance, Wear as tolerated Dx: Left wrist scaphoid fracture (S62.002A) Left wrist pain (M25.532), 05/02/21 9:46:00 EDT, ROSINA [phone], Supply Start Date: 05/02/21 Status: Ordered pantoprazole [...] Team Personnel Name: Mae Brennan NP Address: [address] [facility] [address]rd floor [place], [place] [address]
--- OUTSIDE RECORDS SUMMARY | 2023-09-14 23:06 | XMS_ITS | Continuity of Care Document ---
Author Organization [facility] Adult Address [address] [place] [address]- Care Team Providers Care Cream Dumper Name Role Phone Mika CLAY, Mae Serrano Primary Care Physician [place] [facility] [place]12[place]21 - 01/11/22 [facility] Adult [address] [place] [address]- Allergies, Adverse Reactions, Alerts Substance Reaction Severity Status lithium unknown Active Immunizations Given and Recorded Vaccine Date Status Refusal Reason SARS-CoV-2 mRNA (ouleswq-hmak-otoei) vax 03/14/21 Recorded SARS-CoV-2 (COVID-19) mRNA BNT-162b2 [...] Life long (99), 05/02/21 9:46:00 EDT, VLADISLAV ANDLorrie.. Start Date: 05/02/21 Status: Ordered celecoxib 100 mg oral capsule 1 capsule = 100 mg, By Mouth, 2 times a day, PRN Pain , Moderate, contents of capsule may be mixed with soft foods such as applesauce, # 180 capsule, 1 Refills, Maintenance, 10/27/21 9:31:00 EDT, Capsule, [facility]-, Partial f... Start Date: 10/27/21 [...] Acute 01/12/22 15:15:00 EST, 12/29/21 15:15:00 EST, [place], [facility]-, Partial fill upon patient request if the prescription is for a sche... Start Date: 12/29/21 Stop Date: 01/12/22 Status: Ordered Knee Support See Instructions, # 1 each, Maintenance, Right knee brace Dx: bilateral tibial plateau fracture (S82.143A) Bilateral tibial avulsion (S82.153A), 05/02/21 9:45:00 EDT, [facility] [id number], Supply Start Date: 05/02/21 Status: Ordered Knee Support See Instructions, # 1 each, Maintenance, Left knee brace Dx: bilateral tibial plateau fracture (S82.143A) Bilateral tibial avulsion (S82.153A), 05/02/21 9:48:00 EDT, [facility] [id number], Supply Start Date: 05/02/21 Status: Ordered Left wrist brace. Dx left wrist pain Left wrist brace. Dx left wrist pain, See Instructions, # 1 each, Refills 0, Tot. Refills 0, Maintenance, Wear as tolerated Dx: Left wrist scaphoid fracture (S62.002A) Left wrist pain (M25.532), 05/02/21 9:46:00 EDT, [facility] [id number], Supply Start Date: 05/02/21 Status: Ordered lidocaine 5% topical ointment 1 application, Topically, 3 times a day, for 14 days, wash hands thoroughly after application, # 50Gm, 0 Refills, Acute 01/16/22 18:36:00 EST, 01/02/22 18:36:00 EST, Ointment, [facility]-, Partial fill upon patient request if... Start Date: 01/02/22 Stop Date: 01/16/22 Status: Ordered loratadine 10 mg oral tablet 10 mg, 1, tablet, By Mouth, Daily, for 30 days, # 30 tablet, Refills 0, Tot. Refills 0, Acute 01/29/22 16:34:00 EST, 12/30/21 16:34:00 EST, Route to Pharmacy Electronically, [facility]-, Partial fill upon patient request if the... [...] Role: Lifetime Consulting Physician Address: Address: [address] [place] [address], [address] [facility] [address] Name: Rowan Alvarez RN Position: MEDICAL [...] Care Nurse Name: Meri Barker RN Position: [facility] ED RN W/OE and Tasks Member Role: Primary Care Nurse Name: Katelynn Milan RN Position: [facility] PCO RN Member Role: Primary Care Nurse Name: Mae Brennan NP Position: [facility] Associate Professional Member Role: PCP Address: Address: [address] [place] [address]- Name: Deborah Gusman RN Position: [facility] Burnt Lime Drawer Member Role: Primary Care Nurse Name: Gio RNChito Position: [facility] RN Member Role: Primary Care Nurse Name: Antonio Velasquez RN Position: [facility] RN Member Role: Primary Care Nurse Name: Alexey Ramos RN Position: [facility] RN Member Role: Primary Care Nurse Name: Crow Burk MD Position: [facility] Renal MD Member Role: Lifetime Consulting Physician Address: Address: [address] [place] [address] [facility] [place] [address]- Name: Emelyn Corbin RN Position: [facility] RN Member Role: Primary Care Nurse Name: Aurea Gutierrez RN Position: [facility] RN Member Role: Primary Care Nurse Care Team Related Persons Name: CHARLES FRANKLIN Address: [address] [place] [address]
--- OUTSIDE RECORDS SUMMARY | 2023-09-14 23:06 | XMS_ITS | Continuity of Care Document ---
Author Organization [facility] Address [address] [place] [address]- Care Team Providers Care Warehousing Technician Name Role Phone Mika CLAY, Mae Serrano Primary Care Physician Encounter [facility] [place] Date(s): 12/28/21 - 01/27/[address] [address]- Allergies, Adverse Reactions, Alerts Substance Reaction Severity Status lithium unknown Active Immunizations Given and Recorded Vaccine Date Status Refusal Reason SARS-CoV-2 mRNA (fzmuiwp-tygk-wzeuw) vax 03/14/21 Recorded SARS-CoV-2 (COVID-19) mRNA BNT-162b2 [...] 1 Refills, Maintenance, 10/27/21 9:31:00 EDT, Capsule, [facility]-, Partial f... Start Date: 10/27/21 Status: [...] tibial avulsion (S82.153A), 05/02/21 9:48:00 EDT, [facility] [id number], Supply Start Date: 05/02/21 Status: Ordered Left wrist brace. Dx left wrist pain Left wrist brace. Dx left wrist pain, See Instructions, # 1 each, Refills 0, Tot. Refills 0, Maintenance, Wear as tolerated Dx: Left wrist scaphoid fracture (S62.002A) Left wrist pain (M25.532), 05/02/21 9:46:00 EDT, [facility] [id number] [id number], Supply Start Date: 05/02/21 Status: Ordered loratadine 10 mg oral tablet 10 mg, 1, tablet, By Mouth, Daily, for 30 days, # 30 tablet, Refills 0, Tot. Refills 0, Acute 01/29/22 16:34:00 EST, 12/30/21 16:34:00 EST, Route to Pharmacy Electronically, [facility], Partial fill upon patient request if [...] Team Personnel Name: Naty Malcolm RN Position: [facility] RN Member Role: Primary Care Nurse Name: Harshil Cardoso RN Position: [facility] RN Member Role: Primary Care Nurse Name: Lionel Ludwig MD Position: [facility] Renal MD Member Role: Lifetime Consulting Physician Address: Address: [address] [place] [address], [address] [facility] [place] [address]- Name: Rowan Alvarez RN Position: [facility] Wound Member Role: Primary Care Nurse Name: Tala Plasencia RN Position: [facility] RN Member Role: Primary Care Nurse Name: Franklin Seth RN Position: [facility] RN Member Role: Primary Care Nurse Name: Kathy Honeycutt Position: [facility] RN Member Role: Primary Care Nurse Name: Az Pham RN Position: [facility] ED RN W/OE and Tasks Member Role: Primary Care Nurse Name: Libertad Olmos RN Position: [facility] RN Member Role: Primary Care Nurse Name: Daily Mane RN Position: [facility] RN Member Role: Primary Care Nurse Name: Meri Barker RN Position: [facility] ED RN W/OE and Tasks Member Role: Primary Care Nurse Name: Katelynn Milan RN Position: [facility] PCO RN Member Role: Primary Care Nurse Name: Mae Brennan NP Position: [facility] Associate Professional Member Role: PCP Address: Address: [address] [place] [address] 3rd [place] [address]- [place] Name: Deborah Gusman RN Position: [facility] Stone Derrickman And Rigger Member Role: Primary Care Nurse Name: Chito Powers RN Position: [facility] RN Member Role: Primary Care Nurse Name: Antonio Velasquez RN Position: [facility] RN Member Role: Primary Care Nurse Name: Alexey Ramos RN Position: [facility] RN Member Role: Primary Care Nurse Name: Crow Burk MD Position: [facility] Renal MD Member Role: Lifetime Consulting Physician Address: Address: [address] [place] [address] [facility] [place], [place] [address] Name: Emelyn Corbin RN Position: S RN Member Role: Primary Care Nurse Name: Aurea Gutierrez RN Position: S RN Member Role: Primary Care Nurse Care Team Related Persons Name: CHARLES FRANKLIN Address: [address] [place] [id number]
--- OUTSIDE RECORDS SUMMARY | 2023-09-14 23:06 | XMS_ITS | Continuity of Care Document ---
Author Organization [facility] Address [address] [place] [address]- Care Team Providers Care Roll Up Operator Name Role Phone Mika CLAY, Mae Serrano Primary Care Physician Encounter [facility] Date(s): 11/22/21 - 11/22/[address] [address]- Discharge Disposition: A-D/C Home Attending Physician: Andrew Harden MD Admitting Physician: Andrew Harden MD Referring Physician: Not on Staff, Referring MD Allergies, Adverse Reactions, Alerts Substance Reaction Severity Status lithium unknown Active Immunizations Given and Recorded Vaccine Date Status Refusal Reason SARS-CoV-2 mRNA (lgvxtrl-gcux-sktix) vax 03/14/21 Recorded SARS-CoV-2 (COVID-19) mRNA BNT-162b2 [...] 1 Refills, Maintenance, 10/27/21 9:31:00 EDT, Capsule, [facility]-, Partial f... Start Date: 10/27/21 Status: [...] tibial avulsion (S82.153A), 05/02/21 9:45:00 EDT, [facility] [id number], Supply Start Date: 05/02/21 Status: Ordered Knee Support See Instructions, # 1 each, Maintenance, Left knee brace Dx: bilateral tibial plateau fracture (S82.143A) Bilateral tibial avulsion (S82.153A), 05/02/21 9:48:00 EDT, [facility] [id number], Supply Start Date: 05/02/21 Status: Ordered Left wrist brace. Dx left wrist pain Left wrist brace. Dx left wrist pain, See Instructions, # 1 each, Refills 0, Tot. Refills 0, Maintenance, Wear as tolerated Dx: Left wrist scaphoid fracture (S62.002A) Left wrist pain (M25.532), 05/02/21 9:46:00 EDT, [facility] [phone] [id number], Supply Start Date: 05/02/21 Status: Ordered lidocaine 5% topical film 1 patch, Topically, Daily, PRN Pain , Mild, for 30 days, remove after 12 hours, # 30 patch, 0 Refills, Acute 11/26/21 9:33:00 EDT, 10/27/21 9:33:00 EDT, Film, [facility]-, Partial fill upon patient request if [...] oldest [Reference Range]: 1 Height 165 cm (11/22/21 12:58 AM) Weight 68.5 kg (11/22/21 12:58 AM) Oxygen Saturation [94-100 %] 100 % (11/22/21 12:58 AM) Pulse Rate [55-90 bpm] 90 bpm (11/22/21 12:58 AM) Blood Pressure [90-138/55-84 mm Hg] 135/ 89mm Hg (11/22/21 12:58 AM) Respiratory Rate [16-30 br/min] 20 br/mi n (11/22/21 12:58 AM) Temperature [96.8-100.4 DegF] 98.1 DegF (11/22/21 12:58 AM) Temperature Route Oral (11/22/21 12:58 AM) Dry Weight 68.5 kg (11/22/21 12:58 AM) Social History Social History Type Response Smoking Status Current every day vidhya cavanaugh; Type: Cigarettes entered on: 09/13/16 Sex Patient Care team information Personnel Name: Mae Brennan NP Address: Address: [address]rd floor [place], [place] [address]
--- OUTSIDE RECORDS SUMMARY | 2023-09-14 23:06 | XMS_ITS | Continuity of Care Document ---
Author Organization [facility] Adult Address [address] [place] [address]- Care Team Providers Care Clay Press Operator Name Role Phone Mika CLAY, Mae Serrano Primary Care Physician [phone] Encounter [facility] [place] Date(s): 02/23/22 - 03/25/[address] [address]- Allergies, Adverse Reactions, Alerts Substance Reaction Severity Status lithium unknown Active Immunizations Given and Recorded Vaccine Date Status Refusal Reason SARS-CoV-2 mRNA (hrsytld-maex-doxzn) vax 03/14/21 Recorded SARS-CoV-2 (COVID-19) mRNA BNT-162b2 [...] Refills, Acute 03/31/22 13:36:00 EST,03/01/22 13:36:00 EST, [place], [facility]-, Partial fill upon patient request if the prescription is for a schedule II opioid . Start Date: 03/01/22 Stop Date: 03/31/22 Status: Ordered Knee Support See Instructions, # 1 each, Maintenance, Right knee brace Dx: bilateral tibial plateau fracture (S82.143A) Bilateral tibial avulsion (S82.153A), 05/02/21 9:45:00 EDT, [facility] [id number], Supply Start Date: 05/02/21 Status: Ordered Knee Support See Instructions, # 1 each, Maintenance, Left knee brace Dx: bilateral tibial plateau fracture (S82.143A) Bilateral tibial avulsion (S82.153A), 05/02/21 9:48:00 EDT, [facility] [id number], Supply Start Date: 05/02/21 Status: Ordered Left wrist brace. Dx left wrist pain Left wrist brace. Dx left wrist pain, See Instructions, # 1 each, Refills 0, Tot. Refills 0, Maintenance, Wear as tolerated Dx: Left wrist scaphoid fracture (S62.002A) Left wrist pain (M25.532), 05/02/21 9:46:00 EDT, [facility] [id number], Supply Start Date: 05/02/21 Status: Ordered levocetirizine 5 mg oral tablet 1 tablet = 5 mg, By Mouth, Daily in PM, # 30 tablet, 3 Refills, Maintenance, 03/01/22 13:24:00 EST,Tablet, [facility]-, Partial fill upon patient request if the prescription is for a schedule II opioid drug., 1 tablet By Mouth... Start Date: 03/01/22 Status: Ordered meloxicam 15 mg oral tablet 1 tablet = 15 mg, By Mouth, Daily, PRN Pain , Moderate, # 30 tablet, 4 Refills, Maintenance, 03/01/22 13:25:00 EST, Tablet, [facility]-, Partial fill upon patient request if [...] Team Personnel Name: Naty Malcolm RN Position: [facility] RN Member Role: Primary Care Nurse Name: Harshil Cardoso RN Position: [facility] RN Member Role: Primary Care Nurse Name: Meri Lima RN Position: [facility] ED RN W/OE and Tasks Member Role: Primary Care Nurse Name: Lionel Ludwig MD Position: [facility] Renal MD Member Role: Lifetime Consulting Physician Address: Address: [address] [place] [address], [address] [facility] [place] [address]- Name: Rowan Alvarez RN Position: [facility] HBO Wound Member Role: Primary Care Nurse Name: Tala Plasencia RN Position: [facility] RN Member Role: Primary Care Nurse Name: Franklin Seth RN Position: [facility] RN Member Role: Primary Care Nurse Name: Kathy Honeycutt Position: [facility] RN Member Role: Primary Care Nurse Name: Az Pham RN Position: [facility] ED RN W/OE and Tasks Member Role: Primary Care Nurse Name: Libertad Olmos RN Position: [facility] RN Member Role: Primary Care Nurse Name: Daily Mane RN Position: [facility] RN Member Role: Primary Care Nurse Name: Katelynn Milan RN Position: [facility] PCO RN Member Role: Primary Care Nurse Name: Mae Brennan NP Position: [facility] Associate Professional Member Role: PCP Address: Address: [address] [place] [address] 3rd [place] [address]- [place] Name: Deborah Gusman RN Position: [facility] Semi Conductor Assembler Member Role: Primary Care Nurse Name: Chito Powers RN Position: [facility] RN Member Role: Primary Care Nurse Name: Antonio Velasquez RN Position: [facility] RN Member Role: Primary Care Nurse Name: Alexey Ramos RN Position: [facility] RN Member Role: Primary Care Nurse Name: Crow Burk MD Position: [facility] Renal MD Member Role: Lifetime Consulting Physician Address: Address: [address] [place] [address] [facility] [place] [address]- Name: Emelyn Corbin RN Position: [facility] RN Member Role: Primary Care Nurse Name: Aurea Gutierrez RN Position: [facility] RN Member Role: Primary Care Nurse Care Team Related Persons Name: CHARLES FRANKLIN Address: [address] [address]
--- OUTSIDE RECORDS SUMMARY | 2023-09-14 23:06 | XMS_ITS | Continuity of Care Document ---
Author Organization [facility] Address [address] [place] [address]- Care Team Providers Care Welding Machine Operator Resistance Name Role Phone Mika CLAY, Mae Serrano Primary Care Physician En[place] [facility] [place] Date(s): 03/25/23 - 07/22/[address] [address] Attending Physician: Not on Staff, Attending MD Allergies, Adverse Reactions, Alerts Substance Reaction Severity Status lithium bladder/ metabolism Active Immunizations Given and Recorded Vaccine Date Status Refusal Reason SARS-CoV-2(COVID-19)mRNA-LNP vac([id number]) 12/18/22 Recorded influenza virus vaccine, inactivated 11/15/22 Preet rded [id number] bivalent booster vax 12/16/21 Recorded SARS-CoV-2 mRNA (alrxwnc-pyae-mblvq) vax 03/14/21 Recorded SARS-CoV-2 (COVID-19) mRNA BNT-162b2 vac 04/30/20 Recorded SARS-CoV-2 (COVID-19) mRNA BNT-162b2 vac 04/01/20 Recorded tetanus/diphtheria/pertussis, acel(Tdap) 03/09/17 Given Medications Albuterol (Eqv-Proventil HFA) 90 mcg/inh inhalation aerosol 2 puffs, Inhalation, 4 times a day, PRN NEEDED FOR WHEEZING, # 6.7 Gm, 0 Refills, Maintenance, 05/22/23 14:22:00 EDT, [facility]- , 176, cm, 05/01/23 9:52:00 EDT, Height, 70, kg, 12/21/22 12:46:00 EDT, Dry Weight Start Date: 05/22/23 Stop Date: 06/21/23 Status: Ordered Anoro Ellipta 62.5 mcg-25 mcg/inh inhalation powder 1 puffs, Inhalation, Daily, # 1 each, 11 Refills, Maintenance, 02/01/23 10:55:00 EST, Powder, [facility]-, Partial fill upon patient request [...] Gm, 2 Refills, Maintenance, 05/08/23 18:38:00 EDT, [facility], 30, USE 1 SPRAY IN EACH [...] tibial avulsion (S82.153A), 05/02/21 9:48:00 EDT, [facility] [id number], Supply Start Date: 05/02/21 Status: Ordered Left [...] tablet, 0 Refills, Maintenance, 07/03/23 11:52:00 EDT, [facility]-, 176, cm, 05/01/23 9:52:00 EDT, Height, [...] Care Nurse Name: Rowan Damon RN Position: [facility] HBO Wound Member Role: Primary Care Nurse Name: Lionel Ludwig MD Position: [facility] Renal MD Member Role: Lifetime Consulting Physician Address: Address: [address] [place] [address] [address] [facility] [place] [address]- [place] Name: Tala Plasencia RN [facility] [...] Katelynn Milan RN Position: [facility] RN Member Role: Primary Care Nurse Name: Mae Brennan NP Position: [facility] PCO Associate Professional Member Role: PCP Address: Address: [address] [place] [address]- [place] Name: Belinda Gusman RN Position: [facility] Painter And Decorator Member Role: Primary Care Nurse Name: Chito [...] Member Role: Lifetime Consulting Physician Address: Address: [address] [place] [address] [facility] [place] [address]- [place] Name: Emelyn Corbin RN Position: S RN Member Role: Primary Care Nurse Name: Aurea Gutierrez RN Position: S RN Member Role: Primary Care Nurse Care Team Related Persons Name: CHARLES FRANKLIN Address: [address] [address]
--- OUTSIDE RECORDS SUMMARY | 2023-09-14 23:06 | XMS_ITS | Continuity of Care Document ---
Author Organization [facility] Address [address] [place] [address]- Care Team Providers Care Performance Makeup Artist Name Role Phone Mae Brennan NP Primary Care Physician [place] [facility] [place] 02/25/20 - 03/26/20 [facility] [address] [place] [id number] Attending Physician: Liliana Wood Admitting Physician: AdmLiliana baldwin Referring Physician: Admtr, Ar8 Allergies, Adverse Reactions, [...] 02/19/20 10:39:00 EST, Route to Pharmacy Electronically, [facility], Partial fill upon patient request [...]
--- OUTSIDE RECORDS SUMMARY | 2023-09-14 23:06 | XMS_ITS | Continuity of Care Document ---
Author Organization [facility] Address [address] [place] [address] [address] [place] [address]- Care Team Providers Care Market Risk Manager Name Role Phone Mika CLAY, Mae Serrano Primary Care Physician [phone] Encounter [facility] Date(s): 05/01/23 - 08/02/[address] [place], [place] [address] Attending Physician: Oziel Hills MD Allergies, Adverse Reactions, Alerts Substance Reaction Severity Status lithium bladder/ metabolism Active Immunizations Given and Recorded Vaccine Date Status Refusal Reason SARS-CoV-2(COVID-19)mRNA-LNP vac([id number]) 12/18/22 Recorded influenza virus vaccine, inactivated 11/15/22 Preet rded [id number] bivalent booster vax 12/16/21 Recorded SARS-CoV-2 mRNA (yptzhuc-opdq-kbnwd) vax 03/14/21 Recorded SARS-CoV-2 (COVID-19) mRNA BNT-162b2 vac 04/30/20 Recorded SARS-CoV-2 (COVID-19) mRNA BNT-162b2 vac 04/01/20 Recorded tetanus/diphtheria/pertussis, acel(Tdap) 03/09/17 Given Medications Albuterol (Eqv-Proventil HFA) 90 mcg/inh inhalation aerosol 2 puffs, Inhalation, 4 times a day, PRN NEEDED FOR WHEEZING, # 6.7 Gm, 0 Refills, Maintenance, 05/22/23 14:22:00 EDT, [facility]- , 176, cm, 05/01/23 9:52:00 EDT, Height, 70, kg, 12/21/22 12:46:00 EDT, Dry Weight Start Date: 05/22/23 Stop Date: 06/21/23 Status: Ordered Anoro Ellipta 62.5 mcg-25 mcg/inh inhalation powder 1 puffs, Inhalation, Daily, # 1 each, 11 Refills, Maintenance, 02/01/23 10:55:00 EST, Powder, [facility]-, Partial fill upon patient request if the prescription is for a schedule II opioid drug., 1 puffs Inhalation Daily,x30 da... Start Date: 02/01/23 Stop Date: 01/27/24 Status: Ordered Banophen 25 mg oral capsule 1 capsule, By Mouth, 3 times a day, PRN NEEDED FOR ALLERGY SYMTPOMS, # 90 capsule, 6 Refills, Maintenance, 02/23/23 17:34:00 EST, [facility]/pharmacy #[id number], 176, cm, 02/16/23 13:04:00 EST, [...] Gm, 2 Refills, Maintenance, 05/08/23 18:38:00 EDT, [facility] [place]-, 30, USE 1 SPRAY IN EACH NOSTRIL [...] tibial avulsion (S82.153A), 05/02/21 9:45:00 EDT, [facility] [id number], Supply Start Date: 05/02/21 Status: Ordered Knee Support See Instructions, # 1 each, Maintenance, Left knee brace Dx: bilateral tibial plateau fracture (S82.143A) Bilateral tibial avulsion (S82.153A), 05/02/21 9:48:00 EDT, [facility] [id number], Supply Start Date: 05/02/21 Status: Ordered Left wrist brace. Dx left wrist pain Left wrist brace. Dx left wrist pain, See Instructions, # 1 each, Refills 0, Tot. Refills 0, Maintenance, Wear as tolerated Dx: Left wrist scaphoid fracture (S62.002A) Left wrist pain (M25.532), 05/02/21 9:46:00 EDT, [facility] [phone], Supply Start Date: 05/02/21 Status: Ordered naproxen 500 mg oral tablet 1 tablet, By Mouth, 2 times a day, PRN NEEDED FOR MODERATE PAIN WITH FOOD, # 60 tablet, 0 Refills, Maintenance, 07/31/23 15:49:00 EDT, [facility]-, 176, cm, 05/01/23 9:52:00 EDT, Height, 70, [...] Member Role: Primary Care Nurse Name: Meri iLma RN Position: [facility] ED RN W/OE and Tasks Member Role: Primary Care Nurse Name: Rowan Damon RN Position: [facility] HBO Wound Member Role: Primary Care Nurse Name: Lionel Ludwig MD Position: [facility] Renal MD Member Role: Lifetime Consulting Physician Address: Address: [address] [place] [address] [address] [facility] [address]- Name: Tala Plasencia RN Position: [facility] RN Member Role: Primary Care Nurse Name: Franklin Seth RN Position: [facility] RN Member Role: Primary Care Nurse Name: Kathy Honeycutt RN Position: [facility] RN Member Role: Primary Care Nurse Name: Gideon Miller RN Position: [facility] SN RN Member Role: Primary Care Nurse Name: Az Pham RN Position: [facility] ED RN W/OE and Tasks Member Role: Primary Care Nurse Name: Libertad Olmos RN Position: [facility] RN Member Role: Primary Care Nurse Name: Daily Mane RN Position: [facility] RN Member Role: Primary Care Nurse Name: Katelynn Milan RN Position: [facility] RN Member Role: Primary Care Nurse Name: Mae Brennan NP Position: [facility] PCO Associate Professional Member Role: PCP Address: Address: [address] [place] [address]- [place] Name: Belinda Gusman RN Position: [facility] Health Coach Member Role: Primary Care Nurse Name: Chito [...] Role: Lifetime Consulting Physician Address: Address: [address] [place] [address] [facility] [address]- [place] Name: Emelyn Corbin RN Position: S RN Member Role: Primary Care Nurse Name: Aurea Gutierrez RN Position: S RN Member Role: Primary Care Nurse Care Team Related Persons Name: CHARLES FRANKLIN Address: home [address] [place] [address]
--- OUTSIDE RECORDS SUMMARY | 2023-09-14 23:06 | XMS_ITS | Continuity of Care Document ---
Author Organization [facility] Adult Address [address] [place] [address]- Care Team Providers Care Talent Acquisition Sourcer Name Role Phone Mae Brennan NP Primary Care Physician Encounter [facility] [place] [place] Date(s): 10/14/21 - 11/13/21 [facility] Adult [address] [place] [address]- Allergies, Adverse Reactions, Alerts Substance Reaction Severity Status lithium unknown Active Immunizations Given and Recorded Vaccine Date Status Refusal Reason SARS-CoV-2 mRNA (qfkuydp-blda-opduu) vax 03/14/21 Recorded SARS-CoV-2 (COVID-19) mRNA BNT-162b2 [...] 1 Refills, Maintenance, 10/27/21 9:31:00 EDT, Capsule, [facility]-, Partial f... Start Date: 10/27/21 Status: [...] tibial avulsion (S82.153A), 05/02/21 9:45:00 EDT, [facility] [phone], Supply Start Date: 05/02/21 Status: Ordered Knee Support See Instructions, # 1 each, Maintenance, Left knee brace Dx: bilateral tibial plateau fracture (S82.143A) Bilateral tibial avulsion (S82.153A), 05/02/21 9:48:00 EDT, [facility] [phone], Supply Start Date: 05/02/21 Status: Ordered Left wrist brace. Dx left wrist pain Left wrist brace. Dx left wrist pain, See Instructions, # 1 each, Refills 0, Tot. Refills 0, Maintenance, Wear as tolerated Dx: Left wrist scaphoid fracture (S62.002A) Left wrist pain (M25.532), 05/02/21 9:46:00 EDT, [facility] [phone], Supply Start Date: 05/02/21 Status: Ordered lidocaine 5% topical film 1 patch, Topically, Daily, PRN Pain , Mild, for 30 days, remove after 12 hours, # 30 patch, 0 Refills, Acute 11/26/21 9:33:00 EDT, 10/27/21 9:33:00 EDT, Film, [facility]-, Partial fill upon patient request if [...] Team Personnel Name: Mae Brennan NP Address: [address] [place] [address] 3rd floor [place], [place] [address]
--- OUTSIDE RECORDS SUMMARY | 2023-09-14 23:06 | XMS_ITS | Continuity of Care Document ---
Author Organization [facility] Adult Address [address] [place] [address]- Care Team Providers Care Iron Carrier Name Role Phone Mika CLAY, Mae Serrano Primary Care Physician Encounter [facility] [place] Date(s): 03/13/22 - 04/12/[address] [facility] Adult [address] [place] [address]- Allergies, Adverse Reactions, Alerts Substance Reaction Severity Status lithium unknown Active Immunizations Given and Recorded Vaccine Date Status Refusal Reason SARS-CoV-2 mRNA (mupials-cdzm-eoglc) vax 03/14/21 Recorded SARS-CoV-2 (COVID-19) mRNA BNT-162b2 [...] 0 Refills, Maintenance, 03/27/22 13:51:00 EST, Tablet, [facility]-, Partial fill upon patient request if the [...] tibial avulsion (S82.153A), 05/02/21 9:45:00 EDT, [facility] [phone], Supply Start Date: 05/02/21 Status: Ordered Knee Support See Instructions, # 1 each, Maintenance, Left knee brace Dx: bilateral tibial plateau fracture (S82.143A) Bilateral tibial avulsion (S82.153A), 05/02/21 9:48:00 EDT, [facility] [id number], Supply Start Date: 05/02/21 Status: Ordered Left wrist brace. Dx left wrist pain Left wrist brace. Dx left wrist pain, See Instructions, # 1 each, Refills 0, Tot. Refills 0, Maintenance, Wear as tolerated Dx: Left wrist scaphoid fracture (S62.002A) Left wrist pain (M25.532), 05/02/21 9:46:00 EDT, [facility] [phone], Supply Start Date: 05/02/21 Status: Ordered meloxicam 15 mg oral tablet 1 tablet = 15 mg, By Mouth, Daily, PRN Pain , Moderate, # 30 tablet, 4 Refills, Maintenance, 03/01/22 13:25:00 EST, Tablet, [facility], Partial fill upon patient request if [...] Member Role: Lifetime Consulting Physician Address: Address: [address] [place] [address], [address] [facility] [place] [address]- Name: Rowan Alvarez RN Position: [facility] [...] RN Position: [facility] PCO RN Member Role: Primary Care Nurse Name: Mae Brennan NP Position: [facility] PCO Associate Professional Member Role: PCP Address: Address: [address] [place] [address] [place] [address]- [place] Name: Deborah Gsuman RN Position: [facility] Hospital Director Writing Member Role: Primary Care Nurse Name: Chito [...] Member Role: Lifetime Consulting Physician Address: Address: [address] [place] [address] [facility] [place], [place] [address] Name: Emelyn Corbin RN Position: S RN Member Role: Primary Care Nurse Name: Aurea Gutierrez RN Position: [facility] RN Member Role: Primary Care Nurse Care Team Related Persons Name: CHARLES FRANKLIN Address: [address] [address]
--- OUTSIDE RECORDS SUMMARY | 2023-09-14 23:06 | XMS_ITS | Continuity of Care Document ---
Author Organization [facility] Adult Address [address] [place] [address]- Care Team Providers Care Concession Manager Name Role Phone Mae Brennan NP Primary Care Physician [place] [facility] [place] 10/17/21 - 11/16/21 [facility] Adult [address] [place] [address]- Allergies, Adverse Reactions, Alerts Substance Reaction Severity Status lithium unknown Active Immunizations Given and Recorded Vaccine Date Status Refusal Reason SARS-CoV-2 mRNA (bhnrdbb-aqni-sqpyw) vax 03/14/21 Recorded SARS-CoV-2 (COVID-19) mRNA BNT-162b2 [...] tibial avulsion (S82.153A), 05/02/21 9:45:00 EDT, [facility] [id number], Supply Start Date: 05/02/21 Status: Ordered Knee Support See Instructions, # 1 each, Maintenance, Left knee brace Dx: bilateral tibial plateau fracture (S82.143A) Bilateral tibial avulsion (S82.153A), 05/02/21 9:48:00 EDT, [facility] [phone], Supply Start Date: 05/02/21 Status: Ordered Left wrist brace. Dx left wrist pain Left wrist brace. Dx left wrist pain, See Instructions, # 1 each, Refills 0, Tot. Refills 0, Maintenance, Wear as tolerated Dx: Left wrist scaphoid fracture (S62.002A) Left wrist pain (M25.532), 05/02/21 9:46:00 EDT, [facility] [phone], Supply Start Date: 05/02/21 Status: Ordered lidocaine 5% topical film 1 patch, Topically, Daily, PRN Pain , Mild, for 30 days, remove after 12 hours, # 30 patch, 0 Refills, Acute 11/26/21 9:33:00 EDT, 10/27/21 9:33:00 EDT, Film, [facility], Partial fill upon patient request if [...] Name: Mae Brennan NP Address: Address: [address]rd [address] [place], [place] [address]
--- OUTSIDE RECORDS SUMMARY | 2023-09-14 23:06 | XMS_ITS | Continuity of Care Document ---
Author Organization [facility] Adult Address [address] [place] [address]- Care Team Providers Care Zinc Plating Machine Operator Name Role Phone Mika CLAY, Mae Serrano Primary Care Physician [place] [facility] [place] 12/05/21 - 01/04/[address] [address]- Allergies, Adverse Reactions, Alerts Substance Reaction Severity Status lithium unknown Active Immunizations Given and Recorded Vaccine Date Status Refusal Reason SARS-CoV-2 mRNA (vbaanja-smmr-ztztc) vax 03/14/21 Recorded SARS-CoV-2 (COVID-19) mRNA BNT-162b2 [...] 1 Refills, Maintenance, 10/27/21 9:31:00 EDT, Capsule, [facility]-, Partial f... Start Date: 10/27/21 Status: [...] Acute 01/12/22 15:15:00 EST, 12/29/21 15:15:00 EST, [place], [facility]-, Partial fill upon patient request if the prescription is for a sche... Start Date: 12/29/21 Stop Date: 01/12/22 Status: Ordered Knee Support See Instructions, # 1 each, Maintenance, Right knee brace Dx: bilateral tibial plateau fracture (S82.143A) Bilateral tibial avulsion (S82.153A), 05/02/21 9:45:00 EDT, [facility] [id number], Supply Start Date: 05/02/21 Status: Ordered Knee Support See Instructions, # 1 each, Maintenance, Left knee brace Dx: bilateral tibial plateau fracture (S82.143A) Bilateral tibial avulsion (S82.153A), 05/02/21 9:48:00 EDT, [facility] [id number], Supply Start Date: 05/02/21 Status: Ordered Left wrist brace. Dx left wrist pain Left wrist brace. Dx left wrist pain, See Instructions, # 1 each, Refills 0, Tot. Refills 0, Maintenance, Wear as tolerated Dx: Left wrist scaphoid fracture (S62.002A) Left wrist pain (M25.532), 05/02/21 9:46:00 EDT, [facility] [phone], Supply Start Date: 05/02/21 Status: Ordered lidocaine 5% topical ointment 1 application, Topically, 3 times a day, for 14 days, wash hands thoroughly after application, # 50Gm, 0 Refills, Acute 01/16/22 18:36:00 EST, 01/02/22 18:36:00 EST, Ointment, [facility]-, Partial fill upon patient request if... Start Date: 01/02/22 Stop Date: 01/16/22 Status: Ordered loratadine 10 mg oral tablet 10 mg, 1, tablet, By Mouth, Daily, for 30 days, # 30 tablet, Refills 0, Tot. Refills 0, Acute 01/29/22 16:34:00 EST, 12/30/21 16:34:00 EST, Route to Pharmacy Electronically, [facility]-, Partial fill upon patient request [...] 01/06/22 13:25:00 EST, 12/07/21 13:25:00EDT, ER Tablet, [place] [id number]... Start Date: 12/07/21 Stop Date: 01/06/22 Status: [...] Care Nurse Name: Harshil Cardoso RN Position: [facility] RN Member Role: Primary Care Nurse Name: Lionel Ludwig MD Position: [facility] Renal Member Role: Lifetime Consulting Physician Address: Address: [address] [place] [address], [address] [facility] [address] Name: Rowan Alvarez RN Position: [facility] HBO Wound Member Role: Primary Care Nurse Name: Tala Plasencia RN Position: [facility] RN Member Role: Primary Care Nurse Name: Franklin Seth RN Position: [facility] RN Member Role: Primary Care Nurse Name: Kathy Honeycutt Position: [facility] RN Member Role: Primary Care Nurse Name: Az Pham RN Position: [facility] ED RN W/OE and Tasks Member Role: Primary Care Nurse Name: Libertad Olmos RN Position: [facility] RN Member Role: Primary Care Nurse Name: Daily Mane RN Position: [facility] RN Member Role: Primary Care Nurse Name: Meri Barker RN Position: [facility] ED RN W/OE and Tasks Member Role: Primary Care Nurse Name: Katelynn Milan RN Position: [facility] PCO RN Member Role: Primary Care Nurse Name: Mae Brennan NP Position: [facility] PCO Associate Professional Member Role: PCP Address: Address: [address] [place] [address]- [place] Name: Deborah Gusman RN Position: [facility] Radio Tower Technician Member Role: Primary Care Nurse Name: Chito Powers RN Position: [facility] RN Member Role: Primary Care Nurse Name: Antonio Velasquez RN Position: [facility] RN Member Role: Primary Care Nurse Name: Alexey Raoms RN Position: [facility] RN Member Role: Primary Care Nurse Name: Crow Burk MD Position: [facility] Renal MD Member Role: Lifetime Consulting Physician Address: Address: [address] [place] [address] [facility] [place] [address]- [place] Name: Emelyn Corbin RN Position: [facility] RN Member Role: Primary Care Nurse Name: Aurea Gutierrez RN Position: [facility] RN Member Role: Primary Care Nurse Care Team Related Persons Name: CHARLES FRANKLIN Address: [address] [place] [address]
--- OUTSIDE RECORDS SUMMARY | 2023-09-14 23:06 | XMS_ITS | Continuity of Care Document ---
Author Organization [facility] ter Address [address] [place] [address]- Care Team Providers Care Spring Tier Name Role Phone Mika CLAY, Mae Serrano Primary Care Physician Encounter [facility] [place] Date(s): 01/16/20 - 02/27/[address] [address] Attending Physician: Cam Mccall MD Admitting [...]
--- OUTSIDE RECORDS SUMMARY | 2023-09-14 23:06 | XMS_ITS | Continuity of Care Document ---
Author Organization [facility] ter Address [address] [place] [address]- Care Team Providers Care Quarter Inspector Name Role Phone Mika CLAY, Mae Serrano Primary Care Physician Encounter [facility] [place] Date(s): 01/16/20 - 02/20/[address] [address] Attending Physician: Cam Mccall [...] 02/19/20 10:39:00 EST, Route to Pharmacy Electronically, [facility], Partial fill upon patient request [...]
--- OUTSIDE RECORDS SUMMARY | 2023-09-14 23:06 | XMS_ITS | Continuity of Care Document ---
Author Organization [facility] Adult Address [address] [place] [address]- Care Team Providers Care Electronics Technician Name Role Phone Mika CLAY, Mae Serrano Primary Care Physician [phone] Encounter [facility] [place] Date(s): 12/08/21 - 01/07/22 [facility] Adult [address] [place] [address]- Allergies, Adverse Reactions, Alerts Substance Reaction Severity Status lithium unknown Active Immunizations Given and Recorded Vaccine Date Status Refusal Reason SARS-CoV-2 mRNA (gbzdrlf-hdad-qzhoh) vax 03/14/21 Recorded SARS-CoV-2 (COVID-19) mRNA BNT-162b2 [...] 1 Refills, Maintenance, 10/27/21 9:31:00 EDT, Capsule, [facility]-, Partial f... Start Date: 10/27/21 Status: [...] Acute 01/12/22 15:15:00 EST, 12/29/21 15:15:00 EST, [place], [facility]-, Partial fill upon patient request if the prescription is for a sche... Start Date: 12/29/21 Stop Date: 01/12/22 Status: Ordered Knee Support See Instructions, # 1 each, Maintenance, Right knee brace Dx: bilateral tibial plateau fracture (S82.143A) Bilateral tibial avulsion (S82.153A), 05/02/21 9:45:00 EDT, [facility] [phone], Supply Start Date: 05/02/21 Status: Ordered Knee Support See Instructions, # 1 each, Maintenance, Left knee brace Dx: bilateral tibial plateau fracture (S82.143A) Bilateral tibial avulsion (S82.153A), 05/02/21 9:48:00 EDT, [facility] [id number], Supply Start Date: 05/02/21 Status: Ordered Left wrist brace. Dx left wrist pain Left wrist brace. Dx left wrist pain, See Instructions, # 1 each, Refills 0, Tot. Refills 0, Maintenance, Wear as tolerated Dx: Left wrist scaphoid fracture (S62.002A) Left wrist pain (M25.532), 05/02/21 9:46:00 EDT, [facility] [phone], Supply Start Date: 05/02/21 Status: Ordered lidocaine 5% topical ointment 1 application, Topically, 3 times a day, for 14 days, wash hands thoroughly after application, # 50Gm, 0 Refills, Acute 01/16/22 18:36:00 EST, 01/02/22 18:36:00 EST, Ointment, [facility]-, Partial fill upon patient request if... Start Date: 01/02/22 Stop Date: 01/16/22 Status: Ordered loratadine 10 mg oral tablet 10 mg, 1, tablet, By Mouth, Daily, for 30 days, # 30 tablet, Refills 0, Tot. Refills 0, Acute 01/29/22 16:34:00 EST, 12/30/21 16:34:00 EST, Route to Pharmacy Electronically, [facility]-, Partial fill upon patient request if the... [...] Team Personnel Name: Naty Malcolm RN Position: [facility] RN Member Role: Primary Care Nurse Name: Harshil Cardoso RN Position: [facility] RN Member Role: Primary Care Nurse Name: Lionel Ludwig MD Position: [facility] Renal MD Member Role: Lifetime Consulting Physician Address: Address: [address] [place] [address], [address] [facility] [address] Name: oRwan Alvarez RN Position: [facility] HBO Wound Member Role: Primary Care Nurse Name: Tala Plasencia RN Position: [facility] RN Member Role: Primary Care Nurse Name: Franklin Seth RN Position: [facility] RN Member Role: Primary Care Nurse Name: Kathy Honeycutt Position: [facility] RN Member Role: Primary Care Nurse Name: Az Pham RN Position: [facility] ED RN W/OE and Tasks Member Role: Primary Care Nurse Name: Libertad Olmos RN Position: [facility] RN Member Role: Primary Care Nurse Name: Daily Mane RN Position: [facility] RN Member Role: Primary Care Nurse Name: Meri Barker RN Position: [facility] ED RN W/OE and Tasks Member Role: Primary Care Nurse Name: Katelynn Milan RN Position: [facility] PCO RN Member Role: Primary Care Nurse Name: Mae Brennan NP Position: [facility] PCO Associate Professional Member Role: PCP Address: Address: [address] [place] [address]- Name: Deborah Gusman RN Position: [facility] Beef Cattle Farmer Member Role: Primary Care Nurse Name: Gio RNChito Position: [facility] RN Member Role: Primary Care Nurse Name: Antonio Velasquez RN Position: [facility] RN Member Role: Primary Care Nurse Name: Alexey Ramos RN Position: [facility] RN Member Role: Primary Care Nurse Name: Crow Burk MD Position: [facility] Renal MD Member Role: Lifetime Consulting Physician Address: Address: [address] [place] [address] [facility] [place] [address]- Name: Emelyn Corbin RN Position: [facility] RN Member Role: Primary Care Nurse Name: Aurea Gutierrez RN Position: [facility] RN Member Role: Primary Care Nurse Care Team Related Persons Name: CHARLES FRANKLIN Address: [address] [place] [address]
--- OUTSIDE RECORDS SUMMARY | 2023-09-14 23:06 | XMS_ITS | Continuity of Care Document ---
Author Organization [facility] Adult Address [address] [place] [address]- Care Team Providers Care Relief Master Name Role Phone Mika CLAY, Mae Serrano Primary Care Physician [phone] Encounter [facility] [place] Date(s): 05/02/21 - 06/01/21 [facility] Adult [address] [place] [address]- Attending Physician: Liliana Wood Admitting Physician: Admtr, Liliana Referring Physician: Admtr, Ar8 Allergies, Adverse Reactions, Alerts Substance Reaction Severity Status lithium unknown Active Immunizations Given and Recorded Vaccine Date Status Refusal Reason SARS-CoV-2 mRNA (vbmzwnh-ldmy-bfstx) vax 03/14/21 Recorded SARS-CoV-2 (COVID-19) mRNA BNT-162b2 [...] tibial avulsion (S82.153A), 05/02/21 9:45:00 EDT, [facility] [id number], Supply Start Date: 05/02/21 Status: Ordered Knee [...]
--- OUTSIDE RECORDS SUMMARY | 2023-09-14 23:06 | XMS_ITS | Continuity of Care Document ---
Author Organization [facility] Adult Address [address] [place] [address]- Care Team Providers Care Sanitation Superintendent Name Role Phone Mika CLAY, Mae Serrano Primary Care Physician Encounter [facility] [place] [facility] Date(s): 03/02/21 - 03/09/21 [facility] Adult [address] [place] [address]- Attending Physician: Not on Staff, Attending MD [...] brace w/ vlecro aiden bandage material Dx: Chronic low back pain (M54.9) Unsteady Gait (R6.81) Life long (99), 03/03/21 12:43:00 ROSINA CEBALLOS [phone], Supply Start Date: 03/03/21 Status: Ordered benztropine 2 mg oral tablet 1 tablet = 2 mg, By Mouth, 2 times a day, Maintenance, 06/01/20 13:02:00 EDT, Tablet, Partial fill upon patient request if the prescription is for a schedule II opioid drug. Start Date: 06/01/20 Status: Ordered Cane See Instructions, # 1 each, Maintenance, 4 Prong Cane Dx: Chronic low back pain (M54.9) Unsteady Gait (R6.81) Life long (99), 03/03/21 12:43:00 ROSINA CEBALLOS [phone], Supply Start Date: 03/03/21 Status: Ordered celecoxib 200 mg oral capsule 1 capsule, By Mouth, 2 times a day, PRN NEEDED FOR MODERATE PAIN *THE CONTENTS OF, for 30 days, MAY BE MIXED WITH., # 60 capsule, 0 Refills, Physician Stop 04/01/21 9:09:00 EST, 03/02/21 9:09:00 EST, [facility]- [id number], 180, cm, 01... Start Date: 03/02/21 Stop Date: 04/01/21 Status: Ordered divalproex sodium 250 mg oral [...] 1 each, Maintenance, Right knee brace Dx: R Knee pain (M25.561), 03/03/21 12:43:00 ROSINA CEBALLOS [phone], Supply Start Date: 03/03/21 Status: Ordered Left wrist brace. Dx left wrist pain Left wrist brace. Dx left wrist pain, See Instructions, # 1 each, Refills 0, Tot. Refills 0, Maintenance, Wear as tolerated Dx: Left wrist pain M25.532, 03/03/21 12:43:00 ROSINA CEBALLOS [phone], Supply Start Date: 03/03/21 Status: Ordered pantoprazole 40 mg oral delayed [...] oldest [Reference Range]: 1 Height 180 cm (03/02/21 8:13 AM) Social History Social History Type Response Smoking Status Current every day sm oker; Other: 1 pack per since age 9 years; entered on: 03/09/17 Sex
--- OUTSIDE RECORDS SUMMARY | 2023-09-14 23:07 | XMS_ITS | Continuity of Care Document ---
Author Organization [facility] Adult Address [address] [place] [address]- Care Team Providers Care Porcelain Slusher Name Role Phone Mika CLAY, Mae Serrano Primary Care Physician Encounter [facility] Date(s): 12/18/22 - 01/17/23 [facility] Adult [address] [place] [address]- Allergies, Adverse Reactions, Alerts No Known Medication Allergies Immunizations Given and Recorded Vaccine Date Status Refusal Reason SARS-CoV-2(COVID-19)mRNA-LNP vac([id number]) 12/18/22 Recorded influenza virus vaccine, inactivated 11/15/22 Preet rded [id number] bivalent booster vax 12/16/21 Recorded SARS-CoV-2 mRNA ([id number]) vax 03/14/21 Recorded SARS-CoV-2 (COVID-19) mRNA BNT-162b2 [...] 11:33:00 EST, Inhaler, Route to Pharmacy Electronically, NCPDP_[id number], [facility]-[id number], 176, cm, 01/04/23 10:48:00 EST, Height... Start [...] Gm, 3 Refills, Maintenance, 01/04/23 11:38:00 EST, [place], Partial fill upon patient request if the [...] nostril, # 30 mL, 0 Refills, Acute 01/18/23 11:34:00 EST, 01/04/23 11:34:00 EST, [facility], Partial fill upon patient request if the pr... Start Date: 01/04/23 Stop Date: 01/18/23 Status: Ordered ipratropium nasal 21 mcg/inh spray [...] tibial avulsion (S82.153A), 05/02/21 9:45:00 ROSINA NOWAK [phone], Supply Start Date: 05/02/21 Status: Ordered Knee Support See Instructions, # 1 each, Maintenance, Left knee brace Dx: bilateral tibial plateau fracture (S82.143A) Bilateral tibial avulsion (S82.153A), 05/02/21 9:48:00 ROSINA NOWAK [phone], Supply Start Date: 05/02/21 Status: Ordered Left wrist brace. Dx left wrist pain Left wrist brace. Dx left wrist pain, See Instructions, # 1 each, Refills 0, Tot. Refills 0, Maintenance, Wear as tolerated Dx: Left wrist scaphoid fracture (S62.002A) Left wrist pain (M25.532), 05/02/21 9:46:00 ROSINA NOWAK [phone], Supply Start Date: 05/02/21 Status: Ordered levocetirizine 5 mg oral tablet 1 tablet = 5 mg, By Mouth, Daily in PM, # 90 tablet, 0 Refills, Maintenance, 01/04/23 11:32:00 EST,Tablet, Partial fill upon patient request if the prescription is for a schedule II opioid drug. Start Date: 01/04/23 Status: Ordered naproxen 500 mg oral delayed release tablet 1 tablet = 500 mg, By Mouth, 2 times a day, PRN Pain , Moderate, for 14 days, with food do not chewor break tablets, # 28 tablet, 0 Refills, Acute 01/18/23 11:32:00 EST, 01/04/23 11:32:00 EST, [facility] Tablet, Partial fill upon patient request if the pres... Start Date: 01/04/23 Stop Date: 01/18/23 Status: Ordered pantoprazole 40 mg oral delayed [...] Team Personnel Name: Naty Malcolm RN Position: [facility] RN Member Role: Primary Care Nurse Name: Harshil Cardoso RN Position: [facility] RN Member Role: Primary Care Nurse Name: Meri Lima RN Position: [facility] ED RN W/OE and Tasks Member Role: Primary Care Nurse Name: Lionel Ludwig MD Position: [facility] Renal MD Member Role: Lifetime Consulting Physician Address: Address: [address] [place] [address] [address] [facility] [place] [address]- Name: Rowan Alvarez RN Position: [facility] HBO Wound Member Role: Primary Care Nurse Name: Tala Plasencia RN Position: [facility] RN Member Role: Primary Care Nurse Name: Franklin Seth RN Position: [facility] RN Member Role: Primary Care Nurse Name: Kathy Honeycutt Position: [facility] RN Member Role: Primary Care Nurse Name: Gideon Miller RN Position: [facility] SN RN Member Role: Primary Care Nurse Name: Az Pham RN Position: [facility] ED RN W/OE and Tasks Member Role: Primary Care Nurse Name: Libertad Olmos RN Position: [facility] RN Member Role: Primary Care Nurse Name: Daily Mane RN Position: [facility] RN Member Role: Primary Care Nurse Name: Katelynn Milan RN Position: [facility] AMB Nurse Member Role: Primary Care Nurse Name: Mae Brennan NP Position: [facility] PCO Associate Professional Member Role: PCP Address: Address: [address] [place] [id number]- Name: Belinda Gusman RN Position: [facility] Billing Services Manager Member Role: Primary Care Nurse Name: Chito Powers RN Position: [facility] RN Member Role: Primary Care Nurse Name: Antonio Velasquez RN Position: [facility] RN Member Role: Primary Care Nurse Name: Alexey Ramos RN Position: [facility] RN Member Role: Primary Care Nurse Name: Crow Burk MD Position: [facility] Renal MD Member Role: Lifetime Consulting Physician Address: Address: [address] [place] [address] [facility] [place] [address]- Name: Emelyn Corbin RN Position: [facility] RN Member Role: Primary Care Nurse Name: Aurea Gutierrez RN Position: [facility] RN Member Role: Primary Care Nurse Care Team Related Persons Name: CHARLES FRANKLIN Address: [place] [address]
--- OUTSIDE RECORDS SUMMARY | 2023-09-14 23:07 | XMS_ITS | Continuity of Care Document ---
Author Organization [facility] ter Address [address] [place] [id number]- Care Team Providers Care Biofuels Manager Name Role Phone Mika CLAY, Mae Serrano Primary Care Physician Encounter [facility] Date(s): 01/16/20 - 02/16/[address] [id number] Attending Physician: Cam [...]
--- OUTSIDE RECORDS SUMMARY | 2023-09-14 23:07 | XMS_ITS | Continuity of Care Document ---
Author Organization [facility] Adult Address [address] [place] [address]- Care Team Providers Care Vinyl Flooring Installer Name Role Phone Mika CLAY, Mae Serrano Primary Care Physician Encounter [facility] [place] Date(s): 01/04/23 - 02/03/23 [facility] Adult [address] [place] [id number]- Attending Physician: Admtr, Ar8 Admitting Physician: Admtr, Ar8 Referring Physician: Admtr, Ar8 Allergies, Adverse Reactions, Alerts No Known Medication Allergies Immunizations Given and Recorded Vaccine Date Status Refusal Reason SARS-CoV-2(COVID-19)mRNA-LNP vac([id number]) 12/18/22 Recorded influenza virus vaccine, inactivated 11/15/22 Preet rded [id number] bivalent booster vax 12/16/21 Recorded SARS-CoV-2 mRNA ([id number]-azpw-usjxe) vax 03/14/21 Recorded SARS-CoV-2 (COVID-19) mRNA BNT-162b2 vac 04/30/20 Recorded SARS-CoV-2 (COVID-19) mRNA BNT-162b2 vac 04/01/20 Recorded tetanus/diphtheria/pertussis, acel(Tdap) 03/09/17 Given Medications albuterol CFC free 90 mcg/inh inhalation aerosol 2, puffs, Inhalation, 4 times a day, PRN, # 6.7 Gm, Refills 0, Tot. Refills 0, Maintenance, 02/03/23 11:33:00 EST, Inhaler, Route to Pharmacy Electronically, NCPDP_[id number], [facility]-, 176, cm, 01/04/23 10:48:00 EST, Height... Start Date: 02/03/23 Stop Date: 03/05/23 Status: Ordered Anoro Ellipta 62.5 mcg-25 mcg/inh inhalation powder 1 puffs, Inhalation, Daily, # 1 each, 11 Refills, Maintenance, 02/01/23 10:55:00 EST, [facility] upon patient request if the prescription is for a schedule II opioid drug., 1 puffs Inhalation Daily,x30 da... Start Date: 02/01/23 Stop Date: 01/27/24 Status: Ordered Banophen 25 mg oral capsule 1 capsule, By Mouth, 3 times a day, PRN NEEDED FOR ALLERGY SYMTPOMS, # 90 capsule, 6 Refills, Maintenance, 01/31/23 8:41:00 EST, [employer] [facility]-, 176, cm, 01/04/23 10:48:00 EST, Height, 70,kg, [...] Gm, 3 Refills, Maintenance, 01/04/23 11:38:00 EST, [facility], Partial fill upon patient request if the [...] Bilateral tibial avulsion (S82.153A), 05/02/21 9:45:00 EDTROSINA [phone], Supply Start Date: 05/02/21 Status: Ordered Knee Support See Instructions, # 1 each, Maintenance, Left knee brace Dx: bilateral tibial plateau fracture (S82.143A) Bilateral tibial avulsion (S82.153A), 05/02/21 9:48:00 EDTROSINA [phone], Supply Start Date: 05/02/21 Status: Ordered Left wrist brace. Dx left wrist pain Left wrist brace. Dx left wrist pain, See Instructions, # 1 each, Refills 0, Tot. Refills 0, Maintenance, Wear as tolerated Dx: Left wrist scaphoid fracture (S62.002A) Left wrist pain (M25.532), 05/02/21 9:46:00 EDTROSINA [phone], Supply Start Date: 05/02/21 Status: Ordered levocetirizine [...] oker; Type: Cigarettes entered on: 09/13/16 Sex Hospital Consult note * Event Display: Inpatient Consult Note, Non-BH Authored Date: * Event Display: Inpatient Consult Note, Non-BH Authored Date: Laboratory * Event Display: Non BH Lab Results Authored Date: * Event Display: Non BH Lab Results Authored Date: * Event Display: Non BH Lab Results Authored Date: Radiology * Event Display: X-Ray Hand/Wrist Authored Date: Patient Care team information Care Team Personnel Name: Naty Malcolm RN Position: [facility] RN Member Role: Primary Care Nurse Name: Harshil Cardoso RN Position: [facility] RN Member Role: Primary Care Nurse Name: Meri Lima RN Position: [facility] ED RN W/OE and Tasks Member Role: Primary Care Nurse Name: Lionel Ludwig MD Position: [facility] Renal MD Member Role: Lifetime Consulting Physician Address: Address: [address] [place] [address] [address] [facility] [address]- Name: Rowan Alvarez RN Position: [facility] HBO Wound Member Role: Primary Care Nurse Name: Tala Plasencia RN Position: [facility] RN Member Role: Primary Care Nurse Name: Franklin Seth RN Position: [facility] RN Member Role: Primary Care Nurse Name: Kathy Honeycutt Position: [facility] RN Member Role: Primary Care Nurse Name: Gideon Miller RN Position: [facility] SN RN Member Role: Primary Care Nurse Name: Az Pham RN Position: [facility] ED RN W/OE and Tasks Member Role: Primary Care Nurse Name: Libertad Olmos RN Position: [facility] RN Member Role: Primary Care Nurse Name: Daily Mane RN Position: [facility] RN Member Role: Primary Care Nurse Name: Katelynn Milan RN Position: [facility] AMB Nurse Member Role: Primary Care Nurse Name: Mae Brennan NP Position: [facility] PCO Associate Professional Member Role: PCP Address: Address: [address] [place] [address] [address] [place] [address]- [place] Name: Belinda Gusman RN Position: [facility] Molder Floor Member Role: Primary Care Nurse Name: Chito Powers RN Position: [facility] RN Member Role: Primary Care Nurse Name: Antonio Velasquez RN Position: [facility] RN Member Role: Primary Care Nurse Name: Alexey Ramos RN Position: [facility] RN Member Role: Primary Care Nurse Name: Crow Burk MD Position: [facility] Renal MD Member Role: Lifetime Consulting Physician Address: Address: [address] [place] [address] [facility] [place] [address]- Name: Emelyn Corbin RN Position: [facility] RN Member Role: Primary Care Nurse Name: Aurea Gutierrez RN Position: [facility] RN Member Role: Primary Care Nurse Care Team Related Persons Name: CHARLES FRANKLIN Address: [address] [place] [address]
--- OUTSIDE RECORDS SUMMARY | 2023-09-14 23:07 | XMS_ITS | Continuity of Care Document ---
Author Organization [facility] ter Address [address] [place] [address]- Care Team Providers Care Pattern Perforating Machine Operator Name Role Phone Mika CLAY, Mae Serrano Primary Care Physician Encounter [facility] Date(s): 09/08/19 - 10/08/[address] [address]- [facility] Encounter Diagnosis Spinal epidural abscess(Final) - 09/08/19 Spinal epidural abscess(Final) - 09/09/19 Discharge Disposition: Transfer Assisted Care Attending Physician: yJothi Mayes MD Admitting Physician: Ravin Mena MD Referring Physician: Not on Staff, Referring MD Allergies, Adverse Reactions, Alerts Substance Reaction Severity Status lithium unknown Active Immunizations Given and Recorded Vaccine Date Status Refusal Reason tetanus/diphtheria/pertussis, acel(Tdap) 03/09/17 Given Not Given Vaccine Date Status Refusal Reason pneumococcal 23-valent vaccine 09/28/19 Not Given Patient Refuses pneumococcal 23-valent vaccine 09/11/19 Not Given Patient Refuses Medications Ativan 1 mg oral tablet 1 tablet = 1 mg, By Mouth, Daily, PRN Anxiety Agitation, for 3 days, # 3 tablet, 0 Refills, Acute10/11/19 8:32:00 EDT, 10/08/19 8:32:00 EDT, Tablet Start Date: 10/08/19 Stop Date: 10/11/19 Status: Ordered benztropine 1 mg oral tablet 2 mg, 2, tablet, By Mouth, 2 times a day, Refills 0, Maintenance, 09/29/19 14:53:00 EDT Start Date: 09/29/19 Status: Ordered busPIRone 10 mg oral tablet 10 mg, 1, tablet, By Mouth, 2 times a day, Refills 0, Maintenance, 10/08/19 8:33:00 EDT Start Date: 10/08/19 Status: Ordered Dilaudid 4 mg oral tablet 0.5 tablet = 2 mg, By Mouth, Every 4 hours, PRN Pain , Severe, for 3 days, # 10 tablet, 0 Refills, Acute 10/11/19 8:32:00 EDT, 10/08/19 8:32:00 EDT, Tablet, Partial fill upon patient request Start Date: 10/08/19 Stop Date: 10/11/19 Status: Ordered divalproex sodium 250 mg oral [...] Active Suture granuloma(Confirmed) Active Tobacco dependence(Confirmed) Active Procedures Procedure Date Related Diagnosis Body Site Status Dressing change (for other t matthew nolasco) under anesthesia (other than local) 1 09/20/19 Completed Arthrotomy, knee, with explo ration, drainage, or removal of foreign body (eg, infection) 2 09/11/19 Completed Incision and drainage, leg o r ankle; deep abscess or hematoma 3 09/11/19 Compl eted 1Left medial calf wound, expressed 30 to 40 cc of bloody mucopurulent appearing drainage, wound edges remained wide open, irrigated with bulb syringe, and skin edges held open with moist gauze only, no deep packing. Done under monitored anesthesia care because of patient's refusal to allow dressing changes at the bedside. 2Left knee 3Left calf, 300 cc of purulent bloody fluid from posterior medial aspect of calf Results Orders for Microbiology Reports Name Date Blood Culture #2 09/13/19 Anaerobic Culture (ANAEROBIC CULTURE) Anaerobic Culture (ANAEROBIC CULTURE) Sterile Body Fluid Culture W/ Gram Smear (STERILE FLUID CULT.) 09/11/19 Wound Deep Culture w/ Gram Smear (DEEP W OUND CULTURE) 09/11/19 Blood Culture #2 09/11/19 Anaerobic Culture (Culture Anaerobic) Sterile Body Fluid Culture W/ Gram Smear 09/09/19 Anaerobic Culture (Culture Anaerobic) Sterile Body Fluid Culture W/ Gram Smear 09/08/19 Microbiology Reports (Most Recent Ten) TEST:Blood Culture, Second Order STATUS:Auth (Verified) BODY SITE: SOURCE:Blood COLLECTED DATE/TIME:09/13/19 10:00 AM Blood Culture, Second Order SPECIMEN DESCRIPTION : BLOOD R ARM SPECIAL REQUESTS : NONE CULTURE : NO GROWTH 5 DAYS. REPORT STATUS : FINAL 09/18/2019 TEST:Anaerobic Culture STATUS:Auth (Verified) BODY SITE: SOURCE:ABSCES COLLECTED DATE/TIME:09/11/19 10:35 AM Anaerobic Culture SPECIMEN DESCRIPTION : ABSCESS LEFT CALF SPECIAL REQUESTS : NONE CULTURE : NO ANAEROBES ISOLATED REPORT STATUS : FINAL 09/16/2019 TEST:Anaerobic Culture STATUS:Auth (Verified) BODY SITE: SOURCE:FLUID COLLECTED DATE/TIME:09/11/19 10:35 AM Anaerobic Culture SPECIMEN DESCRIPTION : FLUID LEFT KNEE FLUID SPECIAL REQUESTS : NONE CULTURE : NO ANAEROBES ISOLATED REPORT STATUS : FINAL 09/16/2019 TEST:Deep Wound Culture STATUS:Auth (Verified) BODY SITE: SOURCE:ABSCES COLLECTED DATE/TIME:09/11/19 10:35 AM Deep Wound Culture SPECIMEN DESCRIPTION : ABSCESS LEFT CALF SPECIAL REQUESTS : NONE GRAM STAIN : 4+ POLYMORPHONUCLEAR LEUKOCYTES 2+ GRAM POSITIVE COCCI CULTURE : 4+ STAPHYLOCOCCUS AUREUS. REPORT STATUS : FINAL 09/13/2019 ORGANISM 4+ STAPHYLOCOCCUS AUREUS. METHOD MIN. INHIB. CONC. (MCG/ML) CIPROFLOXACIN SUSCEPTIBLE CLINDAMYCIN SUSCEPTIBLE ERYTHROMYCIN SUSCEPTIBLE LEVOFLOXACIN SUSCEPTIBLE OXACILLIN SUSCEPTIBLE PENICILLIN RESISTANT RIFAMPIN SUSCEPTIBLE RIFAMPIN RIFAMPIN SHOULD NOT BE USED ALONE FOR ANTIMICROBIAL RIFAMPIN THERAPY. TETRACYCLINE SUSCEPTIBLE TRIMETH/SULFAMETHOX SUSCEPTIBLE VANCOMYCIN SUSCEPTIBLE TEST:Sterile Fluid Culture STATUS:Auth (Verified) BODY SITE: SOURCE:FLUID COLLECTED DATE/TIME:09/11/19 10:35 AM Sterile Fluid Culture SPECIMEN DESCRIPTION : FLUID LEFT KNEE FLUID SPECIAL REQUESTS : NONE GRAM STAIN : 4+ POLYMORPHONUCLEAR LEUKOCYTES NO ORGANISMS SEEN CULTURE : 2+ STAPHYLOCOCCUS AUREUS. CRITICAL VALUE CALLED AND VERIFIED BY READBACK FOR: CULTURE REPORT TO M5, EMP [id number], BY TECH 187 AT 1056, 09/12/19 REPORT STATUS : FINAL 09/13/2019 ORGANISM 2+ STAPHYLOCOCCUS AUREUS. METHOD MIN. INHIB. CONC. (MCG/ML) CIPROFLOXACIN SUSCEPTIBLE CLINDAMYCIN SUSCEPTIBLE ERYTHROMYCIN SUSCEPTIBLE LEVOFLOXACIN SUSCEPTIBLE OXACILLIN SUSCEPTIBLE PENICILLIN RESISTANT RIFAMPIN SUSCEPTIBLE RIFAMPIN RIFAMPIN SHOULD NOT BE USED ALONE FOR ANTIMICROBIAL RIFAMPIN THERAPY. TETRACYCLINE SUSCEPTIBLE TRIMETH/SULFAMETHOX SUSCEPTIBLE VANCOMYCIN SUSCEPTIBLE TEST:Blood Culture, Second Order STATUS:Auth (Verified) BODY SITE: SOURCE:Blood COLLECTED DATE/TIME:09/11/19 6:51 AM Blood Culture, Second Order SPECIMEN DESCRIPTION : BLOOD L SPECIAL REQUESTS : CRITICAL VALUE CALLED AND VERIFIED BY READBACK FOR: GRAM POSITIVE COCCI TO EN [id number], M5 ON 09/12/19 AT 14:30 BY TECH [id number] CULTURE : STAPHYLOCOCCUS AUREUS. REPORT STATUS : FINAL 09/14/2019 ORGANISM STAPHYLOCOCCUS AUREUS. METHOD MIN. INHIB. CONC. (MCG/ML) CIPROFLOXACIN SUSCEPTIBLE CLINDAMYCIN SUSCEPTIBLE ERYTHROMYCIN SUSCEPTIBLE LEVOFLOXACIN SUSCEPTIBLE OXACILLIN SUSCEPTIBLE PENICILLIN RESISTANT RIFAMPIN SUSCEPTIBLE RIFAMPIN RIFAMPIN SHOULD NOT BE USED ALONE FOR ANTIMICROBIAL RIFAMPIN THERAPY. TETRACYCLINE SUSCEPTIBLE TRIMETH/SULFAMETHOX SUSCEPTIBLE VANCOMYCIN SUSCEPTIBLE TEST:Anaerobic Culture STATUS:Auth (Verified) BODY SITE: SOURCE:ASPIRA COLLECTED DATE/TIME:09/08/19 11:52 PM Anaerobic Culture SPECIMEN DESCRIPTION : ASPIRATE KNEE LT SPECIAL REQUESTS : NONE CULTURE : NO ANAEROBES ISOLATED REPORT STATUS : FINAL 09/14/2019 TEST:Sterile Fluid Culture STATUS:Auth (Verified) BODY SITE: SOURCE:JOINT COLLECTED DATE/TIME:09/08/19 11:52 PM Sterile Fluid Culture SPECIMEN DESCRIPTION : JOINT FLUID L CALF ABSCESS SPECIAL REQUESTS : NONE GRAM STAIN : 4+ POLYMORPHONUCLEAR LEUKOCYTES 2+ GRAM POSITIVE COCCI CRITICAL VALUE CALLED AND VERIFIED BY READBACK FOR: CALLED TO [id number] ON AT 247 BY [id number] CULTURE : 4+ STAPHYLOCOCCUS AUREUS. CRITICAL VALUE CALLED AND VERIFIED BY READBACK FOR: [place] EMP [id number], BY TECH 187 AT 0910, 09/10/19. REPORT STATUS : FINAL 09/11/2019 ORGANISM 4+ STAPHYLOCOCCUS AUREUS. METHOD MIN. INHIB. CONC. (MCG/ML) CIPROFLOXACIN SUSCEPTIBLE CLINDAMYCIN SUSCEPTIBLE ERYTHROMYCIN SUSCEPTIBLE LEVOFLOXACIN SUSCEPTIBLE OXACILLIN SUSCEPTIBLE PENICILLIN RESISTANT RIFAMPIN SUSCEPTIBLE RIFAMPIN RIFAMPIN SHOULD NOT BE USED ALONE FOR ANTIMICROBIAL RIFAMPIN THERAPY. TETRACYCLINE SUSCEPTIBLE TRIMETH/SULFAMETHOX SUSCEPTIBLE VANCOMYCIN SUSCEPTIBLE TEST:Sterile Fluid Culture STATUS:Auth (Verified) BODY SITE: SOURCE:JOINT COLLECTED DATE/TIME:09/08/19 11:52 PM Sterile Fluid Culture SPECIMEN DESCRIPTION : JOINT FLUID L KNEE ASPIRATE SPECIAL REQUESTS : NONE GRAM STAIN : 4+ POLYMORPHONUCLEAR LEUKOCYTES 1+ GRAM POSITIVE COCCI CRITICAL VALUE CALLED AND VERIFIED BY READBACK FOR: CALLED TO [id number] ON AT 247 BY [id number] CULTURE : 4+ STAPHYLOCOCCUS AUREUS. CRITICAL VALUE CALLED AND VERIFIED BY READBACK FOR: JESSICA REPORT TO [facility] [place] E[place] [id number], BY TECH 187 AT 0910,, 09/10/19 REPORT STATUS : FINAL 09/11/2019 ORGANISM 4+ STAPHYLOCOCCUS AUREUS. METHOD MIN. INHIB. CONC. (MCG/ML) CIPROFLOXACIN SUSCEPTIBLE CLINDAMYCIN SUSCEPTIBLE ERYTHROMYCIN SUSCEPTIBLE LEVOFLOXACIN SUSCEPTIBLE OXACILLIN SUSCEPTIBLE PENICILLIN RESISTANT RIFAMPIN SUSCEPTIBLE RIFAMPIN RIFAMPIN SHOULD NOT BE USED ALONE FOR ANTIMICROBIAL RIFAMPIN THERAPY. TETRACYCLINE SUSCEPTIBLE TRIMETH/SULFAMETHOX SUSCEPTIBLE VANCOMYCIN SUSCEPTIBLE TEST:Anaerobic Culture STATUS:Auth (Verified) BODY SITE: SOURCE:ASPIRA COLLECTED DATE/TIME:09/08/19 11:52 PM Anaerobic Culture SPECIMEN DESCRIPTION : ASPIRATE LEG LT SPECIAL REQUESTS : NONE CULTURE : NO ANAEROBES ISOLATED REPORT STATUS : FINAL 09/14/2019 Radiology Reports * Exam Date Time Procedure Performing Provider Status 09/22/19 12:13 PM Chest Portable Mary Funes; Auth (V erified) Notes: (Chest Portable) Reason For Exam: Lung CA RESULT: Chest Portable Chest Portable Refer to EMR; Reason: Lung CA; Clinical Question(s): Lung Ca; COMPARISON: None. FINDINGS: No acute cardiopulmonary process. No evidence of pulmonary mass. IMPRESSION: No acute cardiopulmonary process. Normal exam. WSN: [id number] Ordering Physician: Doni Sales Dictated By: Dallin Penny MD Dictated Date/Time: 09/22/19 12:20 p Reviewed By: Dallin Penny MD Signed By: Dallin Penny MD Signed Date/Time: 09/22/19 12:20 pm Transcribed By: BOSTON Transcribed Date/Time: 09/22/19 12:19 pm Vital Signs Most recent to oldest [Reference Range]: 1 2 3 Height 177 cm (10/08/19 4:34 AM) 177 cm (10/07/19 8:02 PM) 177 cm (10/07/19 1:04 PM) Weight 53.3 kg (09/26/19 1:39 AM) 52 kg (09/21/19 3:11 AM) 52.4 kg (09/20/19 3:41 PM) Oxygen Saturation [94-100 %] 98 % (10/08/19 4:34 AM) 98 % (10/07/19 8:02 PM) 99 % (10/07/19 1:04 PM) Pulse Rate [55-90 bpm] 88 bpm (10/08/19 4:34 AM) 95 bpm *H* (10/07/19 8:02 PM) 85 bpm (10/07/19 1:04 PM) Body Mass Index [18.5-24.99] 17.01 *L* (09/26/19 1:39 AM) 16.6 *L* (09/21/19 3:11 AM) 16.73 *L* (09/20/19 3:41 PM) Blood Pressure [90-138/55-84 mm Hg] 97/61mm Hg (10/08/19 4:34 AM) 101/63mm Hg (10/07/19 8:02 PM) 98/61mm Hg (10/07/19 1:04 PM) Respiratory Rate [16-30 br/min] 18 br/min (10/08/19 9:06 AM) 18 br/min (10/08/19 4:34 AM) 18 br/min (10/08/19 1:54 AM) Temperature [96.8-100.4 DegF] 98.4 DegF (10/08/19 4:34 AM) 98.0 DegF (10/07/19 8:02 PM) 97.7 DegF (10/07/19 1:04 PM) Liters per Minute 5 L/min (09/20/19 4:45 PM) 5 L/min (09/20/19 4:30 PM) 2 L/min (09/11/19 12:26 PM) Mode of Delivery (Oxygen) Room air (10/08/19 4:34 AM) Room air (10/07/19 8:02 PM) Room air (10/07/19 1:04 PM) Blood pressure sites Arm, right (10/08/19 4:34 AM) Arm, right (10/07/19 8:02 PM) Arm, right (10/07/19 4:11 AM) Temperature Route Oral (10/08/19 4:34 AM) Oral (10/07/19 8:02 PM) Oral (10/07/19 1:04 PM) Dry Weight 45 kg (09/10/19 8:00 PM) Weight Obtained Via Bed scale (09/26/19 1:39 AM) Bed scale (09/21/19 3:11 AM) Bed scale (09/20/19 2:04 AM) Social History Social History Type Response Smoking Status Current every day sm afshan; Other: 1 pack per since age 9 years; entered on: 03/09/17 Sex
--- OUTSIDE RECORDS SUMMARY | 2023-09-14 23:07 | XMS_ITS | Continuity of Care Document ---
Author Organization [facility] Address [address] [place] [address]- Care Team Providers Care Treasury Management Sales Consultant Name Role Phone Mika CLAY, Mae Serrano Primary Care Physician [phone] Encounter [facility] Date(s): 01/05/23 - 02/04/23 [facility] [address] [place] [address]- Allergies, Adverse Reactions, Alerts No Known Medication Allergies Immunizations Given and Recorded Vaccine Date Status Refusal Reason SARS-CoV-2(COVID-19)mRNA-LNP vac([id number]) 12/18/22 Recorded influenza virus vaccine, inactivated 11/15/22 Preet rded [id number] bivalent booster vax 12/16/21 Recorded SARS-CoV-2 mRNA ([id number]) vax 03/14/21 Recorded SARS-CoV-2 (COVID-19) mRNA BNT-162b2 vac 04/30/20 Recorded SARS-CoV-2 (COVID-19) mRNA BNT-162b2 vac 04/01/20 Recorded tetanus/diphtheria/pertussis, acel(Tdap) 03/09/17 Given Medications albuterol CFC free 90 mcg/inh inhalation aerosol 2, puffs, Inhalation, 4 times a day, PRN, # 6.7 Gm, Refills 0, Tot. Refills 0, Maintenance, 02/03/23 11:33:00 EST, Inhaler, Route to Pharmacy Electronically, NCPDP_[id number], [facility]-, 176, cm, 01/04/23 10:48:00 EST, Height... Start Date: 02/03/23 Stop Date: 03/05/23 Status: Ordered Anoro Ellipta 62.5 mcg-25 mcg/inh inhalation powder 1 puffs, Inhalation, Daily, # 1 each, 11 Refills, Maintenance, 02/01/23 10:55:00 EST, Powder, [facility] Partial fill upon patient request if the prescription is for a schedule II opioid drug., 1 puffs Inhalation Daily,x30 da... Start Date: 02/01/23 Stop Date: 01/27/24 Status: Ordered Banophen 25 mg oral capsule 1 capsule, By Mouth, 3 times a day, PRN NEEDED FOR ALLERGY SYMTPOMS, # 90 capsule, 6 Refills, Maintenance, 01/31/23 8:41:00 EST, [id number], 176, cm, 01/04/23 10:48:00 EST, Height, 70,kg, [...] Gm, 3 Refills, Maintenance, 01/04/23 11:38:00 EST, [place], Partial fill upon patient request if the [...] Bilateral tibial avulsion (S82.153A), 05/02/21 9:45:00 EDTROSINA [phone], Supply Start Date: 05/02/21 Status: Ordered Knee Support See Instructions, # 1 each, Maintenance, Left knee brace Dx: bilateral tibial plateau fracture (S82.143A) Bilateral tibial avulsion (S82.153A), 05/02/21 9:48:00 EDT, [facility] [phone], Supply Start Date: 05/02/21 Status: Ordered Left wrist brace. Dx left wrist pain Left wrist brace. Dx left wrist pain, See Instructions, # 1 each, Refills 0, Tot. Refills 0, Maintenance, Wear as tolerated Dx: Left wrist scaphoid fracture (S62.002A) Left wrist pain (M25.532), 05/02/21 9:46:00 EDROSINA Dalton [phone], Supply Start Date: 05/02/21 Status: Ordered levocetirizine [...] Malcolm RN Position: [facility] RN Member Role: Primary Care Nurse Name: Harshil Cardoso RN Position: [facility] RN Member Role: Primary Care Nurse Name: Meri Lima RN Position: [facility] ED RN W/OE and Tasks Member Role: Primary Care Nurse Name: Lionel Ludwig MD Position: [facility] Renal MD Member Role: Lifetime Consulting Physician Address: Address: [address] [place] [address] [address] [facility] [place] [address]- [place] Name: Rowan Alvarez RN Position: [facility] HBO Wound Member Role: Primary Care Nurse Name: Tala Plasencia RN Position: [facility] RN Member Role: Primary Care Nurse Name: Franklin Seth RN Position: [facility] RN Member Role: Primary Care Nurse Name: Kathy Honeycutt Position: [facility] RN Member Role: Primary Care Nurse Name: Gideon Miller RN Position: [facility] SN RN Member Role: Primary Care Nurse Name: Az Pham RN Position: [facility] ED RN W/OE and Tasks Member Role: Primary Care Nurse Name: Libertad Olmos RN Position: [facility] RN Member Role: Primary Care Nurse Name: Daily Mane RN Position: [facility] RN Member Role: Primary Care Nurse Name: Katelynn Milan RN Position: [facility] AMB Nurse Member Role: Primary Care Nurse Name: Mae Brennan NP Position: [facility] PCO Associate Professional Member Role: PCP Address: Address: [address] [place] [address]- [place] Name: Belinda Gusman RN Position: [facility] Hospital Patient Centered Care Specialist Member Role: Primary Care Nurse Name: Chito Powers RN Position: [facility] RN Member Role: Primary Care Nurse Name: Antonio Velasquez RN Position: [facility] RN Member Role: Primary Care Nurse Name: Alexey Ramos RN Position: [facility] RN Member Role: Primary Care Nurse Name: Crow Burk MD Position: [facility] Renal MD Member Role: Lifetime Consulting Physician Address: Address: [address] [place] [address] [facility] [place] [address]- [place] Name: Emelyn Corbin RN Position: [facility] RN Member Role: Primary Care Nurse Name: Aurea Gutierrez RN Position: [facility] RN Member Role: Primary Care Nurse Care Team Related Persons Name: CHARLES FRANKLIN Address: [place] [id number]
--- OUTSIDE RECORDS SUMMARY | 2023-09-14 23:07 | XMS_ITS | Continuity of Care Document ---
Author Organization [facility] Address [address] [place] [address]- Care Team Providers Care Transportation Maintenance Specialist Name Role Phone Mika CLAY, Mae Serrano Primary Care Physician Encounter [facility] Date(s): 07/03/23 - 08/02/23 [facility] [address] [place] [id number]- Allergies, Adverse Reactions, Alerts Substance Reaction Severity Status lithium bladder/ metabolism Active Immunizations Given and Recorded Vaccine Date Status Refusal Reason SARS-CoV-2(COVID-19)mRNA-LNP vac(fvl999) 12/18/22 Recorded influenza virus vaccine, inactivated 11/15/22 Preet rded [id number] bivalent booster vax 12/16/21 Recorded SARS-CoV-2 mRNA ([id number]-bqoy-ukdjk) vax 03/14/21 Recorded SARS-CoV-2 (COVID-19) mRNA BNT-162b2 vac 04/30/20 Recorded SARS-CoV-2 (COVID-19) mRNA BNT-162b2 vac 04/01/20 Recorded tetanus/diphtheria/pertussis, acel(Tdap) 03/09/17 Given Medications Albuterol (Eqv-Proventil HFA) 90 mcg/inh inhalation aerosol 2 puffs, Inhalation, 4 times a day, PRN NEEDED FOR WHEEZING, # 6.7 Gm, 0 Refills, Maintenance, 05/22/23 14:22:00 EDT, [facility] , 176, cm, 05/01/23 9:52:00 EDT, Height, [...] 6 Refills, Maintenance, 02/23/23 17:34:00 EST, [facility]/pharmacy #[id number], 176, cm, 02/16/23 13:04:00 EST, [...] Gm, 2 Refills, Maintenance, 05/08/23 18:38:00 EDT, [facility]-, 30, USE 1 SPRAY IN EACH NOSTRIL [...] tibial avulsion (S82.153A), 05/02/21 9:45:00 EDT, [facility]INA [phone], Supply Start Date: 05/02/21 Status: Ordered Knee Support See Instructions, # 1 each, Maintenance, Left knee brace Dx: bilateral tibial plateau fracture (S82.143A) Bilateral tibial avulsion (S82.153A), 05/02/21 9:48:00 EDT, [facility] [phone], Supply Start Date: 05/02/21 Status: Ordered Left wrist brace. Dx left wrist pain Left wrist brace. Dx left wrist pain, See Instructions, # 1 each, Refills 0, Tot. Refills 0, Maintenance, Wear as tolerated Dx: Left wrist scaphoid fracture (S62.002A) Left wrist pain (M25.532), 05/02/21 9:46:00 EDT, ROSINA [phone], Supply Start Date: 05/02/21 Status: Ordered naproxen 500 mg oral tablet 1 tablet, By Mouth, 2 times a day, PRN NEEDED FOR MODERATE PAIN WITH FOOD, # 60 tablet, 0 Refills, Maintenance, 07/31/23 15:49:00 EDT, [facility]-, 176, cm, 05/01/23 9:52:00 EDT, Height, 70, [...] Team Personnel Name: Naty Malcolm RN Position: [facility] RN Member Role: Primary Care Nurse Name: Harshil Cardoso RN Position: [facility] RN Member Role: Primary Care Nurse Name: Meri Lima RN Position: [facility] ED RN W/OE and Tasks Member Role: Primary Care Nurse Name: Rowan Damon RN Position: [facility] HBO Wound Member Role: Primary Care Nurse Name: Lionel Ludwig MD Position: [facility] Renal MD Member Role: Lifetime Consulting Physician Address: Address: [address] [place] [address] [address] [place] [address]- [place] Name: Tala Plasencia RN Position: [facility] RN Member Role: Primary Care Nurse Name: Franklin Seth RN Position: [facility] RN Member Role: Primary Care Nurse Name: Kathy Honeycutt RN Position: [facility] RN Member Role: Primary Care Nurse Name: Gideon Miller RN Position: [facility] SN RN Member Role: Primary Care Nurse Name: Az Pham RN Position: [facility] ED RN W/OE and Tasks Member Role: Primary Care Nurse Name: Libertad Olmos RN Position: [facility] RN Member Role: Primary Care Nurse Name: Daily Mane RN Position: [facility] RN Member Role: Primary Care Nurse Name: Katelynn Milan RN Position: [facility] RN Member Role: Primary Care Nurse Name: Mae Brennan NP Position: [facility] PCO Associate Professional Member Role: PCP Address: Address: [address] [place] [address]- [place] Name: Belinda Gusman RN Position: [facility] Manager Monitoring Member Role: Primary Care Nurse Name: Chito Powers RN Position: [facility] RN Member Role: Primary Care Nurse Name: Antonio Velasquez RN Position: [facility] RN Member Role: Primary Care Nurse Name: Alexey Ramos RN Position: [facility] RN Member Role: Primary Care Nurse Name: Crow Burk MD Position: [facility] Renal MD Member Role: Lifetime Consulting Physician Address: Address: [address] [place] [address] [facility] [place] [address]- [place] Name: Emelyn Corbin RN Position: S RN Member Role: Primary Care Nurse Name: Aurea Gutierrez RN Position: S RN Member Role: Primary Care Nurse Care Team Related Persons Name: CHARLES FRANKLIN Address: [address] [address]
--- OUTSIDE RECORDS SUMMARY | 2023-09-14 23:07 | XMS_ITS | Continuity of Care Document ---
Author Organization [facility] ter Address [address] [place] [address]- Care Team Providers Care Spanner Operator Name Role Phone Mika CLAY, Mae Serrano Primary Care Physician [place] [facility] [place] 03[place]31/19 - 03/31/[address] [address]- [facility] Attending Physician: Felipa Marshall NP Allergies, Adverse Reactions, Alerts Substance Reaction [...] Refills 0, Maintenance, 07/21/16 15:18:43 Start Date: 6/2/17 Status: Ordered Left Wrist Brace Left Wrist [...]
--- OUTSIDE RECORDS SUMMARY | 2023-09-14 23:07 | XMS_ITS | Continuity of Care Document ---
Author Organization [facility] Address [address] [place] [address]- Care Team Providers Care Telecommunications Analyst Name Role Phone Mika CLAY, Mae Serrano Primary Care Physician Encounter [facility] [place] Date(s): 04/27/21 - 05/27/[address] [facility] [address] [place] [address]- Allergies, Adverse Reactions, Alerts Substance Reaction Severity Status lithium unknown Active Immunizations Given and Recorded Vaccine Date Status Refusal Reason SARS-CoV-2 mRNA (wnrvfho-sjlq-spqre) vax 03/14/21 Recorded SARS-CoV-2 (COVID-19) mRNA BNT-162b2 [...] tibial avulsion (S82.153A), 05/02/21 9:45:00 EDT, ROSINA [phone], Supply Start Date: 05/02/21 Status: Ordered Knee Support See Instructions, # 1 each, Maintenance, Left knee brace Dx: bilateral tibial plateau fracture (S82.143A) Bilateral tibial avulsion (S82.153A), 05/02/21 9:48:00 EDT, ROSINA [phone], Supply Start Date: 05/02/21 Status: Ordered Left wrist brace. Dx left wrist pain Left wrist brace. Dx left wrist pain, See Instructions, # 1 each, Refills 0, Tot. Refills 0, Maintenance, Wear as tolerated Dx: Left wrist scaphoid fracture (S62.002A) Left wrist pain (M25.532), 05/02/21 9:46:00 EDT, ROSINA [phone], Supply Start Date: 05/02/21 Status: Ordered pantoprazole [...]
--- OUTSIDE RECORDS SUMMARY | 2023-09-14 23:07 | XMS_ITS | Continuity of Care Document ---
Author Organization [facility] Address [address] [place] [address]- Care Team Providers Care Tennis Court Attendant Name Role Phone Mika CLAY, Mae Serrano Primary Care Physician En[place] [facility] [place](s): 02/25/23 - 03/27/23 [facility] [address] [place] [address]- Allergies, Adverse Reactions, Alerts Substance Reaction Severity Status lithium bladder/ metabolism Active Immunizations Given and Recorded Vaccine Date Status Refusal Reason SARS-CoV-2(COVID-19)mRNA-LNP vac([id number]) 12/18/22 Recorded influenza virus vaccine, inactivated 11/15/22 Preet rded [id number] bivalent booster vax 12/16/21 Recorded SARS-CoV-2 mRNA (mqjeopm-waeb-lxssw) vax 03/14/21 Recorded SARS-CoV-2 (COVID-19) mRNA BNT-162b2 vac 04/30/20 Recorded SARS-CoV-2 (COVID-19) mRNA BNT-162b2 vac 04/01/20 Recorded tetanus/diphtheria/pertussis, acel(Tdap) 03/09/17 Given Medications Albuterol (Eqv-Proventil HFA) 90 mcg/inh inhalation aerosol 2 puffs, Inhalation, 4 times a day, PRN NEEDED FOR WHEEZING, # 6.7 Gm, 0 Refills, Maintenance, 02/26/23 10:07:00 EST, [id number], 176, cm, 02/16/23 13:04:00 EST, Height, 70, kg, 12/21/22 12:46:00 EDT, Dry Weight Start Date: 02/26/23 Stop Date: 03/28/23 Status: Ordered Anoro Ellipta 62.5 mcg-25 mcg/inh inhalation powder 1 puffs, Inhalation, Daily, # 1 each, 11 Refills, Maintenance, 02/01/23 10:55:00 EST, Powder, [facility]-, Partial fill upon patient request if the prescription is for a schedule II opioid drug., 1 puffs Inhalation Daily,x30 da... Start Date: 02/01/23 Stop Date: 01/27/24 Status: Ordered Banophen 25 mg oral capsule 1 capsule, By Mouth, 3 times a day, PRN NEEDED FOR ALLERGY SYMTPOMS, # 90 capsule, 6 Refills, Maintenance, 02/23/23 17:34:00 EST, [facility]/pharmacy #[id number], 176, cm, 02/16/23 13:04:00 EST, [...] Gm, 3 Refills, Maintenance, 01/04/23 11:38:00 EST, [place], Partial fill upon patient request if the [...] tibial avulsion (S82.153A), 05/02/21 9:45:00 EDT, [facility] [id number], Supply Start Date: 05/02/21 Status: Ordered Knee Support See Instructions, # 1 each, Maintenance, Left knee brace Dx: bilateral tibial plateau fracture (S82.143A) Bilateral tibial avulsion (S82.153A), 05/02/21 9:48:00 EDT, ROSNIA [id number], Supply Start Date: 05/02/21 Status: Ordered Left wrist brace. Dx left wrist pain Left wrist brace. Dx left wrist pain, See Instructions, # 1 each, Refills 0, Tot. Refills 0, Maintenance, Wear as tolerated Dx: Left wrist scaphoid fracture (S62.002A) Left wrist pain (M25.532), 05/02/21 9:46:00 EDT, ROS[facility] [id number], Supply Start Date: 05/02/21 Status: Ordered naproxen 500 mg oral tablet 1 tablet, By Mouth, 2 times a day, PRN NEEDED FOR MODERATE PAIN WITH FOOD, # 60 tablet, 0 Refills, Maintenance, 03/15/23 11:20:00 EST, [facility] [id number], 176, cm, 02/27/23 11:54:00 EST, Height, 70, [...] Personnel Name: Naty Malcolm RN Position: [facility] Member Role: Primary Care Nurse Name: Harshil Cardoso RN Position: [facility] RN Member Role: Primary Care Nurse Name: Meri Lima RN Position: [facility] ED RN W/OE and Tasks Member Role: Primary Care Nurse Name: Lionel Ludwig MD Position: [facility] Renal MD Member Role: Lifetime Consulting Physician Address: Address: [address] [place] [address] [address] [place] [address]- [place] Name: Rowan Alvarez RN Position: [facility] [...] Associate Professional Member Role: PCP Address: Address: [address] [place] [address]- [place] Name: Belinda Gusman RN Position: [facility] Central Office Technician Member Role: Primary Care Nurse Name: Chito Powers RN Position: [facility] RN Member Role: Primary Care Nurse Name: Antonio Velasquez RN Position: [facility] RN Member Role: Primary Care Nurse Name: Alexey Ramos RN Position: [facility] RN Member Role: Primary Care Nurse Name: Crow Burk MD Position: [facility] Renal MD Member Role: Lifetime Consulting Physician Address: Address: [address] [facility] [place] [address]- [place] Name: Emelyn Corbin RN Position: [facility] RN Member Role: Primary Care Nurse Name: Aurea Gutierrez RN Position: [facility] RN Member Role: Primary Care Nurse Care Team Related Persons Name: CHARLES FRANKLIN Address: home [address] [place] [address]
--- OUTSIDE RECORDS SUMMARY | 2023-09-14 23:07 | XMS_ITS | Continuity of Care Document ---
Author Organization [facility] ter Address [address] [place] [address]- Care Team Providers Care Ceramic Coater Name Role Phone Mika CLAY, Mae Serrano Primary Care Physician [phone] Encounter [facility] [place] Date(s): 01/16/20 - 02/21/[address] [address] Attending Physician: Cam Mccall MD Admitting [...] 02/19/20 10:39:00 EST, Route to Pharmacy Electronically, [facility], Partial fill upon patient request if [...]
--- OUTSIDE RECORDS SUMMARY | 2023-09-14 23:07 | XMS_ITS | Continuity of Care Document ---
Author Organization [facility] Address [address] [place] [address]- Care Team Providers Care Senior [employer] D[employer] Name Role Phone Mika CLAY, Mae Serrano Primary Care Physician Encounter [facility] [place] Date(s): 03/03/22 - 04/02/22 [facility] [address] [place] [address]- Allergies, Adverse Reactions, Alerts Substance Reaction Severity Status lithium unknown Active Immunizations Given and Recorded Vaccine Date Status Refusal Reason SARS-CoV-2 mRNA (qkydaxy-xgvb-mzsog) vax 03/14/21 Recorded SARS-CoV-2 (COVID-19) mRNA BNT-162b2 [...] 0 Refills, Maintenance, 03/27/22 13:51:00 EST, Tablet, [facility]-, Partial fill upon patient request if [...] tibial avulsion (S82.153A), 05/02/21 9:45:00 EDT, [facility] [id number], Supply Start Date: 05/02/21 Status: Ordered Knee Support See Instructions, # 1 each, Maintenance, Left knee brace Dx: bilateral tibial plateau fracture (S82.143A) Bilateral tibial avulsion (S82.153A), 05/02/21 9:48:00 EDT, [facility] [id number], Supply Start Date: 05/02/21 Status: Ordered Left wrist brace. Dx left wrist pain Left wrist brace. Dx left wrist pain, See Instructions, # 1 each, Refills 0, Tot. Refills 0, Maintenance, Wear as tolerated Dx: Left wrist scaphoid fracture (S62.002A) Left wrist pain (M25.532), 05/02/21 9:46:00 EDT, [facility] [id number], Supply Start Date: 05/02/21 Status: Ordered meloxicam 15 mg oral tablet 1 tablet = 15 mg, By Mouth, Daily, PRN Pain , Moderate, # 30 tablet, 4 Refills, Maintenance, 03/01/22 13:25:00 EST, Tablet, [facility], Partial fill upon patient [...] Name: Naty Malcolm RN Position: [facility] RN Member Role: Primary Care Nurse Name: Harshil Cardoso RN Position: [facility] RN Member Role: Primary Care Nurse Name: Meri Lima RN Position: [facility] ED RN W/OE and Tasks Member Role: Primary Care Nurse Name: Lionel Ludwig MD Position: [facility] Renal MD Member Role: Lifetime Consulting Physician Address: Address: [address] [place] [address], [address] [facility] [place] [address]- Name: Rowan Alvarez RN Position: [facility] HBO Wound Member Role: Primary Care Nurse Name: Tala Plasencia RN Position: [facility] RN Member Role: Primary Care Nurse Name: Franklin Seth RN Position: [facility] RN Member Role: Primary Care Nurse Name: Kathy Honeycutt Position: [facility] RN Member Role: Primary Care Nurse Name: Az Pham RN Position: [facility] ED RN W/OE and Tasks Member Role: Primary Care Nurse Name: Libertad Olmos RN Position: [facility] RN Member Role: Primary Care Nurse Name: Daily Mane RN Position: [facility] RN Member Role: Primary Care Nurse Name: Katelynn Milan RN Position: [facility]O RN Member Role: Primary Care Nurse Name: Mae Brennan NP Position: [facility] PCO Associate Professional Member Role: PCP Address: Address: [address] [place] [address] [place] [address]- [place] Name: Deborah Gusman RN Position: [facility] Hospital Patient Intake Coordinator Member Role: Primary Care Nurse Name: Chito Powers RN Position: [facility] RN Member Role: Primary Care Nurse Name: Antonio Velasquez RN Position: [facility] RN Member Role: Primary Care Nurse Name: Alexey Ramos RN Position: [facility] RN Member Role: Primary Care Nurse Name: Crow Burk MD Position: [facility] Renal MD Member Role: Lifetime Consulting Physician Address: Address: [address] [place] [address] [facility] [place], [place] [address] Name: Emelyn Corbin RN Position: S RN Member Role: Primary Care Nurse Name: Aurea Gutierrez RN Position: [facility] RN Member Role: Primary Care Nurse Care Team Related Persons Name: CHARLES FRANKLIN Address: [address] [address]
--- OUTSIDE RECORDS SUMMARY | 2023-09-14 23:07 | XMS_ITS | Continuity of Care Document ---
Author Organization [facility] Address [address] [place], [place] [address]lisa guzman, [address] [place] [address]- Care Team Providers Care Manager Domestic Name Role Phone Mae Brennan NP Primary Care Physician Encounter [facility] [place] Date(s): 07/29/20 - 08/28/20 [facility] [address] [place] [address] Drive, [address] [place], [place] [address] Allergies, Adverse Reactions, Alerts Substance Reaction Severity [...] px, unsteady gait, h/o vertebral osteomylitis [facility] [id number], 08/26/20 9:05:00 EDT, Supply Start Date: 08/26/20 [...] px, unsteady gait, h/o vertebral osteomylitis [facility] [id number], 08/26/20 9:05:00 EDT, Supply Start Date: 08/26/20 Status: Ordered CeleBREX 200 mg oral capsule 1 capsule = 200 mg, By Mouth, 2 times a day, PRN Pain , Moderate, contents of capsule may be mixed with soft foods such as applesauce, # 60 capsule, 0 Refills, Maintenance, 08/02/20 14:32:00 EDT, Capsule, [facility]-, Partial f... Start Date: 08/02/20 Status: Ordered [...] 14:30:00 EDT, Route to Pharmacy Electronically, [facility]-, Partial fill upon patient request if the prescription is f... Start Date: 08/02/20 Status: Ordered ibuprofen 600 mg oral tablet 600 mg, 1, tablet, By Mouth, Every 8 hours, PRN, not to exceed 3200 mg/day with food or milk, # 90 tablet, Refills 0, Tot. Refills 0, Maintenance, Pain , Moderate, 08/13/20 10:32:00 EDT, Route to Pharmacy Electronically, [facility]... Start Date: 08/13/20 Stop Date: 09/12/20 Status: [...]
--- OUTSIDE RECORDS SUMMARY | 2023-09-14 23:07 | XMS_ITS | Continuity of Care Document ---
Author Organization [facility] Address [address] [place] [address]- Care Team Providers Care Electrical Sign Wirer Name Role Phone Mae Brennan NP Primary Care Physician Encounter [facility] [place] Date(s): 02/24/19 - 03/06/19 [facility] [address] [place] [address]- [facility] Attending Physician: Liliana Wodo Admitting Physician: AdmtrLiliana Referring Physician: Admtr, Liliana Allergies, Adverse Reactions, Alerts Substance Reaction Severity [...]
--- OUTSIDE RECORDS SUMMARY | 2023-09-14 23:07 | XMS_ITS | Continuity of Care Document ---
Author Organization [facility] Address [address] [place] [address]- Care Team Providers Care Planer Hand Name Role Phone Mika CLAY, Mae Serrano Primary Care Physician Encounter [facility] [place] Date(s): 04/21/22 - 05/21/[address] [address]- Allergies, Adverse Reactions, Alerts Substance Reaction Severity Status lithium unknown Active Immunizations Given and Recorded Vaccine Date Status Refusal Reason SARS-CoV-2 mRNA (flfugpm-rlhs-zeuyy) vax 03/14/21 Recorded SARS-CoV-2 (COVID-19) mRNA BNT-162b2 [...] tibial avulsion (S82.153A), 05/02/21 9:45:00 EDT, [facility] [id number], Supply Start Date: 05/02/21 Status: Ordered Knee Support See Instructions, # 1 each, Maintenance, Left knee brace Dx: bilateral tibial plateau fracture (S82.143A) Bilateral tibial avulsion (S82.153A), 05/02/21 9:48:00 EDT, [facility] [id number], Supply Start Date: 05/02/21 Status: Ordered Left wrist brace. Dx left wrist pain Left wrist brace. Dx left wrist pain, See Instructions, # 1 each, Refills 0, Tot. Refills 0, Maintenance, Wear as tolerated Dx: Left wrist scaphoid fracture (S62.002A) Left wrist pain (M25.532), 05/02/21 9:46:00 EDT, ROSINA [id number], Supply Start Date: 05/02/21 Status: Ordered naproxen [...] Team Personnel Name: Naty Malcolm RN Position: [facility] RN Member Role: Primary Care Nurse Name: Harshil Cardoso RN Position: [facility] RN Member Role: Primary Care Nurse Name: Meri Lima RN Position: [facility] ED RN W/OE and Tasks Member Role: Primary Care Nurse Name: Lionel Ludwig MD Position: [facility] Renal MD Member Role: Lifetime Consulting Physician Address: Address: [address] [place] [address], [address] [facility] [place] [address]- Name: Rowan Alvarez RN Position: [facility] Wound Member Role: Primary Care Nurse Name: Tala Plasencia RN Position: [facility] RN Member Role: Primary Care Nurse Name: Franklin Seth RN Position: [facility] RN Member Role: Primary Care Nurse Name: Kathy Honeycutt Position: [facility] RN Member Role: Primary Care Nurse Name: Az Pham RN Position: [facility] ED RN W/OE and Tasks Member Role: Primary Care Nurse Name: Libertad Olmos RN Position: [facility] RN Member Role: Primary Care Nurse Name: Daily Mane RN Position: [facility] RN Member Role: Primary Care Nurse Name: Katelynn Milan RN Position: [facility] PCO RN Member Role: Primary Care Nurse Name: Mae Brennan NP Position: [facility] PCO Associate Professional Member Role: PCP Address: Address: [address] [place] [address] 3rd [place] [address]- [place] Name: Deborah Gusman RN Position: [facility] Hospital New Car Get Ready Mechanic Member Role: Primary Care Nurse Name: Chito Powers RN Position: [facility] RN Member Role: Primary Care Nurse Name: Antonio Velasquez RN Position: [facility] RN Member Role: Primary Care Nurse Name: Alexey Ramos RN Position: [facility] RN Member Role: Primary Care Nurse Name: Crow Burk MD Position: [facility] Renal MD Member Role: Lifetime Consulting Physician Address: Address: [address] [place] [address] [facility] [place], [place] [address] Name: Emelyn Corbin RN Position: S RN Member Role: Primary Care Nurse Name: Aurea Gutierrez RN Position: S RN Member Role: Primary Care Nurse Care Team Related Persons Name: CHARLES FRANKLIN Address: [place] [address]
--- OUTSIDE RECORDS SUMMARY | 2023-09-14 23:07 | XMS_ITS | Continuity of Care Document ---
Author Organization [facility] Address [address] [place] [address]- Care Team Providers Care Separator Operator Name Role Phone Mika CLAY, Mae Serrano Primary Care Physician En[place] [facility] [place](s): 07/02/20 - 09/15/20 [facility] [address] [place] [address] Attending Physician: Kourtney Hawthorne MD Admitting Physician: Kourtney Hawthorne MD Referring Physician: Mae Brennan NP Allergies, [...] px, unsteady gait, h/o vertebral osteomylitis ROS[facility] [id number], 08/26/20 9:05:00 EDT, Supply Start Date: 08/26/20 [...] px, unsteady gait, h/o vertebral osteomylitis [facility] [id number], 08/26/20 9:05:00 EDT, Supply Start Date: 08/26/20 Status: Ordered CeleBREX 200 mg oral capsule 1 capsule = 200 mg, By Mouth, 2 times a day, PRN Pain , Moderate, contents of capsule may be mixed with soft foods such as applesauce, # 60 capsule, 0 Refills, Maintenance, 08/02/20 14:32:00 EDT, Capsule, [facility]-, Partial f... Start Date: 08/02/20 Status: [...] 08/02/20 14:30:00 EDT, Route to Pharmacy Electronically, [facility]-, Partial fill upon patient request if the prescription is f... Start Date: 08/02/20 Status: Ordered ibuprofen 600 mg oral tablet 600 mg, 1, tablet, By Mouth, Every 8 hours, PRN, not to exceed 3200 mg/day with food or milk, # 90 tablet, Refills 0, Tot. Refills 0, Maintenance, Pain , Moderate, 08/13/20 10:32:00 EDT, Route to Pharmacy Electronically, [facility]... Start Date: 08/13/20 Stop Date: 09/12/20 [...]
--- OUTSIDE RECORDS SUMMARY | 2023-09-14 23:07 | XMS_ITS | Continuity of Care Document ---
Author Organization [facility] Adult Address [address] [place] [address]- Care Team Providers Care Funeral Car Chauffeur Name Role Phone Mika CLAY, Mae Serrano Primary Care Physician Encounter [facility] ACCT R [id number] Date(s): 02/16/23 - 02/23/23 [facility] Adult [address] [place] [id number] Attending Physician: Not on Staff, Attending MD Allergies, Adverse Reactions, Alerts No Known Medication Allergies Immunizations Given and Recorded Vaccine Date Status Refusal Reason SARS-CoV-2(COVID-19)mRNA-LNP vac([id number]) 12/18/22 Recorded influenza virus vaccine, inactivated 11/15/22 Preet rded [id number] bivalent booster vax 12/16/21 Recorded SARS-CoV-2 mRNA ([id number]-xpgdm) vax 03/14/21 Recorded SARS-CoV-2 (COVID-19) mRNA BNT-162b2 vac 04/30/20 Recorded SARS-CoV-2 (COVID-19) mRNA BNT-162b2 vac 04/01/20 Recorded tetanus/diphtheria/pertussis, acel(Tdap) 03/09/17 Given Medications albuterol CFC free 90 mcg/inh inhalation aerosol 2, puffs, Inhalation, 4 times a day, PRN, # 6.7 Gm, Refills 0, Tot. Refills 0, Maintenance, 02/03/23 11:33:00 EST, Inhaler, Route to Pharmacy Electronically, NCPDP_[id number], [facility]-, 176, cm, 01/04/23 10:48:00 EST, Height... Start Date: 02/03/23 Stop Date: 03/05/23 Status: Ordered Anoro Ellipta 62.5 mcg-25 mcg/inh inhalation powder 1 puffs, Inhalation, Daily, # 1 each, 11 Refills, Maintenance, 02/01/23 10:55:00 EST, Powder, [facility]-, Partial fill upon patient request if the prescription is for a schedule II opioid drug., 1 puffs Inhalation Daily,x30 da... Start Date: 02/01/23 Stop Date: 01/27/24 Status: Ordered Banophen 25 mg oral capsule 1 capsule, By Mouth, 3 times a day, PRN NEEDED FOR ALLERGY SYMTPOMS, # 90 capsule, 6 Refills, Maintenance, 02/23/23 17:34:00 EST, [facility]/pharmacy #[id number], 176, cm, 02/16/23 [...] Gm, 3 Refills, Maintenance, 01/04/23 11:38:00 EST, [place], Partial fill upon patient request if the [...] Bilateral tibial avulsion (S82.153A), 05/02/21 9:45:00 EDTROSINA [id number], Supply Start Date: 05/02/21 Status: Ordered Knee Support See Instructions, # 1 each, Maintenance, Left knee brace Dx: bilateral tibial plateau fracture (S82.143A) Bilateral tibial avulsion (S82.153A), 05/02/21 9:48:00 EDTROSINA [id number], Supply Start Date: 05/02/21 Status: Ordered Left wrist brace. Dx left wrist pain Left wrist brace. Dx left wrist pain, See Instructions, # 1 each, Refills 0, Tot. Refills 0, Maintenance, Wear as tolerated Dx: Left wrist scaphoid fracture (S62.002A) Left wrist pain (M25.532), 05/02/21 9:46:00 EDTROSINA [id number], Supply Start Date: 05/02/21 Status: Ordered levocetirizine 5 mg oral tablet 1 tablet = 5 mg, By Mouth, Daily in PM, # 90 tablet, 0 Refills, Maintenance, 02/16/23 13:17:00 EST,Tablet, [facility], Partial fill upon patient request if the prescription is for a schedule II opioid drug., 1 tablet By Mouth... Start Date: 02/16/23 Status: Ordered naproxen 500 mg oral tablet 1 tablet = 500 mg, By Mouth, 2 times a day, PRN Pain , Moderate, for 30 days, with food, # 60 tablet, 0 Refills, Acute 03/18/23 14:05:00 EST, 02/16/23 14:05:00 EST, Tablet, [facility]-, Partial fill upon patient request if [...] oldest [Reference Range]: 1 Height 176 cm (02/16/23 1:04 PM) Weight 72.7 kg (02/16/23 1:04 PM) Oxygen Saturation [94-100 %] 96 % (02/16/23 1:04 PM) Pulse Rate [55-90 bpm] 88 bpm (02/16/23 1:04 PM) Body Mass Index [18.5-24.99 kg/m2] 23.47 kg/m2 (02/16/23 1:04 PM) Blood Pressure [90-138/55-84 mm Hg] 117/ 79mm Hg (02/16/23 1:04 PM) Mode of Delivery (Oxygen) Room air (02/16/23 1:04 PM) Blood pressure sites Arm, right (02/16/23 1:04 PM) Weight Obtained Via Standing scale (02/16/23 1:04 PM) Social History Social History Type Response Smoking Status Current every day vidhya cavanaugh; Type: Cigarettes entered on: 09/13/16 Sex Note * Estee Elizalde: PERFORM, SIGN, VERIFY Event Display: Patient Education/Instruction Authored Date: [id number] [facility] *[facility] [place] [facility] Clinical Summary Name DARWIN STAHL Age 52 Years 1970 PCP Mika CLAY, Mea Serrano PCP Visit Date 02/16/2023 12:56:00 Additional Instructions: Scheduled Appointments?? Future Appointments ?*[facility] [address] ?[place],??[place],??[address] ?Phone:??--?Fax:??-- ?Appt. Date:??02/27/2023?11:30 AM ?Scheduled Provider:??Reinier WAY, Oziel Bledsoe ?*[place] ?[address]??[place],??[address] ?Phone:??--?Fax:??-- ?Appt. Date:??04/16/2023?10:20 AM ?Scheduled Provider:??Kee WAY, Raven Valente Follow-Up Instructions ?? With: Address: When: Mika CLAY, Mae Serrano Comments: 4 months multiple issues 40 minutes Diagnosis Dorsalgia, unspecified; Encounter for screening for malignant neoplasm of colon; Essential (primary) hypertension; Bipolar disorder, unspecified; Unilateral inguinal hernia, without obstruction or gangrene, not specified as recurrent; Nicotine dependence, unspecified, uncomplicated; Emphysema, unspecified; Gastro- esophageal reflux disease without esophagitis Medications: Please continue your medications until treatment is completed or stopped by your provider. Discuss any questions related to medications with your provider. New Medications [facility], [address] [place] [id number], [phone] Naproxen (naproxen 500 mg oral tablet) 1 tab(s) Oral twice a day as needed Pain , Moderate for 30 Days. with food. Refills: 0. Next Dose: - Glucosamine (glucosamine 750 mg oral tablet) 2 tab(s) Oral Daily for 90 Days. Refills: 3. Next Dose: Medications to Continue with No Changes [facility] [address] [place] [phone], [phone] levocetirizine (levocetirizine 5 mg oral tablet) 1 tab(s) Oral Daily in PM. Refills: 0. Next Dose: These medications were not printed or sent to your pharmacy Albuterol (albuterol CFC free 90 mcg/inh inhalation aerosol) 2 puff(s) Inhalation 4 times a day as needed as needed for wheezing for 30 Days. Refills: 0. Next Dose: Benztropine (Cogentin Tablet) 2 Milligram Oral twice a day. Next Dose: DiphenhydrAMINE (Banophen 25 mg oral capsule) 1 capsule Oral 3 times a day as needed NEEDED FOR ALLERGY SYMTPOMS. Refills: 6. Next Dose: Divalproex Sodium (divalproex sodium 500 [...] Fluticasone Nasal (fluticasone 50 mcg/inh nasal spray) 1 spray(s) Nares, Both twice a day for 30 Days. in each nostril. Refills: 3. Next Dose: Miscellaneous Rx (Left wrist brace. Dx left wrist pain) Wear as tolerated Dx: Left wrist scaphoid fracture (S62.002A) Left wrist pain (M25.532). Refills: 0. Next Dose: Pantoprazole (pantoprazole 40 mg oral delayed release tablet) 1 tab(s) Oral Daily in the morning. Refills: 1. Next Dose: Risperidone (risperiDONE 1 mg oral tablet) 1 tab(s) Oral Daily. Next Dose: Risperidone (risperiDONE 2 mg oral tablet) 1 tab(s) Oral twice a day. Next Dose: umeclidinium-vilanterol (Anoro Ellipta 62.5 mcg-25 mcg/inh inhalation powder) 1 puff(s) Inhalation Daily for 30 Days. Refills: 11. Next Dose: No Longer Take the Following Medications Fluticasone (Flovent Diskus 50 mcg/inh inhalation powder) 1 Each Inhalation twice a day. rinse mouth and throat after use. Refills: 0. Allergy Info:?? No Known Medication Allergies Medications Given This Visit Future Orders ?No future orders Vital Signs Height 176 cm Weight 72.7 kg BMI 23.47 kg/m2 Blood Pressure 117 mm Hg/79 mm Hg Temperature Pulse Rate 88 bpm Respiratory Rate 02 Sat Mode of Delivery 96 %/Room air You can now view a summary of your hospital visit from the comfort of your home through a free online portal called [employer]. [employer] is a website that allows you to securely view your medical information including discharge summary, medications and follow-up visits. ??You can alsosend a secure electronic message to your doctor???s office to request appointments, renew medications or just ask a question. You can enroll at [email or web address] or register during your next office visit. [...] primary care provider, you may find a [facility] provider by calling [facility] Link[facility] Link at [phone]. [facility], in keeping with [facility] guidance, no longer requires face masks for staff, patientsor visitors in most situations. Similar to time spent indoors at other locations, there is the chance that you were exposed to respiratory viruses during your time with us (such as flu or COVID-19).? If you develop symptoms concerning for a viral respiratory infection, please seek testing (and treatment if indicated) from your medical provider or home test kit. For information about the plan of care [...] Team Personnel Name: Naty Malcolm RN Position: [facility] RN Member Role: Primary Care Nurse Name: Harshil Cardoso RN Position: [facility] RN Member Role: Primary Care Nurse Name: Meri Lima RN Position: [facility] ED RN W/OE and Tasks Member Role: Primary Care Nurse Name: Lionel Ludwig MD Position: [facility] Renal MD Member Role: Lifetime Consulting Physician Address: Address: [address] [place] [address] [address] [facility] [address]- [place] Name: Rowan Alvarez RN Position: [facility] HBO Wound Member Role: Primary Care Nurse Name: Taal Plasencia RN Position: [facility] RN Member Role: Primary Care Nurse Name: Franklin Seth RN Position: [facility] RN Member Role: Primary Care Nurse Name: Kathy Honeycutt Position: [facility] RN Member Role: Primary Care Nurse Name: Gideon Miller RN Position: [facility] SN RN Member Role: Primary Care Nurse Name: Az Pham RN Position: [facility] ED RN W/OE and Tasks Member Role: Primary Care Nurse Name: Libertad Olmos RN Position: [facility] RN Member Role: Primary Care Nurse Name: Daily Mane RN Position: [facility] RN Member Role: Primary Care Nurse Name: Katelynn Milan RN Position: [facility] AMB Nurse Member Role: Primary Care Nurse Name: Mae Brennan NP Position: [facility] PCO Associate Professional Member Role: PCP Address: Address: [address] [place] [address]- [place] Name: Belinda Gusman RN Position: [facility] Electron Tube Assembler Member Role: Primary Care Nurse Name: Chito Powers RN Position: [facility] RN Member Role: Primary Care Nurse Name: Antonio Velasquez RN Position: [facility] RN Member Role: Primary Care Nurse Name: Alexey Ramos RN Position: [facility] RN Member Role: Primary Care Nurse Name: Crow Burk MD Position: [facility] Renal MD Member Role: Lifetime Consulting Physician Address: Address: [address] [place] [address] [facility] [place] [address]- [place] Name: Emelyn Corbin RN Position: [facility] RN Member Role: Primary Care Nurse Name: Aurea Gutierrez RN Position: [facility] RN Member Role: Primary Care Nurse Care Team Related Persons Name: CHARLES FRANKLIN Address: [address] [address]
--- OUTSIDE RECORDS SUMMARY | 2023-09-14 23:07 | XMS_ITS | Continuity of Care Document ---
Author Organization [facility] ter Address [address] [place] [address]- Care Team Providers Care Gift Officer Name Role Phone Mika CLAY, Mae Serrano Primary Care Physician [phone] Encounter [facility] Date(s): 02/17/19 - 02/17/[address] [address] Attending Physician: Felipa Marshall NP Allergies, Adverse [...]
--- OUTSIDE RECORDS SUMMARY | 2023-09-14 23:07 | XMS_ITS | Continuity of Care Document ---
Author Organization [facility] Adult Address [address] [place] [address]- Care Team Providers Care Spring Fitter Name Role Phone Mika CLAY, Mae Serrano Primary Care Physician Encounter [facility] Date(s): 12/21/22 - 01/20/23 [facility] Adult [address] [place] [address]- Allergies, Adverse Reactions, Alerts No Known Medication Allergies Immunizations Given and Recorded Vaccine Date Status Refusal Reason SARS-CoV-2(COVID-19)mRNA-LNP vac(iju542) 12/18/22 Recorded influenza virus vaccine, inactivated 11/15/22 Preet rded [id number] bivalent booster vax 12/16/21 Recorded SARS-CoV-2 mRNA (pkenohg-xfcl-zjsva) vax 03/14/21 Recorded SARS-CoV-2 (COVID-19) mRNA BNT-162b2 [...] 11:33:00 EST, Inhaler, Route to Pharmacy Electronically, NCPDP_[id number], [id number], 176, cm, 01/04/23 10:48:00 EST, Height... Start [...] Gm, 3 Refills, Maintenance, 01/04/23 11:38:00 EST, [place], Partial fill upon patient request if the [...] tibial avulsion (S82.153A), 05/02/21 9:45:00 ROSINA NOWAK [id number], Supply Start Date: 05/02/21 Status: Ordered Knee Support See Instructions, # 1 each, Maintenance, Left knee brace Dx: bilateral tibial plateau fracture (S82.143A) Bilateral tibial avulsion (S82.153A), 05/02/21 9:48:00 ROSINA NOWAK [id number], Supply Start Date: 05/02/21 Status: Ordered Left wrist brace. Dx left wrist pain Left wrist brace. Dx left wrist pain, See Instructions, # 1 each, Refills 0, Tot. Refills 0, Maintenance, Wear as tolerated Dx: Left wrist scaphoid fracture (S62.002A) Left wrist pain (M25.532), 05/02/21 9:46:00 EDT, ROSINA [id number], Supply Start Date: 05/02/21 Status: Ordered levocetirizine [...] Team Personnel Name: Naty Malcolm RN Position: [facility] RN Member Role: Primary Care Nurse Name: Harshil Cardoso RN Position: [facility] RN Member Role: Primary Care Nurse Name: Meri Lima RN Position: [facility] ED RN W/OE and Tasks Member Role: Primary Care Nurse Name: Lionel Ludwig MD Position: [facility] Renal MD Member Role: Lifetime Consulting Physician Address: Address: [address] [place] [address] [address] [place] [address]- Name: Rowan Alvarez RN Position: [facility] HBO Wound Member Role: Primary Care Nurse Name: Tala Plasencia RN Position: [facility] RN Member Role: Primary Care Nurse Name: Franklin Seth RN Position: [facility] RN Member Role: Primary Care Nurse Name: Kathy Honeycutt Position: [facility] RN Member Role: Primary Care Nurse Name: Gideon Miller RN Position: [facility] SN RN Member Role: Primary Care Nurse Name: Az Pham RN Position: [facility] ED RN W/OE and Tasks Member Role: Primary Care Nurse Name: Lbiertad Olmos RN Position: [facility] RN Member Role: Primary Care Nurse Name: Daily Mane RN Position: [facility] RN Member Role: Primary Care Nurse Name: Katelynn Milan RN Position: [facility] AMB Nurse Member Role: Primary Care Nurse Name: Mae Brennan NP Position: [facility] PCO Associate Professional Member Role: PCP Address: Address: [address] [place] [address] [address]rd [place] [address]- [place] Name: Belinda Gusman RN Position: [facility] Hospital Mva Reactor Operator Member Role: Primary Care Nurse Name: Chito Powers RN Position: [facility] RN Member Role: Primary Care Nurse Name: Antonio Velasquez RN Position: S RN Member Role: Primary Care Nurse Name: Alexey Ramos RN Position: S RN Member Role: Primary Care Nurse Name: Crow Burk MD Position: [facility] Renal MD Member Role: Lifetime Consulting Physician Address: Address: [address] [place] [address] [facility] [address] Name: Emelyn Corbin RN Position: [facility] RN Member Role: Primary Care Nurse Name: Aurea Gutierrez RN Position: [facility] RN Member Role: Primary Care Nurse Care Team Related Persons Name: CHARLES FRANKLIN Address: [place] [address]
--- OUTSIDE RECORDS SUMMARY | 2023-09-14 23:07 | XMS_ITS | Continuity of Care Document ---
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 Start Date: 10/27/21 Status: [...] tibial avulsion (S82.153A), 05/02/21 9:45:00 EDT, ROSINA [id number], Supply Start Date: 05/02/21 Status: Ordered Knee Support See Instructions, # 1 each, Maintenance, Left knee brace Dx: bilateral tibial plateau fracture (S82.143A) Bilateral tibial avulsion (S82.153A), 05/02/21 9:48:00 EDT, ROSINA [id number], Supply Start Date: 05/02/21 Status: Ordered Left wrist brace. Dx left wrist pain Left wrist brace. Dx left wrist pain, See Instructions, # 1 each, Refills 0, Tot. Refills 0, Maintenance, Wear as tolerated Dx: Left wrist scaphoid fracture (S62.002A) Left wrist pain (M25.532), 05/02/21 9:46:00 EDT, ROSINA [id number], Supply Start Date: 05/02/21 Status: Ordered loratadine 10 mg oral tablet 10 mg, 1, tablet, By Mouth, Daily, for 30 days, # 30 tablet, Refills 0, Tot. Refills 0, Acute 01/29/22 16:34:00 EST, 12/30/21 16:34:00 EST, Route to Pharmacy Electronically, [facility], Partial fill upon patient request if [...] Team Personnel Name: Naty Malcolm RN Position: [facility] RN Member Role: Primary Care Nurse Name: Harshil Cardoso RN Position: [facility] RN Member Role: Primary Care Nurse Name: Lionel Ludwig MD Position: [facility] Renal MD Member Role: Lifetime Consulting Physician Address: Address: [address] [place] [address], [address] [facility] [place] [address]- Name: Rowan Alvarez RN Position: [facility] Wound Member Role: Primary Care Nurse Name: Tala Plasencia RN Position: [facility] RN Member Role: Primary Care Nurse Name: Franklin Seth RN Position: [facility] RN Member Role: Primary Care Nurse Name: Kathy Honeycutt Position: [facility] RN Member Role: Primary Care Nurse Name: Az Pham RN Position: [facility] ED RN W/OE and Tasks Member Role: Primary Care Nurse Name: Libertad Olmos RN Position: [facility] RN Member Role: Primary Care Nurse Name: Daily Mane RN Position: [facility] RN Member Role: Primary Care Nurse Name: Meri Barker RN Position: [facility] ED RN W/OE and Tasks Member Role: Primary Care Nurse Name: Katelynn Milan RN Position: [facility] PCO RN Member Role: Primary Care Nurse Name: Mae Brennan NP Position: [facility] PCO Associate Professional Member Role: PCP Address: Address: [address] [place] [address] [address] [place] [address]- [place] Name: Belinda Gusman RN Position: [facility] Hospital Personalized Living Manager Nurse Member Role: Primary Care Nurse Name: Chito Powers RN Position: [facility] RN Member Role: Primary Care Nurse Name: Antonio Velasquez RN Position: [facility] RN Member Role: Primary Care Nurse Name: Alexey Ramos RN Position: [facility] RN Member Role: Primary Care Nurse Name: Crow Burk MD Position: [facility] Renal MD Member Role: Lifetime Consulting Physician Address: Address: [address] [place] [address] [facility] [place], [place] [address] Name: Emelyn Corbin RN Position: S RN Member Role: Primary Care Nurse Name: Aurea Gutierrez RN Position: S RN Member Role: Primary Care Nurse Care Team Related Persons Name: CHARLES FRANKLIN Address: [address] [id number]
--- OUTSIDE RECORDS SUMMARY | 2023-09-14 23:07 | XMS_ITS | Continuity of Care Document ---
Author Organization [facility] Adult Address [address] [place] [address]- Care Team Providers Care Supervisor Fryer Farm Name Role Phone Mae Brennan NP Primary Care Physician Encounter [facility] Date(s): 08/11/20 - 09/10/20 [facility] Adult [address] [place] [address]- Allergies, Adverse Reactions, Alerts Substance Reaction Severity [...] px, unsteady gait, h/o vertebral osteomylitis ROSINA [id number], 08/26/20 9:05:00 EDT, Supply Start Date: 08/26/20 [...] px, unsteady gait, h/o vertebral osteomylitis ROSINA [id number], 08/26/20 9:05:00 EDT, Supply Start Date: 08/26/20 Status: Ordered CeleBREX 200 mg oral capsule 1 capsule = 200 mg, By Mouth, 2 times a day, PRN Pain , Moderate, contents of capsule may be mixed with soft foods such as applesauce, # 60 capsule, 0 Refills, Maintenance, 08/02/20 14:32:00 EDT, Capsule, [facility]-, Partial f... Start Date: 08/02/20 Status: [...] 08/02/20 14:30:00 EDT, Route to Pharmacy Electronically, [facility]-, Partial fill upon patient request if the prescription is f... Start Date: 08/02/20 Status: Ordered ibuprofen 600 mg oral tablet 600 mg, 1, tablet, By Mouth, Every 8 hours, PRN, not to exceed 3200 mg/day with food or milk, # 90 tablet, Refills 0, Tot. Refills 0, Maintenance, Pain , Moderate, 08/13/20 10:32:00 EDT, Route to Pharmacy Electronically, [facility]... Start Date: 08/13/20 Stop Date: 09/12/20 [...]
--- OUTSIDE RECORDS SUMMARY | 2023-09-14 23:07 | XMS_ITS | Continuity of Care Document ---
Author Organization [facility] Adult Address [address] [place] [address]- Care Team Providers Care Airplane Pilot Supervisor Name Role Phone Mika CLAY, Mae Serrano Primary Care Physician Encounter [facility] [place] Date(s): 03/19/23 - 04/18/[address] [facility] Adult [address] [place] [address]- Allergies, Adverse Reactions, Alerts Substance Reaction Severity Status lithium bladder/ metabolism Active Immunizations Given and Recorded Vaccine Date Status Refusal Reason SARS-CoV-2(COVID-19)mRNA-LNP vac([id number]) 12/18/22 Recorded influenza virus vaccine, inactivated 11/15/22 Preet rded [id number] bivalent booster vax 12/16/21 Recorded SARS-CoV-2 mRNA (fwwkodj-rfwk-qvrxs) vax 03/14/21 Recorded SARS-CoV-2 (COVID-19) mRNA BNT-162b2 vac 04/30/20 Recorded SARS-CoV-2 (COVID-19) mRNA BNT-162b2 vac 04/01/20 Recorded tetanus/diphtheria/pertussis, acel(Tdap) 03/09/17 Given Medications Albuterol (Eqv-Proventil HFA) 90 mcg/inh inhalation aerosol 2 puffs, Inhalation, 4 times a day, PRN NEEDED FOR WHEEZING, # 6.7 Gm, 0 Refills, Maintenance, 04/09/23 9:17:00 EST, [facility]-[id number], 176, cm, 02/27/23 11:54:00 EST, Height, 70, kg, 12/21/22 12:46:00 EDT, Dry Weight Start Date: 04/09/23 Stop Date: 05/09/23 Status: Ordered Anoro Ellipta 62.5 mcg-25 mcg/inh inhalation powder 1 puffs, Inhalation, Daily, # 1 each, 11 Refills, Maintenance, 02/01/23 10:55:00 EST, Powder, [facility]-, Partial fill upon patient request if the prescription is for a schedule II opioid drug., 1 puffs Inhalation Daily,x30 da... Start Date: 02/01/23 Stop Date: 01/27/24 Status: Ordered Banophen 25 mg oral capsule 1 capsule, By Mouth, 3 times a day, PRN NEEDED FOR ALLERGY SYMTPOMS, # 90 capsule, 6 Refills, Maintenance, 02/23/23 17:34:00 EST, [facility]/pharmacy #[id number], 176, cm, 02/16/23 13:04:00 EST, Height, [...] Gm, 3 Refills, Maintenance, 01/04/23 11:38:00 EST, [place], Partial fill upon patient request if the [...] tibial avulsion (S82.153A), 05/02/21 9:45:00 EDT, [facility] [id number], Supply Start Date: 05/02/21 Status: Ordered Knee Support See Instructions, # 1 each, Maintenance, Left knee brace Dx: bilateral tibial plateau fracture (S82.143A) Bilateral tibial avulsion (S82.153A), 05/02/21 9:48:00 EDT, [facility] [id number], Supply Start Date: 05/02/21 Status: Ordered Left wrist brace. Dx left wrist pain Left wrist brace. Dx left wrist pain, See Instructions, # 1 each, Refills 0, Tot. Refills 0, Maintenance, Wear as tolerated Dx: Left wrist scaphoid fracture (S62.002A) Left wrist pain (M25.532), 05/02/21 9:46:00 EDT, [facility] [id number], Supply Start Date: 05/02/21 Status: Ordered naproxen 500 mg oral tablet 1 tablet, By Mouth, 2 times a day, PRN NEEDED FOR MODERATE PAIN WITH FOOD, # 60 tablet, 0 Refills, Maintenance, 04/10/23 11:41:00 EST, [facility]-[id number], 176, cm, 02/27/23 11:54:00 EST, Height, 70, [...] Care Nurse Name: Harshil Cardoso RN Position: [facility] RN Member Role: Primary Care Nurse Name: Meri Lima RN Position: [facility] ED RN W/OE and Tasks Member Role: Primary Care Nurse Name: Lionel Ludwig MD Position: [facility] Renal MD Member Role: Lifetime Consulting Physician Address: Address: [address] [place] [address] [address] [place] [address]- [place] Name: Rowan Alvarez RN Position: [facility] HBO Wound Member Role: Primary Care Nurse Name: Tala Plasencia RN Position: [facility] RN Member Role: Primary Care Nurse Name: Franklin Seth RN Position: [facility] RN Member Role: Primary Care Nurse Name: Kathy Honeycutt Position: [facility] RN Member Role: Primary Care Nurse Name: Gideon Miller RN Position: [facility] SN RN Member Role: Primary Care Nurse Name: Az Pham RN Position: [facility] ED RN W/OE and Tasks Member Role: Primary Care Nurse Name: Libertad Olmos RN Position: [facility] RN Member Role: Primary Care Nurse Name: Daily Mane RN Position: [facility] RN Member Role: Primary Care Nurse Name: Katelynn Milan RN Position: [facility] RN Member Role: Primary Care Nurse Name: Mae Brennan NP Position: [facility] PCO Associate Professional Member Role: PCP Address: Address: [address] [place] [address]- [place] Name: Belinda Gusman RN Position: [facility] Rough Patcher Member Role: Primary Care Nurse Name: Chito Powers RN Position: [facility] RN Member Role: Primary Care Nurse Name: Antonio Velasquez RN Position: [facility] RN Member Role: Primary Care Nurse Name: Alexey Ramos RN Position: [facility] RN Member Role: Primary Care Nurse Name: Crow Burk MD Position: [facility] Renal MD Member Role: Lifetime Consulting Physician Address: Address: [address] [facility] [place] [address]- [place] Name: Emelyn Corbin RN Position: [facility] RN Member Role: Primary Care Nurse Name: Aurea Gutierrez RN Position: [facility] RN Member Role: Primary Care Nurse Care Team Related Persons Name: CHARLES FRANKLIN Address: home [address] [place] [address]
--- OUTSIDE RECORDS SUMMARY | 2023-09-14 23:07 | XMS_ITS | Continuity of Care Document ---
Author Organization [facility] Adult Address [address] [place] [address]- Care Team Providers Care Mixed Livestock Farm Worker Name Role Phone Mika CLAY, Mae Serrano Primary Care Physician Encounter [facility] Date(s): 12/05/21 - 01/04/22 [facility] Adult [address] [place] [address]- Allergies, Adverse Reactions, Alerts Substance Reaction Severity Status lithium unknown Active Immunizations Given and Recorded Vaccine Date Status Refusal Reason SARS-CoV-2 mRNA (zervqvn-zzrh-obeda) vax 03/14/21 Recorded SARS-CoV-2 (COVID-19) mRNA BNT-162b2 [...] 1 Refills, Maintenance, 10/27/21 9:31:00 EDT, Capsule, [facility]-, Partial f... Start Date: 10/27/21 Status: [...] Acute 01/12/22 15:15:00 EST, 12/29/21 15:15:00 EST, [place], [facility]-, Partial fill upon patient request if the prescription is for a sche... Start Date: 12/29/21 Stop Date: 01/12/22 Status: Ordered Knee Support See Instructions, # 1 each, Maintenance, Right knee brace Dx: bilateral tibial plateau fracture (S82.143A) Bilateral tibial avulsion (S82.153A), 05/02/21 9:45:00 EDT, [facility] [id number], Supply Start Date: 05/02/21 Status: Ordered Knee Support See Instructions, # 1 each, Maintenance, Left knee brace Dx: bilateral tibial plateau fracture (S82.143A) Bilateral tibial avulsion (S82.153A), 05/02/21 9:48:00 EDT, [facility] [id number], Supply Start Date: 05/02/21 Status: Ordered Left wrist brace. Dx left wrist pain Left wrist brace. Dx left wrist pain, See Instructions, # 1 each, Refills 0, Tot. Refills 0, Maintenance, Wear as tolerated Dx: Left wrist scaphoid fracture (S62.002A) Left wrist pain (M25.532), 05/02/21 9:46:00 EDT, [facility] [id number] [phone], Supply Start Date: 05/02/21 Status: Ordered lidocaine 5% topical ointment 1 application, Topically, 3 times a day, for 14 days, wash hands thoroughly after application, # 50Gm, 0 Refills, Acute 01/16/22 18:36:00 EST, 01/02/22 18:36:00 EST, Ointment, [facility]-, Partial fill upon patient request if... Start Date: 01/02/22 Stop Date: 01/16/22 Status: Ordered loratadine 10 mg oral tablet 10 mg, 1, tablet, By Mouth, Daily, for 30 days, # 30 tablet, Refills 0, Tot. Refills 0, Acute 01/29/22 16:34:00 EST, 12/30/21 16:34:00 EST, Route to Pharmacy Electronically, [facility]-, Partial fill upon patient request [...] 01/06/22 13:25:00 EST, 12/07/21 13:25:00EDT, ER Tablet, [place] [address]... Start Date: 12/07/21 Stop Date: 01/06/22 Status: [...] Role: Lifetime Consulting Physician Address: Address: [address] [place] [address], [address] [facility] [address] Name: Rowan Alvarez RN Position: [facility] HBO Wound Member Role: Primary Care Nurse Name: Tala Plasencia RN Position: [facility] RN Member Role: Primary Care Nurse Name: Franklin Seth RN Position: [facility] RN Member Role: Primary Care Nurse Name: Kathy Honeycutt Position: [facility] RN Member Role: Primary Care Nurse Name: Az Pham RN Position: [facility] ED RN W/OE and Tasks Member Role: Primary Care Nurse Name: Libertad Olmos RN Position: [facility] RN Member Role: Primary Care Nurse Name: Daily Mane RN Position: [facility] RN Member Role: Primary Care Nurse Name: Meri Barker RN Position: [facility] ED RN W/OE and Tasks Member Role: Primary Care Nurse Name: Katelynn Milan RN Position: [facility] PCO RN Member Role: Primary Care Nurse Name: Mae Brennan NP Position: [facility] PCO Associate Professional Member Role: PCP Address: Address: [address] [place] [address]- Name: Deborah Gusman RN Position: [facility] Language Path Member Role: Primary Care Nurse Name: Chito Powers RN Position: [facility] RN Member Role: Primary Care Nurse Name: Antonio Velasquez RN Position: [facility] RN Member Role: Primary Care Nurse Name: Alexey Ramos RN Position: [facility] RN Member Role: Primary Care Nurse Name: Crow Burk MD Position: [facility] Renal MD Member Role: Lifetime Consulting Physician Address: Address: [address] [place] [address] [facility] [place] [address]- Name: Emelyn Corbin RN Position: [facility] RN Member Role: Primary Care Nurse Name: Aurea Gutierrez RN Position: [facility] RN Member Role: Primary Care Nurse Care Team Related Persons Name: CHARLES FRANKLIN Address: [address] [place] [address]
--- OUTSIDE RECORDS SUMMARY | 2023-09-14 23:07 | XMS_ITS | Continuity of Care Document ---
Author Organization [facility] Adult Address [address] [place] [address]- Care Team Providers Care Switchman Supervisor Name Role Phone Mae Brennan NP Primary Care Physician Encounter [facility] [place] [place] Date(s): 02/11/20 - 02/18/20 [facility] Adult [address] [place] [address]- Attending Physician: Not on Staff, Attending MD [...] oldest [Reference Range]: 1 Height 180 cm (02/11/20 11:49 AM) Social History Social History Type Response Smoking Status Current every day sm oker; Other: 1 pack per since age 9 years; entered on: 03/09/17 Sex Male
--- OUTSIDE RECORDS SUMMARY | 2023-09-14 23:07 | XMS_ITS | Continuity of Care Document ---
Author Organization [facility] Adult Address [address] [place] [address]- Care Team Providers Care Rail Engineer Name Role Phone Mika CLAY, Mae Serrano Primary Care Physician [phone] [place] [facility] [place]/08[place]22 - 09/10/22 [facility] Adult [address] [place] [address]- Attending Physician: Sissy Wilson NP Allergies, Adverse Reactions, Alerts No Known Medication Allergies Immunizations Given and Recorded Vaccine Date Status Refusal Reason [id number] bivalent booster vax 12/16/21 Recorded SARS-CoV-2 mRNA (wlhrdsf-yftl-pkprn) vax 03/14/21 Recorded SARS-CoV-2 (COVID-19) mRNA BNT-162b2 [...] Acute 08/24/23 14:31:00 EDT, 08/23/22 14:31:00 EDT, [facility]-, Partial fill upon patient request if [...] 2 Refills, Maintenance, 06/19/22 14:26:00 EDT, Tablet, [facility]-, Partial fill upon patient request if [...] Refills, Maintenance, 07/21/22 13:26:00 EDT, [facility]-[id number], 30, USE 1 SPRAY IN EACH NOSTRIL TWICE A DAY, 165, cm, 07/15/22 18:51:00 EDT, Height, 76.5, kg, 07/15/22 18:51:00... Start Date: 07/21/22 Status: Ordered Knee Support See Instructions, # 1 each, Maintenance, Right knee brace Dx: bilateral tibial plateau fracture (S82.143A) Bilateral tibial avulsion (S82.153A), 05/02/21 9:45:00 EDT, [facility] [id number], Supply Start Date: 05/02/21 Status: Ordered Knee Support See Instructions, # 1 each, Maintenance, Left knee brace Dx: bilateral tibial plateau fracture (S82.143A) Bilateral tibial avulsion (S82.153A), 05/02/21 9:48:00 EDT, [facility] [id number], Supply Start Date: 05/02/21 Status: Ordered Left wrist brace. Dx left wrist pain Left wrist brace. Dx left wrist pain, See Instructions, # 1 each, Refills 0, Tot. Refills 0, Maintenance, Wear as tolerated Dx: Left wrist scaphoid fracture (S62.002A) Left wrist pain (M25.532), 05/02/21 9:46:00 EDT, [facility] [id number], Supply Start Date: 05/02/21 Status: Ordered [...] Team Personnel Name: Naty Malcolm RN Position: [facility] RN Member Role: Primary Care Nurse Name: Harshil Cadroso RN Position: [facility] RN Member Role: Primary Care Nurse Name: Meri Lima RN Position: [facility] ED RN W/OE and Tasks Member Role: Primary Care Nurse Name: Lionel Ludwig MD Position: [facility] Renal MD Member Role: Lifetime Consulting Physician Address: Address: [address] [place] [address], [address] [facility] [address] Name: Rowan Alvarez RN Position: [facility] HBO Wound Member Role: Primary Care Nurse Name: Tala Plasencia RN Position: [facility] RN Member Role: Primary Care Nurse Name: Franklin Seth RN Position: [facility] RN Member Role: Primary Care Nurse Name: Kathy Honeycutt Position: [facility] RN Member Role: Primary Care Nurse Name: Gideon Miller RN Position: [facility] SN RN Member Role: Primary Care Nurse Name: Az Pham RN Position: [facility] ED RN W/OE and Tasks Member Role: Primary Care Nurse Name: Libertad Olmos RN Position: [facility] RN Member Role: Primary Care Nurse Name: Daily Mane RN Position: [facility] RN Member Role: Primary Care Nurse Name: Katelynn Milan RN Position: [facility] AMB Nurse Member Role: Primary Care Nurse Name: Mae Brennan NP Position: [facility] PCO Associate Professional Member Role: PCP Address: Address: [address] [place] [address]- Name: Belinda Gusman RN Position: [facility] Cloth Mercerizing Supervisor Member Role: Primary Care Nurse Name: Chito Powers RN Position: [facility] RN Member Role: Primary Care Nurse Name: Antonio Velasquez RN Position: [facility] RN Member Role: Primary Care Nurse Name: Alexey Ramos RN Position: [facility] RN Member Role: Primary Care Nurse Name: Crow Burk MD Position: [facility] Renal MD Member Role: Lifetime Consulting Physician Address: Address: [address] [place] [address] [facility] [place] [address]- Name: Emelyn Corbin RN Position: [facility] RN Member Role: Primary Care Nurse Name: Aurea Gutierrez RN Position: [facility] RN Member Role: Primary Care Nurse Care Team Related Persons Name: CHARLES FRANKLIN Address: [address] [place] [address]
--- OUTSIDE RECORDS SUMMARY | 2023-09-14 23:07 | XMS_ITS | Continuity of Care Document ---
Author Organization [facility] Adult Address [address] [place] [address]- Care Team Providers Care Five Roll Refiner Batch Mixer Name Role Phone Mika CLAY, Mae Serrano Primary Care Physician En[place] [facility] [place] Date(s): 03/08/22 - 04/07/[address] [address]- Allergies, Adverse Reactions, Alerts Substance Reaction Severity Status lithium unknown Active Immunizations Given and Recorded Vaccine Date Status Refusal Reason SARS-CoV-2 mRNA (yxziutf-swsb-kpxgx) vax 03/14/21 Recorded SARS-CoV-2 (COVID-19) mRNA BNT-162b2 [...] 0 Refills, Maintenance, 03/27/22 13:51:00 EST, Tablet, [facility]-, Partial fill upon patient request if [...] tibial avulsion (S82.153A), 05/02/21 9:45:00 EDT, [facility] [id number], Supply Start Date: 05/02/21 Status: Ordered Knee Support See Instructions, # 1 each, Maintenance, Left knee brace Dx: bilateral tibial plateau fracture (S82.143A) Bilateral tibial avulsion (S82.153A), 05/02/21 9:48:00 EDT, [facility] [id number], Supply Start Date: 05/02/21 Status: Ordered Left wrist brace. Dx left wrist pain Left wrist brace. Dx left wrist pain, See Instructions, # 1 each, Refills 0, Tot. Refills 0, Maintenance, Wear as tolerated Dx: Left wrist scaphoid fracture (S62.002A) Left wrist pain (M25.532), 05/02/21 9:46:00 EDT, [facility] [phone], Supply Start Date: 05/02/21 Status: Ordered meloxicam 15 mg oral tablet 1 tablet = 15 mg, By Mouth, Daily, PRN Pain , Moderate, # 30 tablet, 4 Refills, Maintenance, 03/01/22 13:25:00 EST, Tablet, [facility]-, Partial fill upon patient request if [...] Care Nurse Name: Meri Lima RN Position: [facility] ED RN W/OE and Tasks Member Role: Primary Care Nurse Name: Lionel Ludwig MD Position: [facility] Renal MD Member Role: Lifetime Consulting Physician Address: Address: [address] [place] [address], [address] [facility] [place] [address]- Name: Rowan Alvarez RN Position: [facility] [...] Professional Member Role: PCP Address: Address: [address] [place] [address] [address] [place] [address]- [place] Name: Deborah Gusman RN Position: [facility] Hospital Butter Melter Member Role: Primary Care Nurse Name: Chito Powers RN Position: [facility] RN Member Role: Primary Care Nurse Name: Antonio Velasquez RN Position: [facility] RN Member Role: Primary Care Nurse Name: Alexey Ramos RN Position: [facility] RN Member Role: Primary Care Nurse Name: Crow Burk MD Position: [facility] Renal MD Member Role: Lifetime Consulting Physician Address: Address: [address] [place] [address] [facility] [place], [place] [address] Name: Emelyn Corbin RN Position: S RN Member Role: Primary Care Nurse Name: Aurea Gutierrez RN Position: S RN Member Role: Primary Care Nurse Care Team Related Persons Name: RIGOBERTO, JOHN Address: [address] [address]
--- OUTSIDE RECORDS SUMMARY | 2023-09-14 23:07 | XMS_ITS | Continuity of Care Document ---
Author Organization [facility] Address [address] [place] [address]- Care Team Providers Care Regional Office Coordinator Name Role Phone Mae Brennan NP Primary Care Physician En[place] [facility] [place] Date(s): 09/18/19 - 11/19/19 [facility] [address] [place] [address]- [facility] Attending Physician: Britni Zarate MD Admitting Physician: Britni Zarate MD Referring Physician: Mae Brennan NP Allergies, [...]
--- OUTSIDE RECORDS SUMMARY | 2023-09-14 23:07 | XMS_ITS | Continuity of Care Document ---
Author Organization [facility] Address [address] [place] [address]- Care Team Providers Care Scientific Systems Analyst Name Role Phone Mika CLAY, Mae Serrano Primary Care Physician [phone] Encounter [facility] Date(s): 07/15/22 - 07/15/[address] [address]- Discharge Disposition: A-D/C Walkout Attending Physician: Not on Staff, Attending MD Admitting Physician: Not on Staff, Admitting MD Referring Physician: Not on Staff, Referring MD Allergies, Adverse Reactions, Alerts No Known Medication Allergies Immunizations Given and Recorded Vaccine Date Status Refusal Reason SARS-CoV-2 mRNA (ifqhnpf-zosg-gjchy) vax 03/14/21 Recorded SARS-CoV-2 (COVID-19) mRNA BNT-162b2 [...] 2 Refills, Maintenance, 06/19/22 14:26:00 EDT, Tablet, [facility]-, Partial fill upon patient request if the [...] Gm, 0 Refills, Maintenance, 06/19/22 14:04:00 EDT, [facility]-, 30, USE 1 SPRAY IN EACH NOSTRIL TWICE A DAY, 165, cm, 03/01/22 12:48:00 EST, Height, 76, kg, 02/04/... Start Date: 06/19/22 Status: Ordered Knee Support See Instructions, # 1 each, Maintenance, Right knee brace Dx: bilateral tibial plateau fracture (S82.143A) Bilateral tibial avulsion (S82.153A), 05/02/21 9:45:00 EDT, [facility] [id number], Supply Start Date: 05/02/21 Status: Ordered Knee Support See Instructions, # 1 each, Maintenance, Left knee brace Dx: bilateral tibial plateau fracture (S82.143A) Bilateral tibial avulsion (S82.153A), 05/02/21 9:48:00 EDT, [facility] [id number], Supply Start Date: 05/02/21 Status: Ordered Left wrist brace. Dx left wrist pain Left wrist brace. Dx left wrist pain, See Instructions, # 1 each, Refills 0, Tot. Refills 0, Maintenance, Wear as tolerated Dx: Left wrist scaphoid fracture (S62.002A) Left wrist pain (M25.532), 05/02/21 9:46:00 EDT, [facility] [phone], Supply Start Date: 05/02/21 Status: Ordered naproxen [...] oldest [Reference Range]: 1 Height 165 cm (07/15/22 6:51 PM) Weight 76.5 kg (07/15/22 6:51 PM) Dry Weight 76.5 kg (07/15/22 6:51 PM) Social History Social History Type Response [...] Care Nurse Name: Meri Lima RN Position: [facility] ED RN W/OE and Tasks Member Role: Primary Care Nurse Name: Lionel Ludwig MD Position: [facility] Renal MD Member Role: Lifetime Consulting Physician Address: Address: [address] [place] [address], [address] [facility] [address] Name: Rowan Alvarez RN [facility] Care Nurse Name: Gideon Miller RN Position: [facility] SN RN Member Role: Primary Care Nurse [...] Professional Member Role: PCP Address: Address: [address] [place] [address]- [place] Name: Deborah Gusman RN Position: [facility] Culinary Director Member Role: Primary Care Nurse Name: [...] Member Role: Lifetime Consulting Physician Address: Address: [address] [place] [address] [facility] [place] [address]- Name: Emelyn Corbin RN Position: [facility] RN Member Role: Primary Care Nurse Name: Aurea Gutierrez RN Position: [facility] RN Member Role: Primary Care Nurse Name: Jennifer Sandhu MD Position: [facility] ED Medicine MD Address: Address: [address] [place] [address]- [place] Name: Rose Ray RN Position: [facility] ED RN W/OE and Tasks Member Role: Patient Care Provider Name: Cristi Brooks Position: [facility] Associate Professional Member Role: ED Physician Roustabout Crew Address: Address: [address] [place] [address]- Care Team Related Persons Name: CHARLES FRANKLIN Address: home [address] [place] [address]
--- OUTSIDE RECORDS SUMMARY | 2023-09-14 23:07 | XMS_ITS | Continuity of Care Document ---
Author Organization [facility] Adult Address [address] [place] [address]- Care Team Providers Care Retarder Operator Name Role Phone Mika CLAY, Mae Serrano Primary Care Physician [phone] Encounter [facility] Date(s): 03/29/21 - 04/28/21 [facility] Adult [address] [place] [address]- Allergies, Adverse Reactions, Alerts Substance Reaction Severity [...] tibial avulsion (S82.153A), 03/11/21 9:32:00 ROSINA CEBALLOS [id number], Supply Start Date: 03/11/21 Status: Ordered Left wrist brace. Dx left wrist pain Left wrist brace. Dx left wrist pain, See Instructions, # 1 each, Refills 0, Tot. Refills 0, Maintenance, Wear as tolerated Dx: Left wrist scaphoid fracture (S62.002A) Left wrist pain (M25.532), 03/11/21 9:32:00 ROSINA CEBALLOS [phone] [id number], Supply Start Date: 03/11/21 Status: Ordered pantoprazole [...]
--- OUTSIDE RECORDS SUMMARY | 2023-09-14 23:08 | XMS_ITS | Continuity of Care Document ---
Author Organization [facility] Adult Address [address] [place] [address]- Care Team Providers Care Jockey'S Agent Name Role Phone Mae Brennan NP Primary Care Physician Encounter [facility] [place] Date(s): 01/04/23 - 01/11/[address] [address]- Encounter Diagnosis Nasal congestion(Discharge Diagnosis) - 01/04/23 GERD (gastroesophageal reflux disease)(Discharge Diagnosis) - 01/04/23 Attending Physician: Mae Brennan NP Allergies, Adverse Reactions, Alerts No Known Medication Allergies Immunizations Given and Recorded Vaccine Date Status Refusal Reason SARS-CoV-2(COVID-19)mRNA-LNP vac([id number]) 12/18/22 Recorded influenza virus vaccine, inactivated 11/15/22 Preet rded [id number] bivalent booster vax 12/16/21 Recorded SARS-CoV-2 mRNA ([id number]-knew-pfjgx) vax 03/14/21 Recorded SARS-CoV-2 (COVID-19) mRNA BNT-162b2 [...] 11:33:00 EST, Inhaler, Route to Pharmacy Electronically, NCPDP_ID-[id number], [facility]-43571, 176, cm, 01/04/23 10:48:00 EST, Height... Start [...] Gm, 3 Refills, Maintenance, 01/04/23 11:38:00 EST, [place], Partial fill upon patient request if the [...] Acute 01/18/23 11:34:00 EST, 01/04/23 11:34:00 EST, [facility]-97729, Partial fill upon patient request if the [...] Bilateral tibial avulsion (S82.153A), 05/02/21 9:45:00 EDTROSINA [id number], Supply Start Date: 05/02/21 Status: Ordered Knee Support See Instructions, # 1 each, Maintenance, Left knee brace Dx: bilateral tibial plateau fracture (S82.143A) Bilateral tibial avulsion (S82.153A), 05/02/21 9:48:00 EDT, ROSINA [id number], Supply Start Date: 05/02/21 Status: Ordered Left wrist brace. Dx left wrist pain Left wrist brace. Dx left wrist pain, See Instructions, # 1 each, Refills 0, Tot. Refills 0, Maintenance, Wear as tolerated Dx: Left wrist scaphoid fracture (S62.002A) Left wrist pain (M25.532), 05/02/21 9:46:00 EDTROSINA [id number], Supply Start Date: 05/02/21 Status: Ordered levocetirizine [...] Effective Dates Health Status Clinical Service Informant Nasal congestion Discharge Diagnosis 01/04/23 GERD (gastroesophageal reflux disease) Discharge Diagnosis 01/04/23 Vital Signs Most recent to oldest [Reference Range]: 1 Height 176 cm (01/04/23 10:48 AM) Weight 73.6 kg (01/04/23 10:48 AM) Oxygen Saturation [94-100 %] 95 % (01/04/23 10:48 AM) Pulse Rate [55-90 bpm] 87 bpm (01/04/23 10:48 AM) Body Mass Index [18.5-24.99 kg/m2] 23.76 kg/m2 (01/04/23 10:48 AM) Blood Pressure [90-138/55-84 mm Hg] 101/ 69mm Hg (01/04/23 10:48 AM) Mode of Delivery (Oxygen) Room air (01/04/23 10:48 AM) Blood pressure sites Arm, right (01/04/23 10:48 AM) Weight Obtained Via Standing scale (01/04/23 10:48 AM) Social History Social History Type Response Smoking Status Current every day sm oker; Type: Cigarettes entered on: 09/13/16 Sex Note * Jorden Goldberg: PERFORM, SIGN, VERIFY Event Display: Patient Education/Instruction Authored Date: [id number] [facility] Clinical Summary Name DARWIN STAHL Age 52 Years 1970 PCP Mika CLAY, Mae Serrano PCP Visit Date 01/04/2023 10:39:00 Additional Instructions: Scheduled Appointments?? Future Appointments ?*[facility]??Surg [address] ?[place],??[place],??[address] ?Phone:??--?Fax:??-- ?Appt. Date:??02/05/2023?11:20 AM ?Scheduled Provider:??José Cruz ?*[facility] ?[address] ?Phone:??--?Fax:??-- ?Appt. Date:??02/16/2023?1:30 PM ?Scheduled Provider:??Mika CLAY, Mae Serrano Follow-Up Instructions ?? Diagnosis Encounter for screening for human immunodeficiency virus [HIV]; Other seasonal allergic rhinitis; Encounter for screening for other viral diseases; Chronic viral hepatitis C; Emphysema, unspecified; Cough, unspecified Medications: Please continue your medications until treatment is completed or stopped by your provider. Discuss any questions related to medications with your provider. New Medications [facility], [address] [place] [phone], [phone] Ipratropium Nasal (ipratropium nasal 21 mcg/inh spray) 2 spray(s) Nares, Both 3 times a day as needed Nasal Congestion for 14 Days. in each nostril. Refills: 0. Next Dose: - Fluticasone (Flovent Diskus 50 mcg/inh inhalation powder) 1 Each Inhalation twice a day. rinse mouth and throat after use. Refills: 0. Next Dose: Fluticasone Nasal (fluticasone 50 mcg/inh nasal spray) 1 spray(s) Nares, Both twice a day for 30 Days. in each nostril. Refills: 3. Next Dose: Ipratropium Nasal (ipratropium nasal 21 mcg/inh spray) 2 spray(s) Nares, Both 3 times a day as needed Nasal Congestion for 14 Days. in each nostril. Refills: 0. Next Dose: levocetirizine (levocetirizine 5 mg oral tablet) 1 tab(s) Oral Daily in PM. Refills: 0. Next Dose: Pantoprazole (pantoprazole 40 mg oral delayed release tablet) 1 tab(s) Oral Daily in the morning. Refills: 1. Next Dose: Medications to Continue Taking That Have Changed [facility] [place] [place]-[address], [address] [id number], [phone] - Albuterol (albuterol CFC free 90 mcg/inh inhalation aerosol) 2 puff(s) Inhalation 4 times a day as needed as needed for wheezing for 30 Days. Refills: 0. Next Dose: - - Albuterol (albuterol CFC free 90 mcg/inh inhalation aerosol) 2 puff(s) Inhalation 4 times a day as needed as needed for wheezing for 30 Days. Refills: 0. Next Dose: - DiphenhydrAMINE (Benadryl 25 mg oral capsule) 1 capsule Oral 3 times a day as needed for allergy symptoms for 30 Days. Refills: 0. Next Dose: - Glucosamine (glucosamine 750 mg oral tablet) 2 tab(s) Oral Daily for 90 Days. Refills: 2. Next Dose: - Naproxen (naproxen 500 mg oral delayed release tablet) 1 tab(s) Oral twice a day as needed Pain ,Moderate for 14 Days. with food do not chew or break tablets. Refills: 0. Next Dose: These medications were not printed or sent to your pharmacy - Benztropine (Cogentin Tablet) 2 Milligram Oral twice a day. Next Dose: - Divalproex Sodium (divalproex sodium 500 mg oral enteric coated tablet) 1 tab(s) Oral twice a day. take with 250mg for a total dose of 750mg. Next Dose: Medications to Continue with No Changes These medications were not printed or sent to your pharmacy Durable Medical Equipment (Cane) 4 Prong Cane [...] wrist pain (M25.532). Refills: 0. Next Dose: Risperidone (risperiDONE 1 mg oral tablet) 1 tab(s) Oral Daily. Next Dose: Risperidone (risperiDONE 2 mg oral tablet) 1 tab(s) Oral twice a day. Next Dose: No Longer Take the Following Medications ciprofloxacin-dexamethasone otic (ciprofloxacin-dexamethasone 0.3%-0.1% otic suspension) 4 Drops Right ear twice a day. Refills: 0. Desloratadine (desloratadine 5 mg oral tablet) 1 tab(s) Oral Daily. Refills: 2. Allergy Info:?? No Known Medication Allergies Medications Given This Visit Future Orders ?HIV Ab-Ag 4th Generation? Order Date:01/04/23?- Complete on or after?01/04/23 ?Hepatitis C RNA PCR Quant? Order Date:01/04/23?- Complete on or after?01/04/23 ?Hepatitis C Ab? Order Date:01/04/23?- Complete on or after?01/04/23 ?Hepatitis B Surface Antigen? Order Date:01/04/23?- Complete on or after?01/04/23 ?Anti-HBS Quant? Order Date:01/04/23?- Complete on or after?01/04/23 Vital Signs Height 176 cm Weight 73.6 kg BMI 23.76 kg/m2 Blood Pressure 101 mm Hg/69 mm Hg Temperature Pulse Rate 87 bpm Respiratory Rate 02 Sat Mode of Delivery 95 %/Room air You can now view a summary of your hospital visit from the comfort of your home through a free online portal called [employer]Tap. [employer] is a website that allows you to securely view your medical information including discharge summary, medications and follow-up visits. ??You can alsosend a secure electronic message to your doctor???s office to request appointments, renew medications or just ask a question. You can enroll at [email or web address] or register during your next office [...] primary care provider, you may find a [facility] provider by calling [facility] Link at [phone]. [facility], in keeping with [facility] guidance, no longer requires face masks for [...] Care Nurse Name: Meri Lima RN Position: [facility] ED RN W/OE and Tasks Member Role: Primary Care Nurse Name: Lionel Ludwig MD Position: [facility] Renal MD Member Role: Lifetime Consulting Physician Address: Address: [address] [place] [address] [address] [facility] [address]- Name: Rowan Alvarez RN Position: [facility] HBO Wound Member Role: Primary Care Nurse Name: Tala Plasencia RN Position: [facility] RN Member Role: Primary Care Nurse Name: Franklin Seth RN Position: [facility] RN Member Role: Primary Care Nurse Name: Kathy Honeycutt Position: [facility] RN Member Role: Primary Care Nurse Name: Gideon Miller RN Position: [facility] SN RN Member Role: Primary Care Nurse Name: Az Pham RN Position: [facility] ED RN W/OE and Tasks Member Role: Primary Care Nurse Name: Libertad Olmos RN Position: [facility] RN Member Role: Primary Care Nurse Name: Daily Mane RN Position: [facility] RN Member Role: Primary Care Nurse Name: Katelynn Milan RN Position: [facility] AMB Nurse Member Role: Primary Care Nurse Name: Mae Brennan NP Position: [facility] PCO Associate Professional Member Role: PCP Address: Address: [address] [place] [address]- Name: Belinda Gusman RN Position: [facility] Account Executive Metalworking Member Role: Primary Care Nurse Name: Chito [...] Role: Lifetime Consulting Physician Address: Address: [address] [place] [address] [facility] [place] [address]- Name: Emelyn Corbin RN Position: [facility] RN Member Role: Primary Care Nurse Name: Aurea Gutierrez RN Position: [facility] RN Member Role: Primary Care Nurse Care Team Related Persons Name: CHARLES FRANKLIN Address: [address] [place] [address]
--- OUTSIDE RECORDS SUMMARY | 2023-09-14 23:08 | XMS_ITS | Continuity of Care Document ---
Author Organization [facility] Adult Address [address] [place] [address]- Care Team Providers Care Salesperson Flowers Name Role Phone Mae Brennan NP Primary Care Physician [place] [facility] [place](s): 06/26/22 - 08/18/22 [facility] Adult [address] [place] [address]- Attending Physician: Mae Brennan NP Allergies, Adverse Reactions, Alerts No Known Medication Allergies Immunizations Given and Recorded Vaccine Date Status Refusal Reason [id number] bivalent booster vax 12/16/21 Recorded SARS-CoV-2 mRNA (mzeglra-nlzw-ernqg) vax 03/14/21 Recorded SARS-CoV-2 (COVID-19) mRNA BNT-162b2 [...] 2 Refills, Maintenance, 06/19/22 14:26:00 EDT, Tablet, [facility]-, Partial fill upon patient request [...] Gm, 5 Refills, Maintenance, 07/21/22 13:26:00 EDT, [facility]-, 30, USE 1 SPRAY IN EACH NOSTRIL TWICE A DAY, 165, cm, 07/15/22 18:51:00 EDT, Height, 76.5, kg, 07/15/22 18:51:00... Start Date: 07/21/22 Status: Ordered Knee Support See Instructions, # 1 each, Maintenance, Right knee brace Dx: bilateral tibial plateau fracture (S82.143A) Bilateral tibial avulsion (S82.153A), 05/02/21 9:45:00 EDT, ROSINA [id number], Supply Start Date: 05/02/21 Status: Ordered Knee Support See Instructions, # 1 each, Maintenance, Left knee brace Dx: bilateral tibial plateau fracture (S82.143A) Bilateral tibial avulsion (S82.153A), 05/02/21 9:48:00 EDT, ROSINA [id number], Supply Start Date: 05/02/21 Status: Ordered Left wrist brace. Dx left wrist pain Left wrist brace. Dx left wrist pain, See Instructions, # 1 each, Refills 0, Tot. Refills 0, Maintenance, Wear as tolerated Dx: Left wrist scaphoid fracture (S62.002A) Left wrist pain (M25.532), 05/02/21 9:46:00 EDT, ROSINA [id number], Supply Start Date: 05/02/21 Status: Ordered naproxen [...] Role: Lifetime Consulting Physician Address: Address: [address] [place] [address], [address] [facility] [address] Name: Rowan Alvarez RN Position: [facility] HBO Wound Member Role: Primary Care Nurse Name: Tala Plasencia RN Position: [facility] RN Member Role: Primary Care Nurse Name: Franklin Seth RN Position: [facility] RN Member Role: Primary Care Nurse Name: Kathy Honeycutt Position: [facility] RN Member Role: [...] Katelynn Milan RN Position: [facility] JORDYN Nurse Member Role: Primary Care Nurse Name: Mae Brennan NP Position: [facility] PCO Associate Professional Member Role: PCP Address: Address: [address] [place] [address]- Name: Belinda Gusman RN Position: [facility] Grocery Merchandiser Member Role: Primary Care Nurse Name: Chito [...] Role: Lifetime Consulting Physician Address: Address: [address] [place] [address] [facility] [place] [address]- Name: Emelyn Corbin RN Position: [facility] RN Member Role: Primary Care Nurse Name: Aurea Gutierrez RN Position: [facility] RN Member Role: Primary Care Nurse Care Team Related Persons Name: CHARLES FRANKLIN Address: [address] [place] [address]
--- OUTSIDE RECORDS SUMMARY | 2023-09-14 23:08 | XMS_ITS | Continuity of Care Document ---
Author Organization [facility] Address [address] [place], [place] [address]lisa guzman, [address] [place] [address]- Care Team Providers Care Stuffed Casing Tier Name Role Phone Mae Brennan NP Primary Care Physician [phone] Encounter [facility] [place] Date(s): 08/04/20 - 09/03/20 [facility] Neurosurgery [address] [place] [address] Drive, [address] [place], [place] [address] Attending Physician: Liliana Wood Admitting Physician: [...] px, unsteady gait, h/o vertebral osteomylitis ROSINA [id number], 08/26/20 9:05:00 EDT, Supply Start Date: 08/26/20 [...] px, unsteady gait, h/o vertebral osteomylitis ROSINA [id number], 08/26/20 9:05:00 EDT, Supply Start Date: 08/26/20 Status: Ordered CeleBREX 200 mg oral capsule 1 capsule = 200 mg, By Mouth, 2 times a day, PRN Pain , Moderate, contents of capsule may be mixed with soft foods such as applesauce, # 60 capsule, 0 Refills, Maintenance, 08/02/20 14:32:00 EDT, Capsule, [facility]-, Partial f... Start Date: 08/02/20 Status: Ordered [...] EDT, Route to Pharmacy Electronically, [facility]-, Partial fill upon patient request if the prescription is f... Start Date: 08/02/20 Status: Ordered ibuprofen 600 mg oral tablet 600 mg, 1, tablet, By Mouth, Every 8 hours, PRN, not to exceed 3200 mg/day with food or milk, # 90 tablet, Refills 0, Tot. Refills 0, Maintenance, Pain , Moderate, 08/13/20 10:32:00 EDT, Route to Pharmacy Electronically, [facility]... Start Date: 08/13/20 Stop Date: 09/12/20 Status: [...]
--- OUTSIDE RECORDS SUMMARY | 2023-09-14 23:08 | XMS_ITS | Continuity of Care Document ---
Author Organization [facility] Address [address] [place] [address]- Care Team Providers Care Steamblaster Name Role Phone Mika CLAY, Mae Serrano Primary Care Physician [phone] [place] [facility] [place]/16[place]20 - 02/18/[address] [address] Attending Physician: Cam Mccall MD Admitting [...]
--- OUTSIDE RECORDS SUMMARY | 2023-09-14 23:08 | XMS_ITS | Continuity of Care Document ---
Author Organization [facility] Adult Address [address] [place] [address]- Care Team Providers Care Client Engagement Manager Name Role Phone Mika CLAY, Mae Serrano Primary Care Physician [phone] Encounter [facility] [place] Date(s): 03/28/22 - 04/27/22 [facility] Adult [address] [place] [address]- Allergies, Adverse Reactions, Alerts Substance Reaction Severity Status lithium unknown Active Immunizations Given and Recorded Vaccine Date Status Refusal Reason SARS-CoV-2 mRNA (xjuqljk-lxbr-kradf) vax 03/14/21 Recorded SARS-CoV-2 (COVID-19) mRNA BNT-162b2 [...] 0 Refills, Maintenance, 04/18/22 8:05:00 EST, Tablet, [facility]-, Partial fill upon patient request [...] tibial avulsion (S82.153A), 05/02/21 9:45:00 EDT, ROSINA [id number], Supply Start Date: 05/02/21 Status: Ordered Knee Support See Instructions, # 1 each, Maintenance, Left knee brace Dx: bilateral tibial plateau fracture (S82.143A) Bilateral tibial avulsion (S82.153A), 05/02/21 9:48:00 EDT, ROSINA [id number], Supply Start Date: 05/02/21 Status: Ordered Left wrist brace. Dx left wrist pain Left wrist brace. Dx left wrist pain, See Instructions, # 1 each, Refills 0, Tot. Refills 0, Maintenance, Wear as tolerated Dx: Left wrist scaphoid fracture (S62.002A) Left wrist pain (M25.532), 05/02/21 9:46:00 EDT, ROSINA [id number], Supply Start Date: 05/02/21 Status: Ordered naproxen 500 mg oral tablet 1 tablet = 500 mg, By Mouth, 2 times a day, PRN Pain , Moderate, for 30 days, # 60 tablet, 0 Refills, Acute 05/17/22 17:44:00 EDT, 04/17/22 17:44:00 EST, Tablet, [facility]-, Partial fill upon patient request if the prescriptio... Start Date: 04/17/22 Stop Date: 05/17/22 Status: Ordered naproxen 500 mg oral tablet 1 tablet = 500 mg, By Mouth, Every 12 hours, PRN Pain , Moderate, for 30 days, # 60 tablet, 0 Refills, Acute 06/16/22 17:44:00 EDT, 05/17/22 17:44:00 EDT, Tablet, [facility]-,Partial fill upon patient request if [...] Role: Lifetime Consulting Physician Address: Address: [address] [place] [address], [address] [facility] [address] Name: Rowan Alvarez RN Position: [facility] Associate Professional Member Role: PCP Address: Address: [address] [place] [address] [address] [place] [address]- [place] Name: Deborah Gusman RN Position: [facility] Claims Technician Member Role: Primary Care Nurse Name: [...] Role: Lifetime Consulting Physician Address: Address: [address] [place] [address] [facility] [place] [address]- Name: Emelyn Corbin RN Position: [facility] RN Member Role: Primary Care Nurse Name: Aurea Gutierrez RN Position: [facility] RN Member Role: Primary Care Nurse Care Team Related Persons Name: CHARLES FRANKLIN Address: [address] [address]
--- OUTSIDE RECORDS SUMMARY | 2023-09-14 23:08 | XMS_ITS | Continuity of Care Document ---
Author Organization [facility] Address [address] [place] [address]- Care Team Providers Care Game Operator Name Role Phone Mika CLAY, Mae Serrano Primary Care Physician Encounter [facility] Date(s): 04/16/23 - 05/16/23 [facility] [address] [place], [place] [address] Attending Physician: Admtr, Ar8 Admitting Physician: Admtr, Ar8 Referring Physician: Admtr, Ar8 Allergies, Adverse Reactions, Alerts Substance Reaction Severity Status lithium bladder/ metabolism Active Immunizations Given and Recorded Vaccine Date Status Refusal Reason SARS-CoV-2(COVID-19)mRNA-LNP vac([id number]) 12/18/22 Recorded influenza virus vaccine, inactivated 11/15/22 Preet rded [id number] bivalent booster vax 12/16/21 Recorded SARS-CoV-2 mRNA (rqsnmim-rzkd-ktqxc) vax 03/14/21 Recorded SARS-CoV-2 (COVID-19) mRNA BNT-162b2 vac 04/30/20 Recorded SARS-CoV-2 (COVID-19) mRNA BNT-162b2 vac 04/01/20 Recorded tetanus/diphtheria/pertussis, acel(Tdap) 03/09/17 Given Medications Albuterol (Eqv-Proventil HFA) 90 mcg/inh inhalation aerosol 2 puffs, Inhalation, 4 times a day, PRN NEEDED FOR WHEEZING, # 6.7 Gm, 0 Refills, Maintenance, 04/09/23 9:17:00 EST, [facility]-[id number], 176, cm, 02/27/23 11:54:00 EST, Height, 70, kg, 12/21/22 12:46:00 EDT, Dry Weight Start Date: 04/09/23 Stop Date: 05/09/23 Status: Ordered Anoro Ellipta 62.5 mcg-25 mcg/inh inhalation powder 1 puffs, Inhalation, Daily, # 1 each, 11 Refills, Maintenance, 02/01/23 10:55:00 EST, Powder, [facility], Partial fill upon patient request if the prescription is for a schedule II opioid drug., 1 puffs Inhalation Daily,x30 da... Start Date: 02/01/23 Stop Date: 01/27/24 Status: Ordered Banophen 25 mg oral capsule 1 capsule, By Mouth, 3 times a day, PRN NEEDED FOR ALLERGY SYMTPOMS, # 90 capsule, 6 Refills, Maintenance, 02/23/23 17:34:00 EST, [facility]/pharmacy #[id number], 176, cm, 02/16/23 13:04:00 EST, Height, [...] Gm, 2 Refills, Maintenance, 05/08/23 18:38:00 EDT, Aquaporin-, 30, USE 1 SPRAY IN EACH NOSTRIL [...] tibial avulsion (S82.153A), 05/02/21 9:45:00 EDT, ROSINA [id number], Supply Start Date: 05/02/21 Status: Ordered Knee Support See Instructions, # 1 each, Maintenance, Left knee brace Dx: bilateral tibial plateau fracture (S82.143A) Bilateral tibial avulsion (S82.153A), 05/02/21 9:48:00 EDT, ROSINA [id number], Supply Start Date: 05/02/21 Status: Ordered Left wrist brace. Dx left wrist pain Left wrist brace. Dx left wrist pain, See Instructions, # 1 each, Refills 0, Tot. Refills 0, Maintenance, Wear as tolerated Dx: Left wrist scaphoid fracture (S62.002A) Left wrist pain (M25.532), 05/02/21 9:46:00 EDT, ROSINA [phone], Supply Start Date: 05/02/21 Status: Ordered naproxen 500 mg oral tablet 1 tablet, By Mouth, 2 times a day, PRN NEEDED FOR MODERATE PAIN WITH FOOD, # 60 tablet, 0 Refills, Maintenance, 05/09/23 13:23:00 EDT, Aquaporin- , 176, cm, 05/01/23 9:52:00 EDT, Height, [...] Role: Lifetime Consulting Physician Address: Address: [address] [place] [address] [address] [facility] [address]- [place] Name: Rowan Alvarez RN Position: [facility] HBO Wound Member Role: Primary Care [...] Professional Member Role: PCP Address: Address: [address] [place] [address]- [place] Name: Belinda Gusman RN Position: [facility] Grain Trader Member Role: Primary Care Nurse Name: Chito [...] Member Role: Lifetime Consulting Physician Address: Address: [address] [place] [address] [facility] [place] [address]- [place] Name: Emelyn Corbin RN Position: [facility] RN Member Role: Primary Care Nurse Name: Aurea Gutierrez RN Position: [facility] RN Member Role: Primary Care Nurse Care Team Related Persons Name: CHARLES FRANKLIN Address: [address] [address]
--- OUTSIDE RECORDS SUMMARY | 2023-09-14 23:08 | XMS_ITS | Continuity of Care Document ---
Author Organization [facility] Address [address] [place] [address]- Care Team Providers Care Nc Machinist Name Role Phone Mika CLAY, Mae Serrano Primary Care Physician [phone] Encounter [facility] Date(s): 10/20/19 - 11/19/19 [facility] [address] [place] [address] Attending Physician: Liliana Wood Admitting Physician: [...]
--- OUTSIDE RECORDS SUMMARY | 2023-09-14 23:08 | XMS_ITS | Continuity of Care Document ---
Author Organization [facility] Adult Address [address] [place] [address]- Care Team Providers Care Marine Tower Operator Name Role Phone Mika CLAY, Mae Serrano Primary Care Physician [phone] Encounter [facility] [place] Date(s): 07/14/22 - 08/13/22 [facility] Adult [address] [place] [address]- Allergies, Adverse Reactions, Alerts No Known Medication Allergies Immunizations Given and Recorded Vaccine Date Status Refusal Reason [id number] bivalent booster vax 12/16/21 Recorded SARS-CoV-2 mRNA ([id number]) vax 03/14/21 Recorded SARS-CoV-2 (COVID-19) mRNA BNT-162b2 [...] 2 Refills, Maintenance, 06/19/22 14:26:00 EDT, Tablet, [facility]-, Partial fill upon patient request if the [...] Gm, 5 Refills, Maintenance, 07/21/22 13:26:00 EDT, [facility]-, 30, USE 1 SPRAY IN EACH NOSTRIL TWICE A DAY, 165, cm, 07/15/22 18:51:00 EDT, Height, 76.5, kg, 07/15/22 18:51:00... Start Date: 07/21/22 Status: Ordered Knee Support See Instructions, # 1 each, Maintenance, Right knee brace Dx: bilateral tibial plateau fracture (S82.143A) Bilateral tibial avulsion (S82.153A), 05/02/21 9:45:00 EDT, [facility] [id number], Supply Start Date: 05/02/21 Status: Ordered Knee Support See Instructions, # 1 each, Maintenance, Left knee brace Dx: bilateral tibial plateau fracture (S82.143A) Bilateral tibial avulsion (S82.153A), 05/02/21 9:48:00 EDT, [facility] [id number], Supply Start Date: 05/02/21 Status: Ordered Left wrist brace. Dx left wrist pain Left wrist brace. Dx left wrist pain, See Instructions, # 1 each, Refills 0, Tot. Refills 0, Maintenance, Wear as tolerated Dx: Left wrist scaphoid fracture (S62.002A) Left wrist pain (M25.532), 05/02/21 9:46:00 EDT, [facility] [phone], Supply Start Date: 05/02/21 Status: Ordered [...] Team Personnel Name: Naty Malcolm RN Position: [facility] RN Member Role: Primary Care Nurse Name: Harshil Cardoso RN Position: [facility] RN Member Role: Primary Care Nurse Name: Meri Lima RN Position: [facility] ED RN W/OE and Tasks Member Role: Primary Care Nurse Name: Lionel Ludwig MD Position: [facility] Renal MD Member Role: Lifetime Consulting Physician Address: Address: [address] [place] [address], [address] [facility] [address] Name: Rowan Alvarez RN Position: [facility] HBO Wound Member Role: Primary Care Nurse Name: Tala Plasencia RN Position: [facility] RN Member Role: Primary Care Nurse Name: [place] Seth RN Position: [facility] RN Member Role: Primary Care Nurse Name: Kathy Honeycutt Position: [facility] RN Member Role: Primary Care Nurse Name: Gideon Miller RN Position: [facility] SN RN Member Role: Primary Care Nurse Name: Az Pham RN Position: [facility] ED RN W/OE and Tasks Member Role: Primary Care Nurse Name: Libertad Olmos RN Position: [facility] RN Member Role: Primary Care Nurse Name: Daily Mane RN Position: [facility] RN Member Role: Primary Care Nurse Name: Katelynn Milan RN Position: [facility] AMB Nurse Member Role: Primary Care Nurse Name: Mae Brennan NP Position: [facility] PCO Associate Professional Member Role: PCP Address: Address: [address] [place] [address]- Name: Belinda Gusman RN Position: [facility] Stone Polisher Machine Member Role: Primary Care Nurse Name: Chito Powers RN Position: [facility] RN Member Role: Primary Care Nurse Name: Antonio Velasquez RN Position: [facility] RN Member Role: Primary Care Nurse Name: Alexey Ramos RN Position: [facility] RN Member Role: Primary Care Nurse Name: Crow Burk MD Position: [facility] Renal MD Member Role: Lifetime Consulting Physician Address: Address: [address] [place] [address] [facility] [place] [address]- Name: Emelyn Corbin RN Position: [facility] RN Member Role: Primary Care Nurse Name: Aurea Gutierrez RN Position: [facility] RN Member Role: Primary Care Nurse Care Team Related Persons Name: CHARLES FRANKLIN Address: [address] [address]
--- OUTSIDE RECORDS SUMMARY | 2023-09-14 23:08 | XMS_ITS | Continuity of Care Document ---
Author Organization [facility] Adult Address [address] [place] [address]- Care Team Providers Care Tank Car Mechanic Name Role Phone Mae Brennan NP Primary Care Physician Encounter [facility] [place] Date(s): 03/26/20 - 04/02/20 [facility] Adult [address] [place], [place] [address] Attending Physician: Not on Staff, Attending [...] 02/19/20 10:39:00 EST, Route to Pharmacy Electronically, [facility], Partial fill upon patient request [...] oldest [Reference Range]: 1 Height 180 cm (03/26/20 1:48 PM) Social History Social History Type Response Smoking Status Current every day sm oker; Other: 1 pack per since age 9 years; entered on: 03/09/17 Sex Male
[2023-09-14] MEDS: Ondansetron ODT 4 MG TAB.RAPDIS TRANSLINGU (23:14)
[2023-09-14] MEDS: Omeprazole 40 MG CAPSULE.DR PO (23:15)
[2023-09-14] MEDS: Benztropine Mesylate 1 MG TABLET 2 MG PO (23:15)
[2023-09-14] MEDS: risperiDONE 2 MG TABLET PO (23:15)
[2023-09-15 00:09] VITALS: BP 134/78; PULSE 88; RESP 18; TEMP 36.6; O2SAT 98
== END 2023-09-14 23:22 | disposition home or self-care (01) ==
PROVIDERS: Emergency Provider Internal Medicine
DX: F32.A Depression, unspecified (principal); Z79.899 Other long term (current) drug therapy
CPT/HCPCS: 82947; 99282; 99284

== ENCOUNTER 2023-11-11 12:08 | Emergency (ER) | payer OTHER, SELFPAY ==
[2023-11-11 12:33] VITALS: BP 106/66; BP 107/74; PULSE 113; RESP 12; O2SAT 96; O2SAT 98; BMI 25.1
[2023-11-11 12:42] VITALS: BP 106/66; PULSE 113; RESP 12; TEMP 36.5; O2SAT 96
--- NOTE | 2023-11-11 12:48 | PC.NURSE ---
Pt comes to ED today via EMS from [facility]. Per EMS, Pt used Heroin and was found unresponsive at [facility]. 18g LAC, 05mg Narcan IV given with good result. VSS; sat is consistent at 96% RA. Pt is drowsy but abusable with verbal stimuli. Pt denies pain at this time and is resting with eyes closed. Call received from Radha Behavioral Consultant at [facility]. Can be reached at [phone]. Radha reports Pt had a recent positive random tox screen recently.
--- NOTE | 2023-11-11 13:30 | ED.GENADULT ---
HPI - General Adult General Chief complaint: ETOH/Substance Use Stated complaint: OD FROM [facility],NARCAN GIVEN PER EMS Time Seen by Provider: 11/11/23 13:15 Source: patient and EMS Mode of arrival: EMS Limitations: other (Poor historian) History of Present Illness ED Provider: Lauren SMILEY HPI narrative: This is a 52-year-old male history of opiate use disorder presenting to the emergency department with accidental overdose at [facility], patient reports he used 1 bag of heroin, they then called 911, he was given 0.5 mg of IV Narcan with good success. This was not a suicide attempt. Patient is feeling fine now. Denies chest pain, shortness breath, nausea, vomiting abdominal pain, headache, vision changes, dizziness and weakness. Related Data Home Medications ?Medication ?Instructions ?Recorded ?Confirmed benztropine 2 mg tablet 2 mg PO BID 02/12/20 02/12/20 buprenorphine 8 mg-naloxone 2 mg 1 film buccal DAILY 02/12/20 sublingual film buspirone 10 mg tablet 10 mg PO BID 02/12/20 02/12/20 divalproex 250 mg tablet,delayed 250 mg PO BID 02/12/20 02/12/20 release divalproex 500 mg tablet,delayed 500 mg PO BID 02/12/20 02/12/20 release risperidone 2 mg tablet 2 mg PO BID 02/12/20 02/12/20 Allergies Allergy/AdvReac Type Severity Reaction Status Date / Time [place] Citrate Allergy Unknown Unknown Uncoded 11/11/23 12:35 Review of Systems Review of Systems: Yes all other systems are reviewed and are negative [facility] Past Medical History Attestation statement: The following information was validated with the patient. Source: old records reviewed and nursing notes reviewed Medical History Neuropathy Social History Social History Smoked in Last 30 Days: No Use of substances other than those prescribed or required for medical reasons: Yes Substance Use Type: Heroin Last Used Substance: Just Prior to Admission Advance Directives: No Advance Directives Information Provided: No Do you have a plan to hurt others: No Plan Physical Exam ED Vital Signs: Vital Signs - 24 hr 11/11/23 12:33 11/11/23 12:42 11/11/23 13:31 Temperature 97.7 F Pulse Rate 113 H 113 H 84 Respiratory Rate 12 12 Blood Pressure 106/66 106/66 104/74 Pulse Oximetry 96 96 96 Oxygen Delivery Method Room Air Room Air Room Air BMI result Body Mass Index 25.1 vss Appearance: Alert.? Oriented X3.? No acute distress.? Head: Normocephalic, atraumatic, no step-offs or deformities Eyes: Pupils equal, round and reactive to light.? CVS: Normal heart rate and rhythm.? Pulses normal.? Respiratory: No respiratory distress.? Breath sounds normal.? Abdomen: Soft and nontender.? Skin: Skin warm and dry.? Normal skin color.? Normal skin turgor.? Extremities: No lower extremity edema.? No calf ttp. 5/5 strength to bilateral upper and lower extremities Neuro: Oriented X 3.? No motor deficit.? No sensory deficit. CN 2-12 intact Course Reevaluation(s) Reevaluation #1: Pending addiction consult. Patient sleeping but 96-98% on RA. No need for narcan Pending labs and uA. Time: 15:09 Reevaluation #2: Sign out to All SMILEY pending labs, UA, CARE consult Time: 15:49 Medical Decision Making Medical Decision Making [facility] Narrative: 52-year-old male presents status post accidental overdose. Given IV Narcan. Now awake and alert. Not suicidal or homicidal Physical exam benign. Patient alert and awake History and physical exam concerning for accidental overdose. No signs of trauma head, neck, chest, abdomen or pelvis. Unlikely acute pulmonary edema Plan medical clearance evaluation by care team for substance use disorder evaluation Differential Diagnosis Differential Diagnoses: The differential diagnosis associated with the presentation includes History and physical exam concerning for accidental overdose. No signs of trauma head, neck, chest, abdomen or pelvis. Unlikely acute pulmonary edema Admission/Observation Consideration of admission/observation: Escalation of care including admission/observation considered unlikley Consult Healthcare Provider Management of the patient was discussed with: Behavioral Health Provider Lab Data [facility] Lab Attestation statement: I reviewed the patient's lab results. External Record Review External record reviewed: Office record and Outpatient record Chronic Conditions Patient?s care impacted by: Other (Polysubstance abuse) Critical Care Time Critical Care Time Critical Care Time: No Discharge Plan Discharge Clinical Impression: Opiate misuse Patient Disposition: Still a Patient Prescriptions: No Action divalproex 250 mg tablet,delayed release (DR/EC) 250 mg PO BID divalproex 500 mg tablet,delayed release (DR/EC) 500 mg PO BID risperidone 2 mg tablet 2 mg PO BID buspirone 10 mg tablet 10 mg PO BID benztropine 2 mg tablet 2 mg PO BID buprenorphine-naloxone 8-2 mg Film 1 film BUCCAL DAILY Print Language: Slovenian
[2023-11-11 13:31] VITALS: BP 104/74; PULSE 84; O2SAT 96
--- NOTE | 2023-11-11 15:25 | MHC.RECOVRN ---
Attempted to wake up client in order to perfom SUDE assessment and discuss plan of care. Pt opened eyes when talked to then would immediately fall back asleep. Discussed disposition with his RN who agreed that pt is not able to be cooperative at this time. Will attempt to meet again with pt in 30 minutes.
--- OUTSIDE RECORDS SUMMARY | 2023-11-11 15:35 | XMS_ITS | Continuity of Care Document ---
Author Organization [facility] Adult Address [address] [place] [address]- Care Team Providers Care Architect Internship Name Role Phone Mika CLAY, Mae Serrano Primary Care Physician [phone] Encounter [facility] Date(s): 08/27/23 - 09/26/23 [facility] Adult [address] [place] [address]- Allergies, Adverse Reactions, Alerts Substance Reaction Severity Status lithium bladder/ metabolism Active Immunizations Given and Recorded Vaccine Date Status Refusal Reason SARS-CoV-2(COVID-19)mRNA-LNP vac([id number]) 12/18/22 Recorded influenza virus vaccine, inactivated 11/15/22 Preet rded [id number] bivalent booster vax 12/16/21 Recorded SARS-CoV-2 mRNA ([id number]) vax 03/14/21 Recorded SARS-CoV-2 (COVID-19) mRNA BNT-162b2 vac 04/30/20 Recorded SARS-CoV-2 (COVID-19) mRNA BNT-162b2 vac 04/01/20 Recorded tetanus/diphtheria/pertussis, acel(Tdap) 03/09/17 Given Medications Albuterol (Eqv-Proventil HFA) 90 mcg/inh inhalation aerosol 2 puffs, Inhalation, 4 times a day, PRN NEEDED FOR WHEEZING, # 6.7 Gm, 0 Refills, Maintenance, 05/22/23 14:22:00 EDT, [facility]- , 176, cm, 05/01/23 9:52:00 EDT, Height, 70, kg, 12/21/22 12:46:00 EDT, Dry Weight Start Date: 05/22/23 Stop Date: 06/21/23 Status: Ordered Anoro Ellipta 62.5 mcg-25 mcg/inh inhalation powder 1 puffs, Inhalation, Daily, # 1 each, 11 Refills, Maintenance, 02/01/23 10:55:00 EST, Powder, [facility]-, Partial fill upon patient request if the prescription is for a schedule II opioid drug., 1 puffs Inhalation Daily,x30 da... Start Date: 02/01/23 Stop Date: 01/27/24 Status: Ordered Banophen 25 mg oral capsule 1 capsule, By Mouth, 3 times a day, PRN NEEDED FOR ALLERGY SYMTPOMS, # 90 capsule, 6 Refills, Maintenance, 08/28/23 15:44:00 EDT, [facility]-, 176, cm, 05/01/23 9:52:00 EDT, [...] Gm, 2 Refills, Maintenance, 08/28/23 11:30:00 EDT, [facility]-, 30, USE 1 SPRAY IN [...] tablet, 0 Refills, Maintenance, 08/28/23 9:30:00 EDT, [facility]-, 176, cm, 05/01/23 9:52:00EDT, Height, [...] Name: Naty Malcolm RN Position: [facility] RN Member Role: Primary Care Nurse Name: Harshil Cardoso RN Position: [facility] RN Member Role: Primary Care Nurse Name: Meri Lima RN Position: [facility] ED RN W/OE and Tasks Member Role: Primary Care Nurse Name: Rowan Damon RN Position: [facility] HBO Wound Member Role: Primary Care Nurse Name: Lionel Ludwig MD Position: [facility] Renal MD Member Role: Lifetime Consulting Physician Address: Address: [address] [place] [address] [address] [facility] [place] [address]- [place] Name: Tala Plasencia RN Position: [facility] RN Member Role: Primary Care Nurse Name: [place] Seth RN Position: [facility] RN Member Role: Primary Care Nurse Name: Kathy Honeycutt RN Position: [facility] RN Member Role: Primary Care Nurse Name: Gideon Miller RN Position: [facility] SN RN Member Role: Primary Care Nurse Name: Az Pham RN Position: [facility] ED RN W/OE and Tasks Member Role: Primary Care Nurse Name: Libertad Olmos RN Position: [facility] RN Member Role: Primary Care Nurse Name: Daily Mane RN Position: [facility] RN Member Role: Primary Care Nurse Name: Katelynn Milan RN Position: [facility] RN Member Role: Primary Care Nurse Name: Mae Brennan NP Position: [facility] PCO Associate Professional Member Role: PCP Address: Address: [address] [place] [address]- [place] Name: Belinda Gusman RN Position: [facility] Client Success Manager Member Role: Primary Care Nurse Name: Chito Powers RN Position: [facility] RN Member Role: Primary Care Nurse Name: Antonio Velasquez RN Position: [facility] RN Member Role: Primary Care Nurse Name: Alexey Ramos RN Position: [facility] RN Member Role: Primary Care Nurse Name: Crow Burk MD Position: [facility] Renal MD Member Role: Lifetime Consulting Physician Address: Address: [address] [place] [address] [facility] [place] [address]- [place] Name: Emelyn Corbin RN Position: S RN Member Role: Primary Care Nurse Name: Aurea Gutierrez RN Position: S RN Member Role: Primary Care Nurse Care Team Related Persons Name: CHARLES FRANKLIN Address: [address] [address]
--- OUTSIDE RECORDS SUMMARY | 2023-11-11 15:37 | XMS_ITS | Continuity of Care Document ---
Author Organization [facility] Address [address] [place] [address] [address] [place] [address]- Care Team Providers Care Projector Operator Name Role Phone Mika CLAY, Mae Serrano Primary Care Physician Encounter [facility] [place] Date(s): 08/31/23 - 09/30/[address] [place], [place] [address] Allergies, Adverse Reactions, Alerts Substance Reaction Severity Status lithium bladder/ metabolism Active Immunizations Given and Recorded Vaccine Date Status Refusal Reason SARS-CoV-2(COVID-19)mRNA-LNP vac([id number]) 12/18/22 Recorded influenza virus vaccine, inactivated 11/15/22 Preet rded [id number] bivalent booster vax 12/16/21 Recorded SARS-CoV-2 mRNA ([id number]) vax 03/14/21 Recorded SARS-CoV-2 (COVID-19) mRNA BNT-162b2 vac 04/30/20 Recorded SARS-CoV-2 (COVID-19) mRNA BNT-162b2 vac 04/01/20 Recorded tetanus/diphtheria/pertussis, acel(Tdap) 03/09/17 Given Medications Albuterol (Eqv-Proventil HFA) 90 mcg/inh inhalation aerosol 2 puffs, Inhalation, 4 times a day, PRN NEEDED FOR WHEEZING, # 6.7 Gm, 0 Refills, Maintenance, 05/22/23 14:22:00 EDT, [facility]- , 176, cm, 05/01/23 9:52:00 EDT, Height, 70, kg, 12/21/22 12:46:00 EDT, Dry Weight Start Date: 05/22/23 Stop Date: 06/21/23 Status: Ordered Anoro Ellipta 62.5 mcg-25 mcg/inh inhalation powder 1 puffs, Inhalation, Daily, # 1 each, 11 Refills, Maintenance, 02/01/23 10:55:00 EST, Powder, [facility]-, Partial fill upon patient request if the prescription is for a schedule II opioid drug., 1 puffs Inhalation Daily,x30 da... Start Date: 02/01/23 Stop Date: 01/27/24 Status: Ordered Banophen 25 mg oral capsule 1 capsule, By Mouth, 3 times a day, PRN NEEDED FOR ALLERGY SYMTPOMS, # 90 capsule, 6 Refills, Maintenance, 08/28/23 15:44:00 EDT, [facility]-, 176, cm, 05/01/23 9:52:00 EDT, Height, [...] Gm, 2 Refills, Maintenance, 08/28/23 11:30:00 EDT, [facility]-, 30, USE 1 SPRAY IN EACH [...] tibial avulsion (S82.153A), 05/02/21 9:45:00 EDT, [facility] [id number], Supply Start Date: 05/02/21 Status: Ordered Knee Support See Instructions, # 1 each, Maintenance, Left knee brace Dx: bilateral tibial plateau fracture (S82.143A) Bilateral tibial avulsion (S82.153A), 05/02/21 9:48:00 EDT, [facility] [id number], Supply Start Date: 05/02/21 Status: Ordered Left [...] tablet, 0 Refills, Maintenance, 08/28/23 9:30:00 EDT, [facility]-, 176, cm, 05/01/23 9:52:00EDT, Height, 70, [...] Care Nurse Name: Rowan Damon RN Position: [facility] HBO Wound Member Role: Primary Care Nurse Name: Lionel Ludwig MD Position: [facility] Renal MD Member Role: Lifetime Consulting Physician Address: Address: [address] [place] [address] [address] [facility] [address]- Name: Tala Plasencia RN Position: [facility] RN Member Role: Primary Care Nurse Name: [place] Seth RN Position: [facility] RN Member Role: Primary Care Nurse Name: Kathy Honeycutt RN Position: [facility] RN Member Role: [...] Name: Katelynn Milan RN Position: [facility] RN Member Role: Primary Care Nurse Name: Mae Brennan NP Position: [facility] PCO Associate Professional Member Role: PCP Address: Address: [address] [place] [address]- Name: Belinda Gusman RN Position: [facility] Disassembler Product Member Role: Primary Care Nurse Name: Chito Powers RN Position: [facility] RN Member Role: Primary Care Nurse Name: Antonio Velasquez RN Position: [facility] RN Member Role: Primary Care Nurse Name: Alexey Ramos RN Position: [facility] RN Member Role: Primary Care Nurse Name: Crow Burk MD Position: [facility] Renal MD Member Role: Lifetime Consulting Physician Address: Address: [address] [place] [address] [facility] [place] [address]- Name: Emelyn Corbin RN Position: S RN Member Role: Primary Care Nurse Name: Aurea Gutierrez RN Position: S RN Member Role: Primary Care Nurse Care Team Related Persons Name: CHARLES FRANKLIN Address: [address] [address]
--- OUTSIDE RECORDS SUMMARY | 2023-11-11 15:37 | XMS_ITS | Continuity of Care Document ---
Author Organization [facility] As [facility] Address [address] [place] [address] [address] [place] [address]- Care Team Providers Care Top Dyeing Machine Loader Name Role Phone Mika CLAY, Mae Serrano Primary Care Physician [phone] [place] [facility] [place] - 09/20/[address] [place] [address]- Attending Physician: Oziel Hills MD Referring Physician: Mae Brennan NP Allergies, Adverse Reactions, Alerts Substance Reaction Severity Status lithium bladder/ metabolism Active Immunizations Given and Recorded Vaccine Date Status Refusal Reason SARS-CoV-2(COVID-19)mRNA-LNP vac([id number]) 12/18/22 Recorded influenza virus vaccine, inactivated 11/15/22 Preet rded [id number] bivalent booster vax 12/16/21 Recorded SARS-CoV-2 mRNA (qstacri-notm-nmclx) vax 03/14/21 Recorded SARS-CoV-2 (COVID-19) mRNA BNT-162b2 [...] capsule, 6 Refills, Maintenance, 08/28/23 15:44:00 EDT, [facility]-, 176, cm, 05/01/23 9:52:00 [...] Gm, 2 Refills, Maintenance, 08/28/23 11:30:00 EDT, [facility]-, 30, USE 1 SPRAY IN EACH NOSTRIL [...] tibial avulsion (S82.153A), 05/02/21 9:48:00 EDT, [facility] [id number], Supply Start Date: 05/02/21 Status: Ordered Left [...] tablet, 0 Refills, Maintenance, 08/28/23 9:30:00 EDT, [facility]-, 176, cm, 05/01/23 9:52:00EDT, Height, 70, kg, [...] Name: Naty Malcolm RN Position: [facility] RN Member Role: Primary Care Nurse Name: Harshil Cardoso RN Position: [facility] RN Member Role: Primary Care Nurse Name: Meri Lima RN Position: [facility] ED RN W/OE and Tasks Member Role: Primary Care Nurse Name: Rowan Damon RN Position: [facility] HBO Wound Member Role: Primary Care Nurse Name: Lionel Ludwig MD Position: [facility] Renal MD Member Role: Lifetime Consulting Physician Address: Address: [address] [place] [address] [address] [place] [address]- [place] Name: Tala Plasencia RN Position: [facility] RN Member Role: Primary Care Nurse Name: Franklin Seth RN Position: [facility] RN Member Role: Primary Care Nurse Name: Kathy Honeycutt RN Position: [facility] RN Member Role: Primary Care Nurse Name: Gideon Miller RN Position: [facility] SN RN Member Role: Primary Care Nurse Name: Az Pham RN Position: [facility] ED RN W/OE and Tasks Member Role: Primary Care Nurse Name: Libertad Olmos RN Position: [facility] RN Member Role: Primary Care Nurse Name: Daily Mane RN Position: [facility] RN Member Role: Primary Care Nurse Name: Katelynn Milan RN Position: [facility] RN Member Role: Primary Care Nurse Name: Mae Brennan NP Position: [facility] PCO Associate Professional Member Role: PCP Address: Address: [address] [place] [address] 3rd [place] [address]- [place] Name: Belinda Gusman RN Position: [facility] [employer] Reading Teacher Member Role: Primary Care Nurse Name: Chito Powers RN Position: [facility] RN Member Role: Primary Care Nurse Name: Antonio Velasquez RN Position: [facility] RN Member Role: Primary Care Nurse Name: Aleexy Ramos RN Position: [facility] RN Member Role: Primary Care Nurse Name: Crow Burk MD Position: [facility] Renal MD Member Role: Lifetime Consulting Physician Address: Address: [address] [place] [address] [facility] [place], [place] [address] Name: Emelyn Corbin RN Position: S RN Member Role: Primary Care Nurse Name: Aurea Gutierrez RN Position: S RN Member Role: Primary Care Nurse Care Team Related Persons Name: CHARLES FRANKLIN Address: [address] [address]
--- OUTSIDE RECORDS SUMMARY | 2023-11-11 15:39 | XMS_ITS | Continuity of Care Document ---
Author Organization [facility] Adult Address [address] [place] [address]- Care Team Providers Care Face Painter Name Role Phone Mika CLAY, Mae Serrano Primary Care Physician [phone] Encounter [facility] [place] Date(s): 08/28/23 - 09/27/23 [facility] Adult [address] [place] [address]- Allergies, Adverse Reactions, Alerts Substance Reaction Severity Status lithium bladder/ metabolism Active Immunizations Given and Recorded Vaccine Date Status Refusal Reason SARS-CoV-2(COVID-19)mRNA-LNP vac([id number]) 12/18/22 Recorded influenza virus vaccine, inactivated 11/15/22 Preet rded [id number] bivalent booster vax 12/16/21 Recorded SARS-CoV-2 mRNA (izewrpy-qrpo-odvdh) vax 03/14/21 Recorded SARS-CoV-2 (COVID-19) mRNA BNT-162b2 vac 04/30/20 Recorded SARS-CoV-2 (COVID-19) mRNA BNT-162b2 vac 04/01/20 Recorded tetanus/diphtheria/pertussis, acel(Tdap) 03/09/17 Given Medications Albuterol (Eqv-Proventil HFA) 90 mcg/inh inhalation aerosol 2 puffs, Inhalation, 4 times a day, PRN NEEDED FOR WHEEZING, # 6.7 Gm, 0 Refills, Maintenance, 05/22/23 14:22:00 EDT, [facility]- , 176, cm, 05/01/23 9:52:00 EDT, Height, 70, kg, 12/21/22 12:46:00 EDT, Dry Weight Start Date: 05/22/23 Stop Date: 06/21/23 Status: Ordered Anoro Ellipta 62.5 mcg-25 mcg/inh inhalation powder 1 puffs, Inhalation, Daily, # 1 each, 11 Refills, Maintenance, 02/01/23 10:55:00 EST, Powder, [facility]-, Partial fill upon patient request if the prescription is for a schedule II opioid drug., 1 puffs Inhalation Daily,x30 da... Start Date: 02/01/23 Stop Date: 01/27/24 Status: Ordered Banophen 25 mg oral capsule 1 capsule, By Mouth, 3 times a day, PRN NEEDED FOR ALLERGY SYMTPOMS, # 90 capsule, 6 Refills, Maintenance, 08/28/23 15:44:00 EDT, [facility]-, 176, cm, 05/01/23 9:52:00 EDT, Height, [...] Gm, 2 Refills, Maintenance, 08/28/23 11:30:00 EDT, [facility]-, 30, USE 1 SPRAY IN EACH [...] tibial avulsion (S82.153A), 05/02/21 9:48:00 EDT, [facility] [id number], Supply Start Date: 05/02/21 Status: Ordered Left [...] tablet, 0 Refills, Maintenance, 08/28/23 9:30:00 EDT, [facility]-, 176, cm, 05/01/23 9:52:00EDT, Height, 70, [...] Response Smoking Status 5-9 cigarettes (betw een 4 to 1/2 pack)/day in last 30 days entered on: 02/27/23 Sex Patient Care team information Care Team Personnel Name: Naty Malcolm RN Position: [facility] RN Member Role: Primary Care Nurse Name: Harshil Cardoso RN Position: [facility] RN Member Role: Primary Care Nurse Name: Meri Lima RN Position: [facility] ED RN W/OE and Tasks Member Role: Primary Care Nurse Name: Rowan Damon RN Position: [facility] HBO Wound Member Role: Primary Care Nurse Name: Lionel Ludwig MD Position: [facility] Renal MD Member Role: Lifetime Consulting Physician Address: Address: [address] [place] [address] [address] [facility] [address]- [place] Name: Tala Plasencia RN Position: [facility] RN Member Role: Primary Care Nurse Name: Franklin Seth RN Position: [facility] RN Member Role: Primary Care Nurse Name: Kathy Honeycutt RN Position: [facility] RN Member Role: Primary Care Nurse Name: Gideon Miller RN Position: [facility] SN RN Member Role: Primary Care Nurse Name: Az Pham RN Position: [facility] ED RN W/OE and Tasks Member Role: Primary Care Nurse Name: Libertad Olmos RN Position: [facility] RN Member Role: Primary Care Nurse Name: Daily Mane RN Position: [facility] RN Member Role: Primary Care Nurse Name: Katelynn Milan RN Position: [facility] RN Member Role: Primary Care Nurse Name: Mae Brennan NP Position: [facility] PCO Associate Professional Member Role: PCP Address: Address: [address] [place] [address]- [place] Name: Belinda Gusman RN Position: [facility] General Manager Farm Member Role: Primary Care Nurse Name: Chito Powers RN Position: [facility] RN Member Role: Primary Care Nurse Name: Antonio Velasquez RN Position: [facility] RN Member Role: Primary Care Nurse Name: Alexey Ramos RN Position: [facility] RN Member Role: Primary Care Nurse Name: Crow Burk MD Position: [facility] Renal MD Member Role: Lifetime Consulting Physician Address: Address: [address] [place] [address] [facility] [place] [address]- [place] Name: Emelyn Corbin RN Position: S RN Member Role: Primary Care Nurse Name: Aurea Gutierrez RN Position: S RN Member Role: Primary Care Nurse Care Team Related Persons Name: CHARLES FRANKLIN Address: [address] [address]
--- OUTSIDE RECORDS SUMMARY | 2023-11-11 15:39 | XMS_ITS | Continuity of Care Document ---
Author Organization [facility] Adult Address [address] [place] [address]- Care Team Providers Care Parts Administrator Name Role Phone Mika CLAY, Mae Serrano Primary Care Physician Encounter [facility] [place] Date(s): 08/31/23 - 09/30/23 [facility] Adult [address] [place] [address]- Allergies, Adverse Reactions, Alerts Substance Reaction Severity Status lithium bladder/ metabolism Active Immunizations Given and Recorded Vaccine Date Status Refusal Reason SARS-CoV-2(COVID-19)mRNA-LNP vac([id number]) 12/18/22 Recorded influenza virus vaccine, inactivated 11/15/22 Preet rded [id number] bivalent booster vax 12/16/21 Recorded SARS-CoV-2 mRNA (dljisuj-totj-nhhwz) vax 03/14/21 Recorded SARS-CoV-2 (COVID-19) mRNA BNT-162b2 [...] 11 Refills, Maintenance, 02/01/23 10:55:00 EST, Powder, [facility]-, Partial fill upon patient request if [...] tibial avulsion (S82.153A), 05/02/21 9:45:00 EDT, [facility] [id number], Supply Start Date: 05/02/21 Status: Ordered Knee Support See Instructions, # 1 each, Maintenance, Left knee brace Dx: bilateral tibial plateau fracture (S82.143A) Bilateral tibial avulsion (S82.153A), 05/02/21 9:48:00 EDT, [facility] [id number], Supply Start Date: 05/02/21 Status: Ordered Left [...] team information Care Team Personnel Name: Naty aMlcolm RN Position: [facility] RN Member Role: Primary Care Nurse Name: Harshil Cardoso RN Position: [facility] RN Member Role: Primary Care Nurse Name: Meri Lima RN Position: [facility] ED RN W/OE and Tasks Member Role: Primary Care Nurse Name: Rowan Damon RN Position: [facility] HBO Wound Member Role: Primary Care Nurse Name: Lionel Ludwig MD Position: [facility] Renal MD Member Role: Lifetime Consulting Physician Address: Address: [address] [place] [address] [address] [facility] [address]- [place] Name: Tala Plasencia RN Position: [facility] RN Member Role: Primary Care Nurse Name: Franklin Seth RN Position: [facility] RN Member Role: Primary Care Nurse Name: Kathy Honeycutt RN Position: [facility] RN Member Role: Primary Care Nurse Name: Gideon Miller RN Position: [facility] SN RN Member Role: Primary Care Nurse Name: Az Pham RN Position: [facility] ED RN W/OE and Tasks Member Role: Primary Care Nurse Name: Libertad Olmos RN Position: [facility] RN Member Role: Primary Care Nurse Name: Daily Mane RN Position: [facility] RN Member Role: Primary Care Nurse Name: Katelynn Milan RN Position: [facility] RN Member Role: Primary Care Nurse Name: Mae Brennan NP Position: [facility] PCO Associate Professional Member Role: PCP Address: Address: [address] [place] [address]- [place] Name: Belinda Gusman RN Position: [facility] Training Lead Member Role: Primary Care Nurse Name: Chito Powers RN Position: [facility] RN Member Role: Primary Care Nurse Name: Antonio Velasquez RN Position: [facility] RN Member Role: Primary Care Nurse Name: Alexey Ramos RN Position: [facility] RN Member Role: Primary Care Nurse Name: Crow Burk MD Position: [facility] Renal MD Member Role: Lifetime Consulting Physician Address: Address: [address] [place] [address] [facility] [place] [address]- [place] Name: Emelyn Corbin RN Position: S RN Member Role: Primary Care Nurse Name: Aurea Gutierrez RN Position: S RN Member Role: Primary Care Nurse Care Team Related Persons Name: CHARLES FRANKLIN Address: [address] [address]
--- OUTSIDE RECORDS SUMMARY | 2023-11-11 15:40 | XMS_ITS | Continuity of Care Document ---
Author Organization [facility] Address [address] [place] [address]- Care Team Providers Care Kiln Feeder Name Role Phone Mika CLAY, Mae Serrano Primary Care Physician [phone] Encounter [facility] Date(s): 08/13/23 - 09/29/23 [facility] [address] [place], [place] [address] Attending Physician: Kee WAY, Raven Valente Allergies, Adverse Reactions, Alerts Substance Reaction Severity Status lithium bladder/ metabolism Active Immunizations Given and Recorded Vaccine Date Status Refusal Reason SARS-CoV-2(COVID-19)mRNA-LNP vac([id number]) 12/18/22 Recorded influenza virus vaccine, inactivated 11/15/22 Preet rded [id number] bivalent booster vax 12/16/21 Recorded SARS-CoV-2 mRNA (xkfnovi-aanj-hnudg) vax 03/14/21 Recorded SARS-CoV-2 (COVID-19) mRNA BNT-162b2 vac 04/30/20 Recorded SARS-CoV-2 (COVID-19) mRNA BNT-162b2 vac 04/01/20 Recorded tetanus/diphtheria/pertussis, acel(Tdap) 03/09/17 Given Medications Albuterol (Eqv-Proventil HFA) 90 mcg/inh inhalation aerosol 2 puffs, Inhalation, 4 times a day, PRN NEEDED FOR WHEEZING, # 6.7 Gm, 0 Refills, Maintenance, 05/22/23 14:22:00 EDT, [facility]- , 176, cm, 05/01/23 9:52:00 EDT, Height, 70, kg, 12/21/22 12:46:00 EDT, Dry Weight Start Date: 05/22/23 Stop Date: 06/21/23 Status: Ordered Anoro Ellipta 62.5 mcg-25 mcg/inh inhalation powder 1 puffs, Inhalation, Daily, # 1 each, 11 Refills, Maintenance, 02/01/23 10:55:00 EST, Powder, [facility]-, Partial fill upon patient request if the prescription is for a schedule II opioid drug., 1 puffs Inhalation Daily,x30 da... Start Date: 02/01/23 Stop Date: 01/27/24 Status: Ordered Banophen 25 mg oral capsule 1 capsule, By Mouth, 3 times a day, PRN NEEDED FOR ALLERGY SYMTPOMS, # 90 capsule, 6 Refills, Maintenance, 08/28/23 15:44:00 EDT, [facility]-, 176, cm, 05/01/23 9:52:00 EDT, Height, 70, [...] Gm, 2 Refills, Maintenance, 08/28/23 11:30:00 EDT, [facility]-, 30, USE 1 SPRAY IN EACH [...] tibial avulsion (S82.153A), 05/02/21 9:48:00 EDT, [facility] [id number], Supply Start Date: 05/02/21 Status: Ordered Left [...] tablet, 0 Refills, Maintenance, 08/28/23 9:30:00 EDT, [facility]-, 176, cm, 05/01/23 9:52:00EDT, Height, 70, kg, [...] Team Personnel Name: Naty Malcolm RN Position: [facility] RN Member Role: Primary Care Nurse Name: Harshil Cardoso RN Position: [facility] RN Member Role: Primary Care Nurse Name: Meri Lima RN Position: [facility] ED RN W/OE and Tasks Member Role: Primary Care Nurse Name: Rowan Damon RN Position: [facility] HBO Wound Member Role: Primary Care Nurse Name: Lionel Ludwig MD Position: [facility] Renal MD Member Role: Lifetime Consulting Physician Address: Address: [address] [place] [address] [address] [place] [address]- Name: Tala Plasencia RN Position: [facility] RN Member Role: Primary Care Nurse Name: Franklin Seth RN Position: [facility] RN Member Role: Primary Care Nurse Name: Kathy Honeycutt RN Position: [facility] RN Member Role: Primary Care Nurse Name: Gideon Miller RN Position: [facility] SN RN Member Role: Primary Care Nurse Name: Az Pham RN Position: [facility] ED RN W/OE and Tasks Member Role: Primary Care Nurse Name: Libertad Olmos RN Position: [facility] RN Member Role: Primary Care Nurse Name: Daily Mane RN Position: [facility] RN Member Role: Primary Care Nurse Name: Katelynn Milan RN Position: [facility] RN Member Role: Primary Care Nurse Name: Mae Brennan NP Position: [facility] PCO Associate Professional Member Role: PCP Address: Address: [address] [place] [address]- Name: Belinda Gusman RN Position: [facility] Fitness Specialist Member Role: Primary Care Nurse Name: Chito Powers RN Position: [facility] RN Member Role: Primary Care Nurse Name: Antonio Velasquez RN Position: [facility] RN Member Role: Primary Care Nurse Name: Alexey Ramos RN Position: [facility] RN Member Role: Primary Care Nurse Name: Crow Burk MD Position: [facility] Renal MD Member Role: Lifetime Consulting Physician Address: Address: [address] [place] [address] [facility] [place] [address]- Name: Emelyn Corbin RN Position: S RN Member Role: Primary Care Nurse Name: Aurea Gutierrez RN Position: S RN Member Role: Primary Care Nurse Care Team Related Persons Name: RIGOBERTOCHARLES Address: [address] [address]
--- OUTSIDE RECORDS SUMMARY | 2023-11-11 15:40 | XMS_ITS | Continuity of Care Document ---
Author Organization [facility] As counts include 234 beds at the [facility] Address [address] [place] [address] [address] [place] [address]- Care Team Providers Care Manager Fire Name Role Phone Mika CLAY, Mae Serrano Primary Care Physician [phone] Encounter [facility] [place] Date(s): 09/11/23 - 09/18/[address] [place], [place] [address] Attending Physician: Oziel Hills MD Allergies, Adverse Reactions, Alerts Substance Reaction Severity Status lithium bladder/ metabolism Active Immunizations Given and Recorded Vaccine Date Status Refusal Reason SARS-CoV-2(COVID-19)mRNA-LNP vac([id number]) 12/18/22 Recorded influenza virus vaccine, inactivated 11/15/22 Preet rded [id number] bivalent booster vax 12/16/21 Recorded SARS-CoV-2 mRNA (akddynv-eirx-zwvtn) vax 03/14/21 Recorded SARS-CoV-2 (COVID-19) mRNA BNT-162b2 vac 04/30/20 Recorded SARS-CoV-2 (COVID-19) mRNA BNT-162b2 vac 04/01/20 Recorded tetanus/diphtheria/pertussis, acel(Tdap) 03/09/17 Given Medications Albuterol (Eqv-Proventil HFA) 90 mcg/inh inhalation aerosol 2 puffs, Inhalation, 4 times a day, PRN NEEDED FOR WHEEZING, # 6.7 Gm, 0 Refills, Maintenance, 05/22/23 14:22:00 EDT, [facility]- , 176, cm, 05/01/23 9:52:00 EDT, Height, 70, kg, 12/21/22 12:46:00 EDT, Dry Weight Start Date: 05/22/23 Stop Date: 06/21/23 Status: Ordered Anoro Ellipta 62.5 mcg-25 mcg/inh inhalation powder 1 puffs, Inhalation, Daily, # 1 each, 11 Refills, Maintenance, 02/01/23 10:55:00 EST, Powder, [facility]-, Partial fill upon patient request if the prescription is for a schedule II opioid drug., 1 puffs Inhalation Daily,x30 da... Start Date: 02/01/23 Stop Date: 01/27/24 Status: Ordered Banophen 25 mg oral capsule 1 capsule, By Mouth, 3 times a day, PRN NEEDED FOR ALLERGY SYMTPOMS, # 90 capsule, 6 Refills, Maintenance, 08/28/23 15:44:00 EDT, [facility]-, 176, cm, 05/01/23 9:52:00 EDT, Height, [...] Gm, 2 Refills, Maintenance, 08/28/23 11:30:00 EDT, [facility]-, 30, USE 1 SPRAY IN [...] tibial avulsion (S82.153A), 05/02/21 9:45:00 EDT, [facility] [id number], Supply Start Date: 05/02/21 Status: Ordered Knee Support See Instructions, # 1 each, Maintenance, Left knee brace Dx: bilateral tibial plateau fracture (S82.143A) Bilateral tibial avulsion (S82.153A), 05/02/21 9:48:00 EDT, [facility] [id number], Supply Start Date: 05/02/21 Status: Ordered Left wrist brace. Dx left wrist pain Left wrist brace. Dx left wrist pain, See Instructions, # 1 each, Refills 0, Tot. Refills 0, Maintenance, Wear as tolerated Dx: Left wrist scaphoid fracture (S62.002A) Left wrist pain (M25.532), 05/02/21 9:46:00 EDT, [facility] [id number], Supply Start Date: 05/02/21 Status: Ordered naproxen 500 mg oral tablet 1 tablet, By Mouth, 2 times a day, PRN NEEDED FOR MODERATE PAIN WITH FOOD, # 60 tablet, 0 Refills, Maintenance, 08/28/23 9:30:00 EDT, [facility]-, 176, cm, 05/01/23 9:52:00EDT, Height, 70, [...] oldest [Reference Range]: 1 Height 176 cm (09/11/23 10:39 AM) Weight 70.6 kg (09/11/23 10:39 AM) Pulse Rate [55-90 bpm] 101 bpm *H* (09/11/23 10:39 AM) Body Mass Index [18.5-24.99 kg/m2] 22.79 kg/m2 (09/11/23 10:39 AM) Blood Pressure [90-138/55-84 mm Hg] 108/ 70mm Hg (09/11/23 10:39 AM) Temperature [96.8-100.4 DegF] 97.4 DegF (09/11/23 10:39 AM) Blood pressure sites Arm, left (09/11/23 10:39 AM) Temperature Route Temporal (09/11/23 10:39 AM) Weight Obtained Via Standing scale (09/11/23 10:39 AM) Social History Social History Type Response Smoking Status 5-9 cigarettes (betw een 1/4 to 1/2 pack)/day in last 30 days entered on: 02/27/23 Sex Patient Care team information Care Team Personnel Name: Naty Malcolm RN Position: [facility] RN Member Role: Primary Care Nurse Name: Harshil Cardoso RN Position: [facility] RN Member Role: Primary Care Nurse Name: Meri Lima RN Position: [facility] ED RN W/OE and Tasks Member Role: Primary Care Nurse Name: Rowan Damon RN Position: [facility] HBO Wound Member Role: Primary Care Nurse Name: Lionel Ludwig MD Position: [facility] Renal MD Member Role: Lifetime Consulting Physician Address: Address: [address] [place] [address] [address] [facility] [place], [place] [address] Name: Tala Plasencia RN Position: [facility] RN Member Role: Primary Care Nurse Name: Franklin Seth RN Position: [facility] RN Member Role: Primary Care Nurse Name: Kathy Honeycutt RN Position: [facility] RN Member Role: Primary Care Nurse Name: Gideon Miller RN Position: [facility] SN RN Member Role: Primary Care Nurse Name: Az Pham RN Position: [facility] ED RN W/OE and Tasks Member Role: Primary Care Nurse Name: Libertad Olmos RN Position: [facility] RN Member Role: Primary Care Nurse Name: Daily Mane RN Position: [facility] RN Member Role: Primary Care Nurse Name: Katelynn Milan RN Position: [facility] RN Member Role: Primary Care Nurse Name: Mae Brennan NP Position: [facility] PCO Associate Professional Member Role: PCP Address: Address: [address] [place] [address] 3rd [place] [address]- Name: Belinda Gusman RN Position: [facility] Radio Mechanic Member Role: Primary Care Nurse Name: Gio RNChito Position: [facility] RN Member Role: Primary Care Nurse Name: Antonio Velasquez RN Position: [facility] RN Member Role: Primary Care Nurse Name: Alexey Ramos RN Position: [facility] RN Member Role: Primary Care Nurse Name: Crow Burk MD Position: [facility] Renal MD Member Role: Lifetime Consulting Physician Address: Address: [address] [place] [address] [facility] [place] [address]- Name: Emelyn Corbin RN Position: [facility] RN Member Role: Primary Care Nurse Name: Aurea Gutierrez RN Position: [facility] RN Member Role: Primary Care Nurse Care Team Related Persons Name: CHARLES FRANKLIN Address: [address] [place] [address]
[2023-11-11 15:49] VITALS: BP 136/81; PULSE 109; RESP 16; O2SAT 98
--- NOTE | 2023-11-11 15:55 | PC.NURSE ---
Pt awakens and is with Care Team RN. Pt offered Zofran and declines at this time. Care Team RN to attempt assessment. VSS at this time.
[2023-11-11 16:01] LABS: MANUAL DIFF FLAG NO
[2023-11-11 16:03] LABS: Basophils Percent Auto 0.1 % (0-2); Eosinophils Percent Auto 0.4 % (0-4); Hematocrit 41.5 % (42.0-52.0); Hemoglobin 14.5 g/dl (14.0-18.0); Imm Gran Abs Auto 0.02 X10*3/uL (0.00-0.03); Imm Gran Pct Auto 0.3 % (0.0-0.4); Lymphocytes Absolute Auto 1.1 X10*3/uL (1.2-4.9); Lymphocytes Percent Auto 13.8 % (20-40); Mean Corpuscular HGB Conc 34.9 g/dl (31.0-36.0); Mean Corpuscular Hemoglobin 32.4 pg (27.0-33.0); Mean Corpuscular Volume 92.8 fL (80.0-98.0); Monocytes Absolute Auto 0.5 X10*3/uL (0.1-1.2); Monocytes Percent Auto 6.6 % (2-11); Neutrophils Absolute Auto 6.3 x10*3/uL (2.0-8.3); Neutrophils Percent Auto 78.8 % (45-73); Platelet Count 166 X10*3/uL (160-400); Red Blood Count 4.47 X10*6/uL (4.60-5.80); Red Cell Distribution Width 13.3 % (11.0-16.0)
[2023-11-11 16:24] LABS: Alanine Aminotransferase 56 U/L (0-40); Albumin Level 4.1 g/dL (3.5-5.0); Alkaline Phosphatase 66 U/L (39-117); Anion Gap 14 (12-20); Aspartate Amino Transferase 39 U/L (5-37); Bilirubin Total 0.3 mg/dL (0.0-1.0); Blood Urea Nitrogen 10 mg/dL (9-16); Calcium 9.3 mg/dL (8.4-10.2); Carbon Dioxide 24 mmol/L (22-29); Chloride 99 mmol/L (96-108); Creatinine Clr Calc Pharmacy 99.6; Estimated Glomerular Filt Rate > 60; Ethanol < 10 mg/dL; Glucose Random 83 mg/dL (60-115); Potassium 4.6 mmol/L (3.3-5.1); Sodium 132 mmol/L (135-145); Total Protein 7.8 g/dL (6.5-8.0)
[2023-11-11 18:19] VITALS: BP 112/70; PULSE 102; RESP 14; O2SAT 97
--- NOTE | 2023-11-11 18:20 | PC.NURSE ---
Pt continues to rest on stretcher, snoring noted. VSS, Pt is easily aroused, however is drowsy and falls back asleep quickly. Pt offers no complaints. Pt continues to sat at 96% room air consistently. Unable to obtain U/A at this time given Pts level of drowsiness--will obtain when Pt is more alert.
--- NOTE | 2023-11-11 20:11 | PC.NURSE ---
Patient is awake, alert and oriented x3. He requested coffee with crackers, provided and tolerated well. Patient was reminded that we are still in need of urine specimen. Patient was given a urine specimen cup. Patient ambulated to the restroom with a steady gait, urine specimen collected and sent to lab. Patient awaiting consult form addiction team. Plan of care ongoing.
--- NOTE | 2023-11-11 20:16 | MHC.EDTECH ---
ALL Belongings are lock in decon
[2023-11-11 20:22] LABS: Amphetamine Screen Urine Not Detected (Not Detect); Barbiturates, Urine Not Detected (Not Detect); Benzodiazepines Screen Urine Not Detected (Not Detect); Buprenorphine Scr Not Detected (Not Detect); Cannabinoid Screen Urine POSITIVE (Not Detect); Cocaine Screen Urine Not Detected (Not Detect); Fentanyl, urine POSITIVE (Not Detect); Methadone Screen, Urine Not Detected (Not Detect); Opiate Screen Urine POSITIVE (Not Detect); Oxycodone Screen Urine Not Detected (Not Detect); Phencyclidine Screen Urine Not Detected (Not Detect)
[2023-11-11 21:02] VITALS: BP 0/0; PULSE 0; RESP 16; TEMP -17.7; TEMP 0; O2SAT 0
== END 2023-11-11 21:04 | disposition home or self-care (01) ==
PROVIDERS: Physician Assistant; Emergency Provider Emergency Medicine
DX: T40.1X1A Poisoning by heroin, accidental (unintentional), initial encounter (principal); F11.188 Opioid abuse with other opioid-induced disorder; Z51.81 Encounter for therapeutic drug level monitoring; Z79.899 Other long term (current) drug therapy; Y92.89 Other specified places as the place of occurrence of the external cause; Z71.51 Drug abuse counseling and surveillance of drug abuser
CPT/HCPCS: 36415; 80053; 80307; 85025; 99284; 99285

== ENCOUNTER 2023-12-23 04:39 | Emergency (ER) | payer OTHER, SELFPAY ==
[2023-12-23 04:41] VITALS: BP 133/86; PULSE 90; RESP 18; TEMP 36.8; O2SAT 98; BMI 25.8
--- OUTSIDE RECORDS SUMMARY | 2023-12-23 05:26 | XMS_ITS | Continuity of Care Document ---
Author Organization [facility] Adult Address [address] [place] [address]- Care Team Providers Care Casino Host Name Role Phone Mae Brennan NP Primary Care Physician [phone] Encounter [facility] Date(s): 11/15/23 - 12/15/23 [facility] [address] [place] [address]- Allergies, Adverse Reactions, Alerts Substance Reaction Severity Status lithium bladder/ metabolism Active Immunizations Given and Recorded Vaccine Date Status Refusal Reason SARS-CoV-2(COVID-19)mRNA-LNP vac([id number]) 12/18/22 Recorded influenza virus vaccine, inactivated 11/15/22 Preet rded [id number] bivalent booster vax 12/16/21 Recorded SARS-CoV-2 mRNA ([id number]) vax 03/14/21 Recorded SARS-CoV-2 (COVID-19) mRNA BNT-162b2 vac 04/30/20 Recorded SARS-CoV-2 (COVID-19) mRNA BNT-162b2 vac 04/01/20 Recorded tetanus/diphtheria/pertussis, acel(Tdap) 03/09/17 Given Medications ammonium lactate 12% topical cream 0 Refills, Maintenance, 11/29/23 15:55:00 EDT, Partial fill upon patient request if the prescription is for a schedule II opioid drug. Start Date: 11/29/23 Status: Ordered Anoro Ellipta 62.5 mcg-25 mcg/inh inhalation powder 1 puffs, Inhalation, Daily, # 1 each, 11 Refills, Maintenance, 02/01/23 10:55:00 EST, [facility] upon patient request if the prescription is for a schedule II opioid drug., 1 puffs Inhalation Daily,x30 da... Start Date: 02/01/23 Stop Date: 01/27/24 Status: Ordered Banophen 25 mg oral capsule 1 capsule, By Mouth, 3 times a day, PRN NEEDED FOR ALLERGY SYMTPOMS, # 90 capsule, 6 Refills, Maintenance, 08/28/23 15:44:00 EDT, [facility]-, 176, cm, 05/01/23 9:52:00 EDT, Height, [...] DAY, # 16 Gm, 2 Refills, Maintenance, 11/29/23 15:54:00 EDT, [facility]-, 30, USE 1 SPRAY IN EACH NOSTRIL TWICE A DAY, 176, cm, 11/29/23 15:37:00 EDT, Height, 70, kg, ... Start Date: 11/29/23 Status: Ordered Four Prong Cane Four Prong Cane, See Instructions, # 1 each, Refills 0, Tot. Refills 0, Maintenance, use as directed for dx unsteady gait (R26.81) lumbar stenosis (M48.061) [facility] [phone], 11/30/23 8:20:00 EDT, Supply Start Date: 11/30/23 Status: Ordered glucosamine 750 mg oral tablet [...] tibial avulsion (S82.153A), 05/02/21 9:45:00 EDT, [facility] [id number], Supply Start Date: 05/02/21 Status: Ordered Knee [...] pain (M25.532), 05/02/21 9:46:00 EDT, [facility] [phone], Supply Start Date: 05/02/21 Status: Ordered naproxen 500 mg oral tablet 1 tablet, By Mouth, 2 times a day, PRN NEEDED FOR MODERATE PAIN WITH FOOD, # 60 tablet, 0 Refills, Maintenance, 08/28/23 9:30:00 EDT, [facility]-[id number], 176, cm, 05/01/23 9:52:00EDT, Height, 70, kg, 12/21/22 12:46:00 EDT, Dry Weight Start Date: 08/28/23 Stop Date: 02/19/24 Status: Ordered pantoprazole 40 mg oral delayed release tablet 1 tablet, By Mouth, Daily, # 30 tablet, 2 Refills, Maintenance, 11/17/23 9:08:00 EDT, 176, cm, 09/11/23 10:39:00 EDT, Height, 70, kg, 12/21/22 12:46:00 EDT, Dry Weight Start Date: 11/17/23 Status: Ordered risperiDONE 2 mg oral tablet 4 mg, 2, tablet, By Mouth, 2 times a day, # 120 tablet, Refills 0, Maintenance, 09/09/19 2:55:00 EDT Start Date: 09/09/19 Status: Ordered Ventolin HFA 108 mcg/inh inhalation aerosol with adapter 2 puffs, Inhalation, 4 times a day, PRN NEEDED FOR WHEEZING, # 18 Gm, 5 Refills, Maintenance, 10/26/23 16:55:00 EDT, [facility] [id number], 176, cm, 09/11/23 10:39:00 EDT, Height, 70, kg, 12/21/22 12:46:00 EDT, Dry Weight Start Date: 10/26/23 Stop Date: 11/25/23 Status: Ordered Walker Walker, See Instructions, # [...] Team Personnel Name: Naty Malcolm RN Position: [facility] RN Member Role: Primary Care Nurse Name: Harshil Cardoso RN Position: [facility] RN Member Role: Primary Care Nurse Name: Meri Lima RN Position: [facility] ED RN W/OE and Tasks Member Role: Primary Care Nurse Name: Rowan Damon RN Position: [facility] HBO Wound Member Role: Primary Care Nurse Name: Lionel Ludwig MD Position: [facility] Renal MD Member Role: Lifetime Consulting Physician Address: Address: [address] [place] [address] [address] [facility] [place] [address]- [place] Name: Tala Plasencia RN Position: [facility] RN Member Role: Primary Care Nurse Name: Franklin Seth RN Position: [facility] RN Member Role: Primary Care Nurse Name: Kathy Honeycutt RN Position: [facility] RN Member Role: Primary Care Nurse Name: Gideon Miller RN Position: [facility] SN RN Member Role: Primary Care Nurse Name: Az Pham RN Position: [facility] ED RN W/OE and Tasks Member Role: Primary Care Nurse Name: Libertad Olmos RN Position: [facility] RN Member Role: Primary Care Nurse Name: Daily Mane RN Position: [facility] RN Member Role: Primary Care Nurse Name: Katelynn Milan RN Position: [facility] RN Member Role: Primary Care Nurse Name: Mae Brennan NP Position: [facility] PCO Associate Professional Member Role: PCP Address: Address: [address] [place] [address] [address] [place] [address]- [place] Name: Belinda Gusman RN Position: [facility] [employer] Sweeper Operator Member Role: Primary Care Nurse Name: Chito Powers RN Position: [facility] RN Member Role: Primary Care Nurse Name: Antonio Velasquez RN Position: [facility] RN Member Role: Primary Care Nurse Name: Alexey Ramos RN Position: [facility] RN Member Role: Primary Care Nurse Name: Crow Burk MD Position: [facility] Renal MD Member Role: Lifetime Consulting Physician Address: Address: [address] [place] [address] [address] [facility] [place], [place] [address] Name: Emelyn Corbin RN Position: S RN Member Role: Primary Care Nurse Name: Aurea Gutierrez RN Position: S RN Member Role: Primary Care Nurse Care Team Related Persons Name: CHARLES FRANKLIN Address: [place] [address]
--- OUTSIDE RECORDS SUMMARY | 2023-12-23 05:27 | XMS_ITS | Continuity of Care Document ---
Author Organization [facility] Adult Address [address] [place] [address]- Care Team Providers Care Elementary Tutor Name Role Phone Mika CLAY, Mae Serrano Primary Care Physician Encounter [facility] ACCT R [id number] Date(s): 11/29/23 - 12/06/[address] [facility] Adult [address] [place] [id number]- Encounter Diagnosis Medicare annual wellness visit, subsequent(Discharge Diagnosis) - 11/29/23 Anxiety and depression(Discharge Diagnosis) - 11/29/23 Bipolar disorder(Discharge Diagnosis) - 11/29/23 COPD with emphysema(Discharge Diagnosis) - 11/29/23 Cocaine abuse(Discharge Diagnosis) - 11/29/23 GERD (gastroesophageal reflux disease)(Discharge Diagnosis) - 11/29/23 Polysubstance abuse(Discharge Diagnosis) - 11/29/23 Hypertension(Discharge Diagnosis) - 11/29/23 Schizoaffective disorder(Discharge Diagnosis) - 11/29/23 Substance abuse(Discharge Diagnosis) - 11/29/23 infeced groin mesh(Discharge Diagnosis) - 11/29/23 Encounter for screening colonoscopy(Discharge Diagnosis) - 11/29/23 Right inguinal hernia(Discharge Diagnosis) - 11/29/23 Attending Physician: Not on Staff, Attending MD Allergies, Adverse Reactions, Alerts Substance Reaction Severity Status lithium bladder/ metabolism Active Immunizations Given and Recorded Vaccine Date Status Refusal Reason SARS-CoV-2(COVID-19)mRNA-LNP vac([id number]) 12/18/22 Recorded influenza virus vaccine, inactivated 11/15/22 Preet rded [id number] bivalent booster vax 12/16/21 Recorded SARS-CoV-2 mRNA ([id number]) vax 03/14/21 Recorded SARS-CoV-2 (COVID-19) mRNA BNT-162b2 [...] 11 Refills, Maintenance, 02/01/23 10:55:00 EST, Powder, [facility]-, Partial fill upon patient request if the prescription is for a schedule II opioid drug., 1 puffs Inhalation Daily,x30 da... Start Date: 02/01/23 Stop Date: 01/27/24 Status: Ordered Banophen 25 mg oral capsule 1 capsule, By Mouth, 3 times a day, PRN NEEDED FOR ALLERGY SYMTPOMS, # 90 capsule, 6 Refills, Maintenance, 08/28/23 15:44:00 EDT, [facility]-, 176, cm, 05/01/23 9:52:00 [...] Gm, 2 Refills, Maintenance, 11/29/23 15:54:00 EDT, [id number], 30, USE 1 SPRAY IN EACH NOSTRIL TWICE A DAY, 176, cm, 11/29/23 15:37:00 EDT, Height, 70, kg, ... Start Date: 11/29/23 Status: Ordered Four Prong Cane Four Prong Cane, See Instructions, # 1 each, Refills 0, Tot. Refills 0, Maintenance, use as directed for dx unsteady gait (R26.81) lumbar stenosis (M48.061) [facility] [phone], 11/30/23 8:20:00 EDT, Supply Start Date: 11/30/23 [...] tibial avulsion (S82.153A), 05/02/21 9:45:00 EDT, [facility] [id number], Supply Start Date: 05/02/21 Status: Ordered Knee Support See Instructions, # 1 each, Maintenance, Left knee brace Dx: bilateral tibial plateau fracture (S82.143A) Bilateral tibial avulsion (S82.153A), 05/02/21 9:48:00 EDT, [facility] [phone], Supply Start Date: 05/02/21 Status: Ordered Left wrist brace. Dx left wrist pain Left wrist brace. Dx left wrist pain, See Instructions, # 1 each, Refills 0, Tot. Refills 0, Maintenance, Wear as tolerated Dx: Left wrist scaphoid fracture (S62.002A) Left wrist pain (M25.532), 05/02/21 9:46:00 EDT, [facility] [phone], Supply Start Date: 05/02/21 Status: Ordered naproxen 500 mg oral tablet 1 tablet, By Mouth, 2 times a day, PRN NEEDED FOR MODERATE PAIN WITH FOOD, # 60 tablet, 0 Refills, Maintenance, 08/28/23 9:30:00 EDT, [facility][id number], 176, cm, 05/01/23 9:52:00EDT, Height, 70, kg, [...] Gm, 5 Refills, Maintenance, 10/26/23 16:55:00 EDT, [facility], 176, cm, 09/11/23 10:39:00 EDT, Height, 70, [...] Medicare annual wellness visit, subsequent Discharge Diagnosis 11/29/23 Anxiety and depression Discharge Diagnosis 11/29/23 Bipolar disorder Discharge Diagnosis 11/29/23 COPD with emphysema Discharge Diagnosis 11/29/23 Cocaine abuse Discharge Diagnosis 11/29/23 GERD (gastroesophageal reflux disease) Discharge Diagnosis 11/29/23 Polysubstance abuse Discharge Diagnosis 11/29/23 Hypertension Discharge Diagnosis 11/29/23 Schizoaffective disorder Discharge Diagnosis 11/29/23 Substance abuse Discharge Diagnosis 11/29/23 infeced groin mesh Discharge Diagnosis 11/29/23 Encounter for screening colonoscopy Discharge Diagnosis 11/29/23 Right inguinal hernia Discharge Diagnosis 11/29/23 Vital Signs Most recent to oldest [Reference Range]: 1 Height 176 cm (11/29/23 3:37 PM) Weight 71.5 kg (11/29/23 3:37 PM) Oxygen Saturation [94-100 %] 97 % (11/29/23 3:37 PM) Pulse Rate [55-90 bpm] 81 bpm (11/29/23 3:37 PM) Body Mass Index [18.5-24.99 kg/m2] 23.08 kg/m2 (11/29/23 3:37 PM) Blood Pressure [90-138/55-84 mm Hg] 106/ 73mm Hg (11/29/23 3:37 PM) Mode of Delivery (Oxygen) Room air (11/29/23 3:37 PM) Blood pressure sites Arm, left (11/29/23 3:37 PM) Weight Obtained Via Standing scale (11/29/23 3:37 PM) Social History Social History Type Response Smoking Status 5-9 cigarettes (betw een 1/4 to 1/2 pack)/day in last 30 days entered on: 02/27/23 Sex Note * Ginger David: PERFORM Event Display: Patient Education/Instruction Authored Date: [id number] Ambulatory Adult Visit Summary [facility] Adlt [facility] Adlt [address] [place], [place] [id number] Name: DARWIN STAHL : 1970?? Visit: 11/29/2023 15:29?? Ambulatory Visit Instructions ?? Your Care Team Primary Care Provider Mae Brennan NP? This Visit Provider Mae Brennan NP Your Diagnosis Medicare annual wellness visit, subsequent Anxiety and depression Bipolar disorder COPD with emphysema Cocaine abuse GERD (gastroesophageal reflux disease) Polysubstance abuse Hypertension Schizoaffective disorder Substance abuse infeced groin mesh Encounter for screening colonoscopy Bilateral knee pain Diabetes mellitus screening Screening for prostate cancer Lipid screening IV drug user Need for hepatitis C screening test Vitals Signs Pulse Rate: 81 bpm Height: 176 cm Systolic Blood Pressure: 106 mm Hg Weight: 71.5 kg Diastolic Blood Pressure: 73 mm Hg Body Mass Index: 23.08 kg/m2 Oxygen Saturation: 97 % Body surface area: 1.87 What to do next Scheduled Follow-Up Appointments Sunday 11:45 AM EDT ?? With: Amilcar WAY, Jordon Valente Where: [facility] [address] [place] [address]- Status: Pending Sunday 11:30 AM EDT ?? Where: [facility] Status: Pending Sunday 10:00 AM EST ?? With: José Cruz Where: [facility] General Surgery [address] [place] [address] Drive [address] [place] [address]- Status: Pending Sunday 2:00 PM EST ?? With: Kee WAY, Raven Valente Where: [facility] [address] [place] [address]- Status: Pending Follow-Up Appointments Follow Up with??Mae Brennan NP When:??12/04/2024 11:40 AM EDT Why: Medicare wellness visit Where: [address] [facility] [address] [place] [address]- Follow Up with??Mae Brennan NP When:??04/03/2024 10:40 AM EST Why: follow up Where: [address] [address]- Future Orders XR Knees Bilat Standing, Routine, Reason for Exam: Pain, Once, *Est. 11/29/23 Drug Tox Screen 8 UR w/conf - Urine, Once, *Est. 04/28/23 +/- 21 days, Single or Recurring Future Order?? Basic Metabolic Panel - Routine, Once, 11/29/23 16:30:00 EDT, Future Order, [facility], Blood?? PSA Screen - Routine, Once, 11/29/23 16:30:00 EDT, Future Order, [facility], Blood?? Hemoglobin A1C (Monitoring) - Routine, Once, 11/29/23 16:30:00 EDT, Future Order, [facility], Blood?? Lipid Panel Non Fasting - Routine, Once, 11/29/23 16:32:00 EDT, Future Order, [facility], Blood?? ALT - Routine, Once, 11/29/23 16:32:00 EDT, Future Order, [facility], Blood?? TSH - Routine, Once, 11/29/23 16:32:00 EDT, Future Order, [facility], Blood?? HIV Ab-Ag 4th Generation - Routine, Once, 11/29/23 16:34:00 EDT, Future Order, [facility], Blood?? Hepatitis C Ab - Routine, Once, 11/29/23 16:34:00 EDT, Future Order, [facility], Blood?? Medications The list below reflects the information in our records and provided by you today along with any changes made during this visit. Please continue your medications until treatment is completed or stopped by your provider. If this is different from the information you have or there are other questions,please contact the prescribing provider. What How Much When Why Instructions Changed Fluticasone Nasal (fluticasone 50 mcg/ inh nasal spray)See instructions USE 1 SPRAY IN EACH NOSTRIL TWICE A DAY ?? Pickup at [facility] Changed Risperidone (risperiDONE 2 mg oral tablet) 2 tab(s) Oral Twice a day Unchanged Albuterol (Ventolin HFA 108 mcg/ inh inhalation aerosol with adapter) 2 puff(s) Inhalation 4 times a day as needed for NEEDED FOR WHEEZING Duration: 30 Days Unchanged Ammonium Lactate 12% (ammonium lactate 12% topical cream) Unchanged Benztropine (Cogentin Tablet) 2 Milligram Oral Twice a day Unchanged DiphenhydrAMINE (Banophen 25 mg oral capsule) 1 capsule Oral 3 times a day as needed for NEEDED FOR ALLERGY SYMTPOMS Unchanged Divalproex Sodium (divalproex sodium 500 mg oral enteric coated tablet) 1 tab(s) Oral Twice a day take with 250mg for a total dose of 750mg ?? Unchanged Durable Medical Equipment (Cane) See instructions Chronic back pain Unsteady gait Fracture of tibial plateau Avulsion fracture of tibial tuberosity 4 Prong Cane Dx: Dx: bilateral tibial plateau ??fracture (S82.143A) Bilateral tibial avulsion (S82.153A) Chronic low back pain (M54.9) Unsteady Gait (R6.81) Life long (99) ?? Unchanged Durable Medical Equipment (Knee Support) See instructions Right knee pain Fracture of tibial plateau Avulsion fracture of tibial tuberosity Left knee brace Dx: bilateral tibial plateau ??fracture (S82.143A) Bilateral tibial avulsion (S82.153A) ?? Unchanged Durable Medical Equipment (Knee Support) See instructions Right knee pain Fracture of tibial plateau Avulsion fracture of tibial tuberosity Right knee brace Dx: bilateral tibial plateau ??fracture (S82.143A) Bilateral tibial avulsion (S82.153A) ?? Unchanged Durable Medical Equipment (Walker) See instructions Use while ambulating to prevent falls ?? Unchanged Glucosamine (glucosamine 750 mg oral tablet) 2 tab(s) Oral Daily Duration: 90 Days Unchanged Miscellaneous Rx (Left wrist brace. Dx left wrist pain) See instructions Left wrist pain Fracture of scaphoid of left wrist Wear as tolerated Dx: Left wrist scaphoid fracture (S62.002A) Left wrist pain (M25.532) ?? Unchanged Naproxen (naproxen 500 mg oral tablet) 1 tab(s) Oral Twice a day as needed for NEEDED FOR MODERATE PAIN WITH FOOD Unchanged Pantoprazole (pantoprazole 40 mg oral delayed release tablet) 1 tab(s) Oral Daily Unchanged umeclidinium-vilanterol (Anoro Ellipta 62.5 mcg-25 mcg/ inh inhalation powder) 1 puff(s) Inhalation Daily Duration: 30 Days Pharmacy Information [facility]03460: [address] [id number] [phone] Test Performed Below is a partial list of the tests performed during your Visit. You may have had other tests and procedures not included in this list. Please discuss all test results with your provider. ALT?-- Results Pending -- Basic Metabolic Panel?-- Results Pending -- Hemoglobin A1C (Monitoring)?-- Results Pending -- Hepatitis C Ab?-- Results Pending -- HIV Ab-Ag 4th Generation?-- Results Pending -- Lipid Panel Non Fasting?-- Results Pending -- PSA Screen?-- Results Pending -- TSH?-- Results Pending -- Medications and Immunizations Administered Medications Given During Visit No medications given during this visit.?? Allergies (NKA means No Known Allergies) lithium??(bladder/ metabolism) Education Materials Below is the list of Educational Leaflet Providered with your Visit summary. [employer] Patient Education - Health Screening Guidelines, Men Ages 50 to 64?? Common Emergency Awareness Tips IS IT A STROKE? Act FAST and Check for these signs: FACE Does the face look uneven? ARM Does one arm drift down? SPEECH Does their speech sound strange? TIME Call at any sign of stroke ?? Heart Attack Signs Chest discomfort: Most heart attacks involve discomfort in the center of the chest and lasts more than a few minutes, or goes away and comes back. It can feel like uncomfortable pressure, squeezing, fullness or pain. Discomfort in upper body: Symptoms can include pain or discomfort in one or both arms, back, neck, jaw or stomach. Shortness of breath: With or without discomfort. Other signs: Breaking out in a cold sweat, nausea, or lightheaded. Remember, MINUTES DO MATTER. If you experience any of these heart attack warning signs, call to get immediate medical attention! ?? Smoking can increase your chances of developing chronic health problems and can cause harmful effects to other family members in your house. If you smoke, you are strongly encouraged to quit. Please call [facility] [employer] [facility] at [phone] or [phone] ([phone]) or log in to [email or web address] for referrals to smoking cessation programs. ?? The National Suicide Prevention Hotline is available 11/09 if you or someone you know needs to find a reason to keep living. By calling 7-244-902-[employer] (3845) you'll be connected to a skilled, trained counselor at a crisis center in your area. [facility] [employer] Portal You can view and manage your care through the patient portal or by using a health care jerardo of your choosing. [employer] is a website that allows you to securely view your medical information including your hospital discharge summary, office visit summaries, medications and follow-up visits. You can also request appointments, renew medications, and request access to your medical information using a health care jerardo of your choosing, or just ask a question. You can enroll at [email or web address] or register during your next office visit. [facility], in keeping with [facility] guidance, no longer requires face masks for staff, patientsor visitors in most situations. Similiar to time spent indoors at other locations, there is the chance that you were exposed to repiratory viruses during your time with us (such as flu or COVID-19). If you develop symptoms concerning for a viral respiratory infection, please seek testing (and treatment if indicated) from your medical provider or home test kit. ?? Disclaimer: The information provided is of a general nature and is intended to be used in conjunction with the recommendations and advice of your health care practitioner. Every effort has been made to ensure that the information provided is accurate and complete at the time it is provided to you however, as your needs change, or, as new information becomes available, different or additional instructions may be required. ?? If you have questions, please consult with your primary care provider or pharmacist, as appropriate. This information is not intended to serve as substitution for assessment and evaluation by a qualified health care provider. If you do not have a primary care provider, you may find a [facility] provider by calling [facility] [employer] at [phone]. * Mika CLAY, Mae O: PERFORM Event Display: Patient Education Leaflets Authored Date: [id number] Health Screening Guidelines, Men Ages 50 to 64 ?? [address] Health Screening Guidelines, Men Ages 50 to 64 Screening tests and health counseling are a [place] part of managing your health. A screening test is done to find disorders or diseases in people who don't have any symptoms. Screening tests are not used to diagnose. They are used to find out if more testing is needed. The goal may be to find a disease early so it can be treated with more success. Or the goal may be to find a disease early so you can make lifestyle changes. You may need regular checkups to help you reduce your risk of disease. Below are guidelines for men ages 50 to 64. Talk with your healthcare provider. Make sure you???re up-to-date on what you need. ?? Screening Who needs it How often Unhealthy alcohol use All men in this age group At routine exams Blood pressure All men in this age group Once a year if your blood pressure is normal. Normal blood pressure is less than 120/80 mm Hg. If your blood pressure is higher than this, follow the advice of your healthcare provider. Colorectal cancer All men in this age group Talk with your healthcare provider about which test below is right for you: ??? Colonoscopy every 10 years ??? Flexible sigmoidoscopy every 5 years or every 10 years with yearly fecal immunochemical test (FIT) stool test ??? CT colonography (virtual colonoscopy) every 5 years ??? Yearly fecal occult blood test ??? Yearly FIT ??? Stool FIT-DNA test (also called the stool DNA test) every 3 years If you have a test that is not a colonoscopy and have an abnormal test result, you will need a colonoscopy. You may need to be screened more or less often. This is based on personal or family health history.Talk with your healthcare provider. Depression All men in this age group At routine exams Type 2 diabetes or prediabetes All men in this age group with no symptoms who are overweight or obese. At least every 3 years (yearly if your blood sugar has already begun to rise) Type 2 diabetes All men with prediabetes Every year Hepatitis C All adults age 18 or older at least once in a lifetime. Talk with your healthcare provider about your risk factors and how often to have hepatitis C screening. High cholesterol or triglycerides All men in this age group About every 1 to 2 years. Expert groups vary in their advice. Talk with your healthcare provider about your risk factors and how often you should be tested. HIV All men in this age group At least 1 time. Talk with your healthcare provider about your risk factors. Ask if you should be tested more often. Lung cancer All men in this age group who are in fairly good health and are at higher risk for lung cancer, andwho: ??? Smoke or quit in the past 15 years ??? Have a 20-pack per year smoking history (1 pack a day for 20 years or 2 packs a day for 10 years) Expert groups vary in their advice. Talk with your healthcare provider. Yearly lung cancer screening with a low-dose CT scan. Talk with your healthcare provider about yourrisk factors. Obesity All men in this age group At yearly routine exams BMI (body mass index) All men in this age group Every year, to help find out if you are at a healthy weight for your height. Prostate cancer All men in this age group, talk with your healthcare provider about risks and benefits of a digitalrectal exam and prostate-specific antigen screening At routine exams if you decide to be tested. Syphilis Men at higher risk for infection At routine exams. Talk with your healthcare provider. Tuberculosis Men at higher risk for infection Talk with your healthcare provider Vision All men in this age group Baseline screening at age 40. Talk with your healthcare provider about how often to have vision exams. Health counseling Who needs it How often Diet and exercise Men who are overweight or obese When diagnosed, and then at routine exams Sexually transmitted infection prevention Men at higher risk for infection At routine exams, talk with your healthcare provider Use of tobacco and the health effects it can cause All men in this age group Every exam Last Reviewed Date: 2023 ?? 2036-3350 [employer]. All rights reserved. This information is not intended as a substitute for professional medical care. Always follow your healthcare professional's instructions. ?? Patient Care team information Care Team Personnel Name: Naty Malcolm RN Position: [facility] RN Member Role: [...] Role: Lifetime Consulting Physician Address: Address: [address] [place] [address] [address] [facility] [place] [address]- [place] Name: Tala Plasencia RN Position: [facility] [...] Professional Member Role: PCP Address: Address: [address] [place] [address]- [place] Name: Belinda Gusman RN Position: [facility] [employer] Packer Member Role: Primary Care Nurse Name: Chito Powers RN Position: [facility] RN Member Role: Primary Care Nurse Name: Antonio Velasquez RN Position: [facility] RN Member Role: Primary Care Nurse Name: Alexey Ramos RN Position: [facility] RN Member Role: Primary Care Nurse Name: Crow Burk MD Position: [facility] Renal MD Member Role: Lifetime Consulting Physician Address: Address: [address] [place] [address] [address] [facility] [place] [address]- [place] Name: Emelyn Corbin RN Position: [facility] RN Member Role: Primary Care Nurse Name: Aurea Gutierrez RN Position: [facility] RN Member Role: Primary Care Nurse Care Team Related Persons Name: CHARLES FRANKLIN Address: home [address] [place] [address]
--- OUTSIDE RECORDS SUMMARY | 2023-12-23 05:29 | XMS_ITS | Continuity of Care Document ---
Author Organization [facility] As [facility] Address [address] [place] [address] ve [address] [place] [address]- Care Team Providers Care Fire Sprinkler Service Technician Name Role Phone Mika CLAY, Mae Serrano Primary Care Physician [facility] Date[facility]s): 11/[facility]/23 - 12/15/[address] [place], [place] [address] Allergies, Adverse Reactions, Alerts Substance Reaction Severity Status lithium bladder/ metabolism Active Immunizations Given and Recorded Vaccine Date Status Refusal Reason SARS-CoV-2(COVID-19)mRNA-LNP vac([id number]) 12/18/22 Recorded influenza virus vaccine, inactivated 11/15/22 Preet rded [id number] bivalent booster vax 12/16/21 Recorded SARS-CoV-2 mRNA (bqmejmd-tgpw-zeynl) vax 03/14/21 Recorded SARS-CoV-2 (COVID-19) mRNA BNT-162b2 [...] 11 Refills, Maintenance, 02/01/23 10:55:00 EST, Powder, [facility] [place] Partial fill upon patient request if the prescription is for a schedule II opioid drug., 1 puffs Inhalation Daily,x30 da... Start Date: 02/01/23 Stop Date: 01/27/24 Status: Ordered Banophen 25 mg oral capsule 1 capsule, By Mouth, 3 times a day, PRN NEEDED FOR ALLERGY SYMTPOMS, # 90 capsule, 6 Refills, Maintenance, 08/28/23 15:44:00 EDT, [facility]-, 176, cm, 05/01/23 9:52:00 EDT, Height, [...] Gm, 2 Refills, Maintenance, 11/29/23 15:54:00 EDT, [facility]-, 30, USE 1 SPRAY IN EACH NOSTRIL TWICE A DAY, 176, cm, 11/29/23 15:37:00 EDT, Height, 70, kg, ... Start Date: 11/29/23 Status: Ordered Four Prong Cane Four Prong Cane, See Instructions, # 1 each, Refills 0, Tot. Refills 0, Maintenance, use as directed for dx unsteady gait (R26.81) lumbar stenosis (M48.061) [facility] [phone], 11/30/23 8:20:00 EDT, Supply Start Date: 11/30/23 [...] tibial avulsion (S82.153A), 05/02/21 9:45:00 EDT, [facility] [id number], Supply Start Date: 05/02/21 Status: Ordered Knee Support See Instructions, # 1 each, Maintenance, Left knee brace Dx: bilateral tibial plateau fracture (S82.143A) Bilateral tibial avulsion (S82.153A), 05/02/21 9:48:00 EDT, [facility] [id number], Supply Start Date: 05/02/21 Status: Ordered Left [...] tablet, 0 Refills, Maintenance, 08/28/23 9:30:00 EDT, [facility]-[id number], 176, cm, 05/01/23 9:52:00EDT, Height, 70, kg, [...] Gm, 5 Refills, Maintenance, 10/26/23 16:55:00 EDT, [facility]13301, 176, cm, 09/11/23 10:39:00 EDT, Height, 70, [...] Care Nurse Name: Rowan Damon RN Position: [facility] HBO Wound Member Role: Primary Care Nurse Name: Lionel Ludwig MD Position: [facility] Renal MD Member Role: Lifetime Consulting Physician Address: Address: [address] [place] [address] [address] [place] [address]- [place] Name: Tala Plasencia RN Position: [facility] RN Member Role: Primary Care Nurse Name: Franklin Seth RN Position: [facility] RN Member Role: Primary Care Nurse Name: Kathy Honeycutt RN Position: [facility] RN Member [...] Katelynn Milan RN Position: [facility] RN Member Role: Primary Care Nurse Name: Mae Brennan NP Position: [facility] PCO Associate Professional Member Role: PCP Address: Address: [address] [place] [address]- [place] Name: Belinda Gusman RN Position: [facility] Hospital Special Education Supervisor Member Role: Primary Care Nurse Name: Chito Powers RN Position: [facility] RN Member Role: Primary Care Nurse Name: Antonio Velasquez RN Position: [facility] RN Member Role: Primary Care Nurse Name: Alexey Ramos RN Position: [facility] RN Member Role: Primary Care Nurse Name: Crow Burk MD Position: [facility] Renal MD Member Role: Lifetime Consulting Physician Address: Address: [address] [place] [address] [address] [facility] [place], [place] [address] Name: Emelyn Corbin RN Position: S RN Member Role: Primary Care Nurse Name: Aurea Gutierrez RN Position: S RN Member Role: Primary Care Nurse Care Team Related Persons Name: CHARLES FRANKLIN Address: [place] [address]
--- OUTSIDE RECORDS SUMMARY | 2023-12-23 05:30 | XMS_ITS | Continuity of Care Document ---
Author Organization [facility] Adult Address [address] [place] [address]- Care Team Providers Care Power Plant Operations Manager Name Role Phone Mika CLAY, Mae Serrano Primary Care Physician [place] [facility] [place]26[place] - 11/25/[address] [address]- Allergies, Adverse Reactions, Alerts Substance Reaction Severity Status lithium bladder/ metabolism Active Immunizations Given and Recorded Vaccine Date Status Refusal Reason SARS-CoV-2(COVID-19)mRNA-LNP vac([id number]) 12/18/22 Recorded influenza virus vaccine, inactivated 11/15/22 Preet rded [id number] bivalent booster vax 12/16/21 Recorded SARS-CoV-2 mRNA (bfqfjmd-wkaz-tqfif) vax 03/14/21 Recorded SARS-CoV-2 (COVID-19) mRNA BNT-162b2 vac 04/30/20 Recorded SARS-CoV-2 (COVID-19) mRNA BNT-162b2 vac 04/01/20 Recorded tetanus/diphtheria/pertussis, acel(Tdap) 03/09/17 Given Medications Anoro Ellipta 62.5 mcg-25 mcg/inh inhalation powder 1 puffs, Inhalation, Daily, # 1 each, 11 Refills, Maintenance, 02/01/23 10:55:00 EST, Powder, [facility] Partial fill upon patient request if the prescription is for a schedule II opioid drug., 1 puffs Inhalation Daily,x30 da... Start Date: 02/01/23 Stop Date: 01/27/24 Status: Ordered Banophen 25 mg oral capsule 1 capsule, By Mouth, 3 times a day, PRN NEEDED FOR ALLERGY SYMTPOMS, # 90 capsule, 6 Refills, Maintenance, 08/28/23 15:44:00 EDT, [facility]-, 176, cm, 05/01/23 9:52:00 EDT, Height, [...] Gm, 2 Refills, Maintenance, 08/28/23 11:30:00 EDT, [facility]-[id number], 30, USE 1 SPRAY IN EACH NOSTRIL [...] tablet, 0 Refills, Maintenance, 08/28/23 9:30:00 EDT, [facility]-22956, 176, cm, 05/01/23 9:52:00EDT, Height, 70, kg, 12/21/22 12:46:00 EDT, Dry Weight Start Date: 08/28/23 Stop Date: 02/19/24 Status: Ordered pantoprazole 40 mg oral delayed release tablet 1 tablet, By Mouth, Daily, # 30 tablet, 2 Refills, Maintenance, 11/17/23 9:08:00 EDT, 176, cm, 09/11/23 10:39:00 EDT, Height, 70, kg, 12/21/22 12:46:00 EDT, Dry Weight Start Date: 11/17/23 Status: Ordered risperiDONE 1 mg oral tablet [...] Gm, 5 Refills, Maintenance, 10/26/23 16:55:00 EDT, [facility]-27821, 176, cm, 09/11/23 10:39:00 EDT, Height, 70, [...] Team Personnel Name: Naty Malcolm RN Position: [facility] RN Member Role: Primary Care Nurse Name: Harshil Cardoso RN Position: [facility] RN Member Role: Primary Care Nurse Name: Meri Lima RN Position: [facility] ED RN W/OE and Tasks Member Role: Primary Care Nurse Name: Rowan Damon RN Position: [facility] HBO Wound Member Role: Primary Care Nurse Name: Lionel Ludwig MD Position: [facility] Renal MD Member Role: Lifetime Consulting Physician Address: Address: [address] [place] [address] [address] [facility] [place] [address]- [place] Name: Tala Plasencia RN Position: [facility] RN Member Role: Primary Care Nurse Name: Franklin Seth RN Position: [facility] RN Member Role: Primary Care Nurse Name: Kathy Honeycutt RN Position: [facility] RN Member Role: Primary Care Nurse Name: Gideon Miller RN Position: [facility] SN RN Member Role: Primary Care Nurse Name: Az Pham RN Position: [facility] ED RN W/OE and Tasks Member Role: Primary Care Nurse Name: Libertad Olmos RN Position: [facility] RN Member Role: Primary Care Nurse Name: Daily Mane RN Position: [facility] RN Member Role: Primary Care Nurse Name: Katelynn Milan RN Position: [facility] RN Member Role: Primary Care Nurse Name: Mae Brennan NP Position: [facility] PCO Associate Professional Member Role: PCP Address: Address: [address] [place] [address]- [place] Name: Belinda Gusman RN Position: [facility] Talent Engineer Member Role: Primary Care Nurse Name: Chito Powers RN Position: [facility] RN Member Role: Primary Care Nurse Name: Antonio Velasquez RN Position: [facility] RN Member Role: Primary Care Nurse Name: Alexey Ramos RN Position: [facility] RN Member Role: Primary Care Nurse Name: Crow Burk MD Position: [facility] Renal MD Member Role: Lifetime Consulting Physician Address: Address: [address] [place] [address] [address] [facility] [place] [address]- [place] Name: Emelyn Corbin RN Position: [facility] RN Member Role: Primary Care Nurse Name: Aurea Gutierrez RN Position: S RN Member Role: Primary Care Nurse Care Team Related Persons Name: RIGOBERTO CHARLES Address: [address] [address]
--- OUTSIDE RECORDS SUMMARY | 2023-12-23 05:31 | XMS_ITS | Continuity of Care Document ---
Author Organization [facility] As [facility] Address [address] [place] [address] ve [address] [place] [address]- Care Team Providers Care Functional Manager Name Role Phone Mika CLAY, Mae Serrano Primary Care Physician [phone] [facility]counter [facility] Date[facility]s): 11/14/23 - 12/14/[address] [place], [place] [address] Allergies, Adverse Reactions, Alerts Substance Reaction Severity Status lithium bladder/ metabolism Active Immunizations Given and Recorded Vaccine Date Status Refusal Reason SARS-CoV-2(COVID-19)mRNA-LNP vac([id number]) 12/18/22 Recorded influenza virus vaccine, inactivated 11/15/22 Preet rded [id number] bivalent booster vax 12/16/21 Recorded SARS-CoV-2 mRNA (gfbkiqd-lmlc-uxuay) vax 03/14/21 Recorded SARS-CoV-2 (COVID-19) mRNA BNT-162b2 [...] Refills, Maintenance, 02/01/23 10:55:00 EST, Powder, [facility]-, Partial fill upon patient request if the prescription is for a schedule II opioid drug., 1 puffs Inhalation Daily,x30 da... Start Date: 02/01/23 Stop Date: 01/27/24 Status: Ordered Banophen 25 mg oral capsule 1 capsule, By Mouth, 3 times a day, PRN NEEDED FOR ALLERGY SYMTPOMS, # 90 capsule, 6 Refills, Maintenance, 08/28/23 15:44:00 EDT, [facility]-, 176, cm, 05/01/23 9:52:00 EDT, Height, [...] Gm, 2 Refills, Maintenance, 11/29/23 15:54:00 EDT, [facility]-, 30, USE 1 SPRAY IN EACH NOSTRIL TWICE A DAY, 176, cm, 11/29/23 15:37:00 EDT, Height, 70, kg, ... Start Date: 11/29/23 Status: Ordered Four Prong Cane Four Prong Cane, See Instructions, # 1 each, Refills 0, Tot. Refills 0, Maintenance, use as directed for dx unsteady gait (R26.81) lumbar stenosis (M48.061) [facility] [phone], 11/30/23 8:20:00 EDT, Supply Start Date: 11/30/23 [...] tibial avulsion (S82.153A), 05/02/21 9:45:00 EDT, [facility] [id number], Supply Start Date: 05/02/21 Status: Ordered Knee [...] tablet, 0 Refills, Maintenance, 08/28/23 9:30:00 EDT, [facility]-36169, 176, cm, 05/01/23 9:52:00EDT, Height, 70, kg, [...] Gm, 5 Refills, Maintenance, 10/26/23 16:55:00 EDT, [facility]647, 176, cm, 09/11/23 10:39:00 EDT, Height, 70, [...] Role: Lifetime Consulting Physician Address: Address: [address] [place] [address] [address] [place] [address]- [place] Name: Tala Plasencia RN Position: [facility] RN Member Role: Primary Care Nurse Name: Franklin Seth RN Position: [facility] RN Member Role: Primary Care Nurse Name: Kathy Honeycutt RN Position: [facility] RN [...] Professional Member Role: PCP Address: Address: [address] [place] [address]- [place] Name: Belinda Gusman RN Position: [facility] Hospital Functional Manager Member Role: Primary Care Nurse Name: [...] Role: Lifetime Consulting Physician Address: Address: [address] [place] [address] [address] [facility] [place], [place] [address] Name: Emelyn Corbin RN Position: S RN Member Role: Primary Care Nurse Name: Aurea Gutierrez RN Position: S RN Member Role: Primary Care Nurse Care Team Related Persons Name: CHARLES FRANKLIN Address: [place] [address]
--- OUTSIDE RECORDS SUMMARY | 2023-12-23 05:31 | XMS_ITS | Continuity of Care Document ---
Author Organization [facility] Adult Address [address] [place] [address]- Care Team Providers Care Manager Licensing Name Role Phone Mika CLAY, Mae Serrano Primary Care Physician [phone] [facility] Date(s): 11/06/23 - 12/06/23 [facility] Adult [address] [place] [address] Allergies, Adverse Reactions, Alerts Substance Reaction Severity Status lithium bladder/ metabolism Active Immunizations Given and Recorded Vaccine Date Status Refusal Reason SARS-CoV-2(COVID-19)mRNA-LNP vac([id number]) 12/18/22 Recorded influenza virus vaccine, inactivated 11/15/22 Preet rded [id number] bivalent booster vax 12/16/21 Recorded SARS-CoV-2 mRNA (cximhka-iood-rlezr) vax 03/14/21 Recorded SARS-CoV-2 (COVID-19) mRNA BNT-162b2 [...] 11 Refills, Maintenance, 02/01/23 10:55:00 EST, [facility], [facility] Partial fill upon patient request if the prescription is for a schedule II opioid drug., 1 puffs Inhalation Daily,x30 da... Start Date: 02/01/23 Stop Date: 01/27/24 Status: Ordered Banophen 25 mg oral capsule 1 capsule, By Mouth, 3 times a day, PRN NEEDED FOR ALLERGY SYMTPOMS, # 90 capsule, 6 Refills, Maintenance, 08/28/23 15:44:00 EDT, [facility]-, 176, cm, 05/01/23 9:52:00 EDT, [...] Gm, 2 Refills, Maintenance, 11/29/23 15:54:00 EDT, [facility]-, 30, USE 1 SPRAY IN EACH NOSTRIL TWICE A DAY, 176, cm, 11/29/23 15:37:00 EDT, Height, 70, kg, ... Start Date: 11/29/23 Status: Ordered Four Prong Cane Four Prong Cane, See Instructions, # 1 each, Refills 0, Tot. Refills 0, Maintenance, use as directed for dx unsteady gait (R26.81) lumbar stenosis (M48.061) [facility] [phone], 11/30/23 8:20:00 EDT, Supply Start Date: 11/30/23 [...] tibial avulsion (S82.153A), 05/02/21 9:45:00 EDT, [facility] [id number], Supply Start Date: 05/02/21 Status: Ordered Knee Support See Instructions, # 1 each, Maintenance, Left knee brace Dx: bilateral tibial plateau fracture (S82.143A) Bilateral tibial avulsion (S82.153A), 05/02/21 9:48:00 EDT, [facility] [id number], Supply Start Date: 05/02/21 Status: Ordered Left wrist brace. Dx left wrist pain Left wrist brace. Dx left wrist pain, See Instructions, # 1 each, Refills 0, Tot. Refills 0, Maintenance, Wear as tolerated Dx: Left wrist scaphoid fracture (S62.002A) Left wrist pain (M25.532), 05/02/21 9:46:00 EDT, [facility] [id number], Supply Start Date: 05/02/21 Status: Ordered naproxen 500 mg oral tablet 1 tablet, By Mouth, 2 times a day, PRN NEEDED FOR MODERATE PAIN WITH FOOD, # 60 tablet, 0 Refills, Maintenance, 08/28/23 9:30:00 EDT, [facility]-07425, 176, cm, 05/01/23 9:52:00EDT, Height, 70, kg, [...] Gm, 5 Refills, Maintenance, 10/26/23 16:55:00 EDT, [facility], 176, cm, 09/11/23 10:39:00 EDT, Height, 70, [...] Care Nurse Name: Harshil Cardoso RN Position: [facility] RN Member Role: Primary Care Nurse Name: Meri Lima RN Position: [facility] ED RN W/OE and Tasks Member Role: Primary Care Nurse Name: Rowan Damon RN Position: [facility] HBO Wound Member Role: Primary Care Nurse Name: Lionel Ludwig MD Position: [facility] Renal MD Member Role: Lifetime Consulting Physician Address: Address: [address] [place] [address] [address] [place] [address]- [place] Name: Tala Plasencia RN Position: [facility] RN Member Role: Primary Care Nurse Name: Franklin Seth RN Position: [facility] RN Member Role: Primary Care Nurse Name: Kathy Honeycutt RN Position: [facility] RN [...] Milan RN Position: [facility] RN Member Role: Primary Care Nurse Name: Mae Brennan NP Position: [facility] PCO Associate Professional Member Role: PCP Address: Address: [address] [place] [address]- [place] Name: Belinda Gusman RN Position: [facility] Cable Former Member Role: Primary Care Nurse Name: Chito [...] Role: Lifetime Consulting Physician Address: Address: [address] [place] [address] [address] [facility] [place], [place] [address] Name: Emelyn Corbin RN Position: S RN Member Role: Primary Care Nurse Name: Aurea Gutierrez RN Position: S RN Member Role: Primary Care Nurse Care Team Related Persons Name: CHARLES FRANKLIN Address: [place] [address]
[2023-12-23 05:50] LABS: Amphetamine Screen Urine Not Detected (Not Detect); Barbiturates, Urine Not Detected (Not Detect); Benzodiazepines Screen Urine Not Detected (Not Detect); Buprenorphine Scr Not Detected (Not Detect); Cannabinoid Screen Urine POSITIVE (Not Detect); Cocaine Screen Urine Not Detected (Not Detect); Fentanyl, urine Not Detected (Not Detect); Methadone Screen, Urine Not Detected (Not Detect); Opiate Screen Urine Not Detected (Not Detect); Oxycodone Screen Urine Not Detected (Not Detect); Phencyclidine Screen Urine Not Detected (Not Detect)
--- NOTE | 2023-12-23 05:53 | ED_ITS ---
HPI - Medical Clearance General Chief complaint: Medical Clearance Stated complaint: needs vitals and urine screening for detention Time Seen by Provider: 12/23/23 05:10 Source: patient Mode of arrival: ambulatory Limitations: no limitations History of Present Illness ED Provider: gema TUBBS Narrative: Patient from detention was seen smoking in the detention staff wanted medical clearance as patient does have history of substance abuse Related Information Home Medications ?Medication ?Instructions ?Recorded ?Confirmed benztropine 2 mg tablet 2 mg PO BID 02/12/20 02/12/20 buprenorphine 8 mg-naloxone 2 mg 1 film buccal DAILY 02/12/20 sublingual film buspirone 10 mg tablet 10 mg PO BID 02/12/20 02/12/20 divalproex 250 mg tablet,delayed 250 mg PO BID 02/12/20 02/12/20 release divalproex 500 mg tablet,delayed 500 mg PO BID 02/12/20 02/12/20 release risperidone 2 mg tablet 2 mg PO BID 02/12/20 02/12/20 Allergies Allergy/AdvReac Type Severity Reaction Status Date / Time Kiron Citrate Allergy Unknown Unknown Uncoded 12/23/23 04:45 Review of Systems Review of Systems: Yes all other systems are reviewed and are negative PMFSH Past Medical History Medical History Neuropathy Social History Social History Substance Use Type: Heroin Advance Directives: No Advance Directives Information Provided: No Do you have a plan to hurt others: No Plan Physical Exam Vital Signs: Vital Signs: Last Vital Signs Temp 98.2 F 12/23/23 04:41 Pulse 90 12/23/23 04:41 Resp 18 12/23/23 04:41 BP 133/86 12/23/23 04:41 Pulse Ox 98 12/23/23 04:41 O2 Del Method Room Air 12/23/23 04:41 BMI result Body Mass Index 25.8 Appearance: Alert. Oriented X3. No acute distress. ENT: Pharynx normal. Oral Mucosa moist Neck: Normal inspection. Neck supple. CVS: Normal heart rate and rhythm. Pulses normal. Respiratory: No respiratory distress. Equal air entry bilateral, no wheezing/rales/rhonchi Skin: Skin warm and dry. Normal skin color. Normal skin turgor. Extremities: No lower extremity edema. Neuro: Oriented X 3. Medications Administered Discontinued Medications Generic Name Dose Route Start Last Admin Trade Name Sage PRN Reason Stop Dose Admin Naloxone HCl 8 mg 12/23/23 05:53 12/23/23 06:12 Naloxone Hcl Nasal Take Home 4 Mg [place] NOSTRILALT 12/23/23 05:54 8 mg ONCE ONE Administration Medical Decision Making Lab Data MDM Lab Attestation statement: I reviewed the patient's lab results. Labs: Lab Results 12/23/23 Range/Units Unknown Urine Opiates Screen Not Detected (Not Detect) Ur Buprenorphine Scrn Not Detected (Not Detect) ng/mL Ur Oxycodone Screen Not Detected (Not Detect) ng/mL Urine Methadone Screen Not Detected (Not Detect) ng/mL Urine Fentanyl Screen Not Detected (Not Detect) Ur Barbiturates Screen Not Detected (Not Detect) Ur Phencyclidine Scrn Not Detected (Not Detect) Ur Amphetamines Screen Not Detected (Not Detect) U Benzodiazepines Scrn Not Detected (Not Detect) Urine Cocaine Screen Not Detected (Not Detect) U Marijuana (THC) Screen POSITIVE H (Not Detect) Discharge Plan Discharge Clinical Impression: Cannabis use disorder Patient Disposition: Home, Self-Care Instructions: Cannabis Abuse (ED) Additional Instructions: Your drug screen positive for marijuana only Prescriptions: No Action divalproex 250 mg tablet,delayed release (DR/EC) 250 mg PO BID divalproex 500 mg tablet,delayed release (DR/EC) 500 mg PO BID risperidone 2 mg tablet 2 mg PO BID buspirone 10 mg tablet 10 mg PO BID benztropine 2 mg tablet 2 mg PO BID buprenorphine-naloxone 8-2 mg Film 1 film BUCCAL DAILY Print Language: Syriac
[2023-12-23] MEDS: Naloxone HCl Nasal TAKE HOME 4 MG SPRAY 8 MG NOSTRILALT (06:12)
[2023-12-23 06:24] VITALS: BP 133/86; PULSE 90; RESP 18; TEMP 36.8; O2SAT 98
== END 2023-12-23 06:10 | disposition home or self-care (01) ==
PROVIDERS: Emergency Provider Internal Medicine; PCP Nurse Practitioner Family
DX: F12.10 Cannabis abuse, uncomplicated (principal); Z51.81 Encounter for therapeutic drug level monitoring; Z79.899 Other long term (current) drug therapy
CPT/HCPCS: 80307; 99282; 99283